=== PATIENT | male | born 1940 | race Caucasian/White ===

== ENCOUNTER 2019-11-13 13:42 | Inpatient (IN) | payer MEDICARE, OTHER ==
[~2019-11-13] VITALS: Ht 182.9 cm; Wt 97.5 kg
[2019-11-13 14:38] LABS: BASO % 1 % (0-3); EOS # 0.2 x10^3/uL (0.0-0.7); EOS % 2 % (0-3); HEMATOCRIT 50.2 % (39.0-53.0); HEMOGLOBIN 16.5 g/dL (13.0-17.5); LYMPH # 2.6 x10^3/uL (1.0-4.8); LYMPH % 33 % (24-48); MEAN CORPUSCULAR HEMOGLOBIN 33 pg (25-35); MEAN CORPUSCULAR HGB CONC 33 g/dL (31-37); MEAN CORPUSCULAR VOLUME 99 fL (79-100); MONO # 0.8 x10^3/uL (0.0-1.1); MONO % 10 % (0-9); NEUT # 4.3 x10^3uL (1.8-7.7); NEUT % 54 % (31-73); PLATELET COUNT 160 x10^3/uL (140-400); RED BLOOD COUNT 5.07 x10^6/uL (4.30-5.70); RED CELL DISTRIBUTION WIDTH 14.3 % (11.5-14.5); WHITE BLOOD COUNT 7.9 x10^3/uL (4.0-11.0)
[2019-11-13 14:45] LABS: ALBUMIN 3.7 g/dL (3.4-5.0); DIRECT BILIRUBIN 0.1 mg/dL (0.0-0.2); TOTAL BILIRUBIN 0.3 mg/dL (0.2-1.0); TOTAL PROTEIN 6.7 g/dL (6.4-8.2)
--- NOTE | 2019-11-13 14:55 | PHYS DOC ---
Past History Past Medical History: Anxiety, Bipolar, Dementia, Hypertension, Other Additional Past Medical Histor: mdd, hld, asphasia, edema neoplasm of prostate Past Surgical History: Other Additional Past Surgical Histo: unknown Alcohol Use: None Adult General Chief Complaint Chief Complaint: OTHER COMPLAINTS [facility] HPI Patient is a 78-year-old male who presents to ER for medical clearance for [facility]. Patient from [facility] and has report of behavioral disturbance with aggressive behavior towards staff. Patient denies any chest pain or shortness of breath.[] Review of Systems Review of Systems Constitutional: Denies fever or chills [] Respiratory: Denies cough or shortness of breath [] Cardiovascular: No additional information not addressed in HPI [] GI: Denies abdominal pain, nausea, vomiting, bloody stools or diarrhea [] Integument: Denies rash or skin lesions [] Neurologic: Denies headache, focal weakness or sensory changes [] All other systems were reviewed and found to be within normal limits, except as documented in this note. Allergies Allergies Allergies Coded Allergies Type Severity Reaction Last Updated Verified tetanus toxoid, adsorbed Allergy Unknown 11/13/19 Yes Physical Exam Physical Exam Constitutional: Well developed, well nourished, no acute distress, non-toxic appearance. [] HENT: Normocephalic, atraumatic, bilateral external ears normal, oropharynx moist, no oral exudates, nose normal. [] Eyes: PERRLA, EOMI, conjunctiva normal, no discharge. [] Neck: Normal range of motion, no tenderness, supple, no stridor. [] Cardiovascular: Regular rate and rhythm[] Lungs & Thorax: Bilateral breath sounds clear to auscultation [] Abdomen: Bowel sounds normal, soft, no tenderness. [] Skin: Warm, dry, no erythema, no rash. [] Extremities: No tenderness, no cyanosis, no clubbing, ROM intact. [] Neurologic: Alert and oriented X 3, no focal deficits noted. [] Current Patient Data Vital Signs Vital Signs Date Time Temp Pulse Resp B/P (MAP) Pulse Ox O2 Delivery O2 Flow Rate FiO2 11/13/19 13:45 98.6 74 18 129/70 (89) 95 Room Air Lab Results Laboratory Tests Test 11/13/19 13:50 Total Bilirubin 0.3 mg/dL (0.2-1.0) Direct Bilirubin 0.1 mg/dL (0.0-0.2) Aspartate Amino Transferase (AST) 28 U/L (15-37) Alanine Aminotransferase (ALT) 34 U/L (16-63) Alkaline Phosphatase 97 U/L (46-116) Total Protein 6.7 g/dL (6.4-8.2) Albumin 3.7 g/dL (3.4-5.0) EKG EKG [] Radiology/Procedures Radiology/Procedures [] Course & Med Decision Making Course & Med Decision Making Pertinent Labs and Imaging studies reviewed. (See chart for details) [] Dragon Disclaimer Dragon Disclaimer This electronic medical record was generated, in whole or in part, using a voice recognition dictation system. Departure Departure: Impression: Primary Impression: Behavior disturbance Disposition: ADMITTED INPATIENT Admitting Physician: Other Condition: STABLE Referrals: UNKNOWN (PCP) ROMEL NUNEZ Jr. DO Nov 13, 2019 14:55
[2019-11-13 15:27] LABS: ANISOCYTOSIS SLIGHT; PLT ESTIMATE ADEQUATE (ADEQUATE)
[2019-11-13 15:30] LABS: CALCIUM 9.6 mg/dL (8.5-10.1); CREATININE 1.2 mg/dL (0.7-1.3); GFR 58.9; POTASSIUM 4.3 mmol/L (3.5-5.1)
[2019-11-13 15:53] LABS: BARBITURATES NEG (NEG); BENZODIAZEPINES NEG (NEG); CANNABINOIDS NEG (NEG); COCAINE NEG (NEG); METHADONE NEG (NEG); OPIATES NEG (NEG); PHENCYCLIDINE NEG (NEG)
[2019-11-13 15:54] LABS: AMPHETAMINE/METHAMPHETAMINE NEG (NEG)
[2019-11-13 16:06] LABS: BACTERIA,URINE 0 /HPF (0-FEW); BILIRUBIN,URINE NEG (NEG); CLARITY,URINE CLEAR; COLOR,URINE YELLOW; GLUCOSE,URINE NEG (NEG); NITRITE,URINE NEG (NEG); RBC,URINE 0 /HPF (0-2); SQUAMOUS EPITHELIAL CELL,UR OCC /LPF; UROBILINOGEN,URINE 0.2 mg/dL (0.2 mg/dL)
--- NOTE | 2019-11-13 17:53 | EKG ---
[address] [address] Test Date: 2019-11-13 Test Time: 14:27:21 Pat Name: ERIC GIL Department: Room: [facility] 1 Gender: M Biology Internship: : 1940 Requested By: ROMEL NUNEZ Order Number: [id number] Reading MD: Amando Larkin MD Measurements Intervals [employer] Rate: 67 P: 43 WY: 144 QRS: 51 QRSD: 78 T: 42 QT: 400 QTc: 426 Interpretive Statements SINUS RHYTHM Electronically Signed On 11-26-2019 10:17:37 CDT by Amando Larkin MD
[2019-11-13 18:05] VITALS: BP 147/76
[2019-11-13] MEDS ORDERED: MAG HYDROX/AL HYDROX/SIMETH 30 ML ORAL.SUSP PO PRN (18:30)
[2019-11-13] MEDS ORDERED: MAGNESIUM HYDROXIDE 2,400 MG/30 ML ORAL.SUSP. PO PRN (18:30)
[2019-11-13] MEDS ORDERED: METHYL SALICYLATE/MENTHOL TOPICAL OINTMENT 57GM TUBE. TP PRN (18:30)
[2019-11-13] MEDS ORDERED: ACETAMINOPHEN 325 MG TABLET PO PRN (18:30)
[2019-11-13] MEDS ORDERED: FURO-69 PO (18:49)
[2019-11-13] MEDS ORDERED: ESCITALOPRAM OX10 MG PO (18:49)
[2019-11-13] MEDS ORDERED: ATORVASTATIN CA80 MG PO (18:49)
[2019-11-13] MEDS ORDERED: METO25TA4 PO ×2 (18:49)
[2019-11-13] MEDS ORDERED: TRAM50TA PO (18:49)
[2019-11-13] MEDS ORDERED: LOPE2TAB27 PO ×2 (18:49)
[2019-11-13] MEDS ORDERED: DONE10TA7 PO (18:49)
[2019-11-13] MEDS ORDERED: POLY17PO5 PO (18:49)
[2019-11-13] MEDS ORDERED: BUSP10TA PO (18:49)
[2019-11-13] MEDS ORDERED: CLOP75TA57 PO (18:49)
[2019-11-13] MEDS ORDERED: DIVA500T2 PO ×2 (18:49)
[2019-11-13] MEDS ORDERED: LOPERAMIDE HCL 4 MG PO PRN (19:00)
[2019-11-13] MEDS ORDERED: LOPERAMIDE HCL 2 MG PO PRN (19:00)
[2019-11-13] MEDS ORDERED: LOPERAMIDE 2 MG CAPSULE PO PRN (19:15)
[2019-11-13] MEDS: METOPROLOL TART IMMED RELEASE 25 MG TABLET PO SCH (20:51)
[2019-11-13] MEDS: DIVALPROEX SODIUM 250 MG TABLET.DR. PO SCH (20:52)
[2019-11-13] MEDS: busPIRone 10 MG TABLET. PO SCH (20:52)
[2019-11-13] MEDS: DONEPEZIL HCL 10 MG TABLET PO SCH (20:52)
[2019-11-13] MEDS: traMADol 50 MG TABLET PO PRN (20:52)
[2019-11-13] MEDS: ATORVASTATIN CALCIUM 20 MG TABLET PO SCH (20:53)
[2019-11-13] MEDS ORDERED: NON FORMULARY ITEM (Atorvastatin Calcium 80 MG) PO SCH (21:00)
[2019-11-13] MEDS ORDERED: DIVALPROEX SODIUM 500 MG PO SCH (21:00)
--- NOTE | 2019-11-13 21:39 | PDOC ---
Exam Note: Ferny Note: Please also refer to the separate dictated note~for this date of service dictated separately. Discussed the patient with Nursing staff reviewed the chart.~Reviewed interim history and current functioning. Reviewed vital signs,~Labs/ Radiology~and current medications noted below. Continue current treatment with the changes noted in the dictated addendum note Assessment: Vital Signs/I&O: Vital Signs Date Time Temp Pulse Resp B/P (MAP) Pulse Ox O2 Delivery O2 Flow Rate FiO2 11/13/19 20:52 20 97 Room Air 11/13/19 20:51 78 147/76 11/13/19 18:05 98.4 Labs: Laboratory Tests Test 11/13/19 13:50 11/13/19 15:25 White Blood Count 7.9 x10^3/uL (4.0-11.0) Red Blood Count 5.07 x10^6/uL (4.30-5.70) Hemoglobin 16.5 g/dL (13.0-17.5) Hematocrit 50.2 % (39.0-53.0) Mean Corpuscular Volume 99 fL (79-100) Mean Corpuscular Hemoglobin 33 pg (25-35) Mean Corpuscular Hemoglobin Concent 33 g/dL (31-37) Red Cell Distribution Width 14.3 % (11.5-14.5) Platelet Count 160 x10^3/uL (140-400) Neutrophils (%) (Auto) 54 % (31-73) Lymphocytes (%) (Auto) 33 % (24-48) Monocytes (%) (Auto) 10 % (0-9) H Eosinophils (%) (Auto) 2 % (0-3) Basophils (%) (Auto) 1 % (0-3) Neutrophils # (Auto) 4.3 x10^3uL (1.8-7.7) Lymphocytes # (Auto) 2.6 x10^3/uL (1.0-4.8) Monocytes # (Auto) 0.8 x10^3/uL (0.0-1.1) Eosinophils # (Auto) 0.2 x10^3/uL (0.0-0.7) Basophils # (Auto) 0.0 x10^3/uL (0.0-0.2) Platelet Estimate Adequate (ADEQUATE) Large Platelets Occ Anisocytosis Slight Crenated Cell Present Sodium Level 144 mmol/L (136-145) Potassium Level 4.3 mmol/L (3.5-5.1) Chloride Level 105 mmol/L (98-107) Carbon Dioxide Level 29 mmol/L (21-32) Anion Gap 10 (6-14) Blood Urea Nitrogen 14 mg/dL (8-26) Creatinine 1.2 mg/dL (0.7-1.3) Estimated GFR (Cockcroft-Gault) 58.9 Glucose Level 96 mg/dL (70-99) Calcium Level 9.6 mg/dL (8.5-10.1) Magnesium Level 2.3 mg/dL (1.8-2.4) Total Bilirubin 0.3 mg/dL (0.2-1.0) Direct Bilirubin 0.1 mg/dL (0.0-0.2) Aspartate Amino Transferase (AST) 28 U/L (15-37) Alanine Aminotransferase (ALT) 34 U/L (16-63) Alkaline Phosphatase 97 U/L (46-116) Total Protein 6.7 g/dL (6.4-8.2) Albumin 3.7 g/dL (3.4-5.0) Ethyl Alcohol Level < 10 mg/dL (0-10) Urine Collection Type Unknown Urine Color Yellow Urine Clarity Clear Urine pH 6.0 Urine Specific Cobb 1.025 Urine Protein Neg (NEG-TRACE) Urine Glucose (UA) Neg mg/dL (NEG) Urine Ketones (Stick) 15 mg/dL (NEG) Urine Blood Neg (NEG) Urine Nitrite Neg (NEG) Urine Bilirubin Neg (NEG) Urine Urobilinogen Dipstick 0.2 mg/dL (0.2 mg/dL) Urine Leukocyte Esterase Neg (NEG) Urine RBC 0 /HPF (0-2) Urine WBC 1-4 /HPF (0-4) Urine Squamous Epithelial Cells Occ /LPF Urine Bacteria 0 /HPF (0-FEW) Urine Mucus Slight /LPF Urine Opiates Screen Neg (NEG) Urine Methadone Screen Neg (NEG) Urine Barbiturates Neg (NEG) Urine Phencyclidine Screen Neg (NEG) Urine Amphetamine/Methamphetamine Neg (NEG) Urine Benzodiazepines Screen Neg (NEG) Urine Cocaine Screen Neg (NEG) Urine Cannabinoids Screen Neg (NEG) Urine Ethyl Alcohol Neg (NEG) Current Medications: Meds: Current Medications Medications (Trade) Dose Ordered Sig/Ivonne Route PRN Reason Start Time Stop Time Status Last Admin Dose Admin Acetaminophen (Tylenol) 650 mg PRN Q6HRS PRN PO PAIN / TEMP 11/13/19 18:30 11/13/19 20:51 Buspirone HCl (Buspar) 10 mg TID PO 11/13/19 21:00 11/13/19 20:52 Donepezil HCl (Aricept) 10 mg HS PO 11/13/19 21:00 11/13/19 20:52 Metoprolol Tartrate (Lopressor) 25 mg HS PO 11/13/19 21:00 11/13/19 20:51 Tramadol HCl (Ultram) 50 mg PRN Q6HRS PRN PO PAIN 11/13/19 19:00 11/13/19 20:52 Atorvastatin Calcium (Lipitor) 80 mg QHS PO 11/13/19 21:00 11/13/19 20:53 Divalproex Sodium (Depakote) 500 mg QHS PO 11/13/19 21:00 11/13/19 20:52 I have reviewed the current psychotropics carefully including drug interactions. Risk benefit ratio favors no change other than as noted in my dictated progress note. Diagnosis: Problems: (1) Anxiety disorder (2) Bipolar disorder, mixed (3) Bipolar affective, mixed (4) Dementia, vascular, with delusions (5) Dementia in Alzheimer's disease with depression FRANCES HSU MD Nov 13, 2019 21:39
[2019-11-14 05:43] VITALS: BP 136/73
[2019-11-14] MEDS: busPIRone 10 MG TABLET. PO SCH ×3 (08:31→20:00)
[2019-11-14] MEDS: POLYETHYLENE GLYCOL 3350 17 GM PACKET. PO SCH (08:31)
[2019-11-14] MEDS ORDERED: CITALOPRAM 20 MG TABLET. PO SCH (09:00)
[2019-11-14] MEDS: FUROSEMIDE 20 MG TABLET PO SCH (12:31)
[2019-11-14] MEDS: DIVALPROEX SODIUM 250 MG TABLET.DR. PO SCH ×2 (12:32→20:00)
[2019-11-14] MEDS: METOPROLOL TART IMMED RELEASE 25 MG TABLET PO SCH ×2 (12:32→20:00)
[2019-11-14] MEDS: traMADol 50 MG TABLET PO PRN (12:32)
[2019-11-14] MEDS: CLOPIDOGREL BISULFATE 75 MG TABLET PO SCH (12:32)
[2019-11-14] MEDS ORDERED: DIVALPROEX SODIUM 250 MG PO SCH (13:00)
[2019-11-14] MEDS ORDERED: NON FORMULARY ITEM (Escitalopram Oxalate 10 MG) PO SCH (13:00)
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
[2019-11-14 16:28] VITALS: BP 116/72
[2019-11-14 17:31] LABS: THYROID STIM HORMONE (TSH) 2.218 uIU/mL (0.358-3.740)
[2019-11-14 19:07] LABS: THYROXINE 5.6 ug/dL (4.5-12.0)
--- NOTE | 2019-11-14 19:20 | CONS ---
DATE OF CONSULTATION: 11/14/2019 ATTENDING PHYSICIAN: Dr. Aguilar. REASON FOR CONSULTATION: We are asked to see this gentleman for medical consultation and clearance. HISTORY OF PRESENT ILLNESS: The patient is 78 years old. He is retired. He hails from [place], [place]. No family members are here, a very pleasant chap, but he has bipolar disorder. He is a very animated today, and maybe a little manic. He has dementia with delusions. He could not give me much detail in trying to get a history from him. He also has underlying diagnosis of Alzheimer's dementia. Most of the history is gleaned from the old chart. He is unable to explain himself, he becomes fixated. He has been sexually inappropriate to his caretakers. He was sent here for further treatment and evaluation. No family members available. Other medical issues include aphasia, prostate cancer, hyperlipidemia and hypertension. CURRENT MEDICINES: Include the following: He was taking Lipitor 80 mg daily, BuSpar, Plavix, Depakote, Aricept, Celexa, Lasix, and various p.r.n. meds. He could not give me much detail about his family history. SOCIAL HISTORY: He is a nonsmoker. Alcohol history unknown. PHYSICAL EXAMINATION: GENERAL: When I saw him, this is a pleasant gentleman who was alert, oriented and appropriate. He responded to questions appropriately. VITAL SIGNS: On admission showed that he was afebrile. Blood pressure was 136/73, pulse is 62 and regular. His oxygen saturation was 95% on room air. HEAD, EARS, EYES, NOSE, AND THROAT: Pupils are reactive. Sclerae nonicteric. Oropharynx is clear. NECK: Supple, no bruits identified. LUNGS: Otherwise clear. CARDIOVASCULAR: Showed regular heart tones. No gallops, no murmurs. Peripheral pulses are palpable and full. ABDOMEN: Soft, scaphoid, nontender, no organomegaly. Bowel sounds are normoactive. EXTREMITIES: Showed no cyanosis or edema. NEUROLOGIC: Focally intact. Speech is fluent. No focal deficits. PERTINENT LABORATORY DATA: His hemoglobin is 16.5 g/dL with white count of 7900. Electrolytes showed normal sodium, potassium, BUN and creatinine is 1.2 percent. His liver panel was all within normal range. ASSESSMENT: 1. This 78-year-old gentleman is admitted with confusion and inappropriate behavior. He has dementia with bipolar disorder by history. 2. Essential hypertension. 3. Hyperlipidemia. 4. Degenerative arthritis. RECOMMENDATIONS: 1. The patient is stable from a medical standpoint. 2. I reviewed his medications. I do not believe we need to make any adjustments. 3. Diet as tolerated. 4. We shall gladly follow along during the course of the nice gentleman's hospitalization. Thank you again for asking me to see the patient for medical consultation. KAYLYN LEE MD DR: BLAYNE/tg JOB#: [id number] / [id number] KORTNEY West MD
[2019-11-14] MEDS: ATORVASTATIN CALCIUM 20 MG TABLET PO SCH (20:00)
[2019-11-14] MEDS: DONEPEZIL HCL 10 MG TABLET PO SCH (20:00)
[2019-11-14] MEDS: MIRTAZAPINE 7.5 MG TABLET. PO SCH (20:03)
--- NOTE | 2019-11-14 21:58 | PDOC ---
Exam Note: Ferny Note: Please also refer to the separate dictated note~for this date of service dictated separately.~Patient seen individually. Discussed the patient with Nursing staff reviewed the chart.~Reviewed interim history and current functioning. Reviewed vital signs,~Labs/ Radiology~and current medications noted below. Continue current treatment with the changes noted in the dictated addendum note Assessment: Vital Signs/I&O: Vital Signs Date Time Temp Pulse Resp B/P (MAP) Pulse Ox O2 Delivery O2 Flow Rate FiO2 11/14/19 20:00 66 116/72 11/14/19 16:28 98.1 20 97 11/13/19 21:52 Room Air I & O 11/13/19 11/13/19 11/14/19 15:00 23:00 07:00 Intake Total 240 ml Balance 240 ml Current Medications: Meds: Current Medications Medications (Trade) Dose Ordered Sig/Ivonne Route PRN Reason Start Time Stop Time Status Last Admin Dose Admin Clopidogrel Bisulfate (Plavix) 75 mg AFTRNOON PO 11/14/19 13:00 11/14/19 12:32 Furosemide (Lasix) 20 mg AFTRNOON PO 11/14/19 13:00 11/14/19 12:31 Metoprolol Tartrate (Lopressor) 25 mg AFTRNOON PO 11/14/19 13:00 11/14/19 12:32 Polyethylene Glycol (miraLAX) 17 gm DAILY PO 11/14/19 09:00 11/14/19 08:31 Divalproex Sodium (Depakote) 250 mg AFTRNOON PO 11/14/19 13:00 11/14/19 12:32 Citalopram Hydrobromide (CeleXA) 20 mg DAILY PO 11/14/19 09:00 11/14/19 17:05 DC 11/14/19 08:35 Mirtazapine (Remeron) 7.5 mg QHS PO 11/14/19 21:00 11/14/19 20:03 I have reviewed the current psychotropics carefully including drug interactions. Risk benefit ratio favors no change other than as noted in my dictated progress note. Diagnosis: Problems: (1) Anxiety disorder (2) Bipolar disorder, mixed (3) Bipolar affective, mixed (4) Dementia, vascular, with delusions (5) Dementia in Alzheimer's disease with depression (6) Obsessive compulsive disorder (7) Impulse control disorder FRANCES HSU MD Nov 14, 2019 21:58
[2019-11-15 05:48] VITALS: BP 107/64
[2019-11-15] MEDS: POLYETHYLENE GLYCOL 3350 17 GM PACKET. PO SCH (09:00)
[2019-11-15] MEDS: SERTRALINE 50 MG TABLET. PO SCH (09:41)
[2019-11-15] MEDS: busPIRone 10 MG TABLET. PO SCH ×3 (09:41→20:28)
[2019-11-15 11:17] LABS: VAL ACID 35 mcg/mL (50-100)
[2019-11-15] MEDS: DIVALPROEX SODIUM 250 MG TABLET.DR. PO SCH ×2 (12:04→20:28)
[2019-11-15] MEDS: CLOPIDOGREL BISULFATE 75 MG TABLET PO SCH (12:05)
[2019-11-15] MEDS: METOPROLOL TART IMMED RELEASE 25 MG TABLET PO SCH ×2 (12:05→20:29)
[2019-11-15] MEDS: FUROSEMIDE 20 MG TABLET PO SCH (12:05)
--- NOTE | 2019-11-15 12:43 | RAD ---
CT Head without contrast 11/15/2019 10:30 AM Indication: Abnormal behavior Comparison: None Findings: No intracranial hemorrhage is seen. No evidence of acute territorial infarct is seen. Note that CT is limited in sensitivity for acute ischemia. Age-related atrophic changes are noted. There is patchy periventricular and deep white matter hypoattenuation which is nonspecific, but most commonly relates to chronic small vessel disease. No abnormal extra axial fluid collection is identified. No mass effect or midline shift is seen. No acute osseous abnormalities are seen. Impression: 1. No acute intracranial process identified 2. Age-related atrophy, and evidence of chronic small vessel disease as described CT DOSING PQRS STATEMENT: One or more of the following individualized dose reduction techniques were utilized for this examination: 1. Automated exposure control 2. Adjustment of the mA and/or kV according to patient size 3. Use of iterative reconstruction technique Electronically signed by: Geoffrey Sanchez MD (11/15/2019 12:40 PM) [id number]
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
[2019-11-15 15:59] VITALS: BP 112/65
[2019-11-15] MEDS: DONEPEZIL HCL 10 MG TABLET PO SCH (20:28)
[2019-11-15] MEDS: ATORVASTATIN CALCIUM 20 MG TABLET PO SCH (20:28)
[2019-11-15] MEDS: MIRTAZAPINE 7.5 MG TABLET. PO SCH (20:28)
--- NOTE | 2019-11-15 22:59 | PDOC ---
Exam Note: Ferny Note: Please also refer to the separate dictated note~for this date of service dictated separately.~Patient seen individually. Discussed the patient with Nursing staff reviewed the chart.~Reviewed interim history and current functioning. Reviewed vital signs,~Labs/ Radiology~and current medications noted below. Continue current treatment with the changes noted in the dictated addendum note Assessment: Vital Signs/I&O: Vital Signs Date Time Temp Pulse Resp B/P (MAP) Pulse Ox O2 Delivery O2 Flow Rate FiO2 11/15/19 20:29 58 112/65 11/15/19 15:59 98.4 16 96 11/13/19 21:52 Room Air I & O 11/14/19 11/14/19 11/15/19 15:00 23:00 07:00 Intake Total 720 ml 120 ml Balance 720 ml 120 ml Labs: Laboratory Tests Test 11/15/19 09:39 Valproic Acid Level 35 mcg/mL (50-100) L Valproic Acid Last Dose Date 11/14/19 Valproic Acid Last Dose Time 0800 Current Medications: Meds: Current Medications Medications (Trade) Dose Ordered Sig/Ivonne Route PRN Reason Start Time Stop Time Status Last Admin Dose Admin Sertraline HCl (Zoloft) 50 mg DAILY PO 11/15/19 09:00 11/15/19 09:41 I have reviewed the current psychotropics carefully including drug interactions. Risk benefit ratio favors no change other than as noted in my dictated progress note. 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
[2019-11-16] MEDS: OLANZapine 2.5 MG TABLET PO PRN (00:04)
[2019-11-16 06:21] VITALS: BP 116/58
[2019-11-16] MEDS: busPIRone 10 MG TABLET. PO SCH ×3 (08:19→20:26)
[2019-11-16] MEDS: SERTRALINE 50 MG TABLET. PO SCH (08:19)
[2019-11-16] MEDS: POLYETHYLENE GLYCOL 3350 17 GM PACKET. PO SCH (08:20)
[2019-11-16] MEDS: DIVALPROEX SODIUM 250 MG TABLET.DR. PO SCH ×2 (08:20→20:26)
--- NOTE | 2019-11-16 09:28 | PN ---
DATE: 11/14/2019 PSYCHIATRIC PROGRESS NOTE This late entry 11/14/2019 covers elements not covered in my initial note. SUBJECTIVE: I met with the patient evening of 11/14/2019. Per MESFIN Lopez, the patient appears confused, has had a better day. Short term memory is poor. He was found naked in his room, slept 3-1/2 hours previous night. He continues to have some expressive aphasia, anxiety, some mood lability. REVIEW OF SYSTEMS: No CV, , pulmonary, eye system symptoms on review. MENTAL STATUS EXAM: Oriented to himself and situation. Speech coherent, rapid at times. Abstraction fair, computation impaired, language function intact, attention span short. Mood and affect remain somewhat labile. Information we received from family is that the patient had a significant past history of alcohol abuse and drug abuse and family history of Alzheimer's disease. He reportedly did not have a specific diagnosis of bipolar disorder in the past, but given the substance abuse, this might in fact have been present and undiagnosed at that time. REVIEW OF SYSTEMS: Positive for some difficulty expressing himself. No CV, , pulmonary, eye system symptoms on review. MENTAL STATUS EXAM: Oriented to himself and situation. Speech coherent, can be rapid at times. Abstraction fair, computation impaired, language function intact, attention span short. Mood and affect remains labile. LABORATORY DATA: Reviewed. IMPRESSION: Probable bipolar disorder, unspecified; mild cognitive impairment versus major neurocognitive disorder, multifactorial secondary to alcohol, drugs with depression, delusion. Rest unchanged. PLAN: Continue Depakote 250 a.m., 500 at bedtime. Check CBC, CMP, valproic acid level. Change Celexa 20 mg a day to Zoloft 50 mg a day. Continue Aricept 10 mg a day, BuSpar 10 mg t.i.d., start Remeron 7.5 mg at bedtime to help with insomnia and anxiety. We will make further changes as clinically indicated. MAN Evens HSU MD DR: [email or web address]/tg JOB#: [id number] / [id number]
--- NOTE | 2019-11-16 09:38 | PN ---
DATE: 11/15/2019 PSYCHIATRIC PROGRESS NOTE This late entry 11/15/2019 covers elements not covered in my initial note. SUBJECTIVE: I met with the patient evening of 11/15/2019. The patient was also staffed at treatment team meeting with the entire team. The patient's niece, Nancy, was to join us for treatment team meeting, but was unavailable. I met with the patient in the evening and treatment team meeting was in the morning. Reviewed information from the family regarding the patient's past alcohol or drug abuse. The patient slept 6-1/2 hours previous night, refused breakfast. We will check a CT head workup of his memory deficits and valproic acid level. At the time of this dictation, valproic acid level is 35 on Depakote 250 in the afternoon, 500 at night and we will increase it to 500 twice a day. Check CBC, CMP, valproic acid level in 3 days. No CV, , pulmonary, eye system symptoms on review, met with him in his room. He is anxious, restless, paranoid with some ongoing mood lability and some short-term memory deficits. REVIEW OF SYSTEMS: No CV, , pulmonary, eye system symptoms on review. MENTAL STATUS EXAM: Oriented to himself and situation. Speech coherent, rapid at times. Abstraction fair, computation impaired, language function intact, attention span short. Mood and affect remain somewhat labile. LABORATORY DATA: Reviewed. IMPRESSION: Bipolar disorder, mixed with psychotic features, mild cognitive impairment versus major neurocognitive disorder, multifactorial secondary to alcohol, drugs with delusion, depression. Rest unchanged. PLAN: Adjust the Depakote as above. Continue BuSpar, Zoloft, Aricept, Remeron along with Zyprexa p.r.n. MAN Evens HSU MD DR: MICAELA/tg JOB#: [id number] / [id number]
[2019-11-16] MEDS: FUROSEMIDE 20 MG TABLET PO SCH (12:37)
[2019-11-16] MEDS: CLOPIDOGREL BISULFATE 75 MG TABLET PO SCH (12:37)
[2019-11-16] MEDS: METOPROLOL TART IMMED RELEASE 25 MG TABLET PO SCH ×2 (12:37→20:27)
[2019-11-16 16:22] VITALS: BP 104/62
[2019-11-16] MEDS: ATORVASTATIN CALCIUM 20 MG TABLET PO SCH (20:26)
[2019-11-16] MEDS: DONEPEZIL HCL 10 MG TABLET PO SCH (20:26)
[2019-11-16] MEDS: MIRTAZAPINE 7.5 MG TABLET. PO SCH (20:27)
--- NOTE | 2019-11-16 22:44 | PDOC ---
Exam Note: Ferny Note: Please also refer to the separate dictated note~for this date of service dictated separately.~ Discussed the patient with Nursing staff reviewed the chart.~Reviewed interim history and current functioning. Reviewed vital signs,~Labs/ Radiology~and current medications noted below. Continue current treatment with the changes noted in the dictated addendum note Assessment: Vital Signs/I&O: Vital Signs Date Time Temp Pulse Resp B/P (MAP) Pulse Ox O2 Delivery O2 Flow Rate FiO2 11/16/19 20:27 58 104/62 11/16/19 16:22 97.5 18 96 11/16/19 06:21 Room Air I & O 11/15/19 11/15/19 11/16/19 15:00 23:00 07:00 Intake Total 840 ml 600 ml Balance 840 ml 600 ml Current Medications: Meds: Current Medications Medications (Trade) Dose Ordered Sig/Ivonne Route PRN Reason Start Time Stop Time Status Last Admin Dose Admin Divalproex Sodium (Depakote) 500 mg BID PO 11/16/19 09:00 11/16/19 20:26 I have reviewed the current psychotropics carefully including drug interactions. Risk benefit ratio favors no change other than as noted in my dictated progress note. 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
[2019-11-17 06:42] VITALS: BP 146/76
[2019-11-17] MEDS: busPIRone 10 MG TABLET. PO SCH ×3 (08:41→20:31)
[2019-11-17] MEDS: POLYETHYLENE GLYCOL 3350 17 GM PACKET. PO SCH (08:41)
[2019-11-17] MEDS: DIVALPROEX SODIUM 250 MG TABLET.DR. PO SCH ×2 (08:41→20:31)
[2019-11-17] MEDS: SERTRALINE 50 MG TABLET. PO SCH (08:41)
[2019-11-17] MEDS: METOPROLOL TART IMMED RELEASE 25 MG TABLET PO SCH ×2 (13:00→20:31)
[2019-11-17] MEDS: CLOPIDOGREL BISULFATE 75 MG TABLET PO SCH (13:00)
[2019-11-17] MEDS: FUROSEMIDE 20 MG TABLET PO SCH (13:00)
[2019-11-17 16:01] VITALS: BP 125/75
[2019-11-17] MEDS: MIRTAZAPINE 7.5 MG TABLET. PO SCH (20:31)
[2019-11-17] MEDS: DONEPEZIL HCL 10 MG TABLET PO SCH (20:31)
[2019-11-17] MEDS: ATORVASTATIN CALCIUM 20 MG TABLET PO SCH (20:31)
--- NOTE | 2019-11-17 22:36 | PDOC ---
Exam Note: Ferny Note: Please also refer to the separate dictated note~for this date of service dictated separately. Discussed the patient with Nursing staff reviewed the chart.~Reviewed interim history and current functioning. Reviewed vital signs,~Labs/ Radiology~and current medications noted below. Continue current treatment with the changes noted in the dictated addendum note Assessment: Vital Signs/I&O: Vital Signs Date Time Temp Pulse Resp B/P (MAP) Pulse Ox O2 Delivery O2 Flow Rate FiO2 11/17/19 20:31 56 125/75 11/17/19 16:01 98.0 20 95 11/17/19 06:42 Room Air I & O 11/16/19 11/16/19 11/17/19 15:00 23:00 07:00 Intake Total 960 ml 360 ml Balance 960 ml 360 ml Current Medications: I have reviewed the current psychotropics carefully including drug interactions. Risk benefit ratio favors no change other than as noted in my dictated progress note. 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
[2019-11-18 06:08] VITALS: BP 132/70
[2019-11-18] MEDS: busPIRone 10 MG TABLET. PO SCH ×3 (08:09→20:03)
[2019-11-18] MEDS: DIVALPROEX SODIUM 250 MG TABLET.DR. PO SCH ×2 (08:09→20:03)
[2019-11-18] MEDS: SERTRALINE 50 MG TABLET. PO SCH (08:09)
[2019-11-18] MEDS: POLYETHYLENE GLYCOL 3350 17 GM PACKET. PO SCH (08:09)
[2019-11-18 12:13] LABS: VAL ACID 58 mcg/mL (50-100)
[2019-11-18] MEDS: METOPROLOL TART IMMED RELEASE 25 MG TABLET PO SCH ×2 (12:40→20:03)
[2019-11-18] MEDS: CLOPIDOGREL BISULFATE 75 MG TABLET PO SCH (12:40)
[2019-11-18] MEDS: FUROSEMIDE 20 MG TABLET PO SCH (12:40)
[2019-11-18 16:29] VITALS: BP 109/63
[2019-11-18 19:57] VITALS: BP 144/72
[2019-11-18] MEDS: MIRTAZAPINE 7.5 MG TABLET. PO SCH (20:03)
[2019-11-18] MEDS: DONEPEZIL HCL 10 MG TABLET PO SCH (20:03)
[2019-11-18] MEDS: ATORVASTATIN CALCIUM 20 MG TABLET PO SCH (20:04)
--- NOTE | 2019-11-18 21:44 | PDOC ---
Exam Note: Ferny Note: Please also refer to the separate dictated note~for this date of service dictated separately. Discussed the patient with Nursing staff reviewed the chart.~Reviewed interim history and current functioning. Reviewed vital signs,~Labs/ Radiology~and current medications noted below. Continue current treatment with the changes noted in the dictated addendum note Assessment: Vital Signs/I&O: Vital Signs Date Time Temp Pulse Resp B/P (MAP) Pulse Ox O2 Delivery O2 Flow Rate FiO2 11/18/19 20:03 63 144/72 11/18/19 19:57 94 11/18/19 16:29 98.1 20 Room Air I & O 11/17/19 11/17/19 11/18/19 15:00 23:00 07:00 Intake Total 1300 ml 900 ml Balance 1300 ml 900 ml Labs: Laboratory Tests Test 11/18/19 10:27 Valproic Acid Level 58 mcg/mL (50-100) Valproic Acid Last Dose Date 11/18/19 Valproic Acid Last Dose Time 0900 Current Medications: I have reviewed the current psychotropics carefully including drug interactions. Risk benefit ratio favors no change other than as noted in my dictated progress note. 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
[2019-11-19 05:31] VITALS: BP 122/66
[2019-11-19 07:27] LABS: BASO % 0 % (0-3); EOS # 0.3 x10^3/uL (0.0-0.7); EOS % 5 % (0-3); HEMATOCRIT 42.5 % (39.0-53.0); HEMOGLOBIN 13.9 g/dL (13.0-17.5); LYMPH # 2.2 x10^3/uL (1.0-4.8); LYMPH % 37 % (24-48); MEAN CORPUSCULAR HEMOGLOBIN 33 pg (25-35); MEAN CORPUSCULAR HGB CONC 33 g/dL (31-37); MEAN CORPUSCULAR VOLUME 100 fL (79-100); MONO # 0.6 x10^3/uL (0.0-1.1); MONO % 10 % (0-9); NEUT # 2.9 x10^3uL (1.8-7.7); NEUT % 48 % (31-73); PLATELET COUNT 118 x10^3/uL (140-400); RED BLOOD COUNT 4.28 x10^6/uL (4.30-5.70); RED CELL DISTRIBUTION WIDTH 14.6 % (11.5-14.5); WHITE BLOOD COUNT 6.1 x10^3/uL (4.0-11.0)
[2019-11-19 07:46] LABS: ALBUMIN 2.8 g/dL (3.4-5.0); ALBUMIN/GLOBULIN RATIO 1.2 (1.0-1.7); ALK PHOS 68 U/L (46-116); ALT (SGPT) 25 U/L (16-63); ANION GAP 7 (6-14); AST (SGOT) 23 U/L (15-37); BLOOD UREA NITROGEN 17 mg/dL (8-26); BUN/CREATININE RATIO 17 (6-20); CALCIUM 8.3 mg/dL (8.5-10.1); CARBON DIOXIDE 30 mmol/L (21-32); CHLORIDE 109 mmol/L (98-107); GFR 72.6; GLUCOSE 80 mg/dL (70-99); POTASSIUM 3.9 mmol/L (3.5-5.1); SODIUM 146 mmol/L (136-145); TOTAL BILIRUBIN 0.2 mg/dL (0.2-1.0); TOTAL PROTEIN 5.2 g/dL (6.4-8.2)
[2019-11-19 07:49] LABS: VAL ACID 43 mcg/mL (50-100)
[2019-11-19] MEDS: DIVALPROEX SODIUM 250 MG TABLET.DR. PO SCH ×2 (08:46→19:46)
[2019-11-19] MEDS: SERTRALINE 50 MG TABLET. PO SCH (08:46)
[2019-11-19] MEDS: POLYETHYLENE GLYCOL 3350 17 GM PACKET. PO SCH (08:46)
[2019-11-19] MEDS: busPIRone 10 MG TABLET. PO SCH ×3 (08:46→19:46)
[2019-11-19] MEDS: METOPROLOL TART IMMED RELEASE 25 MG TABLET PO SCH ×2 (13:00→19:46)
[2019-11-19] MEDS: CLOPIDOGREL BISULFATE 75 MG TABLET PO SCH (13:39)
[2019-11-19] MEDS: FUROSEMIDE 20 MG TABLET PO SCH (13:41)
[2019-11-19 16:17] VITALS: BP 126/75
[2019-11-19] MEDS: MIRTAZAPINE 7.5 MG TABLET. PO SCH (19:45)
[2019-11-19] MEDS: ATORVASTATIN CALCIUM 20 MG TABLET PO SCH (19:46)
[2019-11-19] MEDS: DONEPEZIL HCL 10 MG TABLET PO SCH (19:46)
--- NOTE | 2019-11-19 21:45 | PDOC ---
Exam Note: Ferny Note: Please also refer to the separate dictated note~for this date of service dictated separately. Discussed the patient with Nursing staff reviewed the chart.~Reviewed interim history and current functioning. Reviewed vital signs,~Labs/ Radiology~and current medications noted below. Continue current treatment with the changes noted in the dictated addendum note Assessment: Vital Signs/I&O: Vital Signs Date Time Temp Pulse Resp B/P (MAP) Pulse Ox O2 Delivery O2 Flow Rate FiO2 11/19/19 19:46 58 126/75 11/19/19 16:17 98.4 16 96 11/18/19 16:29 Room Air I & O 11/18/19 11/18/19 11/19/19 15:00 23:00 07:00 Intake Total 720 ml 580 ml Balance 720 ml 580 ml Labs: Laboratory Tests Test 11/19/19 06:45 White Blood Count 6.1 x10^3/uL (4.0-11.0) Red Blood Count 4.28 x10^6/uL (4.30-5.70) L Hemoglobin 13.9 g/dL (13.0-17.5) Hematocrit 42.5 % (39.0-53.0) Mean Corpuscular Volume 100 fL (79-100) Mean Corpuscular Hemoglobin 33 pg (25-35) Mean Corpuscular Hemoglobin Concent 33 g/dL (31-37) Red Cell Distribution Width 14.6 % (11.5-14.5) H Platelet Count 118 x10^3/uL (140-400) L Neutrophils (%) (Auto) 48 % (31-73) Lymphocytes (%) (Auto) 37 % (24-48) Monocytes (%) (Auto) 10 % (0-9) H Eosinophils (%) (Auto) 5 % (0-3) H Basophils (%) (Auto) 0 % (0-3) Neutrophils # (Auto) 2.9 x10^3uL (1.8-7.7) Lymphocytes # (Auto) 2.2 x10^3/uL (1.0-4.8) Monocytes # (Auto) 0.6 x10^3/uL (0.0-1.1) Eosinophils # (Auto) 0.3 x10^3/uL (0.0-0.7) Basophils # (Auto) 0.0 x10^3/uL (0.0-0.2) Sodium Level 146 mmol/L (136-145) H Potassium Level 3.9 mmol/L (3.5-5.1) Chloride Level 109 mmol/L (98-107) H Carbon Dioxide Level 30 mmol/L (21-32) Anion Gap 7 (6-14) Blood Urea Nitrogen 17 mg/dL (8-26) Creatinine 1.0 mg/dL (0.7-1.3) Estimated GFR (Cockcroft-Gault) 72.6 BUN/Creatinine Ratio 17 (6-20) Glucose Level 80 mg/dL (70-99) Calcium Level 8.3 mg/dL (8.5-10.1) L Total Bilirubin 0.2 mg/dL (0.2-1.0) Aspartate Amino Transferase (AST) 23 U/L (15-37) Alanine Aminotransferase (ALT) 25 U/L (16-63) Alkaline Phosphatase 68 U/L (46-116) Total Protein 5.2 g/dL (6.4-8.2) L Albumin 2.8 g/dL (3.4-5.0) L Albumin/Globulin Ratio 1.2 (1.0-1.7) Valproic Acid Level 43 mcg/mL (50-100) L Valproic Acid Last Dose Date 11/18/19 Valproic Acid Last Dose Time 2100 Current Medications: I have reviewed the current psychotropics carefully including drug interactions. Risk benefit ratio favors no change other than as noted in my dictated progress note. Diagnosis: Problems: (1) Impulse control disorder (2) Obsessive compulsive disorder (3) Anxiety disorder (4) Bipolar disorder, mixed (5) Dementia, vascular, with delusions (6) Dementia in Alzheimer's disease with depression FRANCES HSU MD Nov 19, 2019 21:45
[2019-11-20 05:44] VITALS: BP 131/75
[2019-11-20] MEDS: DIVALPROEX SODIUM 250 MG TABLET.DR. PO SCH ×2 (08:57→19:49)
[2019-11-20] MEDS: POLYETHYLENE GLYCOL 3350 17 GM PACKET. PO SCH (08:57)
[2019-11-20] MEDS: SERTRALINE 50 MG TABLET. PO SCH (08:57)
[2019-11-20] MEDS: busPIRone 10 MG TABLET. PO SCH ×3 (08:57→19:49)
[2019-11-20] MEDS: CLOPIDOGREL BISULFATE 75 MG TABLET PO SCH (12:22)
[2019-11-20] MEDS: FUROSEMIDE 20 MG TABLET PO SCH (12:22)
[2019-11-20] MEDS: METOPROLOL TART IMMED RELEASE 25 MG TABLET PO SCH ×2 (13:18→19:49)
[2019-11-20 15:35] VITALS: BP 154/74
[2019-11-20] MEDS: DONEPEZIL HCL 10 MG TABLET PO SCH (19:49)
[2019-11-20] MEDS: MIRTAZAPINE 7.5 MG TABLET. PO SCH (19:49)
[2019-11-20] MEDS: ATORVASTATIN CALCIUM 20 MG TABLET PO SCH (19:49)
[2019-11-21] MEDS: OLANZapine 2.5 MG TABLET PO PRN (02:48)
[2019-11-21 06:01] VITALS: BP 109/68
--- NOTE | 2019-11-21 06:29 | PDOC ---
Exam Note: Ferny Note: This is a late entry for 11/16/2019. Currently, the unit is shutdown for any admissions and discharges as directed by the Centers for Disease Control (CDC) and the [facility] and [facility] ([facility]) because of Coronavirus (COVID-19) exposure on the unit. S/O: This is a Telepsychiatry Progress Note. This note covers elements not covered in my initial note. The patient was reviewed with nursing staff, reviewed the chart and TeleHealth Services provided for this date for the patient. Discussed the patient with MESFIN Loya. The patient has been fairly cooperative on the unit, compliant with his medications. He is tolerating the Depakote which was increased and labs level are awaited. ROS: No CV, GI system symptoms on review. MSE: Oriented to himself and situation. Speech has some latency. Abstraction fair. Computation impaired. Short-term memory is impaired. No suicidal or homicidal ideation. He has not been sexually inappropriate. Labs: Reviewed. 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 History of bipolar disorder, mixed. Plan: No change from initial note. Assessment: Vital Signs/I&O: Vital Signs Date Time Temp Pulse Resp B/P (MAP) Pulse Ox O2 Delivery O2 Flow Rate FiO2 11/21/19 06:01 98.2 81 20 109/68 (82) 95 11/18/19 16:29 Room Air I & O 0 11/20/19 11/20/19 11/21/19 15:00 23:00 07:00 Intake Total 720 ml 340 ml Balance 720 ml 340 ml Current Medications: I have reviewed the current psychotropics carefully including drug interactions. Risk benefit ratio favors no change other than as noted in my dictated progress note. 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
--- NOTE | 2019-11-21 07:22 | PDOC ---
Exam Note: Ferny Note: This is a late entry for 11/17/2019. Currently, the unit is shutdown for any admissions and discharges as directed by the Centers for Disease Control (CDC) and the [facility] and Environment ([facility]) because of Coronavirus (COVID-19) exposure on the unit. S/O: This note covers elements not covered in my initial note. The patient was reviewed with nursing staff, reviewed the chart and TeleHealth Services provided for this date for the patient. Discussed the patient with MESFIN Loya. ROS: No CV, GI system symptoms on review. MSE: Oriented to himself and situation. Speech has some latency. Abstraction fair. Computation impaired. Short-term memory is impaired. No suicidal or homicidal ideation. He has not been sexually inappropriate. Labs: Reviewed. 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 History of bipolar disorder, mixed. Plan: No change from initial note. Assessment: Vital Signs/I&O: Vital Signs Date Time Temp Pulse Resp B/P (MAP) Pulse Ox O2 Delivery O2 Flow Rate FiO2 11/21/19 06:01 98.2 81 20 109/68 (82) 95 11/18/19 16:29 Room Air I & O 11/20/19 11/20/19 11/21/19 15:00 23:00 07:00 Intake Total 720 ml 340 ml Balance 720 ml 340 ml Current Medications: I have reviewed the current psychotropics carefully including drug interactions. Risk benefit ratio favors no change other than as noted in my dictated progress note. 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
--- NOTE | 2019-11-21 07:51 | PDOC ---
Exam Note: Ferny Note: This is a late entry 11/18/2019. Currently, the unit is shutdown for any admissions and discharges as directed by the Centers for Disease Control (CDC) and the [facility] and [facility] ([facility]) because of Coronavirus (COVID-19) exposure on the unit. S/O: This note covers elements not covered in my initial note. The patient was reviewed with nursing staff, reviewed the chart and TeleHealth Services provided for this date for the patient. Discussed the patient with MESFIN Loya. Overall, he is doing little better. Valproic acid level is 58 therapeutic and we will check CBC, CMP morning of 11/19/2019. ROS: No CV, GI system symptoms on review. MSE: Oriented to himself and situation. Speech has some latency. Abstraction fair. Computation impaired. Short-term memory is impaired. No suicidal or homicidal ideation. Labs: Reviewed. 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 History of bipolar disorder, mixed. Plan: No change from initial note. Assessment: Vital Signs/I&O: Vital Signs Date Time Temp Pulse Resp B/P (MAP) Pulse Ox O2 Delivery O2 Flow Rate FiO2 11/21/19 06:01 98.2 81 20 109/68 (82) 95 11/18/19 16:29 Room Air I & O 11/20/19 11/20/19 11/21/19 15:00 23:00 07:00 Intake Total 720 ml 340 ml Balance 720 ml 340 ml Current Medications: I have reviewed the current psychotropics carefully including drug interactions. Risk benefit ratio favors no change other than as noted in my dictated progress note. 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
--- NOTE | 2019-11-21 08:17 | PDOC ---
Exam Note: Ferny Note: This is a late entry for 11/19/2019. Currently, the unit is shutdown for any admissions and discharges as directed by the Centers for Disease Control (CDC) and the [facility] and Environment ([facility]) because of Coronavirus (COVID-19) exposure on the unit. S/O: This note covers elements not covered in my initial note. The patient was reviewed with nursing staff, reviewed the chart and TeleHealth Services provided for this date for the patient. Discussed the patient with Sandra TOURE. Repeat valproic acid level is 43. ROS: No CV, GI system symptoms on review. MSE: Oriented to himself and situation. Speech has some latency. Abstraction fair. Computation impaired. Short-term memory is impaired. No suicidal or homicidal ideation. Labs: Reviewed. AST & ALT are unremarkable. Platelets are 118,000. 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 History of bipolar disorder, mixed. Plan: No change from initial note. Assessment: Vital Signs/I&O: Vital Signs Date Time Temp Pulse Resp B/P (MAP) Pulse Ox O2 Delivery O2 Flow Rate FiO2 11/21/19 06:01 98.2 81 20 109/68 (82) 95 11/18/19 16:29 Room Air I & O 11/20/19 11/20/19 11/21/19 15:00 23:00 07:00 Intake Total 720 ml 340 ml Balance 720 ml 340 ml Current Medications: I have reviewed the current psychotropics carefully including drug interactions. Risk benefit ratio favors no change other than as noted in my dictated progress note. 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
--- NOTE | 2019-11-21 08:46 | PDOC ---
Exam Note: Ferny Note: This is a late entry for 11/20/2019. Currently, the unit is shutdown for any admissions and discharges as directed by the Centers for Disease Control (CDC) and the [facility] and [facility] ([facility]) because of Coronavirus (COVID-19) exposure on the unit. S/O: This note covers elements not covered in my initial note. The patient was reviewed with nursing staff, reviewed the chart and TeleHealth Services provided for this date for the patient. Discussed the patient with Sandra TOURE. Slept 7-1/2 hours. Repeat valproic acid level will be checked in the morning since the prior level was 58 therapeutic and without dosage changed it had dropped to 43 on November 19, 2019. Keny TOURE coordinated the video-conferencing call with the patient in his room. ROS: No CV, , GI, Pulmonary system symptoms on review. MSE: Patient is oriented to himself. Speech coherent, rapid at times. Abstraction fair. Computation impaired. Language function intact. He thought I was an old friend of his and seemed to be fixated on this during the individual visit over teleconference. He seemed somewhat delusional but not agitated, very appreciative of my visiting with him over the teleconference. No active suicidal or homicidal ideation. Mood and affect is labile. Labs: Reviewed. 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 History of bipolar disorder, mixed. Plan: Repeat valproic acid level in the morning. Rest unchanged for now. Assessment: Vital Signs/I&O: Vital Signs Date Time Temp Pulse Resp B/P (MAP) Pulse Ox O2 Delivery O2 Flow Rate FiO2 11/21/19 06:01 98.2 81 20 109/68 (82) 95 11/18/19 16:29 Room Air I & O 11/20/19 11/20/19 11/21/19 15:00 23:00 07:00 Intake Total 720 ml 340 ml Balance 720 ml 340 ml Current Medications: I have reviewed the current psychotropics carefully including drug interactions. Risk benefit ratio favors no change other than as noted in my dictated progress note. 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
[2019-11-21] MEDS: POLYETHYLENE GLYCOL 3350 17 GM PACKET. PO SCH (09:00)
[2019-11-21] MEDS: busPIRone 10 MG TABLET. PO SCH ×3 (10:01→20:12)
[2019-11-21] MEDS: DIVALPROEX SODIUM 250 MG TABLET.DR. PO SCH ×2 (10:01→20:12)
[2019-11-21] MEDS: SERTRALINE 50 MG TABLET. PO SCH (10:01)
[2019-11-21 10:07] LABS: VAL ACID 47 mcg/mL (50-100)
[2019-11-21] MEDS: METOPROLOL TART IMMED RELEASE 25 MG TABLET PO SCH ×2 (13:35→20:12)
[2019-11-21] MEDS: CLOPIDOGREL BISULFATE 75 MG TABLET PO SCH (13:35)
[2019-11-21] MEDS: FUROSEMIDE 20 MG TABLET PO SCH (13:36)
[2019-11-21 16:19] VITALS: BP 131/72
[2019-11-21] MEDS: MIRTAZAPINE 7.5 MG TABLET. PO SCH (20:12)
[2019-11-21] MEDS: DONEPEZIL HCL 10 MG TABLET PO SCH (20:12)
[2019-11-21] MEDS: ATORVASTATIN CALCIUM 20 MG TABLET PO SCH (20:12)
--- NOTE | 2019-11-21 23:08 | PDOC ---
Exam Note: Ferny Note: S/O: This note covers elements not covered in my initial note. The patient was reviewed with nursing staff, reviewed the chart. Discussed with Vesta TOURE. I saw the patient on a video-conferencing call coordinated with Keny TOURE. He is doing better, remains delusional, believes he went on an safari over the last few days. ROS: No CV, , Pulmonary, Eye system symptoms on review. MSE: He is quite verbal, animated on the tele-videoconference. Again confused, thought he knew from other situations. Speech coherent, rapid at times. Abstraction fair. Computation impaired. Language function intact. Mood and affect somewhat over-animated. No suicidal or homicidal ideation. Labs: Reviewed. Imp: Unchanged from initial note. Plan: No change from initial note. Assessment: Vital Signs/I&O: Vital Signs Date Time Temp Pulse Resp B/P (MAP) Pulse Ox O2 Delivery O2 Flow Rate FiO2 11/21/19 20:12 61 131/72 11/21/19 16:19 98.2 16 97 Room Air I & O 11/20/19 11/20/19 11/21/19 15:00 23:00 07:00 Intake Total 720 ml 340 ml Balance 720 ml 340 ml Labs: Laboratory Tests Test 11/21/19 06:17 Valproic Acid Level 47 mcg/mL (50-100) L Valproic Acid Last Dose Date 11/20/19 Valproic Acid Last Dose Time 2100 Current Medications: I have reviewed the current psychotropics carefully including drug interactions. Risk benefit ratio favors no change other than as noted in my dictated progress note. 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
[2019-11-22 06:25] VITALS: BP 133/76
[2019-11-22] MEDS: busPIRone 10 MG TABLET. PO SCH ×3 (08:45→20:51)
[2019-11-22] MEDS: SERTRALINE 50 MG TABLET. PO SCH (08:45)
[2019-11-22] MEDS: DIVALPROEX SODIUM 250 MG TABLET.DR. PO SCH (08:45)
[2019-11-22] MEDS: POLYETHYLENE GLYCOL 3350 17 GM PACKET. PO SCH (08:45)
[2019-11-22] MEDS: FUROSEMIDE 20 MG TABLET PO SCH (12:44)
[2019-11-22] MEDS: CLOPIDOGREL BISULFATE 75 MG TABLET PO SCH (12:44)
[2019-11-22] MEDS: METOPROLOL TART IMMED RELEASE 25 MG TABLET PO SCH ×2 (12:48→20:51)
[2019-11-22] MEDS: DIVALPROEX 125 MG CAP.SPRINK PO SCH (16:17)
[2019-11-22 16:20] VITALS: BP 136/62
[2019-11-22] MEDS: DONEPEZIL HCL 10 MG TABLET PO SCH (20:51)
[2019-11-22] MEDS: MIRTAZAPINE 7.5 MG TABLET. PO SCH (20:51)
[2019-11-22] MEDS: ATORVASTATIN CALCIUM 20 MG TABLET PO SCH (20:51)
--- NOTE | 2019-11-22 23:45 | PDOC ---
Exam Note: Ferny Note: S/O: This note covers elements not covered in my initial note. Discussed the patient with nursing staff, reviewed the chart. In the morning, the patient had treatment team meeting with the entire team nursing staff, social service staff and myself and TeleHealth Services provided via audio-visual visit in the evening coordinated with Keny TOURE. Patients appetite 100%. Sleeping average 7 hours, confused, compliant with treatment. He was quite animated as he interacted with me in the evening with the audio-visual communication. I questioned him on the orientation. He was unaware of the year, felt it was 2017. 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 ROS: He is lying in bed. No CV, , Pulmonary, Eye system symptoms on review. MSE: He is oriented to himself. Insight and judgment, recent and remote memory, attention and concentration, fund of knowledge is poor consistent with his diagnosis. Labs: Reviewed. Valproic acid level is 47 subtherapeutic. Imp: Bipolar disorder mixed with psychotic features. 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 Anxiety disorder, unspecified. Impulse control disorder unspecified. Plan: We will increase Depakote from 500 mg b.i.d. to 500 mg a.m. and 750 mg h.s. Check CBC, CMP, valproic acid level in 3 days to reach a therapeutic level. Continue BuSpar 10 mg 3 times a day, Zoloft 50 mg a day, Aricept 10 mg h.s., Remeron 7.5 mg h.s., Zyprexa p.r.n. Assessment: Vital Signs/I&O: Vital Signs Date Time Temp Pulse Resp B/P (MAP) Pulse Ox O2 Delivery O2 Flow Rate FiO2 11/22/19 20:51 65 136/62 11/22/19 16:20 98.1 20 96 Room Air I & O 11/21/19 11/21/19 11/22/19 15:00 23:00 07:00 Intake Total 1080 ml 480 ml Balance 1080 ml 480 ml Current Medications: Meds: Current Medications Medications (Trade) Dose Ordered Sig/Ivonne Route PRN Reason Start Time Stop Time Status Last Admin Dose Admin Divalproex Sodium (Depakote Sprinkles) 750 mg 1700 PO 11/22/19 17:00 11/22/19 16:17 I have reviewed the current psychotropics carefully including drug interactions. Risk benefit ratio favors no change other than as noted in my dictated progress note. 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
[2019-11-23 05:44] VITALS: BP 143/77
[2019-11-23] MEDS: POLYETHYLENE GLYCOL 3350 17 GM PACKET. PO SCH (08:20)
[2019-11-23] MEDS: DIVALPROEX SODIUM 250 MG TABLET.DR. PO SCH (08:21)
[2019-11-23] MEDS: busPIRone 10 MG TABLET. PO SCH ×3 (08:21→19:41)
[2019-11-23] MEDS: SERTRALINE 50 MG TABLET. PO SCH (08:21)
[2019-11-23] MEDS: CLOPIDOGREL BISULFATE 75 MG TABLET PO SCH (13:00)
[2019-11-23] MEDS: METOPROLOL TART IMMED RELEASE 25 MG TABLET PO SCH ×2 (13:00→19:41)
[2019-11-23] MEDS: FUROSEMIDE 20 MG TABLET PO SCH (13:00)
[2019-11-23 15:54] VITALS: BP 117/61
[2019-11-23] MEDS: DIVALPROEX 125 MG CAP.SPRINK PO SCH (17:00)
[2019-11-23] MEDS: MIRTAZAPINE 7.5 MG TABLET. PO SCH (19:40)
[2019-11-23] MEDS: ATORVASTATIN CALCIUM 20 MG TABLET PO SCH (19:41)
[2019-11-23] MEDS: DONEPEZIL HCL 10 MG TABLET PO SCH (19:41)
[2019-11-24 06:08] VITALS: BP 166/82
[2019-11-24] MEDS: POLYETHYLENE GLYCOL 3350 17 GM PACKET. PO SCH (08:29)
[2019-11-24] MEDS: busPIRone 10 MG TABLET. PO SCH ×3 (08:29→19:24)
[2019-11-24] MEDS: DIVALPROEX SODIUM 250 MG TABLET.DR. PO SCH (08:30)
[2019-11-24] MEDS: SERTRALINE 50 MG TABLET. PO SCH (08:30)
[2019-11-24] MEDS: FUROSEMIDE 20 MG TABLET PO SCH (14:09)
[2019-11-24] MEDS: CLOPIDOGREL BISULFATE 75 MG TABLET PO SCH (14:09)
[2019-11-24] MEDS: METOPROLOL TART IMMED RELEASE 25 MG TABLET PO SCH ×2 (14:09→19:24)
[2019-11-24 16:02] VITALS: BP 117/60
[2019-11-24] MEDS: DIVALPROEX 125 MG CAP.SPRINK PO SCH (16:53)
[2019-11-24] MEDS: OLANZapine 2.5 MG TABLET PO PRN (17:00)
[2019-11-24] MEDS: DONEPEZIL HCL 10 MG TABLET PO SCH (19:24)
[2019-11-24] MEDS: ATORVASTATIN CALCIUM 20 MG TABLET PO SCH (19:25)
[2019-11-24] MEDS: MIRTAZAPINE 7.5 MG TABLET. PO SCH (19:25)
[2019-11-25 06:39] VITALS: BP 122/69
--- NOTE | 2019-11-25 07:54 | PDOC ---
Exam Note: Ferny Note: S/O: This note is a late entry for DOS 11/23/2019 covers elements not covered in my initial note. Discussed the patient with nursing staff, reviewed the chart. Discussed with Hananh TOURE. I met with the patient on the videoconference call in the evening coordinated by Keny TOURE. ROS: Oriented. No CV, , Pulmonary, Eye system symptoms on review. MSE: He is oriented to himself. Insight and judgment, recent and remote memory, attention and concentration, fund of knowledge is poor consistent with his diagnosis. Labs: Reviewed. Imp: Bipolar disorder mixed with psychotic features. 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 Anxiety disorder, unspecified. Impulse control disorder unspecified. Plan: Continue psychotropics unchanged from initial note. Assessment: Vital Signs/I&O: Vital Signs Date Time Temp Pulse Resp B/P (MAP) Pulse Ox O2 Delivery O2 Flow Rate FiO2 11/25/19 06:39 97.6 51 16 122/69 (86) 97 Room Air I & O 11/24/19 11/24/19 11/25/19 15:00 23:00 07:00 Intake Total 1060 ml 360 ml 240 ml Balance 1060 ml 360 ml 240 ml Current Medications: I have reviewed the current psychotropics carefully including drug interactions. Risk benefit ratio favors no change other than as noted in my dictated progress note. 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
--- NOTE | 2019-11-25 08:19 | PDOC ---
Exam Note: Ferny Note: S/O: This note is a late entry for DOS 11/24/2019 covers elements not covered in my initial note. Discussed the patient with nursing staff, reviewed the chart. Discussed with Sven TOURE. I met with the patient audio-visually in the evening coordinated by Caro TOURE. He has been increasingly anxious because of on e or the other demented patients yelling constantly. Nursing staff are considering changing his room. We are waiting labs to be drawn on 11/25/2019 for his valproic acid. ROS: Met with him in his room in the evening. No CV, , Pulmonary, Eye system symptoms on review. MSE: He is oriented to himself. Insight and judgment, recent and remote memory, attention and concentration, fund of knowledge is poor consistent with his diagnosis. Labs: Reviewed. Imp: Bipolar disorder mixed with psychotic features. 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 Anxiety disorder, unspecified. Impulse control disorder unspecified. Plan: No change from initial note. Assessment: Vital Signs/I&O: Vital Signs Date Time Temp Pulse Resp B/P (MAP) Pulse Ox O2 Delivery O2 Flow Rate FiO2 11/25/19 06:39 97.6 51 16 122/69 (86) 97 Room Air I & O 11/24/19 11/24/19 11/25/19 15:00 23:00 07:00 Intake Total 1060 ml 360 ml 240 ml Balance 1060 ml 360 ml 240 ml Current Medications: I have reviewed the current psychotropics carefully including drug interactions. Risk benefit ratio favors no change other than as noted in my dictated progress note. 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
[2019-11-25] MEDS: POLYETHYLENE GLYCOL 3350 17 GM PACKET. PO SCH (08:29)
[2019-11-25] MEDS: SERTRALINE 50 MG TABLET. PO SCH (08:29)
[2019-11-25] MEDS: busPIRone 10 MG TABLET. PO SCH ×3 (08:30→20:36)
[2019-11-25] MEDS: DIVALPROEX SODIUM 250 MG TABLET.DR. PO SCH (08:30)
[2019-11-25 09:24] LABS: ALBUMIN 3.3 g/dL (3.4-5.0); ALBUMIN/GLOBULIN RATIO 1.1 (1.0-1.7); ALK PHOS 80 U/L (46-116); ALT (SGPT) 26 U/L (16-63); ANION GAP 7 (6-14); AST (SGOT) 25 U/L (15-37); BLOOD UREA NITROGEN 18 mg/dL (8-26); BUN/CREATININE RATIO 20 (6-20); CARBON DIOXIDE 31 mmol/L (21-32); CHLORIDE 106 mmol/L (98-107); CREATININE 0.9 mg/dL (0.7-1.3); GLUCOSE 98 mg/dL (70-99); POTASSIUM 4.2 mmol/L (3.5-5.1); SODIUM 144 mmol/L (136-145); TOTAL BILIRUBIN 0.3 mg/dL (0.2-1.0); TOTAL PROTEIN 6.3 g/dL (6.4-8.2)
[2019-11-25 09:35] LABS: BASO % 0 % (0-3); EOS # 0.3 x10^3/uL (0.0-0.7); EOS % 4 % (0-3); HEMATOCRIT 47.8 % (39.0-53.0); HEMOGLOBIN 15.7 g/dL (13.0-17.5); LYMPH % 35 % (24-48); MEAN CORPUSCULAR HEMOGLOBIN 33 pg (25-35); MEAN CORPUSCULAR HGB CONC 33 g/dL (31-37); MEAN CORPUSCULAR VOLUME 99 fL (79-100); MONO # 0.5 x10^3/uL (0.0-1.1); MONO % 9 % (0-9); NEUT % 51 % (31-73); PLATELET COUNT 132 x10^3/uL (140-400); RED BLOOD COUNT 4.83 x10^6/uL (4.30-5.70); RED CELL DISTRIBUTION WIDTH 14.4 % (11.5-14.5); WHITE BLOOD COUNT 5.8 x10^3/uL (4.0-11.0)
[2019-11-25 09:36] LABS: VAL ACID 52 mcg/mL (50-100)
[2019-11-25 12:25] LABS: PLT ESTIMATE ADEQUATE (ADEQUATE)
[2019-11-25 12:28] LABS: BURR CELLS FEW
[2019-11-25] MEDS: CLOPIDOGREL BISULFATE 75 MG TABLET PO SCH (12:52)
[2019-11-25] MEDS: FUROSEMIDE 20 MG TABLET PO SCH (12:52)
[2019-11-25] MEDS: METOPROLOL TART IMMED RELEASE 25 MG TABLET PO SCH ×2 (12:52→20:37)
[2019-11-25] MEDS: OLANZapine 2.5 MG TABLET PO PRN (14:27)
[2019-11-25 16:13] VITALS: BP 129/70
[2019-11-25] MEDS: DIVALPROEX 125 MG CAP.SPRINK PO SCH (17:12)
[2019-11-25] MEDS: ATORVASTATIN CALCIUM 20 MG TABLET PO SCH (20:36)
[2019-11-25] MEDS: DONEPEZIL HCL 10 MG TABLET PO SCH (20:37)
[2019-11-25] MEDS: MIRTAZAPINE 7.5 MG TABLET. PO SCH (20:37)
--- NOTE | 2019-11-25 22:55 | PDOC ---
Exam Note: Ferny Note: S/O: This note covers elements not covered in my initial note. The patient was seen on TeleHealth rounds evening of 11/25/2019 by Edith TOURE. Discussed the patient with nursing staff, reviewed the chart. Nursing report discussed with Hannah TOURE. Overall the patient remains confused, somewhat delusional, believes he is going to [place] with me for a Safari, looking for a job. Valproic acid level therapeutic at 52. He gets agitated due to another patient on the unit who is quite loud and disruptive. ROS: No CV, , Pulmonary, Eye system symptoms on review. MSE: Oriented to himself, quite verbal, animated, confused, paranoid. Speech coherent, rapid at times. Abstraction fair. Computation impaired. Language function intact. Mood and affect remains somewhat labile. Labs: Reviewed. Imp: Bipolar disorder mixed with psychotic features. 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 Anxiety d isorder, unspecified. Impulse control disorder unspecified. Plan: Continue medications mentioned under his current psychotropics. Assessment: Vital Signs/I&O: Vital Signs Date Time Temp Pulse Resp B/P (MAP) Pulse Ox O2 Delivery O2 Flow Rate FiO2 11/25/19 20:37 60 129/70 11/25/19 16:13 98.4 20 97 Room Air I & O 11/24/19 11/24/19 11/25/19 15:00 23:00 07:00 Intake Total 1060 ml 360 ml 240 ml Balance 1060 ml 360 ml 240 ml Labs: Laboratory Tests Test 11/25/19 08:25 White Blood Count 5.8 x10^3/uL (4.0-11.0) Red Blood Count 4.83 x10^6/uL (4.30-5.70) Hemoglobin 15.7 g/dL (13.0-17.5) Hematocrit 47.8 % (39.0-53.0) Mean Corpuscular Volume 99 fL (79-100) Mean Corpuscular Hemoglobin 33 pg (25-35) Mean Corpuscular Hemoglobin Concent 33 g/dL (31-37) Red Cell Distribution Width 14.4 % (11.5-14.5) Platelet Count 132 x10^3/uL (140-400) L Neutrophils (%) (Auto) 51 % (31-73) Lymphocytes (%) (Auto) 35 % (24-48) Monocytes (%) (Auto) 9 % (0-9) Eosinophils (%) (Auto) 4 % (0-3) H Basophils (%) (Auto) 0 % (0-3) Neutrophils # (Auto) 3.0 x10^3uL (1.8-7.7) Lymphocytes # (Auto) 2.0 x10^3/uL (1.0-4.8) Monocytes # (Auto) 0.5 x10^3/uL (0.0-1.1) Eosinophils # (Auto) 0.3 x10^3/uL (0.0-0.7) Basophils # (Auto) 0.0 x10^3/uL (0.0-0.2) Platelet Estimate Adequate (ADEQUATE) Large Platelets Giant Platelets Present [place] Cells Few Sodium Level 144 mmol/L (136-145) Potassium Level 4.2 mmol/L (3.5-5.1) Chloride Level 106 mmol/L (98-107) Carbon Dioxide Level 31 mmol/L (21-32) Anion Gap 7 (6-14) Blood Urea Nitrogen 18 mg/dL (8-26) Creatinine 0.9 mg/dL (0.7-1.3) Estimated GFR (Cockcroft-Gault) 82.0 BUN/Creatinine Ratio 20 (6-20) Glucose Level 98 mg/dL (70-99) Calcium Level 9.0 mg/dL (8.5-10.1) Total Bilirubin 0.3 mg/dL (0.2-1.0) Aspartate Amino Transferase (AST) 25 U/L (15-37) Alanine Aminotransferase (ALT) 26 U/L (16-63) Alkaline Phosphatase 80 U/L (46-116) Total Protein 6.3 g/dL (6.4-8.2) L Albumin 3.3 g/dL (3.4-5.0) L Albumin/Globulin Ratio 1.1 (1.0-1.7) Valproic Acid Level 52 mcg/mL (50-100) Valproic Acid Last Dose Date 11/24/19 Valproic Acid Last Dose Time 1700 Current Medications: I have reviewed the current psychotropics carefully including drug interactions. Risk benefit ratio favors no change other than as noted in my dictated progress note. 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
[2019-11-26 06:01] VITALS: BP 132/74
[2019-11-26] MEDS: SERTRALINE 50 MG TABLET. PO SCH (08:12)
[2019-11-26] MEDS: DIVALPROEX SODIUM 250 MG TABLET.DR. PO SCH (08:12)
[2019-11-26] MEDS: busPIRone 10 MG TABLET. PO SCH ×3 (08:12→20:15)
[2019-11-26] MEDS: POLYETHYLENE GLYCOL 3350 17 GM PACKET. PO SCH (08:13)
[2019-11-26 13:31] VITALS: BP 114/64
[2019-11-26] MEDS: METOPROLOL TART IMMED RELEASE 25 MG TABLET PO SCH ×2 (13:37→20:15)
[2019-11-26] MEDS: FUROSEMIDE 20 MG TABLET PO SCH (13:38)
[2019-11-26] MEDS: CLOPIDOGREL BISULFATE 75 MG TABLET PO SCH (13:38)
[2019-11-26 16:08] VITALS: BP 151/75
[2019-11-26] MEDS: DIVALPROEX 125 MG CAP.SPRINK PO SCH (17:20)
[2019-11-26] MEDS: DONEPEZIL HCL 10 MG TABLET PO SCH (20:15)
[2019-11-26] MEDS: MIRTAZAPINE 7.5 MG TABLET. PO SCH (20:15)
[2019-11-26] MEDS: ATORVASTATIN CALCIUM 20 MG TABLET PO SCH (20:16)
--- NOTE | 2019-11-26 23:00 | PDOC ---
Exam Note: Ferny Note: S/O: This note covers elements not covered in my initial note. The patient was seen on TeleHealth rounds coordinated by Edith TOURE. Discussed the patient with nursing staff, reviewed the chart. Nursing report was from Oliva TOURE. Patient slept 6-3/4 hours. He has been wandering the hallway, talking about wanting to get back to [place], [place]. Does have expressive aphasia. ROS: No CV, , Pulmonary, Eye system symptoms on review. MSE: Oriented to himself and situation. Speech coherent, rapid at times. Abstraction fair. Computation impaired. Language function intact. As I met with him he was convinced he was working with me that we had a republican together last evening that he wanted to travel to [facility] and things that he did not want to tell the nursing staff that we had done together. He seemed quite delusional but not disruptive. No suicidal or homicidal ideation. Labs: Reviewed. Imp: Bipolar disorder mixed with psychotic features. 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 Anxiety disorder, unspecified. Impulse control disorder unspecified. Plan: Continue psychotropics from initial note but may consider adding low dose atypical antipsychotic. We will give it another day and decide. For now continue BuSpar, Depakote, Zoloft, Aricept along with Remeron. Valproic acid level is 47. Labs to be repeated and we will adjust the dosage thereafter. Assessment: Vital Signs/I&O: Vital Signs Date Time Temp Pulse Resp B/P (MAP) Pulse Ox O2 Delivery O2 Flow Rate FiO2 11/26/19 20:15 59 151/75 11/26/19 16:08 98.1 18 96 Room Air I & O 11/25/19 11/25/19 11/26/19 15:00 23:00 07:00 Intake Total 720 ml 840 ml Balance 720 ml 840 ml Current Medications: I have reviewed the current psychotropics carefully including drug interactions. Risk benefit ratio favors no change other than as noted in my dictated progress note. Diagnosis: Problems: (1) Impulse control disorder (2) Obsessive compulsive disorder (3) Anxiety disorder (4) Bipolar disorder, mixed (5) Dementia, vascular, with delusions (6) Dementia in Alzheimer's disease with depression FRANCES HSU MD Nov 26, 2019 23:00
[2019-11-27 06:24] VITALS: BP 133/73
[2019-11-27] MEDS: POLYETHYLENE GLYCOL 3350 17 GM PACKET. PO SCH (08:23)
[2019-11-27] MEDS: busPIRone 10 MG TABLET. PO SCH ×3 (08:23→19:41)
[2019-11-27] MEDS: SERTRALINE 50 MG TABLET. PO SCH (08:23)
[2019-11-27] MEDS: DIVALPROEX SODIUM 250 MG TABLET.DR. PO SCH (08:23)
[2019-11-27] MEDS: FUROSEMIDE 20 MG TABLET PO SCH (12:18)
[2019-11-27] MEDS: CLOPIDOGREL BISULFATE 75 MG TABLET PO SCH (12:18)
[2019-11-27] MEDS: METOPROLOL TART IMMED RELEASE 25 MG TABLET PO SCH ×2 (12:22→19:48)
[2019-11-27 12:24] VITALS: BP 120/61
[2019-11-27 15:35] VITALS: BP 118/68
[2019-11-27] MEDS: DIVALPROEX 125 MG CAP.SPRINK PO SCH (17:05)
[2019-11-27] MEDS: MIRTAZAPINE 7.5 MG TABLET. PO SCH (19:41)
[2019-11-27] MEDS: DONEPEZIL HCL 10 MG TABLET PO SCH (19:41)
[2019-11-27] MEDS: ATORVASTATIN CALCIUM 20 MG TABLET PO SCH (19:42)
--- NOTE | 2019-11-27 22:02 | PDOC ---
Exam Note: Ferny Note: Please also refer to the separate dictated note~for this date of service dictated separately. Discussed the patient with Nursing staff reviewed the chart.~Reviewed interim history and current functioning. Reviewed vital signs,~Labs/ Radiology~and current medications noted below. Continue current treatment with the changes noted in the dictated addendum note Assessment: Vital Signs/I&O: Vital Signs Date Time Temp Pulse Resp B/P (MAP) Pulse Ox O2 Delivery O2 Flow Rate FiO2 11/27/19 19:48 58 118/68 11/27/19 15:35 98.0 18 97 11/26/19 16:08 Room Air I & O 11/26/19 11/26/19 11/27/19 15:00 23:00 07:00 Intake Total 960 ml 600 ml Balance 960 ml 600 ml Current Medications: I have reviewed the current psychotropics carefully including drug interactions. Risk benefit ratio favors no change other than as noted in my dictated progress note. 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
[2019-11-28 06:27] VITALS: BP 139/82
[2019-11-28] MEDS: POLYETHYLENE GLYCOL 3350 17 GM PACKET. PO SCH (08:06)
[2019-11-28] MEDS: SERTRALINE 50 MG TABLET. PO SCH (08:07)
[2019-11-28] MEDS: DIVALPROEX SODIUM 250 MG TABLET.DR. PO SCH (08:07)
[2019-11-28] MEDS: busPIRone 10 MG TABLET. PO SCH ×3 (08:07→20:50)
--- NOTE | 2019-11-28 10:45 | PDOC ---
Exam Note: Ferny Note: S/O: This note is a late entry for DOS 11/27/2019 covers elements not covered in my initial note. The patient was seen on TeleHealth rounds coordinated by Janet TOURE in the evening. Discussed the patient with nursing staff, reviewed the chart. Nursing report was with Ciera OTURE and that he slept 6 hours. He is pleasant, confused. ROS: No CV, , Pulmonary, Eye system symptoms on review. MSE: Oriented to himself and situation. Speech coherent, rapid. Abstraction fair. Computation impaired. Language function intact. He was again talking about doing projects with me, somewhat delusional but not aggressive, agitated. No suicidal or homicidal ideation. Labs: Reviewed. Imp: Bipolar disorder mixed with psychotic features. 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 Anxiety disorder, unspecified. Impulse control disorder unspecified. Plan: Continue psychotropics unchanged from my note as mentioned. Assessment: Vital Signs/I&O: Vital Signs Date Time Temp Pulse Resp B/P (MAP) Pulse Ox O2 Delivery O2 Flow Rate FiO2 11/28/19 06:27 97.6 54 18 139/82 (101) 97 11/26/19 16:08 Room Air I & O 11/27/19 11/27/19 11/28/19 15:00 23:00 07:00 Intake Total 960 ml 600 ml Balance 960 ml 600 ml Current Medications: I have reviewed the current psychotropics carefully including drug interactions. Risk benefit ratio favors no change other than as noted in my dictated progress note. 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
[2019-11-28] MEDS: FUROSEMIDE 20 MG TABLET PO SCH (12:38)
[2019-11-28] MEDS: CLOPIDOGREL BISULFATE 75 MG TABLET PO SCH (12:38)
[2019-11-28] MEDS: METOPROLOL TART IMMED RELEASE 25 MG TABLET PO SCH ×2 (12:45→20:50)
[2019-11-28 15:40] VITALS: BP 124/67
[2019-11-28] MEDS: DIVALPROEX 125 MG CAP.SPRINK PO SCH (18:22)
[2019-11-28] MEDS: MIRTAZAPINE 7.5 MG TABLET. PO SCH (20:45)
[2019-11-28] MEDS: ATORVASTATIN CALCIUM 20 MG TABLET PO SCH (20:50)
[2019-11-28] MEDS: DONEPEZIL HCL 10 MG TABLET PO SCH (20:50)
--- NOTE | 2019-11-28 21:59 | PDOC ---
Exam Note: Ferny Note: Please also refer to the separate dictated note~for this date of service dictated separately.~Patient seen individually. Discussed the patient with Nursing staff reviewed the chart.~Reviewed interim history and current functioning. Reviewed vital signs,~Labs/ Radiology~and current medications noted below. Continue current treatment with the changes noted in the dictated addendum note Assessment: Vital Signs/I&O: Vital Signs Date Time Temp Pulse Resp B/P (MAP) Pulse Ox O2 Delivery O2 Flow Rate FiO2 11/28/19 20:50 65 124/67 11/28/19 15:40 97.9 18 98 11/26/19 16:08 Room Air I & O 11/27/19 11/27/19 11/28/19 15:00 23:00 07:00 Intake Total 960 ml 600 ml Balance 960 ml 600 ml Current Medications: I have reviewed the current psychotropics carefully including drug interactions. Risk benefit ratio favors no change other than as noted in my dictated progress note. Diagnosis: Problems: (1) Impulse control disorder (2) Obsessive compulsive disorder (3) Anxiety disorder (4) Bipolar disorder, mixed (5) Dementia, vascular, with delusions (6) Dementia in Alzheimer's disease with depression FRANCES HSU MD Nov 28, 2019 21:58
[2019-11-29 05:59] VITALS: BP 114/68
[2019-11-29] MEDS: SERTRALINE 50 MG TABLET. PO SCH (09:07)
[2019-11-29] MEDS: DIVALPROEX SODIUM 250 MG TABLET.DR. PO SCH (09:07)
[2019-11-29] MEDS: POLYETHYLENE GLYCOL 3350 17 GM PACKET. PO SCH (09:07)
[2019-11-29] MEDS: busPIRone 10 MG TABLET. PO SCH ×3 (09:07→20:44)
--- NOTE | 2019-11-29 10:40 | PDOC ---
Exam Note: Ferny Note: S/O: This note is a late entry for DOS 11/28/2019 covers elements not covered in my initial note. We have had exposure of COVID-19 on the unit consequent to a staff member. The unit was on lockdown per [facility] ([facility])/Centers for Disease Control (CDC). Three patients had dev eloped fever and other symptoms for which they were screened for the COVID-19, two of which have come back negative, result for one is awaited and one other patient today is running a fever and we are doing a COVID-19 screen for this patient. Per regulations from the CDC/[facility], we are unable to admit or discharge any patients, still all of this is negative and the length of stay has affected not entirely by the clinical situation but by this directive additionally from the [facility]/CDC. The patient was seen on TeleHealth rounds coordinated by Ciera TOURE in the evening. Discussed the patient with nursing staff, reviewed the chart. Nursing report was with Ciera TOURE and that he slept 6-3/4 hours previous night. The patient has been social cooperative but quite delusional. He believes he has gone on an [place] with me and gets somewhat paranoid at times with nursing staff. ROS: No CV, , Pulmonary, Eye system symptoms on review. MSE: Oriented to himself and situation. Speech coherent, rapid. Abstraction fair. Computation impaired. Language function intact. Attention span short. Mood and affect remains somewhat anxious, labile. As I met with him audio- visually he was talking about getting together again like we did in the past. Labs: Reviewed. Imp: Psychotic disorder unspecified. Expressive aphasia. 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 Rest unchanged. Plan: No change from initial note. Assessment: Vital Signs/I&O: Vital Signs Date Time Temp Pulse Resp B/P (MAP) Pulse Ox O2 Delivery O2 Flow Rate FiO2 11/29/19 05:59 97.5 57 16 114/68 (83) 97 11/26/19 16:08 Room Air I & O 11/28/19 11/28/19 11/29/19 15:00 23:00 07:00 Intake Total 960 ml 480 ml Balance 960 ml 480 ml Current Medications: I have reviewed the current psychotropics carefully including drug interactions. Risk benefit ratio favors no change other than as noted in my dictated progress note. 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
[2019-11-29] MEDS: FUROSEMIDE 20 MG TABLET PO SCH (13:30)
[2019-11-29] MEDS: CLOPIDOGREL BISULFATE 75 MG TABLET PO SCH (13:30)
[2019-11-29] MEDS: METOPROLOL TART IMMED RELEASE 25 MG TABLET PO SCH ×2 (13:31→20:45)
[2019-11-29 16:04] VITALS: BP 124/67
[2019-11-29] MEDS: DIVALPROEX 125 MG CAP.SPRINK PO SCH (17:06)
[2019-11-29] MEDS: MIRTAZAPINE 7.5 MG TABLET. PO SCH (20:44)
[2019-11-29] MEDS: ATORVASTATIN CALCIUM 20 MG TABLET PO SCH (20:44)
[2019-11-29] MEDS: DONEPEZIL HCL 10 MG TABLET PO SCH (20:45)
[2019-11-29] MEDS: risperiDONE 0.25 MG TABLET. PO SCH (20:45)
--- NOTE | 2019-11-29 22:02 | PDOC ---
Exam Note: Ferny Note: Please also refer to the separate dictated note~for this date of service dictated separately.~Patient seen individually. Discussed the patient with Nursing staff reviewed the chart.~Reviewed interim history and current functioning. Reviewed vital signs,~Labs/ Radiology~and current medications noted below. Continue current treatment with the changes noted in the dictated addendum note Assessment: Vital Signs/I&O: Vital Signs Date Time Temp Pulse Resp B/P (MAP) Pulse Ox O2 Delivery O2 Flow Rate FiO2 11/29/19 20:45 56 124/67 11/29/19 18:30 98.0 11/29/19 16:04 18 97 11/26/19 16:08 Room Air I & O 11/28/19 11/28/19 11/29/19 15:00 23:00 07:00 Intake Total 960 ml 480 ml Balance 960 ml 480 ml Current Medications: Meds: Current Medications Medications (Trade) Dose Ordered Sig/Ivonne Route PRN Reason Start Time Stop Time Status Last Admin Dose Admin Risperidone (RisperDAL) 0.25 mg HS PO 11/29/19 21:00 11/29/19 20:45 I have reviewed the current psychotropics carefully including drug interactions. Risk benefit ratio favors no change other than as noted in my dictated progress note. Diagnosis: Problems: (1) Impulse control disorder (2) Obsessive compulsive disorder (3) Anxiety disorder (4) Bipolar disorder, mixed (5) Dementia, vascular, with delusions (6) Dementia in Alzheimer's disease with depression FRANCES HSU MD Nov 29, 2019 22:02
[2019-11-30 06:14] VITALS: BP 134/87
[2019-11-30] MEDS: DIVALPROEX SODIUM 250 MG TABLET.DR. PO SCH (07:56)
[2019-11-30] MEDS: SERTRALINE 50 MG TABLET. PO SCH (07:56)
[2019-11-30] MEDS: busPIRone 10 MG TABLET. PO SCH ×3 (07:56→20:34)
[2019-11-30] MEDS: POLYETHYLENE GLYCOL 3350 17 GM PACKET. PO SCH (07:57)
--- NOTE | 2019-11-30 13:02 | PDOC ---
Exam Note: Ferny Note: S/O: This note is a late entry for DOS 11/29/2019 covers elements not covered in my initial note. We are still waiting on the COVID-19 screen on two patients before the unit can be opened for admissions and discharges per the [place] [facility] ([facility])/Centers for Disease Control (CDC). Discussed the patient with nursing staff, reviewed the chart. Treatment team meeting was done in the morning with social service staff Shirley in Activity Therapy, Ciera TOURE, nursing staff and myself. The patient was seen on audio- visual rounds in the evening with Janet TOURE. Appetite is 100%. Sleeping average 7 hours naps during the day. He has been talking about feeling somewhat depressed, still talking about going on a Safari to [place] with me. Believes the year is 1937 and when asked who the President is he responds Trumpster. He believes he lives in [place], [place]. At times seems more oriented than others. ROS: No CV, , Pulmonary, Eye, ENT system symptoms on review. MSE: Oriented to himself and at times situation. Speech coherent, can be rapid at times. Abstraction fair. Computation impaired. Language function intact. Mood and affect remains somewhat labile. He remains somewhat delusional. Labs: Reviewed. Imp: Psychotic disorder unspecified. Expressive aphasia. 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 Plan: Continue psychotropics from initial note. Patient is somewhat delusional, paranoid, and we had a lengthy discussion pros and cons of adding 0.25 mg h.s. and we will see how he does with this. Assessment: Vital Signs/I&O: Vital Signs Date Time Temp Pulse Resp B/P (MAP) Pulse Ox O2 Delivery O2 Flow Rate FiO2 11/30/19 06:14 98.1 60 20 134/87 (103) 97 11/26/19 16:08 Room Air I & O 11/29/19 11/29/19 11/30/19 15:00 23:00 07:00 Intake Total 600 ml 450 ml Balance 600 ml 450 ml Current Medications: Meds: Current Medications Medications (Trade) Dose Ordered Sig/Ivonne Route PRN Reason Start Time Stop Time Status Last Admin Dose Admin Risperidone (RisperDAL) 0.25 mg HS PO 11/29/19 21:00 11/29/19 20:45 I have reviewed the current psychotropics carefully including drug interactions. Risk benefit ratio favors no change other than as noted in my dictated progress note. Diagnosis: Problems: (1) Impulse control disorder (2) Obsessive compulsive disorder (3) Anxiety disorder (4) Bipolar disorder, mixed (5) Dementia, vascular, with delusions (6) Dementia in Alzheimer's disease with depression FRANCES HSU MD Nov 30, 2019 13:02
[2019-11-30] MEDS: CLOPIDOGREL BISULFATE 75 MG TABLET PO SCH (13:24)
[2019-11-30] MEDS: FUROSEMIDE 20 MG TABLET PO SCH (13:24)
[2019-11-30] MEDS: METOPROLOL TART IMMED RELEASE 25 MG TABLET PO SCH ×2 (13:26→20:34)
[2019-11-30 16:23] VITALS: BP 127/67
[2019-11-30] MEDS: DIVALPROEX 125 MG CAP.SPRINK PO SCH (17:00)
[2019-11-30] MEDS: DONEPEZIL HCL 10 MG TABLET PO SCH (20:33)
[2019-11-30] MEDS: risperiDONE 0.25 MG TABLET. PO SCH (20:34)
[2019-11-30] MEDS: MIRTAZAPINE 7.5 MG TABLET. PO SCH (20:34)
[2019-11-30] MEDS: ATORVASTATIN CALCIUM 20 MG TABLET PO SCH (20:34)
--- NOTE | 2019-11-30 22:05 | PDOC ---
Exam Note: Ferny Note: Please also refer to the separate dictated note~for this date of service dictated separately.~Patient seen individually. Discussed the patient with Nursing staff reviewed the chart.~Reviewed interim history and current functioning. Reviewed vital signs,~Labs/ Radiology~and current medications noted below. Continue current treatment with the changes noted in the dictated addendum note Assessment: Vital Signs/I&O: Vital Signs Date Time Temp Pulse Resp B/P (MAP) Pulse Ox O2 Delivery O2 Flow Rate FiO2 11/30/19 20:34 79 127/67 11/30/19 16:23 98.4 18 96 11/26/19 16:08 Room Air I & O 11/29/19 11/29/19 11/30/19 15:00 23:00 07:00 Intake Total 600 ml 450 ml Balance 600 ml 450 ml Current Medications: I have reviewed the current psychotropics carefully including drug interactions. Risk benefit ratio favors no change other than as noted in my dictated progress note. Diagnosis: Problems: (1) Impulse control disorder (2) Obsessive compulsive disorder (3) Anxiety disorder (4) Bipolar disorder, mixed (5) Bipolar affective, mixed (6) Dementia, vascular, with delusions (7) Dementia in Alzheimer's disease with depression FRANCES HSU MD Nov 30, 2019 22:04
[2019-12-01 05:54] VITALS: BP 134/80
[2019-12-01] MEDS: POLYETHYLENE GLYCOL 3350 17 GM PACKET. PO SCH (07:56)
[2019-12-01] MEDS: busPIRone 10 MG TABLET. PO SCH ×3 (07:57→19:47)
[2019-12-01] MEDS: DIVALPROEX SODIUM 250 MG TABLET.DR. PO SCH (07:57)
[2019-12-01] MEDS: SERTRALINE 50 MG TABLET. PO SCH (08:00)
[2019-12-01] MEDS: FUROSEMIDE 20 MG TABLET PO SCH (12:44)
[2019-12-01] MEDS: METOPROLOL TART IMMED RELEASE 25 MG TABLET PO SCH ×2 (12:44→19:47)
[2019-12-01] MEDS: CLOPIDOGREL BISULFATE 75 MG TABLET PO SCH (12:44)
[2019-12-01 16:13] VITALS: BP 111/68
[2019-12-01] MEDS: DIVALPROEX 125 MG CAP.SPRINK PO SCH (16:56)
[2019-12-01] MEDS: risperiDONE 0.25 MG TABLET. PO SCH (19:46)
[2019-12-01] MEDS: MIRTAZAPINE 7.5 MG TABLET. PO SCH (19:46)
[2019-12-01] MEDS: DONEPEZIL HCL 10 MG TABLET PO SCH (19:46)
[2019-12-01] MEDS: ATORVASTATIN CALCIUM 20 MG TABLET PO SCH (19:46)
--- NOTE | 2019-12-01 21:51 | PDOC ---
Exam Note: Ferny Note: S/O: This note is a late entry for DOS 11/30/2019 covers elements not covered in my initial note. Discussed the patient with nursing staff, reviewed the chart. The patient was seen on audio-visual rounds in the evening with Keny TOURE. He was less fixated on making trips with me but quite animated, verbal, con fused. ROS: No CV, , Pulmonary, Eye, ENT system symptoms on review. MSE: Oriented to himself and at times situation. Speech coherent, can be rapid at times. Abstraction fair. Computation impaired. Language function intact. Mood and affect remains somewhat labile, somewhat delusional. Labs: Reviewed. Imp: Psychotic disorder unspecified. Expressive aphasia. 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 Plan: Continue psychotropics from initial note. Assessment: Vital Signs/I&O: Vital Signs Date Time Temp Pulse Resp B/P (MAP) Pulse Ox O2 Delivery O2 Flow Rate FiO2 12/01/19 19:47 61 111/68 12/01/19 16:13 98.7 20 95 11/26/19 16:08 Room Air I & O 11/30/19 11/30/19 12/01/19 15:00 23:00 07:00 Intake Total 840 ml 480 ml Balance 840 ml 480 ml Current Medications: I have reviewed the current psychotropics carefully including drug interactions. Risk benefit ratio favors no change other than as noted in my dictated progress note. Diagnosis: Problems: (1) Impulse control disorder (2) Obsessive compulsive disorder (3) Anxiety disorder (4) Bipolar disorder, mixed (5) Dementia, vascular, with delusions (6) Dementia in Alzheimer's disease with depression FRANCES HSU MD Dec 01, 2019 21:51
--- NOTE | 2019-12-01 22:02 | PDOC ---
Exam Note: Ferny Note: Please also refer to the separate dictated note~for this date of service dictated separately.~Patient seen individually. Discussed the patient with Nursing staff reviewed the chart.~Reviewed interim history and current functioning. Reviewed vital signs,~Labs/ Radiology~and current medications noted below. Continue current treatment with the changes noted in the dictated addendum note Assessment: Vital Signs/I&O: Vital Signs Date Time Temp Pulse Resp B/P (MAP) Pulse Ox O2 Delivery O2 Flow Rate FiO2 12/01/19 19:47 61 111/68 12/01/19 16:13 98.7 20 95 11/26/19 16:08 Room Air I & O 11/30/19 11/30/19 12/01/19 15:00 23:00 07:00 Intake Total 840 ml 480 ml Balance 840 ml 480 ml Current Medications: I have reviewed the current psychotropics carefully including drug interactions. Risk benefit ratio favors no change other than as noted in my dictated progress note. 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
[2019-12-02 06:09] VITALS: BP 137/78
[2019-12-02] MEDS: POLYETHYLENE GLYCOL 3350 17 GM PACKET. PO SCH (08:03)
[2019-12-02] MEDS: SERTRALINE 50 MG TABLET. PO SCH (08:03)
[2019-12-02] MEDS: DIVALPROEX SODIUM 250 MG TABLET.DR. PO SCH (08:04)
[2019-12-02] MEDS: busPIRone 10 MG TABLET. PO SCH ×3 (08:04→20:36)
[2019-12-02] MEDS: CLOPIDOGREL BISULFATE 75 MG TABLET PO SCH (12:24)
[2019-12-02] MEDS: FUROSEMIDE 20 MG TABLET PO SCH (12:24)
[2019-12-02] MEDS: METOPROLOL TART IMMED RELEASE 25 MG TABLET PO SCH ×2 (12:25→20:37)
[2019-12-02 16:03] VITALS: BP 123/73
[2019-12-02] MEDS: DIVALPROEX 125 MG CAP.SPRINK PO SCH (17:04)
[2019-12-02] MEDS: MIRTAZAPINE 7.5 MG TABLET. PO SCH (20:36)
[2019-12-02] MEDS: DONEPEZIL HCL 10 MG TABLET PO SCH (20:36)
[2019-12-02] MEDS: ATORVASTATIN CALCIUM 20 MG TABLET PO SCH (20:36)
[2019-12-02] MEDS: risperiDONE 0.25 MG TABLET. PO SCH (20:36)
[2019-12-03 06:21] VITALS: BP 114/64
[2019-12-03] MEDS: SERTRALINE 50 MG TABLET. PO SCH (08:07)
[2019-12-03] MEDS: POLYETHYLENE GLYCOL 3350 17 GM PACKET. PO SCH (08:07)
[2019-12-03] MEDS: busPIRone 10 MG TABLET. PO SCH ×3 (08:07→20:55)
[2019-12-03] MEDS: DIVALPROEX SODIUM 250 MG TABLET.DR. PO SCH (08:07)
--- NOTE | 2019-12-03 08:38 | PDOC ---
Exam Note: Ferny Note: S/O: This note is a late entry for DOS 12/01/2019 covers elements not covered in my initial note. Discussed the patient with nursing staff, reviewed the chart. The patient was seen on audio-visual rounds in the evening with Keny TOURE. Nursing report was with Keny TOURE. Met with the patient in his dayroom, sl ept 7-1/4 hours previous night. He has had a good day. Remains confused, anxious, somewhat hyperverbal. ROS: No CV, , Pulmonary, Eye, ENT system symptoms on review. MSE: Oriented to himself and at times situation. Patient is verbal, interactive, talking about making a trip to [place] with me. Remains confused. Speech coherent, rapid. Abstraction fair. Computation impaired. Language function intact. Mood and affect remains somewhat labile, somewhat delusional. Labs: Reviewed. Imp: Psychotic disorder unspecified. Expressive aphasia. 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 Plan: Continue psychotropics from initial note. Assessment: Vital Signs/I&O: Vital Signs Date Time Temp Pulse Resp B/P (MAP) Pulse Ox O2 Delivery O2 Flow Rate FiO2 12/03/19 06:21 98.0 61 16 114/64 (81) 97 I & O 12/02/19 12/02/19 12/03/19 15:00 23:00 07:00 Intake Total 1080 ml 480 ml 100 ml Balance 1080 ml 480 ml 100 ml Current Medications: I have reviewed the current psychotropics carefully including drug interactions. Risk benefit ratio favors no change other than as noted in my dictated progress note. Diagnosis: Problems: (1) Impulse control disorder (2) Obsessive compulsive disorder (3) Anxiety disorder (4) Bipolar disorder, mixed (5) Bipolar affective, mixed (6) Dementia, vascular, with delusions (7) Dementia in Alzheimer's disease with depression FRANCES HSU MD Dec 03, 2019 08:38
--- NOTE | 2019-12-03 09:05 | PDOC ---
Exam Note: Ferny Note: S/O: This note is a late entry for DOS 12/02/2019covers elements not covered in my initial note. Discussed the patient with nursing staff, reviewed the chart. The patient was seen on audio-visual rounds in the evening with Caro TOURE. Nursing report was with Tevin TOURE. ROS: No CV, , Pulmonary, Eye, ENT system symptoms on review. MSE: Oriented to himself and at times situation. Patient is very interactive. Speech coherent, can be rapid at times. Abstraction fair. Computation impaired. Language function intact. Mood and affect remains somewhat labile, somewhat delusional. Labs: Reviewed. Imp: Psychotic disorder unspecified. Expressive aphasia. 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 Plan: Continue psychotropics from initial note. Assessment: Vital Signs/I&O: Vital Signs Date Time Temp Pulse Resp B/P (MAP) Pulse Ox O2 Delivery O2 Flow Rate FiO2 12/03/19 06:21 98.0 61 16 114/64 (81) 97 I & O 12/02/19 12/02/19 12/03/19 15:00 23:00 07:00 Intake Total 1080 ml 480 ml 100 ml Balance 1080 ml 480 ml 100 ml Current Medications: I have reviewed the current psychotropics carefully including drug interactions. Risk benefit ratio favors no change other than as noted in my dictated progress note. 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
[2019-12-03] MEDS: CLOPIDOGREL BISULFATE 75 MG TABLET PO SCH (12:12)
[2019-12-03] MEDS: FUROSEMIDE 20 MG TABLET PO SCH (12:12)
[2019-12-03] MEDS: METOPROLOL TART IMMED RELEASE 25 MG TABLET PO SCH ×2 (12:12→20:55)
[2019-12-03 15:43] VITALS: BP 126/68
[2019-12-03] MEDS: DIVALPROEX 125 MG CAP.SPRINK PO SCH (16:55)
[2019-12-03] MEDS: DONEPEZIL HCL 10 MG TABLET PO SCH (20:55)
[2019-12-03] MEDS: MIRTAZAPINE 7.5 MG TABLET. PO SCH (20:55)
[2019-12-03] MEDS: risperiDONE 0.25 MG TABLET. PO SCH (20:55)
[2019-12-03] MEDS: ATORVASTATIN CALCIUM 20 MG TABLET PO SCH (20:56)
--- NOTE | 2019-12-03 22:15 | PDOC ---
Exam Note: Ferny Note: Please also refer to the separate dictated note~for this date of service dictated separately.~Patient seen individually. Discussed the patient with Nursing staff reviewed the chart.~Reviewed interim history and current functioning. Reviewed vital signs,~Labs/ Radiology~and current medications noted below. Continue current treatment with the changes noted in the dictated addendum note Assessment: Vital Signs/I&O: Vital Signs Date Time Temp Pulse Resp B/P (MAP) Pulse Ox O2 Delivery O2 Flow Rate FiO2 12/03/19 20:55 60 126/68 12/03/19 15:43 98.5 18 96 Room Air I & O 12/02/19 12/02/19 12/03/19 15:00 23:00 07:00 Intake Total 1080 ml 480 ml 100 ml Balance 1080 ml 480 ml 100 ml Current Medications: I have reviewed the current psychotropics carefully including drug interactions. Risk benefit ratio favors no change other than as noted in my dictated progress note. Diagnosis: Problems: (1) Impulse control disorder (2) Obsessive compulsive disorder (3) Anxiety disorder (4) Bipolar disorder, mixed (5) Bipolar affective, mixed (6) Dementia, vascular, with delusions (7) Dementia in Alzheimer's disease with depression FRANCES HSU MD Dec 03, 2019 22:15
[2019-12-04 06:21] VITALS: BP 118/68
[2019-12-04 06:26] LABS: BASO % 1 % (0-3); EOS # 0.5 x10^3/uL (0.0-0.7); EOS % 8 % (0-3); HEMOGLOBIN 13.6 g/dL (13.0-17.5); LYMPH % 34 % (24-48); MEAN CORPUSCULAR HEMOGLOBIN 33 pg (25-35); MEAN CORPUSCULAR HGB CONC 33 g/dL (31-37); MEAN CORPUSCULAR VOLUME 99 fL (79-100); MONO # 0.7 x10^3/uL (0.0-1.1); MONO % 11 % (0-9); NEUT # 2.7 x10^3uL (1.8-7.7); NEUT % 46 % (31-73); PLATELET COUNT 120 x10^3/uL (140-400); RED BLOOD COUNT 4.15 x10^6/uL (4.30-5.70); RED CELL DISTRIBUTION WIDTH 14.3 % (11.5-14.5); WHITE BLOOD COUNT 5.8 x10^3/uL (4.0-11.0)
[2019-12-04 06:38] LABS: ALBUMIN 2.7 g/dL (3.4-5.0); ALBUMIN/GLOBULIN RATIO 1.1 (1.0-1.7); CALCIUM 8.4 mg/dL (8.5-10.1); GFR 72.6; POTASSIUM 3.8 mmol/L (3.5-5.1); TOTAL BILIRUBIN 0.2 mg/dL (0.2-1.0); TOTAL PROTEIN 5.2 g/dL (6.4-8.2)
[2019-12-04] MEDS: busPIRone 10 MG TABLET. PO SCH ×3 (08:08→19:46)
[2019-12-04] MEDS: DIVALPROEX SODIUM 250 MG TABLET.DR. PO SCH (08:10)
[2019-12-04] MEDS: SERTRALINE 50 MG TABLET. PO SCH (08:10)
[2019-12-04] MEDS: POLYETHYLENE GLYCOL 3350 17 GM PACKET. PO SCH (08:10)
[2019-12-04] MEDS: CLOPIDOGREL BISULFATE 75 MG TABLET PO SCH (13:21)
[2019-12-04] MEDS: FUROSEMIDE 20 MG TABLET PO SCH (13:22)
[2019-12-04] MEDS: METOPROLOL TART IMMED RELEASE 25 MG TABLET PO SCH ×2 (13:22→19:47)
[2019-12-04 15:45] VITALS: BP 151/75
[2019-12-04] MEDS: DIVALPROEX 125 MG CAP.SPRINK PO SCH (16:57)
[2019-12-04] MEDS: risperiDONE 0.25 MG TABLET. PO SCH (19:46)
[2019-12-04] MEDS: MIRTAZAPINE 7.5 MG TABLET. PO SCH (19:46)
[2019-12-04] MEDS: ATORVASTATIN CALCIUM 20 MG TABLET PO SCH (19:47)
[2019-12-04] MEDS: DONEPEZIL HCL 10 MG TABLET PO SCH (19:49)
--- NOTE | 2019-12-04 21:49 | PDOC ---
Exam Note: Ferny Note: Please also refer to the separate dictated note~for this date of service dictated separately.~Patient seen individually. Discussed the patient with Nursing staff reviewed the chart.~Reviewed interim history and current functioning. Reviewed vital signs,~Labs/ Radiology~and current medications noted below. Continue current treatment with the changes noted in the dictated addendum note Assessment: Vital Signs/I&O: Vital Signs Date Time Temp Pulse Resp B/P (MAP) Pulse Ox O2 Delivery O2 Flow Rate FiO2 12/04/19 19:47 60 151/75 12/04/19 15:45 98.1 16 97 Room Air I & O 12/03/19 12/03/19 12/04/19 15:00 23:00 07:00 Intake Total 1080 ml 600 ml Balance 1080 ml 600 ml Labs: Laboratory Tests Test 12/04/19 06:12 White Blood Count 5.8 x10^3/uL (4.0-11.0) Red Blood Count 4.15 x10^6/uL (4.30-5.70) L Hemoglobin 13.6 g/dL (13.0-17.5) Hematocrit 41.0 % (39.0-53.0) Mean Corpuscular Volume 99 fL (79-100) Mean Corpuscular Hemoglobin 33 pg (25-35) Mean Corpuscular Hemoglobin Concent 33 g/dL (31-37) Red Cell Distribution Width 14.3 % (11.5-14.5) Platelet Count 120 x10^3/uL (140-400) L Neutrophils (%) (Auto) 46 % (31-73) Lymphocytes (%) (Auto) 34 % (24-48) Monocytes (%) (Auto) 11 % (0-9) H Eosinophils (%) (Auto) 8 % (0-3) H Basophils (%) (Auto) 1 % (0-3) Neutrophils # (Auto) 2.7 x10^3uL (1.8-7.7) Lymphocytes # (Auto) 2.0 x10^3/uL (1.0-4.8) Monocytes # (Auto) 0.7 x10^3/uL (0.0-1.1) Eosinophils # (Auto) 0.5 x10^3/uL (0.0-0.7) Basophils # (Auto) 0.0 x10^3/uL (0.0-0.2) Sodium Level 143 mmol/L (136-145) Potassium Level 3.8 mmol/L (3.5-5.1) Chloride Level 107 mmol/L (98-107) Carbon Dioxide Level 30 mmol/L (21-32) Anion Gap 6 (6-14) Blood Urea Nitrogen 17 mg/dL (8-26) Creatinine 1.0 mg/dL (0.7-1.3) Estimated GFR (Cockcroft-Gault) 72.6 BUN/Creatinine Ratio 17 (6-20) Glucose Level 87 mg/dL (70-99) Calcium Level 8.4 mg/dL (8.5-10.1) L Total Bilirubin 0.2 mg/dL (0.2-1.0) Aspartate Amino Transferase (AST) 22 U/L (15-37) Alanine Aminotransferase (ALT) 25 U/L (16-63) Alkaline Phosphatase 68 U/L (46-116) Total Protein 5.2 g/dL (6.4-8.2) L Albumin 2.7 g/dL (3.4-5.0) L Albumin/Globulin Ratio 1.1 (1.0-1.7) Current Medications: I have reviewed the current psychotropics carefully including drug interactions. Risk benefit ratio favors no change other than as noted in my dictated progress note. Diagnosis: Problems: (1) Impulse control disorder (2) Obsessive compulsive disorder (3) Anxiety disorder (4) Bipolar disorder, mixed (5) Bipolar affective, mixed (6) Dementia, vascular, with delusions (7) Dementia in Alzheimer's disease with depression FRANCES HSU MD Dec 04, 2019 21:49
[2019-12-05 06:23] VITALS: BP 144/74
--- NOTE | 2019-12-05 07:58 | PDOC ---
Exam Note: Ferny Note: S/O: This note is a late entry for DOS 12/03/2019 covers elements not covered in my initial note. Discussed the patient with nursing staff, reviewed the chart. The patient was seen on audio-visual rounds in the evening with Oliva TOURE. Nursing report was with Tevin TOURE. Patient continues to have word finding problem. He slept well previous night. ROS: No CV, , Pulmonary, Eye, ENT system symptoms on review. MSE: Oriented to himself and at times situation. Patient is very verbal, interactive, appreciative that I was talking and visiting with him. He has not been aggressive or yelling. Speech coherent, can be rapid at times. Abstraction fair. Computation impaired. Language function intact. Mood and affect remains somewhat labile, somewhat delusional. Labs: Reviewed. Imp: Psychotic disorder unspecified. Expressive aphasia. 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 Plan: Continue psychotropics from initial note. Assessment: Vital Signs/I&O: VS - Last 72 Hours, by Label Date Time Temp Pulse Resp B/P (MAP) Pulse Ox O2 Delivery O2 Flow Rate FiO2 12/05/19 06:23 97.9 57 20 144/74 (97) 96 12/04/19 19:47 60 151/75 12/04/19 15:45 98.1 60 16 151/75 (100) 97 Room Air 12/04/19 13:22 69 134/74 12/04/19 06:21 98.1 57 20 118/68 (85) 96 12/03/19 20:55 60 126/68 12/03/19 15:43 98.5 60 18 126/68 (87) 96 Room Air 12/03/19 12:12 61 114/64 12/03/19 06:21 98.0 61 16 114/64 (81) 97 12/02/19 20:37 56 123/73 12/02/19 16:03 98.2 56 16 123/73 (90) 96 12/02/19 12:25 64 115/70 Vital Signs Date Time Temp Pulse Resp B/P (MAP) Pulse Ox O2 Delivery O2 Flow Rate FiO2 12/05/19 06:23 97.9 57 20 144/74 (97) 96 12/04/19 15:45 Room Air I & O 12/04/19 12/04/19 12/05/19 15:00 23:00 07:00 Intake Total 720 ml 480 ml Balance 720 ml 480 ml Current Medications: I have reviewed the current psychotropics carefully including drug interactions. Risk benefit ratio favors no change other than as noted in my dictated progress note. Diagnosis: Problems: (1) Impulse control disorder (2) Obsessive compulsive disorder (3) Anxiety disorder (4) Bipolar disorder, mixed (5) Dementia, vascular, with delusions (6) Dementia in Alzheimer's disease with depression FRANCES HSU MD Dec 05, 2019 07:58
--- NOTE | 2019-12-05 08:17 | PDOC ---
Exam Note: Ferny Note: S/O: This note is a late entry for DOS 12/04/2019 covers elements not covered in my initial note. Discussed the patient with nursing staff, reviewed the chart. The patient was seen on audio-visual rounds in the evening with Keny TOURE. Nursing report was with Keny TOURE. He slept 6-1/4 hours, having word findi ng problems. ROS: No CV, , Pulmonary, Eye, ENT system symptoms on review. MSE: Oriented to himself and at times situation. Patient is very interactive. Speech coherent, can be rapid at times. Abstraction fair. Computation impaired. Language function intact. Mood and affect remains somewhat labile, somewhat delusional. Labs: Reviewed. Imp: Psychotic disorder unspecified. Expressive aphasia. 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 Plan: Continue psychotropics from initial note. Assessment: Vital Signs/I&O: Vital Signs Date Time Temp Pulse Resp B/P (MAP) Pulse Ox O2 Delivery O2 Flow Rate FiO2 12/05/19 06:23 97.9 57 20 144/74 (97) 96 12/04/19 15:45 Room Air I & O 12/04/19 12/04/19 12/05/19 15:00 23:00 07:00 Intake Total 720 ml 480 ml Balance 720 ml 480 ml Current Medications: I have reviewed the current psychotropics carefully including drug interactions. Risk benefit ratio favors no change other than as noted in my dictated progress note. Diagnosis: Problems: (1) Impulse control disorder (2) Obsessive compulsive disorder (3) Anxiety disorder (4) Bipolar disorder, mixed (5) Dementia, vascular, with delusions (6) Dementia in Alzheimer's disease with depression FRANCES HSU MD Dec 05, 2019 08:17
[2019-12-05] MEDS: DIVALPROEX SODIUM 250 MG TABLET.DR. PO SCH (08:29)
[2019-12-05] MEDS: SERTRALINE 50 MG TABLET. PO SCH (08:29)
[2019-12-05] MEDS: busPIRone 10 MG TABLET. PO SCH ×3 (08:29→19:58)
[2019-12-05] MEDS: POLYETHYLENE GLYCOL 3350 17 GM PACKET. PO SCH (08:30)
[2019-12-05] MEDS: CLOPIDOGREL BISULFATE 75 MG TABLET PO SCH (13:11)
[2019-12-05] MEDS: FUROSEMIDE 20 MG TABLET PO SCH (13:11)
[2019-12-05] MEDS: METOPROLOL TART IMMED RELEASE 25 MG TABLET PO SCH ×2 (13:17→19:58)
[2019-12-05 15:55] VITALS: BP 119/68
[2019-12-05] MEDS: DIVALPROEX 125 MG CAP.SPRINK PO SCH (16:45)
[2019-12-05] MEDS: MIRTAZAPINE 7.5 MG TABLET. PO SCH (19:58)
[2019-12-05] MEDS: risperiDONE 0.25 MG TABLET. PO SCH (19:58)
[2019-12-05] MEDS: DONEPEZIL HCL 10 MG TABLET PO SCH (19:58)
[2019-12-05] MEDS: ATORVASTATIN CALCIUM 20 MG TABLET PO SCH (19:58)
--- NOTE | 2019-12-05 22:09 | PDOC ---
Exam Note: Ferny Note: Please also refer to the separate dictated note~for this date of service dictated separately.~Patient seen individually. Discussed the patient with Nursing staff reviewed the chart.~Reviewed interim history and current functioning. Reviewed vital signs,~Labs/ Radiology~and current medications noted below. Continue current treatment with the changes noted in the dictated addendum note Assessment: Vital Signs/I&O: Vital Signs Date Time Temp Pulse Resp B/P (MAP) Pulse Ox O2 Delivery O2 Flow Rate FiO2 12/05/19 19:58 67 119/68 12/05/19 15:55 97.9 18 96 12/04/19 15:45 Room Air I & O 12/04/19 12/04/19 12/05/19 15:00 23:00 07:00 Intake Total 720 ml 480 ml Balance 720 ml 480 ml Current Medications: I have reviewed the current psychotropics carefully including drug interactions. Risk benefit ratio favors no change other than as noted in my dictated progress note. Diagnosis: Problems: (1) Impulse control disorder (2) Obsessive compulsive disorder (3) Anxiety disorder (4) Bipolar disorder, mixed (5) Bipolar affective, mixed (6) Dementia, vascular, with delusions (7) Dementia in Alzheimer's disease with depression FRANCES HSU MD Dec 05, 2019 22:09
[2019-12-06 04:43] VITALS: BP 113/67
[2019-12-06] MEDS: SERTRALINE 50 MG TABLET. PO SCH (08:18)
[2019-12-06] MEDS: busPIRone 10 MG TABLET. PO SCH ×3 (08:18→20:09)
[2019-12-06] MEDS: POLYETHYLENE GLYCOL 3350 17 GM PACKET. PO SCH (08:18)
[2019-12-06] MEDS: DIVALPROEX SODIUM 250 MG TABLET.DR. PO SCH (08:18)
--- NOTE | 2019-12-06 09:55 | PDOC ---
Exam Note: Ferny Note: S/O: This note is a late entry for DOS 12/05/2019 covers elements not covered in my initial note. Discussed the patient with nursing staff, reviewed the chart. The patient was seen on audio-visual rounds in the evening with Oliva TOURE. Nursing report was with Keny TOURE. He has been somewhat withdrawn into his room but has word finding problems, but much less delusional. ROS: No CV, , Pulmonary, Eye system symptoms on review. MSE: Oriented to himself and at times situation. Patient is very interactive. Speech coherent, can be rapid at times. Abstraction fair. Computation impaired. Language function intact. Mood and affect remains somewhat labile, somewhat delusional. Labs: Reviewed. Imp: Psychotic disorder unspecified. Expressive aphasia. 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 Plan: Continue psychotropics from initial note. Assessment: Vital Signs/I&O: Vital Signs Date Time Temp Pulse Resp B/P (MAP) Pulse Ox O2 Delivery O2 Flow Rate FiO2 12/06/19 04:43 97.7 55 18 113/67 (82) 96 Room Air I & O 12/05/19 12/05/19 12/06/19 14:59 22:59 06:59 Intake Total 1080 ml 480 ml Balance 1080 ml 480 ml Current Medications: I have reviewed the current psychotropics carefully including drug interactions. Risk benefit ratio favors no change other than as noted in my dictated progress note. Diagnosis: Problems: (1) Impulse control disorder (2) Obsessive compulsive disorder (3) Anxiety disorder (4) Bipolar disorder, mixed (5) Dementia, vascular, with delusions (6) Dementia in Alzheimer's disease with depression FRANCES HSU MD Dec 06, 2019 09:55
[2019-12-06] MEDS: FUROSEMIDE 20 MG TABLET PO SCH (13:13)
[2019-12-06] MEDS: CLOPIDOGREL BISULFATE 75 MG TABLET PO SCH (13:13)
[2019-12-06] MEDS: METOPROLOL TART IMMED RELEASE 25 MG TABLET PO SCH ×2 (13:14→20:11)
[2019-12-06 15:49] VITALS: BP 135/77
[2019-12-06] MEDS: DIVALPROEX 125 MG CAP.SPRINK PO SCH (17:18)
[2019-12-06] MEDS: DONEPEZIL HCL 10 MG TABLET PO SCH (20:10)
[2019-12-06] MEDS: ATORVASTATIN CALCIUM 20 MG TABLET PO SCH (20:10)
[2019-12-06] MEDS: MIRTAZAPINE 7.5 MG TABLET. PO SCH (20:10)
[2019-12-06] MEDS: risperiDONE 0.25 MG TABLET. PO SCH (20:11)
--- NOTE | 2019-12-06 22:11 | PDOC ---
Exam Note: Ferny Note: Please also refer to the separate dictated note~for this date of service dictated separately.~Patient seen individually. Discussed the patient with Nursing staff reviewed the chart.~Reviewed interim history and current functioning. Reviewed vital signs,~Labs/ Radiology~and current medications noted below. Continue current treatment with the changes noted in the dictated addendum note Assessment: Vital Signs/I&O: Vital Signs Date Time Temp Pulse Resp B/P (MAP) Pulse Ox O2 Delivery O2 Flow Rate FiO2 12/06/19 20:11 65 135/77 12/06/19 15:49 98.2 18 96 12/06/19 04:43 Room Air I & O 12/05/19 12/05/19 12/06/19 15:00 23:00 07:00 Intake Total 1080 ml 480 ml Balance 1080 ml 480 ml Current Medications: I have reviewed the current psychotropics carefully including drug interactions. Risk benefit ratio favors no change other than as noted in my dictated progress note. Diagnosis: Problems: (1) Impulse control disorder (2) Obsessive compulsive disorder (3) Anxiety disorder (4) Bipolar disorder, mixed (5) Bipolar affective, mixed (6) Dementia, vascular, with delusions (7) Dementia in Alzheimer's disease with depression FRANCES HSU MD Dec 06, 2019 22:11
[2019-12-07 06:15] VITALS: BP 124/71
[2019-12-07] MEDS: DIVALPROEX SODIUM 250 MG TABLET.DR. PO SCH (08:12)
[2019-12-07] MEDS: busPIRone 10 MG TABLET. PO SCH ×3 (08:13→21:18)
[2019-12-07] MEDS: SERTRALINE 50 MG TABLET. PO SCH (08:13)
[2019-12-07] MEDS: POLYETHYLENE GLYCOL 3350 17 GM PACKET. PO SCH (08:13)
[2019-12-07] MEDS: METOPROLOL TART IMMED RELEASE 25 MG TABLET PO SCH ×2 (14:32→21:18)
[2019-12-07] MEDS: FUROSEMIDE 20 MG TABLET PO SCH (14:33)
[2019-12-07] MEDS: CLOPIDOGREL BISULFATE 75 MG TABLET PO SCH (14:33)
[2019-12-07 15:52] VITALS: BP 144/76
[2019-12-07] MEDS: DIVALPROEX 125 MG CAP.SPRINK PO SCH (17:28)
[2019-12-07] MEDS: ATORVASTATIN CALCIUM 20 MG TABLET PO SCH (21:17)
[2019-12-07] MEDS: DONEPEZIL HCL 10 MG TABLET PO SCH (21:17)
[2019-12-07] MEDS: MIRTAZAPINE 7.5 MG TABLET. PO SCH (21:17)
[2019-12-07] MEDS: risperiDONE 0.25 MG TABLET. PO SCH (21:17)
--- NOTE | 2019-12-07 22:15 | PDOC ---
Exam Note: Ferny Note: Please also refer to the separate dictated note~for this date of service dictated separately.~Patient seen individually. Discussed the patient with Nursing staff reviewed the chart.~Reviewed interim history and current functioning. Reviewed vital signs,~Labs/ Radiology~and current medications noted below. Continue current treatment with the changes noted in the dictated addendum note Assessment: Vital Signs/I&O: Vital Signs Date Time Temp Pulse Resp B/P (MAP) Pulse Ox O2 Delivery O2 Flow Rate FiO2 12/07/19 21:18 61 144/76 12/07/19 15:52 98.1 16 97 12/06/19 04:43 Room Air I & O 12/06/19 12/06/19 12/07/19 15:00 23:00 07:00 Intake Total 840 ml 360 ml Balance 840 ml 360 ml Current Medications: I have reviewed the current psychotropics carefully including drug interactions. Risk benefit ratio favors no change other than as noted in my dictated progress note. Diagnosis: Problems: (1) Impulse control disorder (2) Obsessive compulsive disorder (3) Anxiety disorder (4) Bipolar disorder, mixed (5) Dementia, vascular, with delusions (6) Dementia in Alzheimer's disease with depression FRANCES HSU MD Dec 07, 2019 22:15
[2019-12-08 05:37] VITALS: BP 123/76
--- NOTE | 2019-12-08 07:57 | PDOC ---
Exam Note: Ferny Note: S/O: This note is a late entry for DOS 12/06/2019 covers elements not covered in my initial note. Discussed the patient with treatment team meeting with the entire team in the morning including Simeon, social service staff, nursing staff, and myself reviewed the chart. Also met with the patient indiv idually in the evening on audio-visual rounds. Nursing report was with Keny TOURE. I have been informed that every patient will be tested in sequence for COVID-19 and disposition plans would be determined by the result of the testing. He is sleeping 7 hours. Appetite is 95%. ROS: No CV, , Pulmonary, Eye system symptoms on review. MSE: During the audio-visual rounds in the evening, the patient was very verbal, interactive, able to express that he gets frustrated with word finding problems. Short-term memory is impaired. Abstraction fair. Computation impaired. Language function intact. No psychotic symptoms, suicidal or homicidal ideation. Mood and affect is improved. No overt delusions. No aggression. Labs: Reviewed. Imp: Psychotic disorder unspecified. Expressive aphasia. 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 Plan: Continue psychotropics from initial note. Assessment: Vital Signs/I&O: Vital Signs Date Time Temp Pulse Resp B/P (MAP) Pulse Ox O2 Delivery O2 Flow Rate FiO2 12/08/19 05:37 97.7 61 16 123/76 (92) 95 Room Air I & O 12/07/19 12/07/19 12/08/19 15:00 23:00 07:00 Intake Total 720 ml 240 ml Balance 720 ml 240 ml Current Medications: I have reviewed the current psychotropics carefully including drug interactions. Risk benefit ratio favors no change other than as noted in my dictated progress note. Diagnosis: Problems: (1) Impulse control disorder (2) Obsessive compulsive disorder (3) Anxiety disorder (4) Bipolar disorder, mixed (5) Dementia, vascular, with delusions (6) Dementia in Alzheimer's disease with depression FRANCES HSU MD Dec 08, 2019 07:57
[2019-12-08] MEDS: DIVALPROEX SODIUM 250 MG TABLET.DR. PO SCH (09:37)
[2019-12-08] MEDS: busPIRone 10 MG TABLET. PO SCH ×3 (09:37→20:05)
[2019-12-08] MEDS: POLYETHYLENE GLYCOL 3350 17 GM PACKET. PO SCH (09:37)
[2019-12-08] MEDS: SERTRALINE 50 MG TABLET. PO SCH (09:38)
[2019-12-08] MEDS: METOPROLOL TART IMMED RELEASE 25 MG TABLET PO SCH ×2 (12:06→20:06)
[2019-12-08] MEDS: FUROSEMIDE 20 MG TABLET PO SCH (12:32)
[2019-12-08] MEDS: CLOPIDOGREL BISULFATE 75 MG TABLET PO SCH (12:32)
[2019-12-08 15:20] VITALS: BP 113/65
[2019-12-08] MEDS: DIVALPROEX 125 MG CAP.SPRINK PO SCH (17:27)
[2019-12-08] MEDS: risperiDONE 0.25 MG TABLET. PO SCH (20:05)
[2019-12-08] MEDS: DONEPEZIL HCL 10 MG TABLET PO SCH (20:06)
[2019-12-08] MEDS: MIRTAZAPINE 7.5 MG TABLET. PO SCH (20:06)
[2019-12-08] MEDS: ATORVASTATIN CALCIUM 20 MG TABLET PO SCH (20:07)
--- NOTE | 2019-12-08 22:15 | PDOC ---
Exam Note: Ferny Note: Please also refer to the separate dictated note~for this date of service dictated separately.~Patient seen individually. Discussed the patient with Nursing staff reviewed the chart.~Reviewed interim history and current functioning. Reviewed vital signs,~Labs/ Radiology~and current medications noted below. Continue current treatment with the changes noted in the dictated addendum note Assessment: Vital Signs/I&O: Vital Signs Date Time Temp Pulse Resp B/P (MAP) Pulse Ox O2 Delivery O2 Flow Rate FiO2 12/08/19 20:06 60 113/65 12/08/19 15:20 98.2 16 96 Room Air I & O 12/07/19 12/07/19 12/08/19 15:00 23:00 07:00 Intake Total 720 ml 240 ml Balance 720 ml 240 ml Current Medications: I have reviewed the current psychotropics carefully including drug interactions. Risk benefit ratio favors no change other than as noted in my dictated progress note. Diagnosis: Problems: (1) Impulse control disorder (2) Obsessive compulsive disorder (3) Anxiety disorder (4) Bipolar disorder, mixed (5) Bipolar affective, mixed (6) Dementia, vascular, with delusions (7) Dementia in Alzheimer's disease with depression FRANCES HSU MD Dec 08, 2019 22:15
[2019-12-09 06:02] VITALS: BP 112/68
[2019-12-09] MEDS: DIVALPROEX SODIUM 250 MG TABLET.DR. PO SCH (07:46)
[2019-12-09] MEDS: SERTRALINE 50 MG TABLET. PO SCH (07:46)
[2019-12-09] MEDS: busPIRone 10 MG TABLET. PO SCH ×3 (07:46→20:30)
[2019-12-09] MEDS: POLYETHYLENE GLYCOL 3350 17 GM PACKET. PO SCH (07:46)
--- NOTE | 2019-12-09 07:59 | PDOC ---
Exam Note: Ferny Note: S/O: This note is a late entry for DOS 12/07/2019 covers elements not covered in my initial note. Discussed the patient with nursing staff, reviewed the chart. Also met with the patient individually in the evening on audio-visual rounds. Nursing report was with Keny TOURE. He has been withdrawn, spending much time in his room. COVID-19 swab was taken. ROS: No CV, , Pulmonary, Eye system symptoms on review. MSE: Patient is quite hyperverbal, has word finding problems, but this is typical for him. Short-term memory is impaired. Abstraction fair. Computation impaired. Language function intact. No psychotic symptoms, suicidal or homicidal ideation. Mood and affect is improved. No overt delusions. No aggression. Labs: Reviewed. Imp: Psychotic disorder unspecified. Expressive aphasia. 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 Plan: Continue psychotropics from initial note. Assessment: Vital Signs/I&O: Vital Signs Date Time Temp Pulse Resp B/P (MAP) Pulse Ox O2 Delivery O2 Flow Rate FiO2 12/09/19 06:02 98.1 58 18 112/68 (83) 96 12/08/19 15:20 Room Air I & O 12/08/19 12/08/19 12/09/19 14:59 22:59 06:59 Intake Total 960 ml 600 ml Balance 960 ml 600 ml Current Medications: I have reviewed the current psychotropics carefully including drug interactions. Risk benefit ratio favors no change other than as noted in my dictated progress note. Diagnosis: Problems: (1) Impulse control disorder (2) Obsessive compulsive disorder (3) Anxiety disorder (4) Bipolar disorder, mixed (5) Bipolar affective, mixed (6) Dementia, vascular, with delusions (7) Dementia in Alzheimer's disease with depression FRANCES HSU MD Dec 09, 2019 07:59
--- NOTE | 2019-12-09 08:14 | PDOC ---
Exam Note: Freny Note: S/O: This note is a late entry for DOS 12/08/2019 covers elements not covered in my initial note. Discussed the patient with nursing staff, reviewed the chart. Also met with the patient individually in the evening on audio-visual rounds. Nursing report was with Edith TOURE. COVID-19 test has come back negative. Patient slept 7 hours. He is quite verbal, again having word finding problems. ROS: No CV, , Pulmonary, Eye system symptoms on review. MSE: Patient was very verbal, interactive, able to express that he gets frustrated with word finding problems. Short-term memory is impaired. Abstraction fair. Computation impaired. Language function intact. No psychotic symptoms, suicidal or homicidal ideation. Mood and affect is improved. No overt delusions. No aggression. Labs: Reviewed. Imp: Psychotic disorder unspecified. Expressive aphasia. 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 Plan: Continue psychotropics from initial note. Assessment: Vital Signs/I&O: Vital Signs Date Time Temp Pulse Resp B/P (MAP) Pulse Ox O2 Delivery O2 Flow Rate FiO2 12/09/19 06:02 98.1 58 18 112/68 (83) 96 12/08/19 15:20 Room Air I & O 12/08/19 12/08/19 12/09/19 14:59 22:59 06:59 Intake Total 960 ml 600 ml Balance 960 ml 600 ml Current Medications: I have reviewed the current psychotropics carefully including drug interactions. Risk benefit ratio favors no change other than as noted in my dictated progress note. 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
[2019-12-09 09:47] LABS: BASO % 1 % (0-3); EOS # 0.4 x10^3/uL (0.0-0.7); EOS % 8 % (0-3); HEMATOCRIT 43.4 % (39.0-53.0); HEMOGLOBIN 14.3 g/dL (13.0-17.5); LYMPH # 1.5 x10^3/uL (1.0-4.8); LYMPH % 28 % (24-48); MEAN CORPUSCULAR HEMOGLOBIN 33 pg (25-35); MEAN CORPUSCULAR HGB CONC 33 g/dL (31-37); MEAN CORPUSCULAR VOLUME 99 fL (79-100); MONO # 0.4 x10^3/uL (0.0-1.1); MONO % 8 % (0-9); NEUT # 3.1 x10^3uL (1.8-7.7); NEUT % 57 % (31-73); PLATELET COUNT 126 x10^3/uL (140-400); RED BLOOD COUNT 4.37 x10^6/uL (4.30-5.70); RED CELL DISTRIBUTION WIDTH 14.2 % (11.5-14.5); WHITE BLOOD COUNT 5.4 x10^3/uL (4.0-11.0)
[2019-12-09 09:59] LABS: ALBUMIN 2.8 g/dL (3.4-5.0); ALBUMIN/GLOBULIN RATIO 1.1 (1.0-1.7); CALCIUM 8.2 mg/dL (8.5-10.1); CREATININE 1.1 mg/dL (0.7-1.3); GFR 65.1; POTASSIUM 3.7 mmol/L (3.5-5.1); TOTAL BILIRUBIN 0.2 mg/dL (0.2-1.0); TOTAL PROTEIN 5.3 g/dL (6.4-8.2)
[2019-12-09 12:51] VITALS: BP 131/71
[2019-12-09] MEDS: FUROSEMIDE 20 MG TABLET PO SCH (12:54)
[2019-12-09] MEDS: METOPROLOL TART IMMED RELEASE 25 MG TABLET PO SCH ×2 (12:54→20:30)
[2019-12-09] MEDS: CLOPIDOGREL BISULFATE 75 MG TABLET PO SCH (12:54)
[2019-12-09 15:52] VITALS: BP 125/76
[2019-12-09] MEDS: DIVALPROEX 125 MG CAP.SPRINK PO SCH (17:21)
[2019-12-09] MEDS: risperiDONE 0.25 MG TABLET. PO SCH (20:30)
[2019-12-09] MEDS: DONEPEZIL HCL 10 MG TABLET PO SCH (20:31)
[2019-12-09] MEDS: MIRTAZAPINE 7.5 MG TABLET. PO SCH (20:31)
[2019-12-09] MEDS: ATORVASTATIN CALCIUM 20 MG TABLET PO SCH (20:31)
--- NOTE | 2019-12-09 22:14 | PDOC ---
Exam Note: Ferny Note: Please also refer to the separate dictated note~for this date of service dictated separately.~Patient seen individually. Discussed the patient with Nursing staff reviewed the chart.~Reviewed interim history and current functioning. Reviewed vital signs,~Labs/ Radiology~and current medications noted below. Continue current treatment with the changes noted in the dictated addendum note Assessment: Vital Signs/I&O: Vital Signs Date Time Temp Pulse Resp B/P (MAP) Pulse Ox O2 Delivery O2 Flow Rate FiO2 12/09/19 20:30 62 125/76 12/09/19 15:52 98.3 20 97 12/08/19 15:20 Room Air I & O 12/08/19 12/08/19 12/09/19 15:00 23:00 07:00 Intake Total 960 ml 600 ml Balance 960 ml 600 ml Labs: Laboratory Tests Test 12/09/19 09:20 White Blood Count 5.4 x10^3/uL (4.0-11.0) Red Blood Count 4.37 x10^6/uL (4.30-5.70) Hemoglobin 14.3 g/dL (13.0-17.5) Hematocrit 43.4 % (39.0-53.0) Mean Corpuscular Volume 99 fL (79-100) Mean Corpuscular Hemoglobin 33 pg (25-35) Mean Corpuscular Hemoglobin Concent 33 g/dL (31-37) Red Cell Distribution Width 14.2 % (11.5-14.5) Platelet Count 126 x10^3/uL (140-400) L Neutrophils (%) (Auto) 57 % (31-73) Lymphocytes (%) (Auto) 28 % (24-48) Monocytes (%) (Auto) 8 % (0-9) Eosinophils (%) (Auto) 8 % (0-3) H Basophils (%) (Auto) 1 % (0-3) Neutrophils # (Auto) 3.1 x10^3uL (1.8-7.7) Lymphocytes # (Auto) 1.5 x10^3/uL (1.0-4.8) Monocytes # (Auto) 0.4 x10^3/uL (0.0-1.1) Eosinophils # (Auto) 0.4 x10^3/uL (0.0-0.7) Basophils # (Auto) 0.0 x10^3/uL (0.0-0.2) Sodium Level 141 mmol/L (136-145) Potassium Level 3.7 mmol/L (3.5-5.1) Chloride Level 105 mmol/L (98-107) Carbon Dioxide Level 26 mmol/L (21-32) Anion Gap 10 (6-14) Blood Urea Nitrogen 20 mg/dL (8-26) Creatinine 1.1 mg/dL (0.7-1.3) Estimated GFR (Cockcroft-Gault) 65.1 BUN/Creatinine Ratio 18 (6-20) Glucose Level 169 mg/dL (70-99) H Calcium Level 8.2 mg/dL (8.5-10.1) L Total Bilirubin 0.2 mg/dL (0.2-1.0) Aspartate Amino Transferase (AST) 23 U/L (15-37) Alanine Aminotransferase (ALT) 27 U/L (16-63) Alkaline Phosphatase 70 U/L (46-116) Total Protein 5.3 g/dL (6.4-8.2) L Albumin 2.8 g/dL (3.4-5.0) L Albumin/Globulin Ratio 1.1 (1.0-1.7) Current Medications: Meds: Current Medications Medications (Trade) Dose Ordered Sig/Ivonne Route PRN Reason Start Time Stop Time Status Last Admin Dose Admin Metoprolol Tartrate (Lopressor) 25 mg BID PO 12/09/19 21:00 12/09/19 20:30 I have reviewed the current psychotropics carefully including drug interactions. Risk benefit ratio favors no change other than as noted in my dictated progress note. 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
[2019-12-10 05:55] VITALS: BP 164/76
[2019-12-10] MEDS ORDERED: METOPROLOL TART IMMED RELEASE 25 MG TABLET PO SCH (08:00)
[2019-12-10] MEDS: DIVALPROEX SODIUM 250 MG TABLET.DR. PO SCH (08:53)
[2019-12-10] MEDS: CLOPIDOGREL BISULFATE 75 MG TABLET PO SCH ×2 (08:53→09:00)
[2019-12-10] MEDS: busPIRone 10 MG TABLET. PO SCH ×3 (08:53→20:34)
[2019-12-10] MEDS: FUROSEMIDE 20 MG TABLET PO SCH (08:53)
[2019-12-10] MEDS: POLYETHYLENE GLYCOL 3350 17 GM PACKET. PO SCH (08:54)
[2019-12-10] MEDS: METOPROLOL TART IMMED RELEASE 25 MG TABLET PO SCH ×2 (08:54→20:34)
[2019-12-10] MEDS: SERTRALINE 50 MG TABLET. PO SCH (08:54)
[2019-12-10 16:06] VITALS: BP 129/84
[2019-12-10] MEDS: DIVALPROEX 125 MG CAP.SPRINK PO SCH (17:12)
[2019-12-10] MEDS: MIRTAZAPINE 7.5 MG TABLET. PO SCH (20:33)
[2019-12-10] MEDS: ATORVASTATIN CALCIUM 20 MG TABLET PO SCH (20:34)
[2019-12-10] MEDS: risperiDONE 0.25 MG TABLET. PO SCH (20:34)
[2019-12-10] MEDS: DONEPEZIL HCL 10 MG TABLET PO SCH (20:34)
--- NOTE | 2019-12-10 22:26 | PDOC ---
Exam Note: Ferny Note: Please also refer to the separate dictated note~for this date of service dictated separately.~Patient seen individually. Discussed the patient with Nursing staff reviewed the chart.~Reviewed interim history and current functioning. Reviewed vital signs,~Labs/ Radiology~and current medications noted below. Continue current treatment with the changes noted in the dictated addendum note Assessment: Vital Signs/I&O: Vital Signs Date Time Temp Pulse Resp B/P (MAP) Pulse Ox O2 Delivery O2 Flow Rate FiO2 12/10/19 20:34 58 129/84 12/10/19 16:06 98.9 18 97 Room Air I & O 12/09/19 12/09/19 12/10/19 15:00 23:00 07:00 Intake Total 840 ml 480 ml 360 ml Balance 840 ml 480 ml 360 ml Current Medications: Meds: Current Medications Medications (Trade) Dose Ordered Sig/Ivonne Route PRN Reason Start Time Stop Time Status Last Admin Dose Admin Clopidogrel Bisulfate (Plavix) 75 mg DAILY PO 12/10/19 08:00 12/10/19 08:53 Furosemide (Lasix) 20 mg DAILY PO 12/10/19 09:00 12/10/19 08:53 I have reviewed the current psychotropics carefully including drug interactions. Risk benefit ratio favors no change other than as noted in my dictated progress note. 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
[2019-12-11 06:20] VITALS: BP 126/75
--- NOTE | 2019-12-11 07:41 | PDOC ---
Exam Note: Ferny Note: S/O: This note is a late entry for DOS 12/09/2019 covers elements not covered in my initial note. Discussed the patient with nursing staff, reviewed the chart. Also met with the patient individually in the evening on audio-visual rounds with Edith TOURE. Nursing report was with Edith TOURE. Patient slept 6-1/4 hours. He continues to have word finding problems. Remains withdrawn but not aggressive. ROS: No CV, , Pulmonary, Eye system symptoms on review. MSE: Patient continues to have word finding problems but very animated, verbal, interactive as I met with him, did well previous night and during the day. Short-term memory is impaired. Abstraction fair. Computation impaired. Language function intact. No psychotic symptoms, suicidal or homicidal ideation. Mood and affect is improved. No overt delusions. No aggression. Labs: Reviewed. Imp: Psychotic disorder unspecified. Expressive aphasia. 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 Plan: Continue psychotropics from initial note. Assessment: Vital Signs/I&O: Vital Signs Date Time Temp Pulse Resp B/P (MAP) Pulse Ox O2 Delivery O2 Flow Rate FiO2 12/11/19 06:20 97.8 60 18 126/75 (92) 97 Room Air I & O 12/10/19 12/10/19 12/11/19 15:00 23:00 07:00 Intake Total 600 ml 840 ml Balance 600 ml 840 ml Current Medications: Meds: Current Medications Medications (Trade) Dose Ordered Sig/Ivonne Route PRN Reason Start Time Stop Time Status Last Admin Dose Admin Clopidogrel Bisulfate (Plavix) 75 mg DAILY PO 12/10/19 08:00 12/10/19 08:53 Furosemide (Lasix) 20 mg DAILY PO 12/10/19 09:00 12/10/19 08:53 I have reviewed the current psychotropics carefully including drug interactions. Risk benefit ratio favors no change other than as noted in my dictated progress note. 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
--- NOTE | 2019-12-11 07:56 | PDOC ---
Exam Note: Ferny Note: S/O: This note is a late entry for DOS 12/10/2019 covers elements not covered in my initial note. Discussed the patient with nursing staff, reviewed the chart. Also met with the patient individually in the evening on audio-visual rounds with Edith TOURE. Nursing report was with Edith TOURE. Patient slept 7 hours. He is quite verbal, again having word finding problems. ROS: No CV, , Pulmonary, Eye system symptoms on review. MSE: Patient continues to have word finding problems but very animated, verbal, interactive as I met with him, did well previous night and during the day. Short-term memory is impaired. Abstraction fair. Computation impaired. Language function intact. No psychotic symptoms, suicidal or homicidal ideation. Mood and affect is improved. No overt delusions. No aggression. Labs: Reviewed. Imp: Psychotic disorder unspecified. Expressive aphasia. 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 Plan: Continue psychotropics from initial note. Assessment: Vital Signs/I&O: Vital Signs Date Time Temp Pulse Resp B/P (MAP) Pulse Ox O2 Delivery O2 Flow Rate FiO2 12/11/19 06:20 97.8 60 18 126/75 (92) 97 Room Air I & O 12/10/19 12/10/19 12/11/19 15:00 23:00 07:00 Intake Total 600 ml 840 ml Balance 600 ml 840 ml Current Medications: Meds: Current Medications Medications (Trade) Dose Ordered Sig/Ivonne Route PRN Reason Start Time Stop Time Status Last Admin Dose Admin Clopidogrel Bisulfate (Plavix) 75 mg DAILY PO 12/10/19 08:00 12/10/19 08:53 Furosemide (Lasix) 20 mg DAILY PO 12/10/19 09:00 12/10/19 08:53 I have reviewed the current psychotropics carefully including drug interactions. Risk benefit ratio favors no change other than as noted in my dictated progress note. 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
[2019-12-11] MEDS: FUROSEMIDE 20 MG TABLET PO SCH (08:36)
[2019-12-11] MEDS: DIVALPROEX SODIUM 250 MG TABLET.DR. PO SCH (08:36)
[2019-12-11] MEDS: POLYETHYLENE GLYCOL 3350 17 GM PACKET. PO SCH (08:36)
[2019-12-11] MEDS: SERTRALINE 50 MG TABLET. PO SCH (08:36)
[2019-12-11] MEDS: busPIRone 10 MG TABLET. PO SCH ×3 (08:36→21:02)
[2019-12-11] MEDS: CLOPIDOGREL BISULFATE 75 MG TABLET PO SCH (08:36)
[2019-12-11] MEDS: METOPROLOL TART IMMED RELEASE 25 MG TABLET PO SCH ×2 (08:37→21:02)
[2019-12-11 15:44] VITALS: BP 136/70
[2019-12-11] MEDS: DIVALPROEX 125 MG CAP.SPRINK PO SCH (17:27)
[2019-12-11] MEDS: MIRTAZAPINE 7.5 MG TABLET. PO SCH (21:01)
[2019-12-11] MEDS: risperiDONE 0.25 MG TABLET. PO SCH (21:02)
[2019-12-11] MEDS: DONEPEZIL HCL 10 MG TABLET PO SCH (21:02)
[2019-12-11] MEDS: ATORVASTATIN CALCIUM 20 MG TABLET PO SCH (21:02)
--- NOTE | 2019-12-11 21:57 | PDOC ---
Exam Note: Ferny Note: Please also refer to the separate dictated note~for this date of service dictated separately.~Patient seen individually. Discussed the patient with Nursing staff reviewed the chart.~Reviewed interim history and current functioning. Reviewed vital signs,~Labs/ Radiology~and current medications noted below. Continue current treatment with the changes noted in the dictated addendum note Assessment: Vital Signs/I&O: Vital Signs Date Time Temp Pulse Resp B/P (MAP) Pulse Ox O2 Delivery O2 Flow Rate FiO2 12/11/19 21:02 75 136/70 12/11/19 15:44 98.4 18 96 12/11/19 06:20 Room Air I & O 12/10/19 12/10/19 12/11/19 15:00 23:00 07:00 Intake Total 600 ml 840 ml Balance 600 ml 840 ml Current Medications: I have reviewed the current psychotropics carefully including drug interactions. Risk benefit ratio favors no change other than as noted in my dictated progress note. 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
[2019-12-12 05:39] VITALS: BP 108/66
[2019-12-12] MEDS: METOPROLOL TART IMMED RELEASE 25 MG TABLET PO SCH ×2 (07:51→20:10)
[2019-12-12] MEDS: CLOPIDOGREL BISULFATE 75 MG TABLET PO SCH (07:51)
[2019-12-12] MEDS: SERTRALINE 50 MG TABLET. PO SCH (07:51)
[2019-12-12] MEDS: busPIRone 10 MG TABLET. PO SCH ×3 (07:51→20:09)
[2019-12-12] MEDS: FUROSEMIDE 20 MG TABLET PO SCH (07:52)
[2019-12-12] MEDS: DIVALPROEX SODIUM 250 MG TABLET.DR. PO SCH (07:52)
[2019-12-12] MEDS: POLYETHYLENE GLYCOL 3350 17 GM PACKET. PO SCH (07:59)
[2019-12-12 15:33] VITALS: BP 119/55
[2019-12-12] MEDS: DIVALPROEX 125 MG CAP.SPRINK PO SCH (17:25)
[2019-12-12] MEDS: ATORVASTATIN CALCIUM 20 MG TABLET PO SCH (20:09)
[2019-12-12] MEDS: risperiDONE 0.25 MG TABLET. PO SCH (20:09)
[2019-12-12] MEDS: MIRTAZAPINE 7.5 MG TABLET. PO SCH (20:09)
[2019-12-12] MEDS: DONEPEZIL HCL 10 MG TABLET PO SCH (20:11)
--- NOTE | 2019-12-12 22:47 | PDOC ---
Exam Note: Ferny Note: S/O: This note is a late entry for DOS 12/11/2019 covers elements not covered in my initial note. This is an addendum to psychiatric progress note for DOS 12/11/2019. Discussed the patient with nursing staff, reviewed the chart. The patient was seen on audio-visual rounds in the evening with Janet TOURE. Caroline sing report was with Ciera TOURE. Patient slept 7 hours. He is was making statements to nursing staff that he was thankful for the food and water that he gets here on the unit. ROS: No CV, , Pulmonary, Eye system symptoms on review. MSE: Patient is very animated, verbal, interactive. Short-term memory is impaired. Abstraction fair. Computation impaired. Language function intact. No psychotic symptoms, suicidal or homicidal ideation. Mood and affect is improved. No overt delusions. No aggression. Labs: Reviewed. Imp: Psychotic disorder unspecified. Expressive aphasia. 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 Plan: Continue psychotropics from initial note. Assessment: Vital Signs/I&O: Vital Signs Date Time Temp Pulse Resp B/P (MAP) Pulse Ox O2 Delivery O2 Flow Rate FiO2 12/12/19 20:10 57 119/55 12/12/19 15:33 97.7 18 93 12/11/19 06:20 Room Air I & O 12/11/19 12/11/19 12/12/19 15:00 23:00 07:00 Intake Total 600 ml 840 ml Balance 600 ml 840 ml Current Medications: I have reviewed the current psychotropics carefully including drug interactions. Risk benefit ratio favors no change other than as noted in my dictated progress note. 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
--- NOTE | 2019-12-12 23:00 | PDOC ---
Exam Note: Ferny Note: Please also refer to the separate dictated note~for this date of service dictated separately.~Patient seen individually. Discussed the patient with Nursing staff reviewed the chart.~Reviewed interim history and current functioning. Reviewed vital signs,~Labs/ Radiology~and current medications noted below. Continue current treatment with the changes noted in the dictated addendum note Assessment: Vital Signs/I&O: Vital Signs Date Time Temp Pulse Resp B/P (MAP) Pulse Ox O2 Delivery O2 Flow Rate FiO2 12/12/19 20:10 57 119/55 12/12/19 15:33 97.7 18 93 12/11/19 06:20 Room Air I & O 12/11/19 12/11/19 12/12/19 15:00 23:00 07:00 Intake Total 600 ml 840 ml Balance 600 ml 840 ml Current Medications: I have reviewed the current psychotropics carefully including drug interactions. Risk benefit ratio favors no change other than as noted in my dictated progress note. 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
[2019-12-13 06:12] VITALS: BP 127/72
[2019-12-13] MEDS: DIVALPROEX SODIUM 250 MG TABLET.DR. PO SCH (08:04)
[2019-12-13] MEDS: FUROSEMIDE 20 MG TABLET PO SCH (08:04)
[2019-12-13] MEDS: busPIRone 10 MG TABLET. PO SCH ×3 (08:04→20:08)
[2019-12-13] MEDS: SERTRALINE 50 MG TABLET. PO SCH (08:05)
[2019-12-13] MEDS: CLOPIDOGREL BISULFATE 75 MG TABLET PO SCH (08:05)
[2019-12-13] MEDS: POLYETHYLENE GLYCOL 3350 17 GM PACKET. PO SCH (08:05)
[2019-12-13] MEDS: METOPROLOL TART IMMED RELEASE 25 MG TABLET PO SCH ×2 (08:05→20:08)
[2019-12-13 15:38] VITALS: BP 138/68
[2019-12-13] MEDS: DIVALPROEX 125 MG CAP.SPRINK PO SCH (16:52)
[2019-12-13] MEDS: ATORVASTATIN CALCIUM 20 MG TABLET PO SCH (20:08)
[2019-12-13] MEDS: MIRTAZAPINE 7.5 MG TABLET. PO SCH (20:08)
[2019-12-13] MEDS: DONEPEZIL HCL 10 MG TABLET PO SCH (20:08)
[2019-12-13] MEDS: risperiDONE 0.25 MG TABLET. PO SCH (20:08)
--- NOTE | 2019-12-13 22:32 | PDOC ---
Exam Note: Ferny Note: S/O: This note is a late entry for DOS 12/12/2019 covers elements not covered in my initial note. This is an addendum to psychiatric progress note for DOS 12/12/2019. Discussed the patient with nursing staff, reviewed the chart. The patient was seen on audio-visual rounds in the evening with Keny TOURE. Nursing report was with Keny RN. Patient slept 9-1/4 hours. ROS: No CV, , Pulmonary, Eye system symptoms on review. MSE: Patient still has some word finding problems. Short-term memory is impaired. Abstraction fair. Computation impaired. Language function intact. No psychotic symptoms, suicidal or homicidal ideation. Mood and affect is improved. No overt delusions. No aggression. Labs: Reviewed. Imp: Psychotic disorder unspecified. Expressive aphasia. 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 Plan: Continue psychotropics from initial note. Assessment: Vital Signs/I&O: Vital Signs Date Time Temp Pulse Resp B/P (MAP) Pulse Ox O2 Delivery O2 Flow Rate FiO2 12/13/19 20:08 65 138/68 12/13/19 15:38 98.0 19 97 Room Air I & O 12/12/19 12/12/19 12/13/19 15:00 23:00 07:00 Intake Total 960 ml 120 ml Balance 960 ml 120 ml Current Medications: I have reviewed the current psychotropics carefully including drug interactions. Risk benefit ratio favors no change other than as noted in my dictated progress note. 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
--- NOTE | 2019-12-13 22:32 | PDOC ---
Exam Note: Ferny Note: Please also refer to the separate dictated note~for this date of service dictated separately.~Patient seen individually. Discussed the patient with Nursing staff reviewed the chart.~Reviewed interim history and current functioning. Reviewed vital signs,~Labs/ Radiology~and current medications noted below. Continue current treatment with the changes noted in the dictated addendum note Assessment: Vital Signs/I&O: Vital Signs Date Time Temp Pulse Resp B/P (MAP) Pulse Ox O2 Delivery O2 Flow Rate FiO2 12/13/19 20:08 65 138/68 12/13/19 15:38 98.0 19 97 Room Air I & O 12/12/19 12/12/19 12/13/19 15:00 23:00 07:00 Intake Total 960 ml 120 ml Balance 960 ml 120 ml Current Medications: I have reviewed the current psychotropics carefully including drug interactions. Risk benefit ratio favors no change other than as noted in my dictated progress note. 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
[2019-12-14 06:32] VITALS: BP 115/71
[2019-12-14] MEDS: CLOPIDOGREL BISULFATE 75 MG TABLET PO SCH (08:30)
[2019-12-14] MEDS: DIVALPROEX SODIUM 250 MG TABLET.DR. PO SCH (08:30)
[2019-12-14] MEDS: FUROSEMIDE 20 MG TABLET PO SCH (08:30)
[2019-12-14] MEDS: SERTRALINE 50 MG TABLET. PO SCH (08:30)
[2019-12-14] MEDS: busPIRone 10 MG TABLET. PO SCH ×3 (08:30→19:53)
[2019-12-14] MEDS: POLYETHYLENE GLYCOL 3350 17 GM PACKET. PO SCH (08:31)
[2019-12-14] MEDS: METOPROLOL TART IMMED RELEASE 25 MG TABLET PO SCH ×2 (08:31→19:53)
[2019-12-14 15:59] VITALS: BP 118/60
[2019-12-14] MEDS: DIVALPROEX 125 MG CAP.SPRINK PO SCH (16:17)
[2019-12-14] MEDS: MIRTAZAPINE 7.5 MG TABLET. PO SCH (19:52)
[2019-12-14] MEDS: DONEPEZIL HCL 10 MG TABLET PO SCH (19:52)
[2019-12-14] MEDS: ATORVASTATIN CALCIUM 20 MG TABLET PO SCH (19:52)
[2019-12-14] MEDS: risperiDONE 0.25 MG TABLET. PO SCH (19:53)
--- NOTE | 2019-12-14 22:01 | PDOC ---
Exam Note: Ferny Note: Please also refer to the separate dictated note~for this date of service dictated separately.~Patient seen individually. Discussed the patient with Nursing staff reviewed the chart.~Reviewed interim history and current functioning. Reviewed vital signs,~Labs/ Radiology~and current medications noted below. Continue current treatment with the changes noted in the dictated addendum note Assessment: Vital Signs/I&O: Vital Signs Date Time Temp Pulse Resp B/P (MAP) Pulse Ox O2 Delivery O2 Flow Rate FiO2 12/14/19 19:53 58 118/60 12/14/19 15:59 98.2 16 91 12/13/19 15:38 Room Air I & O 12/13/19 12/13/19 12/14/19 15:00 23:00 07:00 Intake Total 720 ml 480 ml Balance 720 ml 480 ml Current Medications: I have reviewed the current psychotropics carefully including drug interactions. Risk benefit ratio favors no change other than as noted in my dictated progress note. 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
[2019-12-15 06:01] VITALS: BP 124/69
[2019-12-15] MEDS: DIVALPROEX SODIUM 250 MG TABLET.DR. PO SCH (08:29)
[2019-12-15] MEDS: busPIRone 10 MG TABLET. PO SCH ×3 (08:29→19:57)
[2019-12-15] MEDS: METOPROLOL TART IMMED RELEASE 25 MG TABLET PO SCH ×2 (08:30→19:56)
[2019-12-15] MEDS: FUROSEMIDE 20 MG TABLET PO SCH (08:30)
[2019-12-15] MEDS: POLYETHYLENE GLYCOL 3350 17 GM PACKET. PO SCH (08:30)
[2019-12-15] MEDS: CLOPIDOGREL BISULFATE 75 MG TABLET PO SCH (08:31)
[2019-12-15] MEDS: SERTRALINE 50 MG TABLET. PO SCH (08:31)
--- NOTE | 2019-12-15 08:43 | PDOC ---
Exam Note: Ferny Note: S/O: This note is a late entry for DOS 12/13/2019 covers elements not covered in my initial note. Treatment team meeting was done in the morning with Malinda Tucker, and Salena Sánchez along with Ciera TOURE and Shirley from [facility]. Discussed the patient with nursing staff, reviewed the chart. The patient was seen on audio-visual rounds in the evening with Keny TOURE. Nursing report was with Ciera TOURE. Patient slept 7 hours. Appetite is 100%. Per Ciera TOURE the patient has word finding problems. We talked about his family. Reportedly he has two nieces in [place] and they have legal custody on him. ROS: No CV, , Pulmonary, Eye system symptoms on review. MSE: Patient is very animated, verbal, interactive. Short-term memory is impaired. Abstraction fair. Computation impaired. Language function intact. No psychotic symptoms, suicidal or homicidal ideation. Mood and affect is improved. No overt delusions. No aggression. Labs: Reviewed. Imp: Psychotic disorder unspecified. Expressive aphasia. 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 Plan: Continue psychotropics from initial note. Assessment: Vital Signs/I&O: Vital Signs Date Time Temp Pulse Resp B/P (MAP) Pulse Ox O2 Delivery O2 Flow Rate FiO2 12/15/19 06:01 98.1 60 16 124/69 (87) 96 12/13/19 15:38 Room Air I & O 12/14/19 12/14/19 12/15/19 15:00 23:00 07:00 Intake Total 720 ml 600 ml Balance 720 ml 600 ml Current Medications: I have reviewed the current psychotropics carefully including drug interactions. Risk benefit ratio favors no change other than as noted in my dictated progress note. 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
--- NOTE | 2019-12-15 09:04 | PDOC ---
Exam Note: Ferny Note: S/O: This note is a late entry for DOS 12/14/2019 covers elements not covered in my initial note. Discussed the patient with nursing staff, reviewed the chart. The patient was seen on audio-visual rounds in the evening with Hannah TOURE. Nursing report was with Keny RN. Patient slept 7 hours. Appetite is fa ir. ROS: No CV, , Pulmonary, Eye system symptoms on review. MSE: Patient is very pleasant verbal and animated but has significant word finding problems and confusion. He believes we went on a trip to [place]. Short-term memory is impaired. Abstraction fair. Computation impaired. Language function intact. No psychotic symptoms, suicidal or homicidal ideation. Mood and affect is improved. No overt delusions. No aggression. Labs: Reviewed. Imp: Psychotic disorder unspecified. Expressive aphasia. 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 Plan: Continue psychotropics from initial note. Assessment: Vital Signs/I&O: Vital Signs Date Time Temp Pulse Resp B/P (MAP) Pulse Ox O2 Delivery O2 Flow Rate FiO2 12/15/19 06:01 98.1 60 16 124/69 (87) 96 12/13/19 15:38 Room Air I & O 12/14/19 12/14/19 12/15/19 15:00 23:00 07:00 Intake Total 720 ml 600 ml Balance 720 ml 600 ml Current Medications: I have reviewed the current psychotropics carefully including drug interactions. Risk benefit ratio favors no change other than as noted in my dictated progress note. 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
[2019-12-15 09:20] LABS: BASO # 0.1 x10^3/uL (0.0-0.2); BASO % 1 % (0-3); EOS # 0.4 x10^3/uL (0.0-0.7); EOS % 6 % (0-3); HEMATOCRIT 48.4 % (39.0-53.0); HEMOGLOBIN 15.7 g/dL (13.0-17.5); LYMPH # 2.4 x10^3/uL (1.0-4.8); LYMPH % 33 % (24-48); MEAN CORPUSCULAR HEMOGLOBIN 33 pg (25-35); MEAN CORPUSCULAR HGB CONC 33 g/dL (31-37); MEAN CORPUSCULAR VOLUME 100 fL (79-100); MONO # 0.6 x10^3/uL (0.0-1.1); MONO % 9 % (0-9); NEUT # 3.7 x10^3uL (1.8-7.7); NEUT % 51 % (31-73); PLATELET COUNT 147 x10^3/uL (140-400); RED BLOOD COUNT 4.85 x10^6/uL (4.30-5.70); RED CELL DISTRIBUTION WIDTH 14.6 % (11.5-14.5); WHITE BLOOD COUNT 7.2 x10^3/uL (4.0-11.0)
[2019-12-15 09:41] LABS: ALBUMIN 3.4 g/dL (3.4-5.0); ALBUMIN/GLOBULIN RATIO 1.1 (1.0-1.7); CALCIUM 8.8 mg/dL (8.5-10.1); GFR 72.5; POTASSIUM 3.5 mmol/L (3.5-5.1); TOTAL BILIRUBIN 0.2 mg/dL (0.2-1.0); TOTAL PROTEIN 6.4 g/dL (6.4-8.2)
[2019-12-15 11:12] LABS: PLT ESTIMATE ADEQUATE (ADEQUATE)
[2019-12-15 11:20] LABS: BURR CELLS FEW
[2019-12-15 15:42] VITALS: BP 136/72
[2019-12-15] MEDS: DIVALPROEX 125 MG CAP.SPRINK PO SCH (17:17)
[2019-12-15] MEDS: risperiDONE 0.25 MG TABLET. PO SCH (19:57)
[2019-12-15] MEDS: DONEPEZIL HCL 10 MG TABLET PO SCH (19:57)
[2019-12-15] MEDS: ATORVASTATIN CALCIUM 20 MG TABLET PO SCH (19:57)
[2019-12-15] MEDS: MIRTAZAPINE 7.5 MG TABLET. PO SCH (19:57)
--- NOTE | 2019-12-15 22:02 | PDOC ---
Exam Note: Ferny Note: Please also refer to the separate dictated note~for this date of service dictated separately.~Patient seen individually. Discussed the patient with Nursing staff reviewed the chart.~Reviewed interim history and current functioning. Reviewed vital signs,~Labs/ Radiology~and current medications noted below. Continue current treatment with the changes noted in the dictated addendum note Assessment: Vital Signs/I&O: Vital Signs Date Time Temp Pulse Resp B/P (MAP) Pulse Ox O2 Delivery O2 Flow Rate FiO2 12/15/19 19:56 70 136/72 12/15/19 15:42 98.3 16 95 12/13/19 15:38 Room Air I & O 12/14/19 12/14/19 12/15/19 15:00 23:00 07:00 Intake Total 720 ml 600 ml Balance 720 ml 600 ml Labs: Laboratory Tests Test 12/15/19 09:12 White Blood Count 7.2 x10^3/uL (4.0-11.0) Red Blood Count 4.85 x10^6/uL (4.30-5.70) Hemoglobin 15.7 g/dL (13.0-17.5) Hematocrit 48.4 % (39.0-53.0) Mean Corpuscular Volume 100 fL (79-100) Mean Corpuscular Hemoglobin 33 pg (25-35) Mean Corpuscular Hemoglobin Concent 33 g/dL (31-37) Red Cell Distribution Width 14.6 % (11.5-14.5) H Platelet Count 147 x10^3/uL (140-400) Neutrophils (%) (Auto) 51 % (31-73) Lymphocytes (%) (Auto) 33 % (24-48) Monocytes (%) (Auto) 9 % (0-9) Eosinophils (%) (Auto) 6 % (0-3) H Basophils (%) (Auto) 1 % (0-3) Neutrophils # (Auto) 3.7 x10^3uL (1.8-7.7) Lymphocytes # (Auto) 2.4 x10^3/uL (1.0-4.8) Monocytes # (Auto) 0.6 x10^3/uL (0.0-1.1) Eosinophils # (Auto) 0.4 x10^3/uL (0.0-0.7) Basophils # (Auto) 0.1 x10^3/uL (0.0-0.2) Platelet Estimate Adequate (ADEQUATE) Giant Platelets Present Saxon Cells Few Sodium Level 144 mmol/L (136-145) Potassium Level 3.5 mmol/L (3.5-5.1) Chloride Level 105 mmol/L (98-107) Carbon Dioxide Level 32 mmol/L (21-32) Anion Gap 7 (6-14) Blood Urea Nitrogen 14 mg/dL (8-26) Creatinine 1.0 mg/dL (0.7-1.3) Estimated GFR (Cockcroft-Gault) 72.5 BUN/Creatinine Ratio 14 (6-20) Glucose Level 114 mg/dL (70-99) H Calcium Level 8.8 mg/dL (8.5-10.1) Total Bilirubin 0.2 mg/dL (0.2-1.0) Aspartate Amino Transferase (AST) 24 U/L (15-37) Alanine Aminotransferase (ALT) 30 U/L (16-63) Alkaline Phosphatase 91 U/L (46-116) Total Protein 6.4 g/dL (6.4-8.2) Albumin 3.4 g/dL (3.4-5.0) Albumin/Globulin Ratio 1.1 (1.0-1.7) Current Medications: I have reviewed the current psychotropics carefully including drug interactions. Risk benefit ratio favors no change other than as noted in my dictated progress note. 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
[2019-12-16 05:46] VITALS: BP 134/79
[2019-12-16] MEDS: METOPROLOL TART IMMED RELEASE 25 MG TABLET PO SCH ×2 (08:05→20:12)
[2019-12-16] MEDS: DIVALPROEX SODIUM 250 MG TABLET.DR. PO SCH (08:05)
[2019-12-16] MEDS: busPIRone 10 MG TABLET. PO SCH ×3 (08:05→20:12)
[2019-12-16] MEDS: FUROSEMIDE 20 MG TABLET PO SCH (08:05)
[2019-12-16] MEDS: SERTRALINE 50 MG TABLET. PO SCH (08:05)
[2019-12-16] MEDS: CLOPIDOGREL BISULFATE 75 MG TABLET PO SCH (08:05)
[2019-12-16] MEDS: POLYETHYLENE GLYCOL 3350 17 GM PACKET. PO SCH (08:06)
[2019-12-16 15:48] VITALS: BP 114/70
[2019-12-16] MEDS: DIVALPROEX 125 MG CAP.SPRINK PO SCH (17:22)
[2019-12-16 20:10] VITALS: BP 135/73
[2019-12-16] MEDS: MIRTAZAPINE 7.5 MG TABLET. PO SCH (20:12)
[2019-12-16] MEDS: DONEPEZIL HCL 10 MG TABLET PO SCH (20:12)
[2019-12-16] MEDS: ATORVASTATIN CALCIUM 20 MG TABLET PO SCH (20:12)
[2019-12-16] MEDS: risperiDONE 0.25 MG TABLET. PO SCH (20:12)
--- NOTE | 2019-12-16 21:52 | PDOC ---
Exam Note: Ferny Note: Please also refer to the separate dictated note~for this date of service dictated separately.~Patient seen individually. Discussed the patient with Nursing staff reviewed the chart.~Reviewed interim history and current functioning. Reviewed vital signs,~Labs/ Radiology~and current medications noted below. Continue current treatment with the changes noted in the dictated addendum note Assessment: Vital Signs/I&O: Vital Signs Date Time Temp Pulse Resp B/P (MAP) Pulse Ox O2 Delivery O2 Flow Rate FiO2 12/16/19 20:12 66 135/73 12/16/19 15:48 98.0 16 95 12/13/19 15:38 Room Air I & O 12/15/19 12/15/19 12/16/19 15:00 23:00 07:00 Intake Total 480 ml 420 ml Balance 480 ml 420 ml Current Medications: I have reviewed the current psychotropics carefully including drug interactions. Risk benefit ratio favors no change other than as noted in my dictated progress note. Diagnosis: Problems: (1) Impulse control disorder (2) Obsessive compulsive disorder (3) Anxiety disorder (4) Bipolar disorder, mixed (5) Bipolar affective, mixed (6) Dementia, vascular, with delusions (7) Dementia in Alzheimer's disease with depression FRANCES HSU MD Dec 16, 2019 21:52
[2019-12-17 05:57] VITALS: BP 114/58
[2019-12-17] MEDS: DIVALPROEX SODIUM 250 MG TABLET.DR. PO SCH (08:43)
[2019-12-17] MEDS: busPIRone 10 MG TABLET. PO SCH ×3 (08:43→20:29)
[2019-12-17] MEDS: FUROSEMIDE 20 MG TABLET PO SCH (08:43)
[2019-12-17] MEDS: CLOPIDOGREL BISULFATE 75 MG TABLET PO SCH (08:44)
[2019-12-17] MEDS: POLYETHYLENE GLYCOL 3350 17 GM PACKET. PO SCH (08:44)
[2019-12-17] MEDS: METOPROLOL TART IMMED RELEASE 25 MG TABLET PO SCH ×2 (08:44→20:29)
[2019-12-17] MEDS: SERTRALINE 50 MG TABLET. PO SCH (08:44)
--- NOTE | 2019-12-17 08:49 | PDOC ---
Exam Note: Ferny Note: S/O: This note is a late entry for DOS 12/15/2019 covers elements not covered in my initial note. Discussed the patient with nursing staff, reviewed the chart. The patient was seen on audio-visual rounds in the evening with Edith TOURE. Nursing report was with Edith TOURE. He tends to have word finding proble ms but some of it is that he confabulates talking about having gone on [place] trips with me in the past ROS: No CV, , Pulmonary, Eye system symptoms on review. MSE: Patient is very pleasant, tends to have word finding problems and confusion. He believes we went on a trip to [place]. Short-term memory is impaired. Abstraction fair. Computation impaired. Language function intact. No psychotic symptoms, suicidal or homicidal ideation. Mood and affect is improved. No overt delusions. No aggression. Labs: Reviewed. Imp: Psychotic disorder unspecified. Expressive aphasia. 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 Plan: Continue psychotropics from initial note. Assessment: Vital Signs/I&O: Vital Signs Date Time Temp Pulse Resp B/P (MAP) Pulse Ox O2 Delivery O2 Flow Rate FiO2 12/17/19 08:44 55 114/58 12/17/19 05:57 97.9 18 94 12/13/19 15:38 Room Air I & O 12/16/19 12/16/19 12/17/19 15:00 23:00 07:00 Intake Total 720 ml 660 ml Balance 720 ml 660 ml Current Medications: I have reviewed the current psychotropics carefully including drug interactions. Risk benefit ratio favors no change other than as noted in my dictated progress note. Diagnosis: Problems: (1) Impulse control disorder (2) Obsessive compulsive disorder (3) Anxiety disorder (4) Bipolar disorder, mixed (5) Bipolar affective, mixed (6) Dementia, vascular, with delusions (7) Dementia in Alzheimer's disease with depression FRANCES HSU MD Dec 17, 2019 08:49
--- NOTE | 2019-12-17 09:00 | PDOC ---
Exam Note: Ferny Note: S/O: This note is a late entry for DOS 12/16/2019 covers elements not covered in my initial note. Discussed the patient with nursing staff, reviewed the chart. The patient was seen on audio-visual rounds in the evening with Hannah TOURE. Nursing report was with Hardik TOURE. Patient is still has word finding probl ems. ROS: No CV, , Pulmonary, Eye system symptoms on review. MSE: Patient is very pleasant verbal and animated but has significant word finding problems and confusion. He believes we went on a trip to [place]. Short-term memory is impaired. Abstraction fair. Computation impaired. Language function intact. No psychotic symptoms, suicidal or homicidal ideation. Mood and affect is improved. No overt delusions. No aggression. Labs: Reviewed. Imp: Psychotic disorder unspecified. Expressive aphasia. 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 Plan: Continue psychotropics from initial note. Assessment: Vital Signs/I&O: Vital Signs Date Time Temp Pulse Resp B/P (MAP) Pulse Ox O2 Delivery O2 Flow Rate FiO2 12/17/19 08:44 55 114/58 12/17/19 05:57 97.9 18 94 12/13/19 15:38 Room Air I & O 12/16/19 12/16/19 12/17/19 15:00 23:00 07:00 Intake Total 720 ml 660 ml Balance 720 ml 660 ml Current Medications: I have reviewed the current psychotropics carefully including drug interactions. Risk benefit ratio favors no change other than as noted in my dictated progress note. Diagnosis: Problems: (1) Impulse control disorder (2) Obsessive compulsive disorder (3) Anxiety disorder (4) Bipolar disorder, mixed (5) Bipolar affective, mixed (6) Dementia, vascular, with delusions (7) Dementia in Alzheimer's disease with depression FRANCES HSU MD Dec 17, 2019 09:00
[2019-12-17 15:42] VITALS: BP 117/71
[2019-12-17] MEDS: DIVALPROEX 125 MG CAP.SPRINK PO SCH (16:37)
[2019-12-17] MEDS: MIRTAZAPINE 7.5 MG TABLET. PO SCH (20:29)
[2019-12-17] MEDS: DONEPEZIL HCL 10 MG TABLET PO SCH (20:29)
[2019-12-17] MEDS: ATORVASTATIN CALCIUM 20 MG TABLET PO SCH (20:30)
[2019-12-17] MEDS: risperiDONE 0.25 MG TABLET. PO SCH (20:30)
--- NOTE | 2019-12-17 22:57 | PDOC ---
Exam Note: Ferny Note: S/O: This note covers elements not covered in my initial note. Discussed the patient with nursing staff, reviewed the chart. The patient was seen on audio- visual rounds in the evening with Keny TOURE. Nursing report was with Edith TOURE. Patient slept 8 hours. ROS: No CV, , Pulmonary, Eye system symptoms on review. MSE: Oriented to himself. Insight and judgment, recent and remote memory, attention and concentration, fund of knowledge is poor consistent with his diagnosis. 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 Labs: Reviewed. Imp: Psychotic disorder unspecified. Expressive aphasia. 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 Plan: Continue psychotropics from initial note. According to the [place] Department of Health and Environment and CDC, the patient has to remain in the hospital for another 7 days for his quarantine due to COVID-19 exposure on the unit. Assessment: Vital Signs/I&O: Vital Signs Date Time Temp Pulse Resp B/P (MAP) Pulse Ox O2 Delivery O2 Flow Rate FiO2 12/17/19 20:29 76 135/68 12/17/19 15:42 98.2 18 95 12/13/19 15:38 Room Air I & O 12/16/19 12/16/19 12/17/19 15:00 23:00 07:00 Intake Total 720 ml 660 ml Balance 720 ml 660 ml Current Medications: I have reviewed the current psychotropics carefully including drug interactions. Risk benefit ratio favors no change other than as noted in my dictated progress note. Diagnosis: Problems: (1) Impulse control disorder (2) Obsessive compulsive disorder (3) Anxiety disorder (4) Bipolar disorder, mixed (5) Bipolar affective, mixed (6) Dementia, vascular, with delusions (7) Dementia in Alzheimer's disease with depression FRANCES HSU MD Dec 17, 2019 22:57
[2019-12-18 05:59] VITALS: BP 120/72
[2019-12-18] MEDS: POLYETHYLENE GLYCOL 3350 17 GM PACKET. PO SCH (08:40)
[2019-12-18] MEDS: busPIRone 10 MG TABLET. PO SCH ×3 (08:41→20:01)
[2019-12-18] MEDS: CLOPIDOGREL BISULFATE 75 MG TABLET PO SCH (08:41)
[2019-12-18] MEDS: DIVALPROEX SODIUM 250 MG TABLET.DR. PO SCH (08:41)
[2019-12-18] MEDS: FUROSEMIDE 20 MG TABLET PO SCH (08:41)
[2019-12-18] MEDS: METOPROLOL TART IMMED RELEASE 25 MG TABLET PO SCH ×2 (08:41→20:01)
[2019-12-18] MEDS: SERTRALINE 50 MG TABLET. PO SCH (08:41)
[2019-12-18 15:38] VITALS: BP 109/71
[2019-12-18] MEDS ORDERED: ACET325T21 PO (15:56)
[2019-12-18] MEDS ORDERED: MAG30ORA PO (15:59)
[2019-12-18] MEDS ORDERED: MAGN24003 PO (16:00)
[2019-12-18] MEDS ORDERED: METH57CR17 TP (16:01)
[2019-12-18] MEDS ORDERED: MIRT7.5T8 PO (16:27)
[2019-12-18] MEDS ORDERED: OLAN5TAB7 PO (16:28)
[2019-12-18] MEDS ORDERED: SERT50TA PO (16:30)
[2019-12-18] MEDS: DIVALPROEX 125 MG CAP.SPRINK PO SCH (17:16)
[2019-12-18] MEDS: risperiDONE 0.25 MG TABLET. PO SCH (20:00)
[2019-12-18] MEDS: ATORVASTATIN CALCIUM 20 MG TABLET PO SCH (20:00)
[2019-12-18] MEDS: DONEPEZIL HCL 10 MG TABLET PO SCH (20:00)
[2019-12-18] MEDS: MIRTAZAPINE 7.5 MG TABLET. PO SCH (20:01)
--- NOTE | 2019-12-18 22:37 | PDOC ---
Exam Note: Ferny Note: S/O: This note covers elements not covered in my initial note. Discussed the patient with nursing staff, reviewed the chart. The patient was seen on audio- visual rounds in the evening with Keny TOURE. Nursing report was with Ciera TOURE. Patient slept 6-1/4 hours. He remains confused and has confabulation. ROS: No CV, , Pulmonary, Eye system symptoms on review. MSE: Oriented to himself. Insight and judgment, recent and remote memory, attention and concentration, fund of knowledge is poor consistent with his diagnosis. 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 Labs: Reviewed. Imp: Psychotic disorder unspecified. Expressive aphasia. 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 Plan: Continue psychotropics from initial note. Assessment: Vital Signs/I&O: Vital Signs Date Time Temp Pulse Resp B/P (MAP) Pulse Ox O2 Delivery O2 Flow Rate FiO2 12/18/19 20:01 63 109/71 12/18/19 15:38 98.8 18 97 Room Air I & O 12/17/19 12/17/19 12/18/19 14:59 22:59 06:59 Intake Total 720 ml 360 ml Balance 720 ml 360 ml Current Medications: I have reviewed the current psychotropics carefully including drug interactions. Risk benefit ratio favors no change other than as noted in my dictated progress note. Diagnosis: Problems: (1) Impulse control disorder (2) Obsessive compulsive disorder (3) Anxiety disorder (4) Bipolar disorder, mixed (5) Bipolar affective, mixed (6) Dementia, vascular, with delusions (7) Dementia in Alzheimer's disease with depression FRANCES HSU MD Dec 18, 2019 22:37
[2019-12-19 06:17] VITALS: BP 113/66
[2019-12-19] MEDS: FUROSEMIDE 20 MG TABLET PO SCH (08:52)
[2019-12-19] MEDS: METOPROLOL TART IMMED RELEASE 25 MG TABLET PO SCH ×2 (08:52→20:07)
[2019-12-19] MEDS: SERTRALINE 50 MG TABLET. PO SCH (08:52)
[2019-12-19] MEDS: POLYETHYLENE GLYCOL 3350 17 GM PACKET. PO SCH (08:52)
[2019-12-19] MEDS: DIVALPROEX SODIUM 250 MG TABLET.DR. PO SCH (08:53)
[2019-12-19] MEDS: CLOPIDOGREL BISULFATE 75 MG TABLET PO SCH (08:53)
[2019-12-19] MEDS: busPIRone 10 MG TABLET. PO SCH ×3 (08:53→20:07)
[2019-12-19 15:52] VITALS: BP 131/81
[2019-12-19] MEDS: DIVALPROEX 125 MG CAP.SPRINK PO SCH (17:34)
[2019-12-19] MEDS: ATORVASTATIN CALCIUM 20 MG TABLET PO SCH (20:06)
[2019-12-19] MEDS: DONEPEZIL HCL 10 MG TABLET PO SCH (20:07)
[2019-12-19] MEDS: risperiDONE 0.25 MG TABLET. PO SCH (20:07)
[2019-12-19] MEDS: MIRTAZAPINE 7.5 MG TABLET. PO SCH (20:07)
--- NOTE | 2019-12-19 21:47 | PDOC ---
Exam Note: Ferny Note: Please also refer to the separate dictated note~for this date of service dictated separately.~Patient seen individually. Discussed the patient with Nursing staff reviewed the chart.~Reviewed interim history and current functioning. Reviewed vital signs,~Labs/ Radiology~and current medications noted below. Continue current treatment with the changes noted in the dictated addendum note Assessment: Vital Signs/I&O: Vital Signs Date Time Temp Pulse Resp B/P (MAP) Pulse Ox O2 Delivery O2 Flow Rate FiO2 12/19/19 20:07 67 131/81 12/19/19 15:52 98.2 16 97 12/18/19 15:38 Room Air I & O 12/18/19 12/18/19 12/19/19 15:00 23:00 07:00 Intake Total 840 ml 120 ml Balance 840 ml 120 ml Current Medications: I have reviewed the current psychotropics carefully including drug interactions. Risk benefit ratio favors no change other than as noted in my dictated progress note. Diagnosis: Problems: (1) Impulse control disorder (2) Obsessive compulsive disorder (3) Anxiety disorder (4) Bipolar disorder, mixed (5) Bipolar affective, mixed (6) Dementia, vascular, with delusions (7) Dementia in Alzheimer's disease with depression FRANCES HSU MD Dec 19, 2019 21:47
[2019-12-20 05:37] VITALS: BP 144/88
[2019-12-20] MEDS: busPIRone 10 MG TABLET. PO SCH ×3 (08:28→19:59)
[2019-12-20] MEDS: DIVALPROEX SODIUM 250 MG TABLET.DR. PO SCH (08:28)
[2019-12-20] MEDS: POLYETHYLENE GLYCOL 3350 17 GM PACKET. PO SCH (08:28)
[2019-12-20] MEDS: METOPROLOL TART IMMED RELEASE 25 MG TABLET PO SCH ×2 (08:28→19:59)
[2019-12-20] MEDS: FUROSEMIDE 20 MG TABLET PO SCH (08:29)
[2019-12-20] MEDS: CLOPIDOGREL BISULFATE 75 MG TABLET PO SCH (08:29)
[2019-12-20] MEDS: SERTRALINE 50 MG TABLET. PO SCH (08:29)
--- NOTE | 2019-12-20 10:33 | PDOC ---
Exam Note: Ferny Note: S/O: This note is a late entry for DOS 12/19/19 covers elements not covered in my initial note. Discussed the patient with nursing staff, reviewed the chart. The patient was seen on audio-visual rounds in the evening with Keny TOURE. Nursing report with Ciera TOURE. He had a good day. He was reading the new spaper in the morning, not quite following along however. Patient slept 7-1/2 hours. He continues to have some word finding problems but otherwise isn pleasant. ROS: No CV, , Pulmonary, Eye system symptoms on review. MSE: Alert and oriented to himself. Speech is coherent, rapid at times. He continues to have some confabulation consistent with early Korsakoff diagnosis and past history of alcohol abuse. Insight and judgment, recent and remote memory, attention and concentration, fund of knowledge is poor consistent with his diagnosis. Labs: Reviewed. Imp: Psychotic disorder unspecified. Expressive aphasia. 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 Plan: Continue psychotropics from initial note. Assessment: Vital Signs/I&O: Vital Signs Date Time Temp Pulse Resp B/P (MAP) Pulse Ox O2 Delivery O2 Flow Rate FiO2 12/20/19 08:28 62 144/88 12/20/19 05:37 97.6 20 99 12/18/19 15:38 Room Air I & O 12/19/19 12/19/19 12/20/19 15:00 23:00 07:00 Intake Total 840 ml 240 ml Balance 840 ml 240 ml Current Medications: I have reviewed the current psychotropics carefully including drug interactions. Risk benefit ratio favors no change other than as noted in my dictated progress note. 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
[2019-12-20 15:46] VITALS: BP 117/68
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
[2019-12-20] MEDS: DIVALPROEX 125 MG CAP.SPRINK PO SCH (17:08)
[2019-12-20] MEDS: MIRTAZAPINE 7.5 MG TABLET. PO SCH (19:59)
[2019-12-20] MEDS: ATORVASTATIN CALCIUM 20 MG TABLET PO SCH (19:59)
[2019-12-20] MEDS: risperiDONE 0.25 MG TABLET. PO SCH (19:59)
[2019-12-20] MEDS: DONEPEZIL HCL 10 MG TABLET PO SCH (19:59)
--- NOTE | 2019-12-20 22:02 | PDOC ---
Exam Note: Ferny Note: Please also refer to the separate dictated note~for this date of service dictated separately.~Patient seen individually. Discussed the patient with Nursing staff reviewed the chart.~Reviewed interim history and current functioning. Reviewed vital signs,~Labs/ Radiology~and current medications noted below. Continue current treatment with the changes noted in the dictated addendum note Assessment: Vital Signs/I&O: Vital Signs Date Time Temp Pulse Resp B/P (MAP) Pulse Ox O2 Delivery O2 Flow Rate FiO2 12/20/19 19:59 58 117/68 12/20/19 15:46 98.2 16 96 12/18/19 15:38 Room Air I & O 12/19/19 12/19/19 12/20/19 15:00 23:00 07:00 Intake Total 840 ml 240 ml Balance 840 ml 240 ml Current Medications: I have reviewed the current psychotropics carefully including drug interactions. Risk benefit ratio favors no change other than as noted in my dictated progress note. Diagnosis: Problems: (1) Impulse control disorder (2) Obsessive compulsive disorder (3) Anxiety disorder (4) Bipolar disorder, mixed (5) Bipolar affective, mixed (6) Dementia, vascular, with delusions (7) Dementia in Alzheimer's disease with depression FRANCES HSU MD Dec 20, 2019 22:02
[2019-12-21 06:06] VITALS: BP 116/63
[2019-12-21] MEDS: SERTRALINE 50 MG TABLET. PO SCH (07:56)
[2019-12-21] MEDS: POLYETHYLENE GLYCOL 3350 17 GM PACKET. PO SCH (07:56)
[2019-12-21] MEDS: busPIRone 10 MG TABLET. PO SCH ×3 (07:56→19:48)
[2019-12-21] MEDS: METOPROLOL TART IMMED RELEASE 25 MG TABLET PO SCH ×2 (07:57→19:49)
[2019-12-21] MEDS: CLOPIDOGREL BISULFATE 75 MG TABLET PO SCH (07:57)
[2019-12-21] MEDS: DIVALPROEX SODIUM 250 MG TABLET.DR. PO SCH (07:57)
[2019-12-21] MEDS: FUROSEMIDE 20 MG TABLET PO SCH (07:57)
--- NOTE | 2019-12-21 09:42 | PDOC ---
Exam Note: Ferny Note: S/O: This note is a late entry for DOS 12/20/19 covers elements not covered in my initial note. Treatment team meeting was done in the morning with Salena Sánchez (social insurance analyst) and Ciera TOURE. Reviewed the patients progress, disposition plans, current psychotropics, discussed potential side-effects and drug interactions. The patient was seen on audio-visual rounds in the evening due to the COVID-19 exposure on the unit with Oliva TOURE. Appetite is 100%. He slept 8-1/4 hours previous night. ROS: No CV, , Pulmonary, Eye system symptoms on review. MSE: Alert and oriented to himself. 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 He felt the year was 1953 and that he was born in 1921. Insight and judgment, recent and remote memory, attention and concentration, fu nd of knowledge is poor consistent with his diagnosis. Labs: Reviewed. Imp: Psychotic disorder unspecified. Expressive aphasia. 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 Plan: Continue current psychotropics from initial note. Valproic acid level therapetic at 52. [facility]. Assessment: Vital Signs/I&O: Vital Signs Date Time Temp Pulse Resp B/P (MAP) Pulse Ox O2 Delivery O2 Flow Rate FiO2 12/21/19 07:57 55 116/63 12/21/19 06:06 97.9 18 95 Room Air I & O 12/20/19 12/20/19 12/21/19 15:00 23:00 07:00 Intake Total 960 ml 480 ml Balance 960 ml 480 ml Current Medications: I have reviewed the current psychotropics carefully including drug interactions. Risk benefit ratio favors no change other than as noted in my dictated progress note. Diagnosis: Problems: (1) Impulse control disorder (2) Obsessive compulsive disorder (3) Anxiety disorder (4) Bipolar disorder, mixed (5) Bipolar affective, mixed (6) Dementia, vascular, with delusions (7) Dementia in Alzheimer's disease with depression FRANCES HSU MD Dec 21, 2019 09:42
[2019-12-21 15:44] VITALS: BP 104/63
[2019-12-21] MEDS: DIVALPROEX 125 MG CAP.SPRINK PO SCH (16:54)
[2019-12-21] MEDS ORDERED: RISP0.5T24 PO (18:28)
[2019-12-21] MEDS: MIRTAZAPINE 7.5 MG TABLET. PO SCH (19:48)
[2019-12-21] MEDS: risperiDONE 0.25 MG TABLET. PO SCH (19:49)
[2019-12-21] MEDS: DONEPEZIL HCL 10 MG TABLET PO SCH (19:49)
[2019-12-21] MEDS: ATORVASTATIN CALCIUM 20 MG TABLET PO SCH (19:49)
--- NOTE | 2019-12-21 21:55 | PDOC ---
Exam Note: Ferny Note: Please also refer to the separate dictated note~for this date of service dictated separately.~Patient seen individually. Discussed the patient with Nursing staff reviewed the chart.~Reviewed interim history and current functioning. Reviewed vital signs,~Labs/ Radiology~and current medications noted below. Continue current treatment with the changes noted in the dictated addendum note Assessment: Vital Signs/I&O: Vital Signs Date Time Temp Pulse Resp B/P (MAP) Pulse Ox O2 Delivery O2 Flow Rate FiO2 12/21/19 19:49 57 104/63 12/21/19 15:44 98.2 16 96 12/21/19 06:06 Room Air I & O 12/20/19 12/20/19 12/21/19 15:00 23:00 07:00 Intake Total 960 ml 480 ml Balance 960 ml 480 ml Current Medications: I have reviewed the current psychotropics carefully including drug interactions. Risk benefit ratio favors no change other than as noted in my dictated progress note. Diagnosis: Problems: (1) Impulse control disorder (2) Obsessive compulsive disorder (3) Anxiety disorder (4) Bipolar disorder, mixed (5) Bipolar affective, mixed (6) Dementia, vascular, with delusions (7) Dementia in Alzheimer's disease with depression FRANCES HSU MD Dec 21, 2019 21:55
[2019-12-22 06:21] VITALS: BP 100/58
[2019-12-22 07:53] LABS: BASO % 1 % (0-3); EOS # 0.3 x10^3/uL (0.0-0.7); EOS % 6 % (0-3); HEMATOCRIT 44.2 % (39.0-53.0); HEMOGLOBIN 14.4 g/dL (13.0-17.5); LYMPH # 1.8 x10^3/uL (1.0-4.8); LYMPH % 33 % (24-48); MEAN CORPUSCULAR HEMOGLOBIN 32 pg (25-35); MEAN CORPUSCULAR HGB CONC 33 g/dL (31-37); MEAN CORPUSCULAR VOLUME 100 fL (79-100); MONO # 0.6 x10^3/uL (0.0-1.1); MONO % 11 % (0-9); NEUT # 2.7 x10^3uL (1.8-7.7); NEUT % 50 % (31-73); PLATELET COUNT 98 x10^3/uL (140-400); RED BLOOD COUNT 4.44 x10^6/uL (4.30-5.70); RED CELL DISTRIBUTION WIDTH 14.5 % (11.5-14.5); WHITE BLOOD COUNT 5.4 x10^3/uL (4.0-11.0)
[2019-12-22] MEDS: CLOPIDOGREL BISULFATE 75 MG TABLET PO SCH (08:00)
[2019-12-22] MEDS: POLYETHYLENE GLYCOL 3350 17 GM PACKET. PO SCH (08:00)
[2019-12-22] MEDS: busPIRone 10 MG TABLET. PO SCH ×3 (08:01→20:42)
[2019-12-22] MEDS: SERTRALINE 50 MG TABLET. PO SCH (08:01)
[2019-12-22] MEDS: DIVALPROEX SODIUM 250 MG TABLET.DR. PO SCH (08:01)
[2019-12-22] MEDS: FUROSEMIDE 20 MG TABLET PO SCH (08:01)
[2019-12-22] MEDS: METOPROLOL TART IMMED RELEASE 25 MG TABLET PO SCH ×2 (08:02→20:43)
[2019-12-22 08:34] LABS: ALBUMIN 2.9 g/dL (3.4-5.0); ALBUMIN/GLOBULIN RATIO 1.2 (1.0-1.7); CALCIUM 8.3 mg/dL (8.5-10.1); CREATININE 1.1 mg/dL (0.7-1.3); GFR 64.9; TOTAL BILIRUBIN 0.2 mg/dL (0.2-1.0); TOTAL PROTEIN 5.3 g/dL (6.4-8.2)
[2019-12-22 09:51] LABS: PLT ESTIMATE DECREASED (ADEQUATE)
[2019-12-22 15:35] VITALS: BP 145/75
[2019-12-22] MEDS: DIVALPROEX 125 MG CAP.SPRINK PO SCH (17:34)
[2019-12-22] MEDS: risperiDONE 0.25 MG TABLET. PO SCH (20:42)
[2019-12-22] MEDS: DONEPEZIL HCL 10 MG TABLET PO SCH (20:42)
[2019-12-22] MEDS: MIRTAZAPINE 7.5 MG TABLET. PO SCH (20:42)
[2019-12-22] MEDS: ATORVASTATIN CALCIUM 20 MG TABLET PO SCH (20:43)
--- NOTE | 2019-12-22 22:51 | PDOC ---
Exam Note: Ferny Note: S/O: This note is a late entry for DOS 12/21/2019 covers elements not covered in my initial note. The patient was seen on audio-visual rounds in the evening with Hannah RN. Discussed the patient with nursing staff reviewed the chart. Nursing report was with Hannah TOURE. The patient remains interactive. He was quite active in the [employer] group and made a bird house and colored it red. He was very proud showing this to me during the rounds and seemed to have done a good job with the coloring. ROS: Positive for word finding problems. No CV, , Pulmonary, Eye system symptoms on review. MSE: Alert and oriented to himself. 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 Insight and judgment, recent and remote memory, attention and concentration, fund of knowledge is poor consistent with his diagnosis. Labs: Reviewed. Imp: Psychotic disorder unspecified. Expressive aphasia. 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 Plan: Continue current psychotropics from initial note. Assessment: Vital Signs/I&O: Vital Signs Date Time Temp Pulse Resp B/P (MAP) Pulse Ox O2 Delivery O2 Flow Rate FiO2 12/22/19 20:43 69 145/75 12/22/19 15:35 98.3 18 98 Room Air I & O 12/21/19 12/21/19 12/22/19 15:00 23:00 07:00 Intake Total 960 ml 720 ml Balance 960 ml 720 ml Labs: Laboratory Tests Test 12/22/19 07:34 White Blood Count 5.4 x10^3/uL (4.0-11.0) Red Blood Count 4.44 x10^6/uL (4.30-5.70) Hemoglobin 14.4 g/dL (13.0-17.5) Hematocrit 44.2 % (39.0-53.0) Mean Corpuscular Volume 100 fL (79-100) Mean Corpuscular Hemoglobin 32 pg (25-35) Mean Corpuscular Hemoglobin Concent 33 g/dL (31-37) Red Cell Distribution Width 14.5 % (11.5-14.5) Platelet Count 98 x10^3/uL (140-400) L Neutrophils (%) (Auto) 50 % (31-73) Lymphocytes (%) (Auto) 33 % (24-48) Monocytes (%) (Auto) 11 % (0-9) H Eosinophils (%) (Auto) 6 % (0-3) H Basophils (%) (Auto) 1 % (0-3) Neutrophils # (Auto) 2.7 x10^3uL (1.8-7.7) Lymphocytes # (Auto) 1.8 x10^3/uL (1.0-4.8) Monocytes # (Auto) 0.6 x10^3/uL (0.0-1.1) Eosinophils # (Auto) 0.3 x10^3/uL (0.0-0.7) Basophils # (Auto) 0.0 x10^3/uL (0.0-0.2) Platelet Estimate Decreased (ADEQUATE) Large Platelets Present Giant Platelets Present Sodium Level 143 mmol/L (136-145) Potassium Level 4.0 mmol/L (3.5-5.1) Chloride Level 107 mmol/L (98-107) Carbon Dioxide Level 32 mmol/L (21-32) Anion Gap 4 (6-14) L Blood Urea Nitrogen 18 mg/dL (8-26) Creatinine 1.1 mg/dL (0.7-1.3) Estimated GFR (Cockcroft-Gault) 64.9 BUN/Creatinine Ratio 16 (6-20) Glucose Level 84 mg/dL (70-99) Calcium Level 8.3 mg/dL (8.5-10.1) L Total Bilirubin 0.2 mg/dL (0.2-1.0) Aspartate Amino Transferase (AST) 23 U/L (15-37) Alanine Aminotransferase (ALT) 24 U/L (16-63) Alkaline Phosphatase 73 U/L (46-116) Ammonia < 10 mcmol/L (11-34) L Total Protein 5.3 g/dL (6.4-8.2) L Albumin 2.9 g/dL (3.4-5.0) L Albumin/Globulin Ratio 1.2 (1.0-1.7) Current Medications: I have reviewed the current psychotropics carefully including drug interactions. Risk benefit ratio favors no change other than as noted in my dictated progress note. 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
--- NOTE | 2019-12-22 22:52 | PDOC ---
Exam Note: Ferny Note: Please also refer to the separate dictated note~for this date of service dictated separately.~Patient seen individually. Discussed the patient with Nursing staff reviewed the chart.~Reviewed interim history and current functioning. Reviewed vital signs,~Labs/ Radiology~and current medications noted below. Continue current treatment with the changes noted in the dictated addendum note Assessment: Vital Signs/I&O: Vital Signs Date Time Temp Pulse Resp B/P (MAP) Pulse Ox O2 Delivery O2 Flow Rate FiO2 12/22/19 20:43 69 145/75 12/22/19 15:35 98.3 18 98 Room Air I & O 12/21/19 12/21/19 12/22/19 15:00 23:00 07:00 Intake Total 960 ml 720 ml Balance 960 ml 720 ml Labs: Laboratory Tests Test 12/22/19 07:34 White Blood Count 5.4 x10^3/uL (4.0-11.0) Red Blood Count 4.44 x10^6/uL (4.30-5.70) Hemoglobin 14.4 g/dL (13.0-17.5) Hematocrit 44.2 % (39.0-53.0) Mean Corpuscular Volume 100 fL (79-100) Mean Corpuscular Hemoglobin 32 pg (25-35) Mean Corpuscular Hemoglobin Concent 33 g/dL (31-37) Red Cell Distribution Width 14.5 % (11.5-14.5) Platelet Count 98 x10^3/uL (140-400) L Neutrophils (%) (Auto) 50 % (31-73) Lymphocytes (%) (Auto) 33 % (24-48) Monocytes (%) (Auto) 11 % (0-9) H Eosinophils (%) (Auto) 6 % (0-3) H Basophils (%) (Auto) 1 % (0-3) Neutrophils # (Auto) 2.7 x10^3uL (1.8-7.7) Lymphocytes # (Auto) 1.8 x10^3/uL (1.0-4.8) Monocytes # (Auto) 0.6 x10^3/uL (0.0-1.1) Eosinophils # (Auto) 0.3 x10^3/uL (0.0-0.7) Basophils # (Auto) 0.0 x10^3/uL (0.0-0.2) Platelet Estimate Decreased (ADEQUATE) Large Platelets Present Giant Platelets Present Sodium Level 143 mmol/L (136-145) Potassium Level 4.0 mmol/L (3.5-5.1) Chloride Level 107 mmol/L (98-107) Carbon Dioxide Level 32 mmol/L (21-32) Anion Gap 4 (6-14) L Blood Urea Nitrogen 18 mg/dL (8-26) Creatinine 1.1 mg/dL (0.7-1.3) Estimated GFR (Cockcroft-Gault) 64.9 BUN/Creatinine Ratio 16 (6-20) Glucose Level 84 mg/dL (70-99) Calcium Level 8.3 mg/dL (8.5-10.1) L Total Bilirubin 0.2 mg/dL (0.2-1.0) Aspartate Amino Transferase (AST) 23 U/L (15-37) Alanine Aminotransferase (ALT) 24 U/L (16-63) Alkaline Phosphatase 73 U/L (46-116) Ammonia < 10 mcmol/L (11-34) L Total Protein 5.3 g/dL (6.4-8.2) L Albumin 2.9 g/dL (3.4-5.0) L Albumin/Globulin Ratio 1.2 (1.0-1.7) Current Medications: I have reviewed the current psychotropics carefully including drug interactions. Risk benefit ratio favors no change other than as noted in my dictated progress note. 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
[2019-12-23 06:01] VITALS: BP 109/68
[2019-12-23] MEDS: DIVALPROEX SODIUM 250 MG TABLET.DR. PO SCH (07:20)
[2019-12-23] MEDS: POLYETHYLENE GLYCOL 3350 17 GM PACKET. PO SCH (07:20)
[2019-12-23] MEDS: FUROSEMIDE 20 MG TABLET PO SCH (07:21)
[2019-12-23] MEDS: busPIRone 10 MG TABLET. PO SCH ×3 (07:21→20:16)
[2019-12-23] MEDS: METOPROLOL TART IMMED RELEASE 25 MG TABLET PO SCH ×2 (07:21→20:16)
[2019-12-23] MEDS: SERTRALINE 50 MG TABLET. PO SCH (07:21)
[2019-12-23] MEDS: CLOPIDOGREL BISULFATE 75 MG TABLET PO SCH (07:21)
[2019-12-23 16:25] VITALS: BP 129/73
[2019-12-23] MEDS: DIVALPROEX 125 MG CAP.SPRINK PO SCH (16:41)
[2019-12-23] MEDS: ATORVASTATIN CALCIUM 20 MG TABLET PO SCH (20:15)
[2019-12-23] MEDS: DONEPEZIL HCL 10 MG TABLET PO SCH (20:16)
[2019-12-23] MEDS: MIRTAZAPINE 7.5 MG TABLET. PO SCH (20:17)
[2019-12-23] MEDS: risperiDONE 0.25 MG TABLET. PO SCH (20:17)
--- NOTE | 2019-12-23 22:52 | PDOC ---
Exam Note: Ferny Note: S/O: This note is a late entry for DOS 12/22/2019 covers elements not covered in my initial note. The patient was seen on audio-visual rounds in the evening with Edith TOURE. Discussed the patient with nursing staff reviewed the chart. Nursing report was with Hannah TOURE. Reportedly he sat outside in the sunshine for awhile in the afternoon. He is telling the nursing staff at times he has brain fog when he cannot think he has word finding problems, seems to be little more insightful about this. We discussed transition back to [facility]. He did not seem to remember this. He was shown a picture of the facility and then seemed to have some recognition. ROS: Positive for word finding problems. No CV, , Pulmonary, Eye system symptoms on review. MSE: Alert and oriented to himself. 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 Insight and judgment, recent and remote memory, attention and concentration, fund of knowledge is poor consistent with his diagnosis. Labs: Reviewed. Imp: Psychotic disorder unspecified. Expressive aphasia. 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 Plan: Continue current psychotropics from initial note. We discussed transi tion back to [facility]. Assessment: Vital Signs/I&O: Vital Signs Date Time Temp Pulse Resp B/P (MAP) Pulse Ox O2 Delivery O2 Flow Rate FiO2 12/23/19 20:16 65 129/73 12/23/19 16:25 98.3 18 99 12/22/19 15:35 Room Air I & O 12/22/19 12/22/19 12/23/19 15:00 23:00 07:00 Intake Total 1080 ml 720 ml Balance 1080 ml 720 ml Current Medications: I have reviewed the current psychotropics carefully including drug interactions. Risk benefit ratio favors no change other than as noted in my dictated progress note. 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
--- NOTE | 2019-12-23 22:53 | PDOC ---
Exam Note: Ferny Note: S/O: This note of 12/23/2019 covers elements not covered in my initial note. The patient was seen on audio-visual rounds in the evening with Iraida TOURE. Discussed the patient with nursing staff reviewed the chart. Nursing report was with Ginna TOURE. The patient put on his glasses as I met with him on rounds, seem to readily recognize me. ROS: Positive for word finding problems. No CV, , Pulmonary, Eye system symptoms on review. MSE: Alert and oriented to himself. 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 Insight and judgment, recent and remote memory, attention and concentration, fund of knowledge is poor consistent with his diagnosis. Labs: Reviewed. Imp: Psychotic disorder unspecified. Expressive aphasia. 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 Plan: Continue current psychotropics from initial note. Transition back to [facility] facility. Assessment: Vital Signs/I&O: Vital Signs Date Time Temp Pulse Resp B/P (MAP) Pulse Ox O2 Delivery O2 Flow Rate FiO2 12/23/19 20:16 65 129/73 12/23/19 16:25 98.3 18 99 12/22/19 15:35 Room Air I & O 12/22/19 12/22/19 12/23/19 15:00 23:00 07:00 Intake Total 1080 ml 720 ml Balance 1080 ml 720 ml Current Medications: I have reviewed the current psychotropics carefully including drug interactions. Risk benefit ratio favors no change other than as noted in my dictated progress note. 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
[2019-12-24 06:17] VITALS: BP 139/73
[2019-12-24] MEDS: SERTRALINE 50 MG TABLET. PO SCH (07:42)
[2019-12-24 07:43] VITALS: BP 139/73
[2019-12-24] MEDS: DIVALPROEX SODIUM 250 MG TABLET.DR. PO SCH (07:43)
[2019-12-24] MEDS: METOPROLOL TART IMMED RELEASE 25 MG TABLET PO SCH (07:43)
[2019-12-24] MEDS: busPIRone 10 MG TABLET. PO SCH (07:43)
[2019-12-24] MEDS: FUROSEMIDE 20 MG TABLET PO SCH (07:43)
[2019-12-24] MEDS: POLYETHYLENE GLYCOL 3350 17 GM PACKET. PO SCH (07:44)
[2019-12-24] MEDS: CLOPIDOGREL BISULFATE 75 MG TABLET PO SCH (07:44)
--- NOTE | 2019-12-24 22:36 | PDOC ---
Exam Note: Ferny Note: Please also refer to the separate dictated note~for this date of service dictated separately.~Patient seen individually. Discussed the patient with Nursing staff reviewed the chart.~Reviewed interim history and current functioning. Reviewed vital signs,~Labs/ Radiology~and current medications noted below. Continue current treatment with the changes noted in the dictated addendum note Assessment: Vital Signs/I&O: Vital Signs Date Time Temp Pulse Resp B/P (MAP) Pulse Ox O2 Delivery O2 Flow Rate FiO2 12/24/19 07:43 59 139/73 12/24/19 06:17 97.6 18 100 12/22/19 15:35 Room Air I & O 12/23/19 12/23/19 12/24/19 15:00 23:00 07:00 Intake Total 600 ml 240 ml 100 ml Balance 600 ml 240 ml 100 ml Current Medications: I have reviewed the current psychotropics carefully including drug interactions. Risk benefit ratio favors no change other than as noted in my dictated progress note. 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
--- NOTE | 2019-12-25 22:38 | DS ---
DATE OF DISCHARGE: 12/24/2019 DISCHARGE SUMMARY/PSYCHIATRIC PROGRESS NOTE. This late entry 12/24/2019 covers the elements not covered in my initial note. REASON FOR ADMISSION: Please refer to the admission history for details. Briefly, the patient is a 79-year-old male referred to us from [facility] on account of marked mood lability, agitation, yelling at staff. He was thinking his things had been stole. He was irritable, would get more frustrated when he could not express himself, was getting fixated on one thing and we would repeat himself. He was sexually inappropriate, not recognizing himself. He has a history of progressive dementia, significant part of which may be related to his past history of alcohol abuse and there were some symptoms of Korsakoff syndrome in this presentation. His behaviors were deemed dangerous, unmanageable at the facility. He failed outpatient psychiatric intervention resulting in this referral. SIGNIFICANT FINDINGS AND CLINICAL COURSE: Following admission, the patient was seen daily individually by myself from a psychiatric standpoint, medical followup with Dr. Boo/Dr. Richmond. The patient continued to have some mood lability, anxious, would get frustrated with his word finding problems and had significant confabulation. Adjustments were made in his psychotropics. He seemed to respond to a combination of BuSpar 10 mg t.i.d., Depakote 500 mg a.m. and 750 mg at 1700, Zoloft 50 mg a day, Aricept 10 mg at bedtime, Remeron 7.5 mg at bedtime, Risperdal 0.25 mg at bedtime, Zyprexa p.r.n. Valproic acid level therapeutic at 52. REVIEW OF SYSTEMS: Prior to discharge on 12/24/2019, no CV, , pulmonary, eye system symptoms on review. Reliability poor. MENTAL STATUS EXAM: Oriented to himself, at time to situation. Insight, judgment, recent and remote memory, attention, concentration, fund of knowledge poor, consistent with his diagnosis. CONDITION AT DISCHARGE: Improved. FINAL DIAGNOSES: Major neurocognitive disorder, probably related to alcohol and vascular with delusion, depression, behavioral disturbance; anxiety disorder, unspecified; impulse control disorder, unspecified; Korsakoff syndrome. Rest unchanged from admission. There was a tentative diagnosis of bipolar disorder, unspecified, but on obtaining history from the daughter, it was evident he did not have any premorbid bipolar diagnosis by history. DISCHARGE MEDICATIONS: Please refer to the MRAD. DISCHARGE INSTRUCTIONS: Outpatient psychiatric and medical followup back at [facility]. Time for discharge day management greater than 30 minutes. MAN Evens HSU MD DR: MICAELA/tg JOB#: [id number] / [id number]
== END 2019-12-24 11:44 | DRG 885 ==
LOC: ER 13:42 → GEROPSY 17:35
PROVIDERS: ADMIT Psychiatry & Neurology Psychiatry; ATTEND Psychiatry & Neurology Psychiatry
DX: F31.64 Bipolar disorder, current episode mixed, severe, with psychotic features (principal); R47.01 Aphasia; F01.51 Vascular dementia, unspecified severity, with behavioral disturbance; F02.81 Dementia in other diseases classified elsewhere, unspecified severity, with behavioral disturbance; G30.9 Alzheimer's disease, unspecified; E78.5 Hyperlipidemia, unspecified; F10.97 Alcohol use, unspecified with alcohol-induced persisting dementia; Y90.9 Presence of alcohol in blood, level not specified; F41.9 Anxiety disorder, unspecified; F42.9 Obsessive-compulsive disorder, unspecified; F04 Amnestic disorder due to known physiological condition; F63.9 Impulse disorder, unspecified; I10 Essential (primary) hypertension; M19.90 Unspecified osteoarthritis, unspecified site; Z79.899 Other long term (current) drug therapy; G56.00 Carpal tunnel syndrome, unspecified upper limb; Z88.8 Allergy status to other drugs, medicaments and biological substances; Z20.828 Contact with and (suspected) exposure to other viral communicable diseases; Z85.46 Personal history of malignant neoplasm of prostate
CPT/HCPCS: 36415; 70450; 80048; 80053; 80061; 80076; 80164; 80307; 81001; 82140; 82306; 82607; 83036; 83540; 83550; 83735; 84436; 84443; 84480; 85025; 86592; 87635; 93005; G0480; 99285-25

== ENCOUNTER 2021-01-14 11:08 | Inpatient (IN) | payer MEDICARE, OTHER ==
[~2021-01-14] VITALS: Ht 170.2 cm; Wt 95.4 kg
[~2021-01-14 11:08] MED LIST: ACET325T21 PO; ATORVASTATIN CA80 MG PO; BUSP10TA PO; CLOP75TA57 PO; DIVA500T2 PO; DONE10TA7 PO; ESCITALOPRAM OX10 MG PO; FURO-69 PO; LOPE2TAB27 PO; MAG30ORA PO; MAGN24003 PO; METH57CR17 TP; METO25TA4 PO; MIRT7.5T8 PO; OLAN5TAB7 PO; POLY17PO5 PO; RISP0.5T24 PO; SERT50TA PO; TRAM50TA PO
[2021-01-14 12:16] LABS: BASO % 1 % (0-3); EOS # 0.2 x10^3/uL (0.0-0.7); EOS % 3 % (0-3); HEMATOCRIT 43.8 % (39.0-53.0); HEMOGLOBIN 14.6 g/dL (13.0-17.5); LYMPH # 2.7 x10^3/uL (1.0-4.8); LYMPH % 38 % (24-48); MEAN CORPUSCULAR HEMOGLOBIN 33 pg (25-35); MEAN CORPUSCULAR HGB CONC 33 g/dL (31-37); MEAN CORPUSCULAR VOLUME 99 fL (79-100); MONO # 0.7 x10^3/uL (0.0-1.1); MONO % 10 % (0-9); NEUT # 3.4 x10^3uL (1.8-7.7); NEUT % 48 % (31-73); PLATELET COUNT 111 x10^3/uL (140-400); RED CELL DISTRIBUTION WIDTH 14.1 % (11.5-14.5)
[2021-01-14 12:27] LABS: CALCIUM 8.6 mg/dL (8.5-10.1); CREATININE 1.1 mg/dL (0.7-1.3); GFR 64.7; POTASSIUM 3.9 mmol/L (3.5-5.1)
[2021-01-14 12:33] LABS: ALBUMIN 3.3 g/dL (3.4-5.0); ALBUMIN/GLOBULIN RATIO 1.2 (1.0-1.7); TOTAL BILIRUBIN 0.3 mg/dL (0.2-1.0)
[2021-01-14 12:34] LABS: ACETAMIN < 2 mcg/mL (10-30); ETHANOL < 10 mg/dL (0-10); SALIC < 2.8 mg/dL (2.8-20.0)
[2021-01-14 12:40] LABS: BARBITURATES NEG (NEG); BENZODIAZEPINES NEG (NEG); CANNABINOIDS NEG (NEG); COCAINE NEG (NEG); METHADONE NEG (NEG); OPIATES NEG (NEG); PHENCYCLIDINE NEG (NEG)
[2021-01-14 12:41] LABS: AMPHETAMINE/METHAMPHETAMINE NEG (NEG)
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
[2021-01-14 12:43] LABS: BILIRUBIN,URINE NEG (NEG); CLARITY,URINE CLEAR; COLOR,URINE YELLOW; GLUCOSE,URINE NEG (NEG); NITRITE,URINE NEG (NEG); UROBILINOGEN,URINE 0.2 mg/dL (0.2 mg/dL)
[2021-01-14 12:48] LABS: BACTERIA,URINE 0 /HPF (0-FEW); RBC,URINE RARE /HPF (0-2); SQUAMOUS EPITHELIAL CELL,UR OCC /LPF
--- NOTE | 2021-01-14 13:28 | EKG ---
[address] [address] Test Date: 2021-01-14 Test Time: 11:34:29 Pat Name: ERIC GIL Department: Room: Gender: M Binder Roller: : 1940 Requested By: LI ALTAMIRANO Order Number: [id number] Reading MD: Measurements Intervals [place] Rate: 64 P: 32 NM: 158 QRS: 68 QRSD: 128 T: 15 QT: 438 QTc: 452 Interpretive Statements SINUS RHYTHM NON SPECIFIC INTRAVENTRICULAR BLOCK ABNORMAL ECG RI6.02 No previous ECG available for comparison
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
[2021-01-14 14:10] VITALS: BP 129/73
[2021-01-14] MEDS ORDERED: MAG HYDROX/AL HYDROX/SIMETH 30 ML ORAL.SUSP PO PRN (15:30)
[2021-01-14] MEDS ORDERED: METHYL SALICYLATE/MENTHOL TOPICAL OINTMENT 57GM TUBE. TP PRN (15:30)
[2021-01-14] MEDS ORDERED: MAGNESIUM HYDROXIDE 2,400 MG/30 ML ORAL.SUSP. PO PRN (15:30)
[2021-01-14] MEDS ORDERED: ACETAMINOPHEN 325 MG TABLET PO PRN ×2 (15:30→17:00)
[2021-01-14 16:16] VITALS: BP_SYST 115; BP_SYST 124; BP_DIAS 69; BP_DIAS 72
[2021-01-14] MEDS ORDERED: LORA-254 PO (16:56)
[2021-01-14] MEDS ORDERED: CYAN100031 PO (16:56)
[2021-01-14] MEDS ORDERED: CHOL10004 PO (16:56)
[2021-01-14] MEDS ORDERED: CARB-136 OU (16:56)
[2021-01-14] MEDS ORDERED: LORazepam 1 MG TABLET PO PRN (17:00)
[2021-01-14] MEDS ORDERED: POLYETHYLENE GLYCOL 3350 17 GM PACKET. PO PRN (17:00)
[2021-01-14] MEDS ORDERED: POLYVINYL ALCOHOL 1.4% OPHTH SOLUTION 15ML BOTTLE. OU PRN (17:30)
[2021-01-14] MEDS: DIVALPROEX ER 500 MG TAB.ER.24H PO SCH (21:11)
[2021-01-14] MEDS: busPIRone 10 MG TABLET. PO SCH (21:11)
[2021-01-14] MEDS: METOPROLOL TART IMMED RELEASE 25 MG TABLET. PO SCH (21:12)
[2021-01-14] MEDS: ATORVASTATIN CALCIUM 20 MG TABLET PO SCH (21:12)
[2021-01-14] MEDS: MIRTAZAPINE 7.5 MG TABLET. PO SCH (21:12)
[2021-01-14] MEDS: risperiDONE 0.5 MG TABLET. PO SCH (21:12)
--- NOTE | 2021-01-15 03:11 | NUR ---
Nursing Note PT is confused and speaks in a word salad, is redirectible and cooperative. Med compliant, no behaviors so far. Up in dayroom.
[2021-01-15 05:47] VITALS: BP 127/74
[2021-01-15 08:24] LABS: BASO # 0.1 x10^3/uL (0.0-0.2); BASO % 1 % (0-3); EOS # 0.2 x10^3/uL (0.0-0.7); EOS % 3 % (0-3); HEMATOCRIT 45.4 % (39.0-53.0); HEMOGLOBIN 15.1 g/dL (13.0-17.5); LYMPH # 2.1 x10^3/uL (1.0-4.8); LYMPH % 30 % (24-48); MEAN CORPUSCULAR HEMOGLOBIN 33 pg (25-35); MEAN CORPUSCULAR HGB CONC 33 g/dL (31-37); MEAN CORPUSCULAR VOLUME 99 fL (79-100); MONO # 0.7 x10^3/uL (0.0-1.1); MONO % 10 % (0-9); NEUT # 3.8 x10^3uL (1.8-7.7); NEUT % 55 % (31-73); PLATELET COUNT 112 x10^3/uL (140-400); RED BLOOD COUNT 4.56 x10^6/uL (4.30-5.70); RED CELL DISTRIBUTION WIDTH 14.6 % (11.5-14.5); WHITE BLOOD COUNT 6.8 x10^3/uL (4.0-11.0)
[2021-01-15] MEDS: busPIRone 10 MG TABLET. PO SCH ×3 (08:39→20:09)
[2021-01-15] MEDS: CHOLECALCIFEROL (VITAMIN D3) 1,000 UNIT TABLET PO SCH (08:40)
[2021-01-15] MEDS: CYANOCOBALAMIN (VITAMIN B-12) 1,000 MCG TABLET. PO SCH (08:40)
[2021-01-15] MEDS: FUROSEMIDE 20 MG TABLET PO SCH (08:40)
[2021-01-15] MEDS: risperiDONE 0.5 MG TABLET. PO SCH ×3 (08:40→20:09)
[2021-01-15] MEDS: SERTRALINE 50 MG TABLET. PO SCH (08:40)
[2021-01-15] MEDS: CLOPIDOGREL BISULFATE 75 MG TABLET PO SCH (08:40)
[2021-01-15] MEDS: DIVALPROEX ER 500 MG TAB.ER.24H PO SCH ×2 (08:40→20:09)
[2021-01-15] MEDS: METOPROLOL TART IMMED RELEASE 25 MG TABLET. PO SCH ×2 (08:43→20:10)
[2021-01-15 08:47] LABS: ALBUMIN 3.4 g/dL (3.4-5.0); ALBUMIN/GLOBULIN RATIO 1.2 (1.0-1.7); ALK PHOS 74 U/L (46-116); ALT (SGPT) 29 U/L (16-63); ANION GAP 8 (6-14); AST (SGOT) 22 U/L (15-37); BLOOD UREA NITROGEN 23 mg/dL (8-26); BUN/CREATININE RATIO 23 (6-20); CALCIUM 8.4 mg/dL (8.5-10.1); CARBON DIOXIDE 30 mmol/L (21-32); CHLORIDE 108 mmol/L (98-107); GFR 72.3; GLUCOSE 90 mg/dL (70-99); POTASSIUM 4.2 mmol/L (3.5-5.1); SODIUM 146 mmol/L (136-145); TOTAL BILIRUBIN 0.3 mg/dL (0.2-1.0); TOTAL PROTEIN 6.3 g/dL (6.4-8.2)
[2021-01-15 08:57] LABS: VAL ACID 42 mcg/mL (50-100)
[2021-01-15 09:40] LABS: PLT ESTIMATE ADEQUATE (ADEQUATE)
--- NOTE | 2021-01-15 09:45 | NUR ---
ACTIVITY THERAPY ASSESSMENT completed based on notes, observation, and interview. Pt was sitting in the day room amongst other peers. Pt is able to ambulate independently. Pt is unable to express needs or preferences and talks in word salad. Pt was anxious and concerned during time of assessment. AT introduced self and asked pt how he was doing and he said "not so good." AT asked pt what was going on and he became fixated on wanting to leave. Pt said "I've got to get out of here" and "this is just too much." Pt was unable to answer assessment questions. AT offered pt a couple of magazines which he accepted. Pt did attend one Activity Therapy group but did not engage. Pt wrote on [employer] but it was not legible. Pt has been on [employer] previously and per 2019 notes pt likes [employer], writing and bicycling. Pt also has a history of abuse and drug and alcohol use. Initial goal aimed to increase stress management and relaxation skills. Pt will participate in at least three individual or group Activity Therapy sessions before discharge. Addendum: 01/29/21 at 1115 by ISABEL RASHEED ACT Goal repeated 01/29
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
[2021-01-15 16:15] VITALS: BP 115/74
[2021-01-15] MEDS: MIRTAZAPINE 7.5 MG TABLET. PO SCH (20:09)
[2021-01-15] MEDS: ATORVASTATIN CALCIUM 20 MG TABLET PO SCH (20:10)
[2021-01-15 20:43] LABS: THYROID STIM HORMONE (TSH) 3.053 uIU/mL (0.358-3.740)
--- NOTE | 2021-01-15 22:21 | PSYEV ---
DATE OF SERVICE: 01/15/2021 PSYCHIATRIC EVALUATION DATE OF SERVICE: 01/15/2021 REASON FOR ADMISSION: This 80-year-old male was admitted from [facility] because of increased confusion, restlessness, inability to sleep and also aggressive towards other residents, also agitated and paranoid. The patient also difficult to redirect. The patient also grabbed a peer and shouting. The patient apparently has received Zyprexa p.r.n., Ativan p.r.n. as still could not control his behavior. CHIEF COMPLAINT: The patient was confused, unable to answer any questions. The patient has difficulty putting his thoughts together. The patient did not show any anxiety during the assessment. HISTORY OF PRESENT ILLNESS: [facility] and is seen by a psychiatrist before. He had a diagnosis of bipolar 1 disorder and dementia with behavior disturbances. The patient apparently has fairly advanced dementia, significant problems with his ability to communicate and not able to understand what has been said, having difficulty putting his thoughts together. He is also having anger issues apparently with the medications and showed some improvement. The patient also urinates and in inappropriate places. The patient has been tried on several medications in the past. PAST MEDICAL HISTORY: Essential hypertension, hypercholesterolemia, vitamin deficiency, vitamin B12 deficiency, history of thrombocytopenia, mild mitral valve regurgitation. PSYCHOSOCIAL HISTORY: The patient is single. No children, is retired, former smoker. Denies of any alcohol use in the past or drug abuse. No history of any emotional or physical abuse. MENTAL STATUS EXAMINATION: The patient appeared to be of his stated age, appropriately dressed, able to walk without any difficulty and had some hand tremors. His behavior was appropriate except it was confused, disoriented to surroundings. He even did not know he was in the hospital. The patient's speech mostly monosyllabic answers, but the patient is having difficulty comprehending. The patient is not able to complete a sentence. The patient's affect and mood, pleasantly confused, having difficulty with sleep and also needing assistance with ADLs. The patient is also not able to control his bladder and bowels. The patient also known to have anger issues and mood swings. The patient currently not exhibiting any psychotic symptoms. The patient is disoriented to time, place and person. His memory is not testable. The patient also had difficulty with comprehension. The patient's judgment is impaired. Insight Limited. STRENGTHS: Fairly in good health. WEAKNESSES: The patient has advanced dementia, is not able to care for himself and also having mood swings and anger issues. DIAGNOSTIC IMPRESSION: AXIS I: 1. 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 2. Generalized anxiety disorder. AXIS II: None. AXIS III: As listed above. INITIAL TREATMENT PLAN: The patient will be seen by the psychiatrist daily and also was seen by the primary care doctor for physical exam. The patient had his routine laboratory work, which were all within normal range except for sodium level was 146, BUN and creatinine ratio was 23. The patient's urinalysis was within normal limits. The patient also had a CT scan of the head, which showed no acute intracranial processes, age-related atrophy and evidence of chronic small vessel disease. CURRENT MEDICATIONS: Include vitamin B12 1000 mcg daily, Zoloft 50 mg daily, Lasix 20 mg daily, Plavix 75 mg daily, vitamin D 2000 units daily, Depakote 500 mg twice a day, Lipitor 80 mg at night, Risperdal 0.5 mg 3 times a day, mirtazapine 7.5 mg at night, metoprolol 25 mg twice a day, BuSpar 10 mg t.i.d., olanzapine and lorazepam as p.r.n. ESTIMATED LENGTH OF STAY: Ten to [address]: Jonna TID: [id number]
--- NOTE | 2021-01-16 01:49 | NUR ---
Nursing Note Pt is confused speaks mostly in a word salad, sits in the day room smiling. He at one point, stood in front of a staff member with an angry affect, seemingly getting ready to attack staff. Then suddenly, he seemed to forget what he was angry about and wandered back to his chair. Compliant and cooperative with meds and assessments.
[2021-01-16 06:15] VITALS: BP 136/79
[2021-01-16] MEDS: busPIRone 10 MG TABLET. PO SCH ×3 (08:32→20:55)
[2021-01-16] MEDS: FUROSEMIDE 20 MG TABLET PO SCH (08:33)
[2021-01-16] MEDS: DIVALPROEX ER 500 MG TAB.ER.24H PO SCH ×2 (08:33→20:55)
[2021-01-16] MEDS: SERTRALINE 50 MG TABLET. PO SCH (08:34)
[2021-01-16] MEDS: METOPROLOL TART IMMED RELEASE 25 MG TABLET. PO SCH ×2 (08:34→20:56)
[2021-01-16] MEDS: CLOPIDOGREL BISULFATE 75 MG TABLET PO SCH (08:34)
[2021-01-16] MEDS: CYANOCOBALAMIN (VITAMIN B-12) 1,000 MCG TABLET. PO SCH (08:34)
[2021-01-16] MEDS: CHOLECALCIFEROL (VITAMIN D3) 1,000 UNIT TABLET PO SCH (08:34)
[2021-01-16] MEDS: risperiDONE 0.5 MG TABLET. PO SCH ×3 (08:34→20:55)
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
--- NOTE | 2021-01-16 13:30 | NUR ---
Nursing Note Pt is confused speaks mostly in a word salad, pt has remained calm, cooperative and pleasant. At breakfast, pt kept reading his breakfast menu sheet repeatedly. Pt is pleasantly talking with other pt's in day room.
[2021-01-16 14:11] LABS: THYROXINE 5.2 ug/dL (4.5-12.0)
[2021-01-16 15:46] VITALS: BP 117/70
[2021-01-16] MEDS: MIRTAZAPINE 7.5 MG TABLET. PO SCH (20:55)
[2021-01-16] MEDS: ATORVASTATIN CALCIUM 20 MG TABLET PO SCH (20:55)
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
--- NOTE | 2021-01-16 23:56 | PN ---
DATE: 01/16/2021 DATE OF SERVICE: 01/16/2021 SUBJECTIVE: The patient was seen today, met with the staff, chart reviewed. The patient is still confused, withdrawn, difficult to redirect, but is able to walk and no falls. OBSERVATION: VITAL SIGNS: Temperature 96.7, blood pressure 136/79, pulse 56, respirations 18, O2 sat 95%. GENERAL: Slept about 5 hours last night. The patient is eating fairly well. MEDICATIONS: Reviewed. No side effects. LABORATORY DATA: Reviewed. ASSESSMENT: 1. 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 2. Generalized anxiety disorder. PLAN: To continue with the treatment. LENGTH OF STAY: Ten to [address]: Jonna TID: [id number]
--- NOTE | 2021-01-17 01:04 | NUR ---
Nursing Note Pt is confused speaks mostly in a word salad, sits in the day room smiling. Wandering the halls at times. Pt calm/compliant with medications and assessment..
[2021-01-17 06:21] VITALS: BP 138/83
[2021-01-17] MEDS: CHOLECALCIFEROL (VITAMIN D3) 1,000 UNIT TABLET PO SCH (09:01)
[2021-01-17] MEDS: busPIRone 10 MG TABLET. PO SCH ×3 (09:01→20:07)
[2021-01-17] MEDS: DIVALPROEX ER 500 MG TAB.ER.24H PO SCH ×2 (09:02→20:07)
[2021-01-17] MEDS: SERTRALINE 50 MG TABLET. PO SCH (09:02)
[2021-01-17] MEDS: METOPROLOL TART IMMED RELEASE 25 MG TABLET. PO SCH ×2 (09:02→20:08)
[2021-01-17] MEDS: CLOPIDOGREL BISULFATE 75 MG TABLET PO SCH (09:02)
[2021-01-17] MEDS: CYANOCOBALAMIN (VITAMIN B-12) 1,000 MCG TABLET. PO SCH (09:02)
[2021-01-17] MEDS: risperiDONE 0.5 MG TABLET. PO SCH ×3 (09:02→20:08)
[2021-01-17] MEDS: FUROSEMIDE 20 MG TABLET PO SCH (09:04)
[2021-01-17 16:25] VITALS: BP 125/75
--- NOTE | 2021-01-17 18:00 | NUR ---
Pt up adl in halls. restless wandering. Word salad. Pleasantly confused. Compliant with meds and cares.
[2021-01-17] MEDS: MIRTAZAPINE 7.5 MG TABLET. PO SCH (20:07)
[2021-01-17] MEDS: ATORVASTATIN CALCIUM 20 MG TABLET PO SCH (20:08)
--- NOTE | 2021-01-17 23:24 | NUR ---
Pt located in dayroom this evening sitting calmly. Pt pleasantly confused. Word salad. Compliant with whole medications.
[2021-01-18 06:04] VITALS: BP 116/80
[2021-01-18] MEDS: CHOLECALCIFEROL (VITAMIN D3) 1,000 UNIT TABLET PO SCH (09:08)
[2021-01-18] MEDS: SERTRALINE 50 MG TABLET. PO SCH (09:08)
[2021-01-18] MEDS: busPIRone 10 MG TABLET. PO SCH ×3 (09:08→20:15)
[2021-01-18] MEDS: FUROSEMIDE 20 MG TABLET PO SCH (09:08)
[2021-01-18] MEDS: METOPROLOL TART IMMED RELEASE 25 MG TABLET. PO SCH ×2 (09:08→20:15)
[2021-01-18] MEDS: DIVALPROEX ER 500 MG TAB.ER.24H PO SCH ×2 (09:08→20:15)
[2021-01-18] MEDS: CYANOCOBALAMIN (VITAMIN B-12) 1,000 MCG TABLET. PO SCH (09:08)
[2021-01-18] MEDS: risperiDONE 0.5 MG TABLET. PO SCH ×3 (09:08→20:15)
[2021-01-18] MEDS: CLOPIDOGREL BISULFATE 75 MG TABLET PO SCH (09:08)
[2021-01-18 15:30] VITALS: BP 111/68
--- NOTE | 2021-01-18 17:58 | NUR ---
Patient compliant with medication administration and cooperative with cares. Patient alert x1 to self speech is clear but speaks in word salad. No complaints of pain or discomfort, incontinent at times, patient able to be redirected easily, no aggressive behaviors or outburst to report today. Dr Richmond and Dr Rashid rounded on patient no new orders, patient has no complaints of pain or discomfort wanders the unit often takes breaks and sits in his bedroom and in the day room. Patient in the dining room for all meals and has a good appetite. Patient disorganized and pleasantly confused. Will continue to monitor patient.
[2021-01-18] MEDS: MIRTAZAPINE 7.5 MG TABLET. PO SCH (20:15)
[2021-01-18] MEDS: ATORVASTATIN CALCIUM 20 MG TABLET PO SCH (20:16)
--- NOTE | 2021-01-18 22:38 | NUR ---
Pt sitting calmly in dayroom this evening. Pleasantly confused. Compliant with whole medications. No agitation or aggression.
--- NOTE | 2021-01-19 01:07 | PN ---
DATE: 01/18/2021 SUBJECTIVE: The patient was seen today, met with the staff, chart reviewed. Staff reports increased anxiety, intrusive behaviors and also attention seeking, and also repetitive. PHYSICAL EXAMINATION: VITAL SIGNS: Temperature 98.5, blood pressure 116/80, pulse 74, respirations 18, O2 sat 92%. GENERAL: Slept about 6 hours last night. CURRENT MEDICATIONS: The patient's medications reviewed, not having any side effects. LABORATORY DATA: Reviewed. ASSESSMENT: 1. 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 2. Generalized anxiety disorder. PLAN: To continue with the current treatment. Length of stay 10-[address]: Jonna TID: [id number]
[2021-01-19 05:41] VITALS: BP 151/79
[2021-01-19] MEDS: busPIRone 10 MG TABLET. PO SCH ×3 (08:44→20:06)
[2021-01-19] MEDS: FUROSEMIDE 20 MG TABLET PO SCH (08:45)
[2021-01-19] MEDS: CYANOCOBALAMIN (VITAMIN B-12) 1,000 MCG TABLET. PO SCH (08:45)
[2021-01-19] MEDS: SERTRALINE 50 MG TABLET. PO SCH (08:45)
[2021-01-19] MEDS: DIVALPROEX ER 500 MG TAB.ER.24H PO SCH ×2 (08:45→20:06)
[2021-01-19] MEDS: risperiDONE 0.5 MG TABLET. PO SCH ×3 (08:45→20:06)
[2021-01-19] MEDS: CHOLECALCIFEROL (VITAMIN D3) 1,000 UNIT TABLET PO SCH (08:45)
[2021-01-19] MEDS: CLOPIDOGREL BISULFATE 75 MG TABLET PO SCH (08:45)
[2021-01-19] MEDS: METOPROLOL TART IMMED RELEASE 25 MG TABLET. PO SCH ×2 (08:47→20:06)
--- NOTE | 2021-01-19 13:43 | PN ---
DATE: 01/17/2021 SUBJECTIVE: The patient was seen today, met with the staff, chart reviewed and also covering for Dr. Aguilar. Staff reports no major problems, but the patient is confused, easily redirectable, had significant cognitive deficits. The patient is able to ambulate. No falls. The patient also having difficulty with his thinking, disorganized, not able to name objects. The patient also had difficulty communicating. OBSERVATION: VITAL SIGNS: Temperature 96.5, blood pressure 138/83, pulse 60, respirations 16, O2 sat 96%. GENERAL: Slept about 5 hours last night. The patient's appetite good. Staff reports no falls. MEDICATIONS: The patient's medications reviewed. No side effects. LABORATORY DATA: The patient's lab reviewed. ASSESSMENT: 1. Dementia, most likely Alzheimer's with anxiety and behavior problems. 2. Generalized anxiety disorder. PLAN: To continue with treatment. LENGTH OF STAY: 10-14 days[address] ABEL/ALAN DR: Jonna TID: [id number]
--- NOTE | 2021-01-19 13:43 | NUR ---
PATIENT LOCATED IN A DINING ROOM THIS AM UPON ASSESSMENT, COMPLIANT WITH MEDS TAKEN WHOLE, PLEASANTLY CONFUSED. PATIENT WAS OBSERVED LATER WONDERING THE HALLWAY OR SITTING QUIETLY, NO AGITATION NOTED.
[2021-01-19 15:44] VITALS: BP 114/71
[2021-01-19] MEDS: MIRTAZAPINE 7.5 MG TABLET. PO SCH (20:06)
[2021-01-19] MEDS: ATORVASTATIN CALCIUM 20 MG TABLET PO SCH (20:07)
--- NOTE | 2021-01-19 22:03 | PDOC ---
Exam Note: Ferny Note: Please also refer to the separate dictated note~for this date of service dictated separately.~Patient seen individually. Discussed the patient with Nursing staff reviewed the chart.~Reviewed interim history and current functioning. Reviewed vital signs,~Labs/ Radiology~and current medications noted below. Continue current treatment with the changes noted in the dictated addendum note Assessment: Vital Signs/I&O: Vital Signs Date Time Temp Pulse Resp B/P (MAP) Pulse Ox O2 Delivery O2 Flow Rate FiO2 01/19/21 20:06 62 114/71 01/19/21 15:44 97.9 16 94 01/18/21 06:04 Room Air I & O 01/18/21 01/18/21 01/19/21 15:00 23:00 07:00 Intake Total 240 ml 360 ml Balance 240 ml 360 ml Current Medications: Meds: Current Medications Medications (Trade) Dose Ordered Sig/Ivonne Route PRN Reason Start Time Stop Time Status Last Admin Dose Admin Acetaminophen (Tylenol) 650 mg PRN Q6HRS PRN PO MILD PAIN 1-3 / TEMP > 100.3'F 01/14/21 15:30 Multi-Ingredient Ointment (Analgesic [place]) 1 yu PRN QID PRN TP MUSCLE PAIN 01/14/21 15:30 Al Hydroxide/Mg Hydroxide (Mylanta Plus Xs) 15 ml PRN AFTMEALHC PRN PO DYSPEPSIA 01/14/21 15:30 Magnesium Hydroxide (Milk Of Magnesia) 2,400 mg PRN QHS PRN PO 2ND CHOICE CONSTIPATION 01/14/21 15:30 Acetaminophen (Tylenol) 650 mg PRN Q6HRS PRN PO MILD PAIN 1-3 01/14/21 17:00 UNV Buspirone HCl (Buspar) 10 mg TID PO 01/14/21 21:00 01/19/21 20:06 Vitamin D (Vitamin D3) 2,000 unit DAILY PO 01/15/21 09:00 01/19/21 08:45 Clopidogrel Bisulfate (Plavix) 75 mg DAILY PO 01/15/21 09:00 01/19/21 08:45 Furosemide (Lasix) 20 mg DAILY PO 01/15/21 09:00 01/19/21 08:45 Lorazepam (Ativan) 1 mg PRN Q8HRS PRN PO ANXIETY / AGITATION 01/14/21 17:00 Metoprolol Tartrate (Lopressor) 25 mg BID PO 01/14/21 21:00 01/19/21 20:06 Mirtazapine (Remeron) 7.5 mg QHS PO 01/14/21 21:00 01/19/21 20:06 Olanzapine (ZyPREXA ZYDIS) 2.5 mg PRN Q2HR PRN PO ANXIETY / AGITATION 01/14/21 17:00 Polyethylene Glycol (miraLAX) 17 gm PRN DAILY PRN PO 1ST CHOICE CONSTIPATION 01/14/21 17:00 Risperidone (RisperDAL) 0.5 mg TID PO 01/14/21 21:00 01/19/21 20:06 Sertraline HCl (Zoloft) 50 mg DAILY PO 01/15/21 09:00 01/19/21 08:45 Atorvastatin Calcium (Lipitor) 80 mg QHS PO 01/14/21 21:00 01/19/21 20:07 Artificial Tears (Artificial Tears) 1 drop PRN Q2HRS PRN OU DRY EYE 01/14/21 17:30 Cyanocobalamin (Vitamin B-12) 1,000 mcg DAILY PO 01/15/21 09:00 01/19/21 08:45 Divalproex Sodium (Depakote Er) 500 mg BID PO 01/14/21 21:00 01/19/21 20:06 I have reviewed the current psychotropics carefully including drug interactions. Risk benefit ratio favors no change other than as noted in my dictated progress note. Diagnosis: Problems: (1) Impulse control disorder (2) Anxiety disorder (3) Dementia in Alzheimer's disease with depression (4) Obsessive compulsive disorder FRANCES HSU MD January 19, 2021 22:03
--- NOTE | 2021-01-19 23:07 | NUR ---
Pt sitting calmly in dayroom this evening. Compliant with whole medications. Pleasantly confused. After placed in bed, pt became very irritated with his roommate. Pt confused, asking who the person was next to him in his room. PRN Ativan administered. Pt currently restless in bed setting off bed alarm intermittently. Addendum: 01/20/21 at 0425 by BROOK SILVESTRE RN Pt continued to be restless. PRN Zyprexa administered at 0200. PRN not effective. Staff 1:1 at beside throughout the night. Pt did not sleep at all.
[2021-01-20 05:46] VITALS: BP 147/82
[2021-01-20] MEDS: CLOPIDOGREL BISULFATE 75 MG TABLET PO SCH (08:33)
[2021-01-20] MEDS: busPIRone 10 MG TABLET. PO SCH ×3 (08:33→20:00)
[2021-01-20] MEDS: FUROSEMIDE 20 MG TABLET PO SCH (08:33)
[2021-01-20] MEDS: CHOLECALCIFEROL (VITAMIN D3) 1,000 UNIT TABLET PO SCH (08:33)
[2021-01-20] MEDS: risperiDONE 0.5 MG TABLET. PO SCH ×3 (08:33→20:00)
[2021-01-20] MEDS: DIVALPROEX ER 500 MG TAB.ER.24H PO SCH ×2 (08:34→20:00)
[2021-01-20] MEDS: METOPROLOL TART IMMED RELEASE 25 MG TABLET. PO SCH ×2 (08:34→20:00)
[2021-01-20] MEDS: CYANOCOBALAMIN (VITAMIN B-12) 1,000 MCG TABLET. PO SCH (08:35)
[2021-01-20] MEDS: SERTRALINE 50 MG TABLET. PO SCH (08:35)
[2021-01-20 15:45] VITALS: BP 120/69
--- NOTE | 2021-01-20 17:38 | NUR ---
NSG NOTE; SHIFT SUMMARY PER REPORT, PT DID NOT SLEEP AT ALL LAST NIGHT. IN THE DINING ROOM FOR BREAKFAST, HE WAS DROWSY BUT ATE HIS BREAKFAST AND TOOK HIS AM PILLS WITH PLENTY OF ENCOURAGEMENT. HE WAS CONFUSED WHEN I GAVE HIM THE MED CUP IN ONE HAND AND THE WATER CUP IN THE OTHER. I HAD TO TAKE THE WATER CUP AWAY AND THEN ENC HIM TO PUT THE MEDS INTO HIS MOUTH, THEN GAVE HIM THE WATER CUP AND ENC HIM TO DRINK. HE DID NOT HAVE TROUBLE WITH THE MOTIONS OF EATING BUT DRINKING WAS MORE DIFFICULT FOR HIM. AFTER GETTING MORE DROWSY AT BREAKFAST, HE WAS PUT TO BED AND SLEPT UNTIL DINNER. I TRIED TO GIVE HIS 14OO MEDS BUT HE WAS TOO SLEEPY. THE CNAs MADE SURE HE GOT UP FOR DINNER WHICH HE ATE. ERIC DOES NOT ANSWER QUESTIONS APPROPRIATELY BUT SPEAKS GIBBERISH. HE IS CALM AND COOPERATIVE AND CAN BE DIRECTED.
[2021-01-20] MEDS: traZODone 50 MG TABLET. PO PRN (20:00)
[2021-01-20] MEDS: MIRTAZAPINE 15 MG TABLET PO SCH (20:00)
[2021-01-20] MEDS: ATORVASTATIN CALCIUM 20 MG TABLET PO SCH (20:00)
--- NOTE | 2021-01-20 21:47 | PDOC ---
Exam Note: Ferny Note: Please also refer to the separate dictated note~for this date of service dictated separately.~Patient seen individually. Discussed the patient with Nursing staff reviewed the chart.~Reviewed interim history and current functioning. Reviewed vital signs,~Labs/ Radiology~and current medications noted below. Continue current treatment with the changes noted in the dictated addendum note Assessment: Vital Signs/I&O: Vital Signs Date Time Temp Pulse Resp B/P (MAP) Pulse Ox O2 Delivery O2 Flow Rate FiO2 01/20/21 20:00 69 120/69 01/20/21 15:45 97.4 18 93 01/18/21 06:04 Room Air I & O 01/19/21 01/19/21 01/20/21 15:00 23:00 07:00 Intake Total 840 ml 360 ml Balance 840 ml 360 ml Current Medications: Meds: Current Medications Medications (Trade) Dose Ordered Sig/Ivonne Route PRN Reason Start Time Stop Time Status Last Admin Dose Admin Acetaminophen (Tylenol) 650 mg PRN Q6HRS PRN PO MILD PAIN 1-3 / TEMP > 100.3'F 01/14/21 15:30 Multi-Ingredient Ointment (Analgesic [place]) 1 yu PRN QID PRN TP MUSCLE PAIN 01/14/21 15:30 Al Hydroxide/Mg Hydroxide (Mylanta Plus Xs) 15 ml PRN AFTMEALHC PRN PO DYSPEPSIA 01/14/21 15:30 Magnesium Hydroxide (Milk Of Magnesia) 2,400 mg PRN QHS PRN PO 2ND CHOICE CONSTIPATION 01/14/21 15:30 Acetaminophen (Tylenol) 650 mg PRN Q6HRS PRN PO MILD PAIN 1-3 01/14/21 17:00 UNV Buspirone HCl (Buspar) 10 mg TID PO 01/14/21 21:00 01/20/21 20:00 Vitamin D (Vitamin D3) 2,000 unit DAILY PO 01/15/21 09:00 01/20/21 08:33 Clopidogrel Bisulfate (Plavix) 75 mg DAILY PO 01/15/21 09:00 01/20/21 08:33 Furosemide (Lasix) 20 mg DAILY PO 01/15/21 09:00 01/20/21 08:33 Lorazepam (Ativan) 1 mg PRN Q8HRS PRN PO ANXIETY / AGITATION 01/14/21 17:00 01/19/21 22:19 Metoprolol Tartrate (Lopressor) 25 mg BID PO 01/14/21 21:00 01/20/21 20:00 Mirtazapine (Remeron) 7.5 mg QHS PO 01/14/21 21:00 01/20/21 16:54 DC 01/19/21 20:06 Olanzapine (ZyPREXA ZYDIS) 2.5 mg PRN Q2HR PRN PO ANXIETY / AGITATION 01/14/21 17:00 01/20/21 01:54 Polyethylene Glycol (miraLAX) 17 gm PRN DAILY PRN PO 1ST CHOICE CONSTIPATION 01/14/21 17:00 Risperidone (RisperDAL) 0.5 mg TID PO 01/14/21 21:00 01/20/21 20:00 Sertraline HCl (Zoloft) 50 mg DAILY PO 01/15/21 09:00 01/20/21 08:35 Atorvastatin Calcium (Lipitor) 80 mg QHS PO 01/14/21 21:00 01/20/21 20:00 Artificial Tears (Artificial Tears) 1 drop PRN Q2HRS PRN OU DRY EYE 01/14/21 17:30 Cyanocobalamin (Vitamin B-12) 1,000 mcg DAILY PO 01/15/21 09:00 01/20/21 08:35 Divalproex Sodium (Depakote Er) 500 mg BID PO 01/14/21 21:00 01/20/21 20:00 Mirtazapine (Remeron) 15 mg QHS PO 01/20/21 21:00 01/20/21 20:00 Trazodone HCl (Desyrel) 50 mg PRN QHS PRN PO INSOMNIA, MAY REPEAT X1 01/20/21 17:00 01/20/21 20:00 Current Medications Medications (Trade) Dose Ordered Sig/Ivonne Route PRN Reason Start Time Stop Time Status Last Admin Dose Admin Mirtazapine (Remeron) 15 mg QHS PO 01/20/21 21:00 01/20/21 20:00 Trazodone HCl (Desyrel) 50 mg PRN QHS PRN PO INSOMNIA, MAY REPEAT X1 01/20/21 17:00 01/20/21 20:00 I have reviewed the current psychotropics carefully including drug interactions. Risk benefit ratio favors no change other than as noted in my dictated progress note. Diagnosis: Problems: (1) Impulse control disorder (2) Obsessive compulsive disorder (3) Bipolar disorder, mixed (4) Anxiety disorder (5) Dementia, vascular, with delusions (6) Dementia in Alzheimer's disease with depression FRANCES HSU MD January 20, 2021 21:47
--- NOTE | 2021-01-20 23:08 | NUR ---
Pt located in dayroom this evening. Pt calm and compliant with whole medications. PRN Trazodone administered with HS medications. Pt drowsy later in the evening and was irritable with cares and transfer to bed. Pt attempted to swing at staff while transferring pt. Once in bed, pt restless setting off bed alarm numerous times. Pt currently awake in bed. Will continue to monitor.
--- NOTE | 2021-01-21 00:54 | RAD ---
XR CHEST 1V Clinical History: Reason: congestion, increased SOA / Spl. Instructions: / History: Technique: AP view of the chest was obtained at 01/21/2021 12:34 AM. Comparison: None. Findings: The heart is moderately enlarged. Prominence of superior mediastinum is likely ectatic vasculature. T he pulmonary vessels appear normal. There is obscuration of left hemidiaphragm. Impression: 1. Cardiomegaly. 2. Mild left effusion with adjacent infiltrate. Electronically signed by: Dmitriy Tolbert III, MD (01/21/2021 12:52 AM) [facility]
[2021-01-21 05:34] VITALS: BP 140/67
[2021-01-21 07:26] LABS: ALBUMIN/GLOBULIN RATIO 0.9 (1.0-1.7); CALCIUM 8.8 mg/dL (8.5-10.1); GFR 72.3; POTASSIUM 4.2 mmol/L (3.5-5.1); TOTAL BILIRUBIN 0.5 mg/dL (0.2-1.0); TOTAL PROTEIN 6.2 g/dL (6.4-8.2)
[2021-01-21 07:33] LABS: BASO # 0.1 x10^3/uL (0.0-0.2); BASO % 1 % (0-3); EOS % 0 % (0-3); HEMATOCRIT 42.7 % (39.0-53.0); HEMOGLOBIN 14.3 g/dL (13.0-17.5); LYMPH # 1.6 x10^3/uL (1.0-4.8); LYMPH % 15 % (24-48); MEAN CORPUSCULAR HEMOGLOBIN 33 pg (25-35); MEAN CORPUSCULAR HGB CONC 34 g/dL (31-37); MEAN CORPUSCULAR VOLUME 99 fL (79-100); MONO # 1.2 x10^3/uL (0.0-1.1); MONO % 11 % (0-9); NEUT # 7.5 x10^3uL (1.8-7.7); NEUT % 73 % (31-73); PLATELET COUNT 132 x10^3/uL (140-400); RED BLOOD COUNT 4.33 x10^6/uL (4.30-5.70); RED CELL DISTRIBUTION WIDTH 13.9 % (11.5-14.5); WHITE BLOOD COUNT 10.4 x10^3/uL (4.0-11.0)
[2021-01-21 08:14] LABS: PLT ESTIMATE ADEQUATE (ADEQUATE)
--- NOTE | 2021-01-21 08:33 | PDOC ---
Exam Note: Ferny Note: This note is a late entry for 01/19/2021 covers elements not covered in my initial note. Subjective: The patient was seen individually in the evening of 01/19/2021 with Yolanda TOURE, discussed and reviewed the chart. He slept 5-1/2 hours previous night. He has been confused, wandering, talks about Dr. River and reviewing with him. Review of Systems: No CV, , pulmonary, eye system symptoms on review. Reliability poor. Mental Status Exam: The patient is oriented to himself. Insight and judgment, recent and remote memory, attention and concentration, fund of knowledge is poor consistent with his diagnoses. As I questioned the patient individually how he was doing, he responded in a low tone nothing cataclysmic. Laboratory Data: Reviewed. Impression: Major neurocognitive disorder Alzheimer vascular with delusion, depression, behavioral disturbance. Anxiety disorder unspecified. Impulse control disorder unspecified. Plan: I have carefully reviewed the patients current psychotropics and reviewed information with Dr. River who had covered for me for the past 2 weeks. Continue psychotropics from initial note, BuSpar, Depakote, Remeron, Risperdal, Zoloft and Zyprexa p.r.n. along with Ativan p.r.n. We may need to increase Depakote. Last valproic acid level subtherapeutic at 42 but clinically adequate for now. Assessment: Vital Signs/I&O: Vital Signs Date Time Temp Pulse Resp B/P (MAP) Pulse Ox O2 Delivery O2 Flow Rate FiO2 01/21/21 05:34 97.6 85 20 140/67 (91) 93 Room Air I & O 01/20/21 01/20/21 01/21/21 15:00 23:00 07:00 Intake Total 480 ml 600 ml Balance 480 ml 600 ml Labs: Laboratory Tests Test 01/21/21 06:48 White Blood Count 10.4 x10^3/uL (4.0-11.0) Red Blood Count 4.33 x10^6/uL (4.30-5.70) Hemoglobin 14.3 g/dL (13.0-17.5) Hematocrit 42.7 % (39.0-53.0) Mean Corpuscular Volume 99 fL (79-100) Mean Corpuscular Hemoglobin 33 pg (25-35) Mean Corpuscular Hemoglobin Concent 34 g/dL (31-37) Red Cell Distribution Width 13.9 % (11.5-14.5) Platelet Count 132 x10^3/uL (140-400) L Neutrophils (%) (Auto) 73 % (31-73) Lymphocytes (%) (Auto) 15 % (24-48) L Monocytes (%) (Auto) 11 % (0-9) H Eosinophils (%) (Auto) 0 % (0-3) Basophils (%) (Auto) 1 % (0-3) Neutrophils # (Auto) 7.5 x10^3uL (1.8-7.7) Lymphocytes # (Auto) 1.6 x10^3/uL (1.0-4.8) Monocytes # (Auto) 1.2 x10^3/uL (0.0-1.1) H Eosinophils # (Auto) 0.0 x10^3/uL (0.0-0.7) Basophils # (Auto) 0.1 x10^3/uL (0.0-0.2) Platelet Estimate Adequate (ADEQUATE) Giant Platelets Mod Sodium Level 141 mmol/L (136-145) Potassium Level 4.2 mmol/L (3.5-5.1) Chloride Level 104 mmol/L (98-107) Carbon Dioxide Level 29 mmol/L (21-32) Anion Gap 8 (6-14) Blood Urea Nitrogen 16 mg/dL (8-26) Creatinine 1.0 mg/dL (0.7-1.3) Estimated GFR (Cockcroft-Gault) 72.3 BUN/Creatinine Ratio 16 (6-20) Glucose Level 109 mg/dL (70-99) H Calcium Level 8.8 mg/dL (8.5-10.1) Total Bilirubin 0.5 mg/dL (0.2-1.0) Aspartate Amino Transferase (AST) 20 U/L (15-37) Alanine Aminotransferase (ALT) 22 U/L (16-63) Alkaline Phosphatase 72 U/L (46-116) Total Protein 6.2 g/dL (6.4-8.2) L Albumin 3.0 g/dL (3.4-5.0) L Albumin/Globulin Ratio 0.9 (1.0-1.7) L Current Medications: Meds: Laboratory Tests Test 01/21/21 06:48 White Blood Count 10.4 x10^3/uL Red Blood Count 4.33 x10^6/uL Hemoglobin 14.3 g/dL Hematocrit 42.7 % Mean Corpuscular Volume 99 fL Mean Corpuscular Hemoglobin 33 pg Mean Corpuscular Hemoglobin Concent 34 g/dL Red Cell Distribution Width 13.9 % Platelet Count 132 x10^3/uL Neutrophils (%) (Auto) 73 % Lymphocytes (%) (Auto) 15 % Monocytes (%) (Auto) 11 % Eosinophils (%) (Auto) 0 % Basophils (%) (Auto) 1 % Neutrophils # (Auto) 7.5 x10^3uL Lymphocytes # (Auto) 1.6 x10^3/uL Monocytes # (Auto) 1.2 x10^3/uL Eosinophils # (Auto) 0.0 x10^3/uL Basophils # (Auto) 0.1 x10^3/uL Platelet Estimate Adequate Giant Platelets Mod Sodium Level 141 mmol/L Potassium Level 4.2 mmol/L Chloride Level 104 mmol/L Carbon Dioxide Level 29 mmol/L Anion Gap 8 Blood Urea Nitrogen 16 mg/dL Creatinine 1.0 mg/dL Estimated GFR (Cockcroft-Gault) 72.3 BUN/Creatinine Ratio 16 Glucose Level 109 mg/dL Calcium Level 8.8 mg/dL Total Bilirubin 0.5 mg/dL Aspartate Amino Transf (AST/SGOT) 20 U/L Alanine Aminotransferase (ALT/SGPT) 22 U/L Alkaline Phosphatase 72 U/L Total Protein 6.2 g/dL Albumin 3.0 g/dL Albumin/Globulin Ratio 0.9 Current Medications Medications (Trade) Dose Ordered Sig/Ivonne Route PRN Reason Start Time Stop Time Status Last Admin Dose Admin Acetaminophen (Tylenol) 650 mg PRN Q6HRS PRN PO MILD PAIN 1-3 / TEMP > 100.3'F 01/14/21 15:30 Multi-Ingredient Ointment (Analgesic [place]) 1 yu PRN QID PRN TP MUSCLE PAIN 01/14/21 15:30 Al Hydroxide/Mg Hydroxide (Mylanta Plus Xs) 15 ml PRN AFTMEALHC PRN PO DYSPEPSIA 01/14/21 15:30 Magnesium Hydroxide (Milk Of Magnesia) 2,400 mg PRN QHS PRN PO 2ND CHOICE CONSTIPATION 01/14/21 15:30 Acetaminophen (Tylenol) 650 mg PRN Q6HRS PRN PO MILD PAIN 1-3 01/14/21 17:00 UNV Buspirone HCl (Buspar) 10 mg TID PO 01/14/21 21:00 01/20/21 20:00 Vitamin D (Vitamin D3) 2,000 unit DAILY PO 01/15/21 09:00 01/20/21 08:33 Clopidogrel Bisulfate (Plavix) 75 mg DAILY PO 01/15/21 09:00 01/20/21 08:33 Furosemide (Lasix) 20 mg DAILY PO 01/15/21 09:00 01/20/21 08:33 Lorazepam (Ativan) 1 mg PRN Q8HRS PRN PO ANXIETY / AGITATION 01/14/21 17:00 01/19/21 22:19 Metoprolol Tartrate (Lopressor) 25 mg BID PO 01/14/21 21:00 01/20/21 20:00 Mirtazapine (Remeron) 7.5 mg QHS PO 01/14/21 21:00 01/20/21 16:54 DC 01/19/21 20:06 Olanzapine (ZyPREXA ZYDIS) 2.5 mg PRN Q2HR PRN PO ANXIETY / AGITATION 01/14/21 17:00 01/20/21 01:54 Polyethylene Glycol (miraLAX) 17 gm PRN DAILY PRN PO 1ST CHOICE CONSTIPATION 01/14/21 17:00 Risperidone (RisperDAL) 0.5 mg TID PO 01/14/21 21:00 01/20/21 20:00 Sertraline HCl (Zoloft) 50 mg DAILY PO 01/15/21 09:00 01/20/21 08:35 Atorvastatin Calcium (Lipitor) 80 mg QHS PO 01/14/21 21:00 01/20/21 20:00 Artificial Tears (Artificial Tears) 1 drop PRN Q2HRS PRN OU DRY EYE 01/14/21 17:30 Cyanocobalamin (Vitamin B-12) 1,000 mcg DAILY PO 01/15/21 09:00 01/20/21 08:35 Divalproex Sodium (Depakote Er) 500 mg BID PO 01/14/21 21:00 01/20/21 20:00 Mirtazapine (Remeron) 15 mg QHS PO 01/20/21 21:00 01/20/21 20:00 Trazodone HCl (Desyrel) 50 mg PRN QHS PRN PO INSOMNIA, MAY REPEAT X1 01/20/21 17:00 01/20/21 20:00 Current Medications Medications (Trade) Dose Ordered Sig/Ivonne Route PRN Reason Start Time Stop Time Status Last Admin Dose Admin Mirtazapine (Remeron) 15 mg QHS PO 01/20/21 21:00 01/20/21 20:00 Trazodone HCl (Desyrel) 50 mg PRN QHS PRN PO INSOMNIA, MAY REPEAT X1 01/20/21 17:00 01/20/21 20:00 I have reviewed the current psychotropics carefully including drug interactions. Risk benefit ratio favors no change other than as noted in my dictated progress note. Diagnosis: Problems: (1) Impulse control disorder (2) Anxiety disorder (3) Dementia, vascular, with delusions (4) Dementia in Alzheimer's disease with depression (5) Major neurocognitive disorder (6) Dementia in Alzheimer's disease with delusions (7) Dementia, vascular, with depression FRANCES HSU MD January 21, 2021 08:33
--- NOTE | 2021-01-21 08:56 | PDOC ---
Exam Note: Ferny Note: This note is a late entry for 01/20/2021 covers elements not covered in my initial note. Subjective: The patient was seen individually in the evening of 01/20/2021 with Krystyna TOURE, discussed and reviewed the chart. He has been confused. He slept very poorly previous night, sleeping off and on during the day. Review of Systems: No CV, , pulmonary, eye system symptoms on review. Mental Status Exam: The patient is oriented to himself. Insight and judgment, recent and remote memory, attention and concentration, fund of knowledge is poor consistent with his diagnoses. Laboratory Data: Reviewed. Impression: Major neurocognitive disorder Alzheimer vascular with delusion, depression, behavioral disturbance. Anxiety disorder unspecified. Impulse control disorder unspecified. Plan: Increase Remeron from 7.5 mg h.s. to 15 mg h.s. Start trazodone 50 mg h.s. p.r.n., may repeat x1 for insomnia. Maintain Risperdal, Zoloft, BuSpar, Depakote and Zyprexa p.r.n. Valproic acid level at 42 subtherapeutic. We will repeat this and adjust as clinically indicated. Assessment: Vital Signs/I&O: Vital Signs Date Time Temp Pulse Resp B/P (MAP) Pulse Ox O2 Delivery O2 Flow Rate FiO2 01/21/21 05:34 97.6 85 20 140/67 (91) 93 Room Air I & O 01/20/21 01/20/21 01/21/21 15:00 23:00 07:00 Intake Total 480 ml 600 ml Balance 480 ml 600 ml Labs: Laboratory Tests Test 01/21/21 06:48 White Blood Count 10.4 x10^3/uL (4.0-11.0) Red Blood Count 4.33 x10^6/uL (4.30-5.70) Hemoglobin 14.3 g/dL (13.0-17.5) Hematocrit 42.7 % (39.0-53.0) Mean Corpuscular Volume 99 fL (79-100) Mean Corpuscular Hemoglobin 33 pg (25-35) Mean Corpuscular Hemoglobin Concent 34 g/dL (31-37) Red Cell Distribution Width 13.9 % (11.5-14.5) Platelet Count 132 x10^3/uL (140-400) L Neutrophils (%) (Auto) 73 % (31-73) Lymphocytes (%) (Auto) 15 % (24-48) L Monocytes (%) (Auto) 11 % (0-9) H Eosinophils (%) (Auto) 0 % (0-3) Basophils (%) (Auto) 1 % (0-3) Neutrophils # (Auto) 7.5 x10^3uL (1.8-7.7) Lymphocytes # (Auto) 1.6 x10^3/uL (1.0-4.8) Monocytes # (Auto) 1.2 x10^3/uL (0.0-1.1) H Eosinophils # (Auto) 0.0 x10^3/uL (0.0-0.7) Basophils # (Auto) 0.1 x10^3/uL (0.0-0.2) Platelet Estimate Adequate (ADEQUATE) Giant Platelets Mod Sodium Level 141 mmol/L (136-145) Potassium Level 4.2 mmol/L (3.5-5.1) Chloride Level 104 mmol/L (98-107) Carbon Dioxide Level 29 mmol/L (21-32) Anion Gap 8 (6-14) Blood Urea Nitrogen 16 mg/dL (8-26) Creatinine 1.0 mg/dL (0.7-1.3) Estimated GFR (Cockcroft-Gault) 72.3 BUN/Creatinine Ratio 16 (6-20) Glucose Level 109 mg/dL (70-99) H Calcium Level 8.8 mg/dL (8.5-10.1) Total Bilirubin 0.5 mg/dL (0.2-1.0) Aspartate Amino Transferase (AST) 20 U/L (15-37) Alanine Aminotransferase (ALT) 22 U/L (16-63) Alkaline Phosphatase 72 U/L (46-116) Total Protein 6.2 g/dL (6.4-8.2) L Albumin 3.0 g/dL (3.4-5.0) L Albumin/Globulin Ratio 0.9 (1.0-1.7) L Current Medications: Meds: Laboratory Tests Test 01/21/21 06:48 White Blood Count 10.4 x10^3/uL Red Blood Count 4.33 x10^6/uL Hemoglobin 14.3 g/dL Hematocrit 42.7 % Mean Corpuscular Volume 99 fL Mean Corpuscular Hemoglobin 33 pg Mean Corpuscular Hemoglobin Concent 34 g/dL Red Cell Distribution Width 13.9 % Platelet Count 132 x10^3/uL Neutrophils (%) (Auto) 73 % Lymphocytes (%) (Auto) 15 % Monocytes (%) (Auto) 11 % Eosinophils (%) (Auto) 0 % Basophils (%) (Auto) 1 % Neutrophils # (Auto) 7.5 x10^3uL Lymphocytes # (Auto) 1.6 x10^3/uL Monocytes # (Auto) 1.2 x10^3/uL Eosinophils # (Auto) 0.0 x10^3/uL Basophils # (Auto) 0.1 x10^3/uL Platelet Estimate Adequate Giant Platelets Mod Sodium Level 141 mmol/L Potassium Level 4.2 mmol/L Chloride Level 104 mmol/L Carbon Dioxide Level 29 mmol/L Anion Gap 8 Blood Urea Nitrogen 16 mg/dL Creatinine 1.0 mg/dL Estimated GFR (Cockcroft-Gault) 72.3 BUN/Creatinine Ratio 16 Glucose Level 109 mg/dL Calcium Level 8.8 mg/dL Total Bilirubin 0.5 mg/dL Aspartate Amino Transf (AST/SGOT) 20 U/L Alanine Aminotransferase (ALT/SGPT) 22 U/L Alkaline Phosphatase 72 U/L Total Protein 6.2 g/dL Albumin 3.0 g/dL Albumin/Globulin Ratio 0.9 Current Medications Medications (Trade) Dose Ordered Sig/Ivonne Route PRN Reason Start Time Stop Time Status Last Admin Dose Admin Acetaminophen (Tylenol) 650 mg PRN Q6HRS PRN PO MILD PAIN 1-3 / TEMP > 100.3'F 01/14/21 15:30 Multi-Ingredient Ointment (Analgesic [place]) 1 yu PRN QID PRN TP MUSCLE PAIN 01/14/21 15:30 Al Hydroxide/Mg Hydroxide (Mylanta Plus Xs) 15 ml PRN AFTMEALHC PRN PO DYSPEPSIA 01/14/21 15:30 Magnesium Hydroxide (Milk Of Magnesia) 2,400 mg PRN QHS PRN PO 2ND CHOICE CONSTIPATION 01/14/21 15:30 Acetaminophen (Tylenol) 650 mg PRN Q6HRS PRN PO MILD PAIN 1-3 01/14/21 17:00 UNV Buspirone HCl (Buspar) 10 mg TID PO 01/14/21 21:00 01/20/21 20:00 Vitamin D (Vitamin D3) 2,000 unit DAILY PO 01/15/21 09:00 01/20/21 08:33 Clopidogrel Bisulfate (Plavix) 75 mg DAILY PO 01/15/21 09:00 01/20/21 08:33 Furosemide (Lasix) 20 mg DAILY PO 01/15/21 09:00 01/20/21 08:33 Lorazepam (Ativan) 1 mg PRN Q8HRS PRN PO ANXIETY / AGITATION 01/14/21 17:00 01/19/21 22:19 Metoprolol Tartrate (Lopressor) 25 mg BID PO 01/14/21 21:00 01/20/21 20:00 Mirtazapine (Remeron) 7.5 mg QHS PO 01/14/21 21:00 01/20/21 16:54 DC 01/19/21 20:06 Olanzapine (ZyPREXA ZYDIS) 2.5 mg PRN Q2HR PRN PO ANXIETY / AGITATION 01/14/21 17:00 01/20/21 01:54 Polyethylene Glycol (miraLAX) 17 gm PRN DAILY PRN PO 1ST CHOICE CONSTIPATION 01/14/21 17:00 Risperidone (RisperDAL) 0.5 mg TID PO 01/14/21 21:00 01/20/21 20:00 Sertraline HCl (Zoloft) 50 mg DAILY PO 01/15/21 09:00 01/20/21 08:35 Atorvastatin Calcium (Lipitor) 80 mg QHS PO 01/14/21 21:00 01/20/21 20:00 Artificial Tears (Artificial Tears) 1 drop PRN Q2HRS PRN OU DRY EYE 01/14/21 17:30 Cyanocobalamin (Vitamin B-12) 1,000 mcg DAILY PO 01/15/21 09:00 01/20/21 08:35 Divalproex Sodium (Depakote Er) 500 mg BID PO 01/14/21 21:00 01/20/21 20:00 Mirtazapine (Remeron) 15 mg QHS PO 01/20/21 21:00 01/20/21 20:00 Trazodone HCl (Desyrel) 50 mg PRN QHS PRN PO INSOMNIA, MAY REPEAT X1 5/25/21 17:00 01/20/21 20:00 Current Medications Medications (Trade) Dose Ordered Sig/Ivonne Route PRN Reason Start Time Stop Time Status Last Admin Dose Admin Mirtazapine (Remeron) 15 mg QHS PO 01/20/21 21:00 01/20/21 20:00 Trazodone HCl (Desyrel) 50 mg PRN QHS PRN PO INSOMNIA, MAY REPEAT X1 01/20/21 17:00 01/20/21 20:00 I have reviewed the current psychotropics carefully including drug interactions. Risk benefit ratio favors no change other than as noted in my dictated progress note. Diagnosis: Problems: (1) Impulse control disorder (2) Major neurocognitive disorder (3) Dementia, vascular, with depression (4) Dementia in Alzheimer's disease with delusions (5) Anxiety disorder (6) Dementia, vascular, with delusions (7) Dementia in Alzheimer's disease with depression FRANCES HSU MD January 21, 2021 08:56
[2021-01-21] MEDS: FUROSEMIDE 20 MG TABLET PO SCH (09:15)
[2021-01-21] MEDS: risperiDONE 0.5 MG TABLET. PO SCH ×3 (09:15→19:56)
[2021-01-21] MEDS: CHOLECALCIFEROL (VITAMIN D3) 1,000 UNIT TABLET PO SCH (09:15)
[2021-01-21] MEDS: busPIRone 10 MG TABLET. PO SCH ×3 (09:15→19:56)
[2021-01-21] MEDS: CLOPIDOGREL BISULFATE 75 MG TABLET PO SCH (09:15)
[2021-01-21] MEDS: CYANOCOBALAMIN (VITAMIN B-12) 1,000 MCG TABLET. PO SCH (09:16)
[2021-01-21] MEDS: DIVALPROEX ER 500 MG TAB.ER.24H PO SCH ×2 (09:16→19:58)
[2021-01-21] MEDS: SERTRALINE 50 MG TABLET. PO SCH (09:16)
[2021-01-21] MEDS: METOPROLOL TART IMMED RELEASE 25 MG TABLET. PO SCH ×2 (09:16→19:57)
[2021-01-21] MEDS: FUROSEMIDE 80 MG TABLET PO SCH (14:08)
--- NOTE | 2021-01-21 15:34 | NUR ---
Nursing note: Pt in his bed at time of AM med pass and assessment. Meds were attempted to be given whole, but pt began to chew them and had a difficult time swallowing the whole medications. Remaining meds were given crushed in a bite of pudding. Pt has a wet, nonproductive cough. Dr. Boo notified of pt's change in condition and to review CXR results. New orders received for Lasix 80mg daily, Potassium chloride 20 meq daily and BMP on Tuesday (01/23/21). Pt has been very drowsy this shift and requires a wheelchair to get around. He is currently sitting in the day room. Will continue to monitor.
[2021-01-21 16:02] VITALS: BP 98/59
[2021-01-21] MEDS: traZODone 50 MG TABLET. PO PRN (19:56)
[2021-01-21] MEDS: ATORVASTATIN CALCIUM 20 MG TABLET PO SCH (19:56)
[2021-01-21] MEDS: MIRTAZAPINE 15 MG TABLET PO SCH (19:56)
--- NOTE | 2021-01-21 22:12 | PDOC ---
Exam Note: Ferny Note: Please also refer to the separate dictated note~for this date of service dictated separately.~Patient seen individually. Discussed the patient with Nursing staff reviewed the chart.~Reviewed interim history and current functioning. Reviewed vital signs,~Labs/ Radiology~and current medications noted below. Continue current treatment with the changes noted in the dictated addendum note Assessment: Vital Signs/I&O: Vital Signs Date Time Temp Pulse Resp B/P (MAP) Pulse Ox O2 Delivery O2 Flow Rate FiO2 01/21/21 19:57 80 98/59 01/21/21 16:02 98.8 16 96 01/21/21 05:34 Room Air I & O 01/20/21 01/20/21 01/21/21 15:00 23:00 07:00 Intake Total 480 ml 600 ml Balance 480 ml 600 ml Labs: Laboratory Tests Test 01/21/21 06:48 White Blood Count 10.4 x10^3/uL (4.0-11.0) Red Blood Count 4.33 x10^6/uL (4.30-5.70) Hemoglobin 14.3 g/dL (13.0-17.5) Hematocrit 42.7 % (39.0-53.0) Mean Corpuscular Volume 99 fL (79-100) Mean Corpuscular Hemoglobin 33 pg (25-35) Mean Corpuscular Hemoglobin Concent 34 g/dL (31-37) Red Cell Distribution Width 13.9 % (11.5-14.5) Platelet Count 132 x10^3/uL (140-400) L Neutrophils (%) (Auto) 73 % (31-73) Lymphocytes (%) (Auto) 15 % (24-48) L Monocytes (%) (Auto) 11 % (0-9) H Eosinophils (%) (Auto) 0 % (0-3) Basophils (%) (Auto) 1 % (0-3) Neutrophils # (Auto) 7.5 x10^3uL (1.8-7.7) Lymphocytes # (Auto) 1.6 x10^3/uL (1.0-4.8) Monocytes # (Auto) 1.2 x10^3/uL (0.0-1.1) H Eosinophils # (Auto) 0.0 x10^3/uL (0.0-0.7) Basophils # (Auto) 0.1 x10^3/uL (0.0-0.2) Platelet Estimate Adequate (ADEQUATE) Giant Platelets Mod Sodium Level 141 mmol/L (136-145) Potassium Level 4.2 mmol/L (3.5-5.1) Chloride Level 104 mmol/L (98-107) Carbon Dioxide Level 29 mmol/L (21-32) Anion Gap 8 (6-14) Blood Urea Nitrogen 16 mg/dL (8-26) Creatinine 1.0 mg/dL (0.7-1.3) Estimated GFR (Cockcroft-Gault) 72.3 BUN/Creatinine Ratio 16 (6-20) Glucose Level 109 mg/dL (70-99) H Calcium Level 8.8 mg/dL (8.5-10.1) Total Bilirubin 0.5 mg/dL (0.2-1.0) Aspartate Amino Transferase (AST) 20 U/L (15-37) Alanine Aminotransferase (ALT) 22 U/L (16-63) Alkaline Phosphatase 72 U/L (46-116) Total Protein 6.2 g/dL (6.4-8.2) L Albumin 3.0 g/dL (3.4-5.0) L Albumin/Globulin Ratio 0.9 (1.0-1.7) L Current Medications: Meds: Laboratory Tests Test 01/21/21 06:48 White Blood Count 10.4 x10^3/uL Red Blood Count 4.33 x10^6/uL Hemoglobin 14.3 g/dL Hematocrit 42.7 % Mean Corpuscular Volume 99 fL Mean Corpuscular Hemoglobin 33 pg Mean Corpuscular Hemoglobin Concent 34 g/dL Red Cell Distribution Width 13.9 % Platelet Count 132 x10^3/uL Neutrophils (%) (Auto) 73 % Lymphocytes (%) (Auto) 15 % Monocytes (%) (Auto) 11 % Eosinophils (%) (Auto) 0 % Basophils (%) (Auto) 1 % Neutrophils # (Auto) 7.5 x10^3uL Lymphocytes # (Auto) 1.6 x10^3/uL Monocytes # (Auto) 1.2 x10^3/uL Eosinophils # (Auto) 0.0 x10^3/uL Basophils # (Auto) 0.1 x10^3/uL Platelet Estimate Adequate Giant Platelets Mod Sodium Level 141 mmol/L Potassium Level 4.2 mmol/L Chloride Level 104 mmol/L Carbon Dioxide Level 29 mmol/L Anion Gap 8 Blood Urea Nitrogen 16 mg/dL Creatinine 1.0 mg/dL Estimated GFR (Cockcroft-Gault) 72.3 BUN/Creatinine Ratio 16 Glucose Level 109 mg/dL Calcium Level 8.8 mg/dL Total Bilirubin 0.5 mg/dL Aspartate Amino Transf (AST/SGOT) 20 U/L Alanine Aminotransferase (ALT/SGPT) 22 U/L Alkaline Phosphatase 72 U/L Total Protein 6.2 g/dL Albumin 3.0 g/dL Albumin/Globulin Ratio 0.9 Current Medications Medications (Trade) Dose Ordered Sig/Ivonne Route PRN Reason Start Time Stop Time Status Last Admin Dose Admin Acetaminophen (Tylenol) 650 mg PRN Q6HRS PRN PO MILD PAIN 1-3 / TEMP > 100.3'F 01/14/21 15:30 Multi-Ingredient Ointment (Analgesic [place]) 1 yu PRN QID PRN TP MUSCLE PAIN 01/14/21 15:30 Al Hydroxide/Mg Hydroxide (Mylanta Plus Xs) 15 ml PRN AFTMEALHC PRN PO DYSPEPSIA 01/14/21 15:30 Magnesium Hydroxide (Milk Of Magnesia) 2,400 mg PRN QHS PRN PO 2ND CHOICE CONSTIPATION 01/14/21 15:30 Acetaminophen (Tylenol) 650 mg PRN Q6HRS PRN PO MILD PAIN 1-3 01/14/21 17:00 UNV Buspirone HCl (Buspar) 10 mg TID PO 01/14/21 21:00 01/21/21 19:56 Vitamin D (Vitamin D3) 2,000 unit DAILY PO 01/15/21 09:00 01/21/21 09:15 Clopidogrel Bisulfate (Plavix) 75 mg DAILY PO 01/15/21 09:00 01/21/21 09:15 Furosemide (Lasix) 20 mg DAILY PO 01/15/21 09:00 01/21/21 13:21 DC 01/21/21 09:15 Lorazepam (Ativan) 1 mg PRN Q8HRS PRN PO ANXIETY / AGITATION 01/14/21 17:00 01/19/21 22:19 Metoprolol Tartrate (Lopressor) 25 mg BID PO 01/14/21 21:00 01/21/21 19:57 Mirtazapine (Remeron) 7.5 mg QHS PO 01/14/21 21:00 01/20/21 16:54 DC 01/19/21 20:06 Olanzapine (ZyPREXA ZYDIS) 2.5 mg PRN Q2HR PRN PO ANXIETY / AGITATION 01/14/21 17:00 01/20/21 01:54 Polyethylene Glycol (miraLAX) 17 gm PRN DAILY PRN PO 1ST CHOICE CONSTIPATION 01/14/21 17:00 Risperidone (RisperDAL) 0.5 mg TID PO 01/14/21 21:00 01/21/21 19:56 Sertraline HCl (Zoloft) 50 mg DAILY PO 01/15/21 09:00 01/21/21 09:16 Atorvastatin Calcium (Lipitor) 80 mg QHS PO 01/14/21 21:00 01/21/21 19:56 Artificial Tears (Artificial Tears) 1 drop PRN Q2HRS PRN OU DRY EYE 01/14/21 17:30 Cyanocobalamin (Vitamin B-12) 1,000 mcg DAILY PO 01/15/21 09:00 01/21/21 09:16 Divalproex Sodium (Depakote Er) 500 mg BID PO 01/14/21 21:00 01/21/21 19:58 Mirtazapine (Remeron) 15 mg QHS PO 01/20/21 21:00 01/21/21 19:56 Trazodone HCl (Desyrel) 50 mg PRN QHS PRN PO INSOMNIA, MAY REPEAT X1 01/20/21 17:00 01/21/21 19:56 Furosemide (Lasix) 80 mg DAILY PO 01/21/21 13:30 01/21/21 14:08 Potassium Chloride (Klor-Con) 20 meq DAILYWBKFT PO 01/22/21 08:00 Current Medications Medications (Trade) Dose Ordered Sig/Ivonne Route PRN Reason Start Time Stop Time Status Last Admin Dose Admin Furosemide (Lasix) 80 mg DAILY PO 01/21/21 13:30 01/21/21 14:08 I have reviewed the current psychotropics carefully including drug interactions. Risk benefit ratio favors no change other than as noted in my dictated progress note. Diagnosis: Problems: (1) Impulse control disorder (2) Obsessive compulsive disorder (3) Major neurocognitive disorder (4) Dementia, vascular, with depression (5) Dementia in Alzheimer's disease with delusions (6) Anxiety disorder (7) Dementia, vascular, with delusions (8) Dementia in Alzheimer's disease with depression FRANCES HSU MD January 21, 2021 22:12
[2021-01-22 06:23] VITALS: BP 109/66
--- NOTE | 2021-01-22 06:56 | PDOC ---
Exam Note: Ferny Note: This note is a late entry for 01/21/2021 covers elements not covered in my initial note. Subjective: The patient was seen individually in the evening of 01/21/2021 with Carol Ann TOURE, discussed and reviewed the chart. He slept 6 hours previous night. The patient has been drowsy, has some cough. Chest x-ray shows some congestion. He has been started on Lasix and labs are being repeated on Tuesday. We will defer to Dr. Boo. He used to be able to swallow his medications but recently he has been chewing his meds and had to crushed. Review of Systems: Ambulation impaired in wheelchair. No CV, , pulmonary, eye system symptoms on review. Mental Status Exam: The patient is oriented to himself. He was not very verbal or interactive, but stated he was doing alright. Insight and judgment, recent and remote memory, attention and concentration, fund of knowledge is poor consistent with his diagnoses. Laboratory Data: Reviewed. Impression: Major neurocognitive disorder Alzheimer vascular with delusion, depression, behavioral disturbance. Anxiety disorder unspecified. Impulse control disorder unspecified. Plan: Continue psychotropics from initial note. Defer medical management to Dr Luz Maria Boo/Dr. [place]. Adjust further as clinically indicated. Assessment: Vital Signs/I&O: Vital Signs Date Time Temp Pulse Resp B/P (MAP) Pulse Ox O2 Delivery O2 Flow Rate FiO2 01/22/21 06:23 97.6 71 18 109/66 (80) 92 Room Air I & O 01/21/21 01/21/21 01/22/21 15:00 23:00 07:00 Intake Total 0 ml 420 ml 120 ml Balance 0 ml 420 ml 120 ml Current Medications: Meds: Current Medications Medications (Trade) Dose Ordered Sig/Ivonne Route PRN Reason Start Time Stop Time Status Last Admin Dose Admin Acetaminophen (Tylenol) 650 mg PRN Q6HRS PRN PO MILD PAIN 1-3 / TEMP > 100.3'F 01/14/21 15:30 Multi-Ingredient Ointment (Analgesic [place]) 1 yu PRN QID PRN TP MUSCLE PAIN 01/14/21 15:30 Al Hydroxide/Mg Hydroxide (Mylanta Plus Xs) 15 ml PRN AFTMEALHC PRN PO DYSPEPSIA 01/14/21 15:30 Magnesium Hydroxide (Milk Of Magnesia) 2,400 mg PRN QHS PRN PO 2ND CHOICE CONSTIPATION 01/14/21 15:30 Acetaminophen (Tylenol) 650 mg PRN Q6HRS PRN PO MILD PAIN 1-3 01/14/21 17:00 UNV Buspirone HCl (Buspar) 10 mg TID PO 01/14/21 21:00 01/21/21 19:56 Vitamin D (Vitamin D3) 2,000 unit DAILY PO 01/15/21 09:00 01/21/21 09:15 Clopidogrel Bisulfate (Plavix) 75 mg DAILY PO 01/15/21 09:00 01/21/21 09:15 Furosemide (Lasix) 20 mg DAILY PO 01/15/21 09:00 01/21/21 13:21 DC 01/21/21 09:15 Lorazepam (Ativan) 1 mg PRN Q8HRS PRN PO ANXIETY / AGITATION 01/14/21 17:00 01/19/21 22:19 Metoprolol Tartrate (Lopressor) 25 mg BID PO 01/14/21 21:00 01/21/21 19:57 Mirtazapine (Remeron) 7.5 mg QHS PO 01/14/21 21:00 01/20/21 16:54 DC 01/19/21 20:06 Olanzapine (ZyPREXA ZYDIS) 2.5 mg PRN Q2HR PRN PO ANXIETY / AGITATION 01/14/21 17:00 01/20/21 01:54 Polyethylene Glycol (miraLAX) 17 gm PRN DAILY PRN PO 1ST CHOICE CONSTIPATION 01/14/21 17:00 Risperidone (RisperDAL) 0.5 mg TID PO 01/14/21 21:00 01/21/21 19:56 Sertraline HCl (Zoloft) 50 mg DAILY PO 01/15/21 09:00 01/21/21 09:16 Atorvastatin Calcium (Lipitor) 80 mg QHS PO 01/14/21 21:00 01/21/21 19:56 Artificial Tears (Artificial Tears) 1 drop PRN Q2HRS PRN OU DRY EYE 01/14/21 17:30 Cyanocobalamin (Vitamin B-12) 1,000 mcg DAILY PO 01/15/21 09:00 01/21/21 09:16 Divalproex Sodium (Depakote Er) 500 mg BID PO 01/14/21 21:00 01/21/21 19:58 Mirtazapine (Remeron) 15 mg QHS PO 01/20/21 21:00 01/21/21 19:56 Trazodone HCl (Desyrel) 50 mg PRN QHS PRN PO INSOMNIA, DECEMBER REPEAT X1 01/20/21 17:00 01/21/21 19:56 Furosemide (Lasix) 80 mg DAILY PO 01/21/21 13:30 01/21/21 14:08 Potassium Chloride (Klor-Con) 20 meq DAILYWBKFT PO 01/22/21 08:00 Current Medications Medications (Trade) Dose Ordered Sig/Ivonne Route PRN Reason Start Time Stop Time Status Last Admin Dose Admin Furosemide (Lasix) 80 mg DAILY PO 01/21/21 13:30 01/21/21 14:08 I have reviewed the current psychotropics carefully including drug interactions. Risk benefit ratio favors no change other than as noted in my dictated progress note. Diagnosis: Problems: (1) Impulse control disorder (2) Obsessive compulsive disorder (3) Major neurocognitive disorder (4) Dementia, vascular, with depression (5) Dementia in Alzheimer's disease with delusions (6) Anxiety disorder (7) Dementia, vascular, with delusions (8) Dementia in Alzheimer's disease with depression FRANCES HSU MD January 22, 2021 06:56
[2021-01-22] MEDS: busPIRone 10 MG TABLET. PO SCH ×3 (08:09→23:12)
[2021-01-22] MEDS: CHOLECALCIFEROL (VITAMIN D3) 1,000 UNIT TABLET PO SCH (08:10)
[2021-01-22] MEDS: SERTRALINE 50 MG TABLET. PO SCH (08:10)
[2021-01-22] MEDS: CLOPIDOGREL BISULFATE 75 MG TABLET PO SCH (08:10)
[2021-01-22] MEDS: FUROSEMIDE 80 MG TABLET PO SCH (08:10)
[2021-01-22] MEDS: CYANOCOBALAMIN (VITAMIN B-12) 1,000 MCG TABLET. PO SCH (08:10)
[2021-01-22] MEDS: risperiDONE 0.5 MG TABLET. PO SCH (08:10)
[2021-01-22] MEDS: METOPROLOL TART IMMED RELEASE 25 MG TABLET. PO SCH ×2 (08:11→23:13)
[2021-01-22] MEDS: POTASSIUM CHLORIDE 20 MEQ TABLET.ER. PO SCH (08:11)
[2021-01-22] MEDS: DIVALPROEX ER 500 MG TAB.ER.24H PO SCH (08:11)
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
--- NOTE | 2021-01-22 11:57 | NUR ---
Nursing note: Pt in dining room at time of AM med pass and assessment. He is drowsy, but compliant with meds crushed in pudding and cooperative with assessment. He denies having any pain at time of assessment. Pt continues to have a very wet cough. He is currently sitting quietly in the day room. Will continue to monitor.
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
--- NOTE | 2021-01-22 12:34 | NUR ---
WEEKLY NOTE: Pt eating 75%-100% of his food and averaging about 8.5 hours of sleep. Pt the past couple of days has slept more than he had been. He is appearing drowsy. Nursing staff have noticed that he is trying to chew is medications rather than swallowing them. Pt's lung sounds are currently being monitored. He is taking 80mg of Lasix. Pt has shown a change in behavior the past couple of days with increased agitation and some swinging of fists. Also, upon admission, pt was ambulating and wandering the unit; pt the past day or two has been using a wheelchair. Labs were just checked and showing remarkable. Risperdal will be discontinued at this time as will the Ativan PRN. Pt will continue to be monitored for further medication adjustments. Once stable, pt will return to [facility]. NIRMAL left voicemail for Rivas GRUBER. Awaiting call back. NIRMAL, also, left message with administrative assistant receptionist at pt facility for Suzie. Awaiting call back.
[2021-01-22 15:54] VITALS: BP 111/71
[2021-01-22 21:35] VITALS: BP 111/66
--- NOTE | 2021-01-22 22:06 | PDOC ---
Exam Note: Ferny Note: Please also refer to the separate dictated note~for this date of service dictated separately.~Patient seen individually. Discussed the patient with Nursing staff reviewed the chart.~Reviewed interim history and current functioning. Reviewed vital signs,~Labs/ Radiology~and current medications noted below. Continue current treatment with the changes noted in the dictated addendum note Assessment: Vital Signs/I&O: Vital Signs Date Time Temp Pulse Resp B/P (MAP) Pulse Ox O2 Delivery O2 Flow Rate FiO2 01/22/21 21:35 97.9 60 17 111/66 (81) 92 Room Air I & O 01/21/21 01/21/21 01/22/21 15:00 23:00 07:00 Intake Total 0 ml 420 ml 120 ml Balance 0 ml 420 ml 120 ml Current Medications: Meds: Current Medications Medications (Trade) Dose Ordered Sig/Ivonne Route PRN Reason Start Time Stop Time Status Last Admin Dose Admin Acetaminophen (Tylenol) 650 mg PRN Q6HRS PRN PO MILD PAIN 1-3 / TEMP > 100.3'F 01/14/21 15:30 Multi-Ingredient Ointment (Analgesic [place]) 1 yu PRN QID PRN TP MUSCLE PAIN 01/14/21 15:30 Al Hydroxide/Mg Hydroxide (Mylanta Plus Xs) 15 ml PRN AFTMEALHC PRN PO DYSPEPSIA 01/14/21 15:30 Magnesium Hydroxide (Milk Of Magnesia) 2,400 mg PRN QHS PRN PO 2ND CHOICE CONSTIPATION 01/14/21 15:30 Acetaminophen (Tylenol) 650 mg PRN Q6HRS PRN PO MILD PAIN 1-3 01/14/21 17:00 UNV Buspirone HCl (Buspar) 10 mg TID PO 01/14/21 21:00 01/22/21 08:09 Vitamin D (Vitamin D3) 2,000 unit DAILY PO 01/15/21 09:00 01/22/21 08:10 Clopidogrel Bisulfate (Plavix) 75 mg DAILY PO 01/15/21 09:00 01/22/21 08:10 Furosemide (Lasix) 20 mg DAILY PO 01/15/21 09:00 01/21/21 13:21 DC 01/21/21 09:15 Lorazepam (Ativan) 1 mg PRN Q8HRS PRN PO ANXIETY / AGITATION 01/14/21 17:00 01/22/21 10:47 DC 01/19/21 22:19 Metoprolol Tartrate (Lopressor) 25 mg BID PO 01/14/21 21:00 01/22/21 08:11 Mirtazapine (Remeron) 7.5 mg QHS PO 01/14/21 21:00 01/20/21 16:54 DC 01/19/21 20:06 Olanzapine (ZyPREXA ZYDIS) 2.5 mg PRN Q2HR PRN PO ANXIETY / AGITATION 01/14/21 17:00 01/20/21 01:54 Polyethylene Glycol (miraLAX) 17 gm PRN DAILY PRN PO 1ST CHOICE CONSTIPATION 01/14/21 17:00 Risperidone (RisperDAL) 0.5 mg TID PO 01/14/21 21:00 01/22/21 10:47 DC 01/22/21 08:10 Sertraline HCl (Zoloft) 50 mg DAILY PO 01/15/21 09:00 01/22/21 08:10 Atorvastatin Calcium (Lipitor) 80 mg QHS PO 01/14/21 21:00 01/21/21 19:56 Artificial Tears (Artificial Tears) 1 drop PRN Q2HRS PRN OU DRY EYE 01/14/21 17:30 Cyanocobalamin (Vitamin B-12) 1,000 mcg DAILY PO 01/15/21 09:00 01/22/21 08:10 Divalproex Sodium (Depakote Er) 500 mg BID PO 01/14/21 21:00 01/22/21 20:19 DC 01/22/21 08:11 Mirtazapine (Remeron) 15 mg QHS PO 01/20/21 21:00 01/21/21 19:56 Trazodone HCl (Desyrel) 50 mg PRN QHS PRN PO INSOMNIA, MAY REPEAT X1 01/20/21 17:00 01/21/21 19:56 Furosemide (Lasix) 80 mg DAILY PO 01/21/21 13:30 01/22/21 08:10 Potassium Chloride (Klor-Con) 20 meq DAILYWBKFT PO 01/22/21 08:00 01/22/21 08:11 Neomycin/ Polymyxin/ Dexamethasone (Maxitrol Ophth Oint) 2 yu BID OU 01/22/21 21:00 Divalproex Sodium (Depakote Sprinkles) 500 mg BID PO 01/22/21 21:00 Current Medications Medications (Trade) Dose Ordered Sig/Ivonne Route PRN Reason Start Time Stop Time Status Last Admin Dose Admin Potassium Chloride (Klor-Con) 20 meq DAILYWBKFT PO 01/22/21 08:00 01/22/21 08:11 I have reviewed the current psychotropics carefully including drug interactions. Risk benefit ratio favors no change other than as noted in my dictated progress note. Diagnosis: Problems: (1) Impulse control disorder (2) Obsessive compulsive disorder (3) Major neurocognitive disorder (4) Dementia, vascular, with depression (5) Dementia in Alzheimer's disease with delusions (6) Anxiety disorder (7) Dementia in Alzheimer's disease with depression (8) Dementia, vascular, with delusions FRANCES HSU MD January 22, 2021 22:06
[2021-01-22] MEDS: ATORVASTATIN CALCIUM 20 MG TABLET PO SCH (23:12)
[2021-01-22] MEDS: NEO/POLYMYX/DEXAMETH OPHTH OINTMENT 3.5GM TUBE. OU SCH (23:12)
[2021-01-22] MEDS: DIVALPROEX 125 MG CAP.SPRINK PO SCH (23:12)
[2021-01-22] MEDS: MIRTAZAPINE 15 MG TABLET PO SCH (23:13)
--- NOTE | 2021-01-22 23:17 | NUR ---
patient asleep when this shift started and remains asleep. Vital signs obtained at 2114 and were WNL. Patient too sleepy to safely swallow medications. HS medications held. Patient continues to cough and his lungs sound crackly. Patient labs are scheduled to be rechecked tomorrow.
[2021-01-23 06:16] VITALS: BP 119/72
[2021-01-23 06:30] LABS: CREATININE 1.1 mg/dL (0.7-1.3); GFR 64.7
[2021-01-23] MEDS: CHOLECALCIFEROL (VITAMIN D3) 1,000 UNIT TABLET PO SCH (08:49)
[2021-01-23] MEDS: SERTRALINE 50 MG TABLET. PO SCH (08:49)
[2021-01-23] MEDS: busPIRone 10 MG TABLET. PO SCH ×3 (08:49→20:55)
[2021-01-23] MEDS: DIVALPROEX 125 MG CAP.SPRINK PO SCH ×2 (08:49→20:55)
[2021-01-23] MEDS: POTASSIUM CHLORIDE 20 MEQ TABLET.ER. PO SCH (08:49)
[2021-01-23] MEDS: CYANOCOBALAMIN (VITAMIN B-12) 1,000 MCG TABLET. PO SCH (08:49)
[2021-01-23] MEDS: METOPROLOL TART IMMED RELEASE 25 MG TABLET. PO SCH ×2 (08:49→20:55)
[2021-01-23] MEDS: FUROSEMIDE 80 MG TABLET PO SCH (08:50)
[2021-01-23] MEDS: CLOPIDOGREL BISULFATE 75 MG TABLET PO SCH (08:50)
[2021-01-23] MEDS: NEO/POLYMYX/DEXAMETH OPHTH OINTMENT 3.5GM TUBE. OU SCH ×2 (08:51→20:56)
--- NOTE | 2021-01-23 10:29 | PDOC ---
Exam Note: Ferny Note: This note is a late entry for 01/22/2021 covers elements not covered in my initial note. Subjective: The patient was reviewed in the morning of 01/22/2021 for a treatment team meeting with Malinda Coleman, Salena Sánchez and [place] (director social welfare), [place], activity therapy and Carol Ann TOURE, discussed and reviewed the chart. He slept 8-1/2 hours previous night. The patient was also seen in the evening on rounds with Rafaela TOURE. He has been somewhat drowsy today. He takes meds occasionally crushed. Lungs appear wet per nursing report and we will defer to Dr. Boo/Dr. Richmond. He has not been aggressive. O2 sats in 90s. Review of Systems: Positive for tiredness. No CV, , pulmonary, eye system symptoms on review. Mental Status Exam: The patient is oriented to himself. Insight and judgment, recent and remote memory, attention and concentration, fund of knowledge is poor consistent with his diagnoses. Laboratory Data: Reviewed. Impression: Major neurocognitive disorder Alzheimer vascular with delusion, depression, behavioral disturbance. Anxiety disorder unspecified. Impulse control disorder unspecified. Plan: We will go ahead and stop the Risperdal and the Ativan p.r.n. Maintain BuSpar, Depakote, Remeron, Zoloft along with Zyprexa p.r.n. and trazodone. Make further adjustments as clinically indicated. We are stopping the Risperdal due to daytime sedation though this could be due to medical reasons. We will defer to Dr. Boo. Assessment: Vital Signs/I&O: Vital Signs Date Time Temp Pulse Resp B/P (MAP) Pulse Ox O2 Delivery O2 Flow Rate FiO2 01/23/21 08:49 60 119/72 01/23/21 06:16 98.8 20 91 01/22/21 21:35 Room Air I & O 01/22/21 01/22/21 01/23/21 15:00 23:00 07:00 Intake Total 200 ml 200 ml 120 ml Balance 200 ml 200 ml 120 ml Labs: Laboratory Tests Test 01/23/21 06:12 Sodium Level 145 mmol/L (136-145) Potassium Level 4.0 mmol/L (3.5-5.1) Chloride Level 106 mmol/L (98-107) Carbon Dioxide Level 31 mmol/L (21-32) Anion Gap 8 (6-14) Blood Urea Nitrogen 29 mg/dL (8-26) H Creatinine 1.1 mg/dL (0.7-1.3) Estimated GFR (Cockcroft-Gault) 64.7 Glucose Level 97 mg/dL (70-99) Calcium Level 9.0 mg/dL (8.5-10.1) Current Medications: Meds: Current Medications Medications (Trade) Dose Ordered Sig/Ivonne Route PRN Reason Start Time Stop Time Status Last Admin Dose Admin Neomycin/ Polymyxin/ Dexamethasone (Maxitrol Ophth Oint) 2 yu BID OU 01/22/21 21:00 01/23/21 08:51 Divalproex Sodium (Depakote Sprinkles) 500 mg BID PO 01/22/21 21:00 01/23/21 08:49 I have reviewed the current psychotropics carefully including drug interactions. Risk benefit ratio favors no change other than as noted in my dictated progress note. Diagnosis: Problems: (1) Impulse control disorder (2) Obsessive compulsive disorder (3) Major neurocognitive disorder (4) Dementia, vascular, with depression (5) Dementia in Alzheimer's disease with delusions (6) Anxiety disorder (7) Dementia, vascular, with delusions (8) Dementia in Alzheimer's disease with depression FRANCES HSU MD January 23, 2021 10:29
[2021-01-23 16:09] VITALS: BP 102/65
[2021-01-23] MEDS: MIRTAZAPINE 15 MG TABLET PO SCH (20:55)
[2021-01-23] MEDS: ATORVASTATIN CALCIUM 20 MG TABLET PO SCH (20:55)
--- NOTE | 2021-01-23 21:00 | NUR ---
Patient was in day room and walking in the hallway at the beginning of this shift. Lung sounds are crackly and he has a moist, non-productive cough. Patient is much more interactive tonight, he tried to tell this nurse about a hamster but was unable to get the words out correctly. He has word salad at times. Patients meds given crushed in pudding, patient had been chewing the meds on previous day. Cooperative with cares, calm and pleasant.
--- NOTE | 2021-01-23 21:54 | PDOC ---
Exam Note: Ferny Note: Please also refer to the separate dictated note~for this date of service dictated separately.~Patient seen individually. Discussed the patient with Nursing staff reviewed the chart.~Reviewed interim history and current functioning. Reviewed vital signs,~Labs/ Radiology~and current medications noted below. Continue current treatment with the changes noted in the dictated addendum note Assessment: Vital Signs/I&O: Vital Signs Date Time Temp Pulse Resp B/P (MAP) Pulse Ox O2 Delivery O2 Flow Rate FiO2 01/23/21 20:55 65 102/65 01/23/21 16:09 96.8 20 94 Room Air I & O 01/22/21 01/22/21 01/23/21 14:59 22:59 06:59 Intake Total 200 ml 200 ml 120 ml Balance 200 ml 200 ml 120 ml Labs: Laboratory Tests Test 01/23/21 06:12 Sodium Level 145 mmol/L (136-145) Potassium Level 4.0 mmol/L (3.5-5.1) Chloride Level 106 mmol/L (98-107) Carbon Dioxide Level 31 mmol/L (21-32) Anion Gap 8 (6-14) Blood Urea Nitrogen 29 mg/dL (8-26) H Creatinine 1.1 mg/dL (0.7-1.3) Estimated GFR (Cockcroft-Gault) 64.7 Glucose Level 97 mg/dL (70-99) Calcium Level 9.0 mg/dL (8.5-10.1) Current Medications: Meds: Laboratory Tests Test 01/23/21 06:12 Sodium Level 145 mmol/L Potassium Level 4.0 mmol/L Chloride Level 106 mmol/L Carbon Dioxide Level 31 mmol/L Anion Gap 8 Blood Urea Nitrogen 29 mg/dL Creatinine 1.1 mg/dL Estimated GFR (Cockcroft-Gault) 64.7 Glucose Level 97 mg/dL Calcium Level 9.0 mg/dL Current Medications Medications (Trade) Dose Ordered Sig/Ivonne Route PRN Reason Start Time Stop Time Status Last Admin Dose Admin Acetaminophen (Tylenol) 650 mg PRN Q6HRS PRN PO MILD PAIN 1-3 / TEMP > 100.3'F 01/14/21 15:30 Multi-Ingredient Ointment (Analgesic [place]) 1 yu PRN QID PRN TP MUSCLE PAIN 01/14/21 15:30 Al Hydroxide/Mg Hydroxide (Mylanta Plus Xs) 15 ml PRN AFTMEALHC PRN PO DYSPEPSIA 01/14/21 15:30 Magnesium Hydroxide (Milk Of Magnesia) 2,400 mg PRN QHS PRN PO 2ND CHOICE CONSTIPATION 01/14/21 15:30 Acetaminophen (Tylenol) 650 mg PRN Q6HRS PRN PO MILD PAIN 1-3 01/14/21 17:00 UNV Buspirone HCl (Buspar) 10 mg TID PO 01/14/21 21:00 01/23/21 20:55 Vitamin D (Vitamin D3) 2,000 unit DAILY PO 01/15/21 09:00 01/23/21 08:49 Clopidogrel Bisulfate (Plavix) 75 mg DAILY PO 01/15/21 09:00 01/23/21 08:50 Furosemide (Lasix) 20 mg DAILY PO 01/15/21 09:00 01/21/21 13:21 DC 01/21/21 09:15 Lorazepam (Ativan) 1 mg PRN Q8HRS PRN PO ANXIETY / AGITATION 01/14/21 17:00 01/22/21 10:47 DC 01/19/21 22:19 Metoprolol Tartrate (Lopressor) 25 mg BID PO 01/14/21 21:00 01/23/21 20:55 Mirtazapine (Remeron) 7.5 mg QHS PO 01/14/21 21:00 01/20/21 16:54 DC 01/19/21 20:06 Olanzapine (ZyPREXA ZYDIS) 2.5 mg PRN Q2HR PRN PO ANXIETY / AGITATION 01/14/21 17:00 01/20/21 01:54 Polyethylene Glycol (miraLAX) 17 gm PRN DAILY PRN PO 1ST CHOICE CONSTIPATION 01/14/21 17:00 Risperidone (RisperDAL) 0.5 mg TID PO 01/14/21 21:00 01/22/21 10:47 DC 01/22/21 08:10 Sertraline HCl (Zoloft) 50 mg DAILY PO 01/15/21 09:00 01/23/21 08:49 Atorvastatin Calcium (Lipitor) 80 mg QHS PO 01/14/21 21:00 01/23/21 20:55 Artificial Tears (Artificial Tears) 1 drop PRN Q2HRS PRN OU DRY EYE 01/14/21 17:30 Cyanocobalamin (Vitamin B-12) 1,000 mcg DAILY PO 01/15/21 09:00 01/23/21 08:49 Divalproex Sodium (Depakote Er) 500 mg BID PO 01/14/21 21:00 01/22/21 20:19 DC 01/22/21 08:11 Mirtazapine (Remeron) 15 mg QHS PO 01/20/21 21:00 01/23/21 20:55 Trazodone HCl (Desyrel) 50 mg PRN QHS PRN PO INSOMNIA, MAY REPEAT X1 01/20/21 17:00 01/21/21 19:56 Furosemide (Lasix) 80 mg DAILY PO 01/21/21 13:30 01/23/21 08:50 Potassium Chloride (Klor-Con) 20 meq DAILYWBKFT PO 01/22/21 08:00 01/23/21 08:49 Neomycin/ Polymyxin/ Dexamethasone (Maxitrol Ophth Oint) 2 yu BID OU 01/22/21 21:00 01/23/21 20:56 Divalproex Sodium (Depakote Sprinkles) 500 mg BID PO 01/22/21 21:00 01/23/21 20:55 I have reviewed the current psychotropics carefully including drug interactions. Risk benefit ratio favors no change other than as noted in my dictated progress note. Diagnosis: Problems: (1) Impulse control disorder (2) Obsessive compulsive disorder (3) Major neurocognitive disorder (4) Dementia, vascular, with depression (5) Dementia in Alzheimer's disease with delusions (6) Anxiety disorder (7) Dementia, vascular, with delusions (8) Dementia in Alzheimer's disease with depression FRANCES HSU MD January 23, 2021 21:54
[2021-01-24 06:15] VITALS: BP 110/66
[2021-01-24] MEDS: METOPROLOL TART IMMED RELEASE 25 MG TABLET. PO SCH ×2 (09:00→21:08)
[2021-01-24] MEDS: CHOLECALCIFEROL (VITAMIN D3) 1,000 UNIT TABLET PO SCH (09:37)
[2021-01-24] MEDS: busPIRone 10 MG TABLET. PO SCH ×3 (09:37→21:08)
[2021-01-24] MEDS: POTASSIUM CHLORIDE 20 MEQ TABLET.ER. PO SCH (09:37)
[2021-01-24] MEDS: SERTRALINE 50 MG TABLET. PO SCH (09:39)
[2021-01-24] MEDS: FUROSEMIDE 80 MG TABLET PO SCH (09:39)
[2021-01-24] MEDS: CYANOCOBALAMIN (VITAMIN B-12) 1,000 MCG TABLET. PO SCH (09:39)
[2021-01-24] MEDS: CLOPIDOGREL BISULFATE 75 MG TABLET PO SCH (09:39)
[2021-01-24] MEDS: DIVALPROEX 125 MG CAP.SPRINK PO SCH ×2 (09:40→21:08)
[2021-01-24] MEDS: NEO/POLYMYX/DEXAMETH OPHTH OINTMENT 3.5GM TUBE. OU SCH ×2 (09:40→21:07)
--- NOTE | 2021-01-24 11:46 | NUR ---
Nursing note: Pt in his room at time of AM med pass and assessment. He is compliant with meds crushed in pudding and cooperative with his assessment. He is much more interactive than previous shifts and is walking around the unit more steadily. Pt denies having any pain/concerns this AM. He is currently sitting in the hallway. Will continue to monitor.
[2021-01-24 15:52] VITALS: BP 107/65
[2021-01-24] MEDS: ATORVASTATIN CALCIUM 20 MG TABLET PO SCH (21:08)
[2021-01-24] MEDS: MIRTAZAPINE 15 MG TABLET PO SCH (21:08)
--- NOTE | 2021-01-24 22:20 | PDOC ---
Exam Note: Ferny Note: Please also refer to the separate dictated note~for this date of service dictated separately.~Patient seen individually. Discussed the patient with Nursing staff reviewed the chart.~Reviewed interim history and current functioning. Reviewed vital signs,~Labs/ Radiology~and current medications noted below. Continue current treatment with the changes noted in the dictated addendum note Assessment: Vital Signs/I&O: Vital Signs Date Time Temp Pulse Resp B/P (MAP) Pulse Ox O2 Delivery O2 Flow Rate FiO2 01/24/21 21:08 68 107/65 01/24/21 15:52 97.6 20 94 01/24/21 06:15 Room Air I & O 01/23/21 01/23/21 01/24/21 15:00 23:00 07:00 Intake Total 480 ml 360 ml Balance 480 ml 360 ml Current Medications: Meds: Current Medications Medications (Trade) Dose Ordered Sig/Ivonne Route PRN Reason Start Time Stop Time Status Last Admin Dose Admin Acetaminophen (Tylenol) 650 mg PRN Q6HRS PRN PO MILD PAIN 1-3 / TEMP > 100.3'F 01/14/21 15:30 Multi-Ingredient Ointment (Analgesic [place]) 1 yu PRN QID PRN TP MUSCLE PAIN 01/14/21 15:30 Al Hydroxide/Mg Hydroxide (Mylanta Plus Xs) 15 ml PRN AFTMEALHC PRN PO DYSPEPSIA 01/14/21 15:30 Magnesium Hydroxide (Milk Of Magnesia) 2,400 mg PRN QHS PRN PO 2ND CHOICE CONSTIPATION 01/14/21 15:30 Acetaminophen (Tylenol) 650 mg PRN Q6HRS PRN PO MILD PAIN 1-3 01/14/21 17:00 UNV Buspirone HCl (Buspar) 10 mg TID PO 01/14/21 21:00 01/24/21 21:08 Vitamin D (Vitamin D3) 2,000 unit DAILY PO 01/15/21 09:00 01/24/21 09:37 Clopidogrel Bisulfate (Plavix) 75 mg DAILY PO 01/15/21 09:00 01/24/21 09:39 Furosemide (Lasix) 20 mg DAILY PO 01/15/21 09:00 01/21/21 13:21 DC 01/21/21 09:15 Lorazepam (Ativan) 1 mg PRN Q8HRS PRN PO ANXIETY / AGITATION 01/14/21 17:00 01/22/21 10:47 DC 01/19/21 22:19 Metoprolol Tartrate (Lopressor) 25 mg BID PO 01/14/21 21:00 01/24/21 21:08 Mirtazapine (Remeron) 7.5 mg QHS PO 01/14/21 21:00 01/20/21 16:54 DC 01/19/21 20:06 Olanzapine (ZyPREXA ZYDIS) 2.5 mg PRN Q2HR PRN PO ANXIETY / AGITATION 01/14/21 17:00 01/20/21 01:54 Polyethylene Glycol (miraLAX) 17 gm PRN DAILY PRN PO 1ST CHOICE CONSTIPATION 01/14/21 17:00 Risperidone (RisperDAL) 0.5 mg TID PO 01/14/21 21:00 01/22/21 10:47 DC 01/22/21 08:10 Sertraline HCl (Zoloft) 50 mg DAILY PO 01/15/21 09:00 01/24/21 09:39 Atorvastatin Calcium (Lipitor) 80 mg QHS PO 01/14/21 21:00 01/24/21 21:08 Artificial Tears (Artificial Tears) 1 drop PRN Q2HRS PRN OU DRY EYE 01/14/21 17:30 Cyanocobalamin (Vitamin B-12) 1,000 mcg DAILY PO 01/15/21 09:00 01/24/21 09:39 Divalproex Sodium (Depakote Er) 500 mg BID PO 01/14/21 21:00 01/22/21 20:19 DC 01/22/21 08:11 Mirtazapine (Remeron) 15 mg QHS PO 01/20/21 21:00 01/24/21 21:08 Trazodone HCl (Desyrel) 50 mg PRN QHS PRN PO INSOMNIA, MAY REPEAT X1 01/20/21 17:00 01/21/21 19:56 Furosemide (Lasix) 80 mg DAILY PO 01/21/21 13:30 01/24/21 09:39 Potassium Chloride (Klor-Con) 20 meq DAILYWBKFT PO 01/22/21 08:00 01/24/21 09:37 Neomycin/ Polymyxin/ Dexamethasone (Maxitrol Ophth Oint) 2 yu BID OU 01/22/21 21:00 01/24/21 21:07 Divalproex Sodium (Depakote Sprinkles) 500 mg BID PO 01/22/21 21:00 01/24/21 21:08 I have reviewed the current psychotropics carefully including drug interactions. Risk benefit ratio favors no change other than as noted in my dictated progress note. 

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
[2021-01-25 05:37] VITALS: BP 119/74
--- NOTE | 2021-01-25 09:04 | PDOC ---
Exam Note: Ferny Note: This note is a late entry for 01/23/2021 covers elements not covered in my initial note. Subjective: The patient was seen individually in the evening of 01/23/2021 with Rivas TOURE, discussed and reviewed the chart. He slept 7 hours previous night. The patient is ambulating better since Risperdal was stopped and cognitively he is clearer as well compliant with medications. Review of Systems: No CV, , pulmonary, eye system symptoms on review. Reliability poor. Mental Status Exam: The patient is oriented to himself. Insight and judgment, recent and remote memory, attention and concentration, fund of knowledge is poor consistent with his diagnoses. Laboratory Data: Reviewed. Impression: Major neurocognitive disorder Alzheimer vascular with delusion, depression, behavioral disturbance. Anxiety disorder unspecified. Impulse control disorder unspecified. Plan: No change from initial note. Keep the patient off Risperdal. No overt paranoia noted. Assessment: Vital Signs/I&O: Vital Signs Date Time Temp Pulse Resp B/P (MAP) Pulse Ox O2 Delivery O2 Flow Rate FiO2 01/25/21 05:37 96.9 61 16 119/74 (89) 93 01/24/21 06:15 Room Air I & O 01/24/21 01/24/21 01/25/21 15:00 23:00 07:00 Intake Total 540 ml 480 ml Balance 540 ml 480 ml Current Medications: Meds: Current Medications Medications (Trade) Dose Ordered Sig/Ivonne Route PRN Reason Start Time Stop Time Status Last Admin Dose Admin Acetaminophen (Tylenol) 650 mg PRN Q6HRS PRN PO MILD PAIN 1-3 / TEMP > 100.3'F 01/14/21 15:30 Multi-Ingredient Ointment (Analgesic [place]) 1 yu PRN QID PRN TP MUSCLE PAIN 01/14/21 15:30 Al Hydroxide/Mg Hydroxide (Mylanta Plus Xs) 15 ml PRN AFTMEALHC PRN PO DYSPEPSIA 01/14/21 15:30 Magnesium Hydroxide (Milk Of Magnesia) 2,400 mg PRN QHS PRN PO 2ND CHOICE CONSTIPATION 01/14/21 15:30 Acetaminophen (Tylenol) 650 mg PRN Q6HRS PRN PO MILD PAIN 1-3 01/14/21 17:00 UNV Buspirone HCl (Buspar) 10 mg TID PO 01/14/21 21:00 01/24/21 21:08 Vitamin D (Vitamin D3) 2,000 unit DAILY PO 01/15/21 09:00 01/24/21 09:37 Clopidogrel Bisulfate (Plavix) 75 mg DAILY PO 01/15/21 09:00 01/24/21 09:39 Furosemide (Lasix) 20 mg DAILY PO 01/15/21 09:00 01/21/21 13:21 DC 01/21/21 09:15 Lorazepam (Ativan) 1 mg PRN Q8HRS PRN PO ANXIETY / AGITATION 01/14/21 17:00 01/22/21 10:47 DC 01/19/21 22:19 Metoprolol Tartrate (Lopressor) 25 mg BID PO 01/14/21 21:00 01/24/21 21:08 Mirtazapine (Remeron) 7.5 mg QHS PO 01/14/21 21:00 01/20/21 16:54 DC 01/19/21 20:06 Olanzapine (ZyPREXA ZYDIS) 2.5 mg PRN Q2HR PRN PO ANXIETY / AGITATION 01/14/21 17:00 01/20/21 01:54 Polyethylene Glycol (miraLAX) 17 gm PRN DAILY PRN PO 1ST CHOICE CONSTIPATION 01/14/21 17:00 Risperidone (RisperDAL) 0.5 mg TID PO 01/14/21 21:00 01/22/21 10:47 DC 01/22/21 08:10 Sertraline HCl (Zoloft) 50 mg DAILY PO 01/15/21 09:00 01/24/21 09:39 Atorvastatin Calcium (Lipitor) 80 mg QHS PO 01/14/21 21:00 01/24/21 21:08 Artificial Tears (Artificial Tears) 1 drop PRN Q2HRS PRN OU DRY EYE 01/14/21 17:30 Cyanocobalamin (Vitamin B-12) 1,000 mcg DAILY PO 01/15/21 09:00 01/24/21 09:39 Divalproex Sodium (Depakote Er) 500 mg BID PO 01/14/21 21:00 01/22/21 20:19 DC 01/22/21 08:11 Mirtazapine (Remeron) 15 mg QHS PO 01/20/21 21:00 01/24/21 21:08 Trazodone HCl (Desyrel) 50 mg PRN QHS PRN PO INSOMNIA, MAY REPEAT X1 01/20/21 17:00 01/21/21 19:56 Furosemide (Lasix) 80 mg DAILY PO 01/21/21 13:30 01/24/21 09:39 Potassium Chloride (Klor-Con) 20 meq DAILYWBKFT PO 01/22/21 08:00 01/24/21 09:37 Neomycin/ Polymyxin/ Dexamethasone (Maxitrol Ophth Oint) 2 yu BID OU 01/22/21 21:00 01/24/21 21:07 Divalproex Sodium (Depakote Sprinkles) 500 mg BID PO 01/22/21 21:00 01/24/21 21:08 I have reviewed the current psychotropics carefully including drug interactions. Risk benefit ratio favors no change other than as noted in my dictated progress note. 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
--- NOTE | 2021-01-25 09:28 | PDOC ---
Exam Note: Ferny Note: This note is a late entry for 01/24/2021 covers elements not covered in my initial note. Subjective: The patient was seen individually in the evening of 01/24/2021 with Carol Ann TOURE, discussed and reviewed the chart. He slept 5-1/4 hours previous night. The patient is more alert, takes medications crushed. He remains disorganized. Review of Systems: Positive for tiredness. No CV, , pulmonary, eye system symptoms on review. Mental Status Exam: The patient is oriented to himself. Insight and judgment, recent and remote memory, attention and concentration, fund of knowledge is poor consistent with his diagnoses. Laboratory Data: Reviewed. Impression: Major neurocognitive disorder Alzheimer vascular with delusion, depression, behavioral disturbance. Anxiety disorder unspecified. Impulse control disorder unspecified. Plan: No change from initial note. Assessment: Vital Signs/I&O: Vital Signs Date Time Temp Pulse Resp B/P (MAP) Pulse Ox O2 Delivery O2 Flow Rate FiO2 01/25/21 05:37 96.9 61 16 119/74 (89) 93 01/24/21 06:15 Room Air I & O 01/24/21 01/24/21 01/25/21 15:00 23:00 07:00 Intake Total 540 ml 480 ml Balance 540 ml 480 ml Current Medications: Meds: Current Medications Medications (Trade) Dose Ordered Sig/Ivonne Route PRN Reason Start Time Stop Time Status Last Admin Dose Admin Acetaminophen (Tylenol) 650 mg PRN Q6HRS PRN PO MILD PAIN 1-3 / TEMP > 100.3'F 01/14/21 15:30 Multi-Ingredient Ointment (Analgesic [place]) 1 yu PRN QID PRN TP MUSCLE PAIN 01/14/21 15:30 Al Hydroxide/Mg Hydroxide (Mylanta Plus Xs) 15 ml PRN AFTMEALHC PRN PO DYSPEPSIA 01/14/21 15:30 Magnesium Hydroxide (Milk Of Magnesia) 2,400 mg PRN QHS PRN PO 2ND CHOICE CONSTIPATION 01/14/21 15:30 Acetaminophen (Tylenol) 650 mg PRN Q6HRS PRN PO MILD PAIN 1-3 01/14/21 17:00 UNV Buspirone HCl (Buspar) 10 mg TID PO 01/14/21 21:00 01/24/21 21:08 Vitamin D (Vitamin D3) 2,000 unit DAILY PO 01/15/21 09:00 01/24/21 09:37 Clopidogrel Bisulfate (Plavix) 75 mg DAILY PO 01/15/21 09:00 01/24/21 09:39 Furosemide (Lasix) 20 mg DAILY PO 01/15/21 09:00 01/21/21 13:21 DC 01/21/21 09:15 Lorazepam (Ativan) 1 mg PRN Q8HRS PRN PO ANXIETY / AGITATION 01/14/21 17:00 01/22/21 10:47 DC 01/19/21 22:19 Metoprolol Tartrate (Lopressor) 25 mg BID PO 01/14/21 21:00 01/24/21 21:08 Mirtazapine (Remeron) 7.5 mg QHS PO 01/14/21 21:00 01/20/21 16:54 DC 01/19/21 20:06 Olanzapine (ZyPREXA ZYDIS) 2.5 mg PRN Q2HR PRN PO ANXIETY / AGITATION 01/14/21 17:00 01/20/21 01:54 Polyethylene Glycol (miraLAX) 17 gm PRN DAILY PRN PO 1ST CHOICE CONSTIPATION 01/14/21 17:00 Risperidone (RisperDAL) 0.5 mg TID PO 01/14/21 21:00 01/22/21 10:47 DC 01/22/21 08:10 Sertraline HCl (Zoloft) 50 mg DAILY PO 01/15/21 09:00 01/24/21 09:39 Atorvastatin Calcium (Lipitor) 80 mg QHS PO 01/14/21 21:00 01/24/21 21:08 Artificial Tears (Artificial Tears) 1 drop PRN Q2HRS PRN OU DRY EYE 01/14/21 17:30 Cyanocobalamin (Vitamin B-12) 1,000 mcg DAILY PO 01/15/21 09:00 01/24/21 09:39 Divalproex Sodium (Depakote Er) 500 mg BID PO 01/14/21 21:00 01/22/21 20:19 DC 01/22/21 08:11 Mirtazapine (Remeron) 15 mg QHS PO 01/20/21 21:00 01/24/21 21:08 Trazodone HCl (Desyrel) 50 mg PRN QHS PRN PO INSOMNIA, MAY REPEAT X1 01/20/21 17:00 01/21/21 19:56 Furosemide (Lasix) 80 mg DAILY PO 01/21/21 13:30 01/24/21 09:39 Potassium Chloride (Klor-Con) 20 meq DAILYWBKFT PO 01/22/21 08:00 01/24/21 09:37 Neomycin/ Polymyxin/ Dexamethasone (Maxitrol Ophth Oint) 2 yu BID OU 01/22/21 21:00 01/24/21 21:07 Divalproex Sodium (Depakote Sprinkles) 500 mg BID PO 01/22/21 21:00 01/24/21 21:08 I have reviewed the current psychotropics carefully including drug interactions. Risk benefit ratio favors no change other than as noted in my dictated progress note. 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
[2021-01-25] MEDS: POTASSIUM CHLORIDE 20 MEQ TABLET.ER. PO SCH (10:21)
[2021-01-25] MEDS: METOPROLOL TART IMMED RELEASE 25 MG TABLET. PO SCH ×3 (10:21→21:30)
[2021-01-25] MEDS: CYANOCOBALAMIN (VITAMIN B-12) 1,000 MCG TABLET. PO SCH (10:21)
[2021-01-25] MEDS: busPIRone 10 MG TABLET. PO SCH ×3 (10:21→21:29)
[2021-01-25] MEDS: CLOPIDOGREL BISULFATE 75 MG TABLET PO SCH (10:22)
[2021-01-25] MEDS: NEO/POLYMYX/DEXAMETH OPHTH OINTMENT 3.5GM TUBE. OU SCH ×2 (10:22→21:00)
[2021-01-25] MEDS: DIVALPROEX 125 MG CAP.SPRINK PO SCH ×2 (10:22→21:29)
[2021-01-25] MEDS: SERTRALINE 50 MG TABLET. PO SCH (10:26)
[2021-01-25] MEDS: CHOLECALCIFEROL (VITAMIN D3) 1,000 UNIT TABLET PO SCH (10:26)
[2021-01-25] MEDS: FUROSEMIDE 80 MG TABLET PO SCH (10:26)
[2021-01-25 15:46] VITALS: BP 100/64
--- NOTE | 2021-01-25 18:30 | NUR ---
Patient has been calm, compliant, and pleasantly cofused throughout this shift. He slept in until past 10:00, then spent most of the day in the day room, occasionally wandering in the mar. Will continue to monitor and report to oncoming shift.
[2021-01-25] MEDS: MIRTAZAPINE 15 MG TABLET PO SCH (21:29)
[2021-01-25] MEDS: ATORVASTATIN CALCIUM 20 MG TABLET PO SCH (21:29)
--- NOTE | 2021-01-25 22:17 | PDOC ---
Exam Note: Ferny Note: Please also refer to the separate dictated note~for this date of service dictated separately.~Patient seen individually. Discussed the patient with Nursing staff reviewed the chart.~Reviewed interim history and current functioning. Reviewed vital signs,~Labs/ Radiology~and current medications noted below. Continue current treatment with the changes noted in the dictated addendum note Assessment: Vital Signs/I&O: Vital Signs Date Time Temp Pulse Resp B/P (MAP) Pulse Ox O2 Delivery O2 Flow Rate FiO2 01/25/21 21:00 80 100/64 01/25/21 15:46 97.3 18 95 01/24/21 06:15 Room Air I & O 01/24/21 01/24/21 01/25/21 15:00 23:00 07:00 Intake Total 540 ml 480 ml Balance 540 ml 480 ml Current Medications: Meds: Current Medications Medications (Trade) Dose Ordered Sig/Ivonne Route PRN Reason Start Time Stop Time Status Last Admin Dose Admin Acetaminophen (Tylenol) 650 mg PRN Q6HRS PRN PO MILD PAIN 1-3 / TEMP > 100.3'F 01/14/21 15:30 Multi-Ingredient Ointment (Analgesic [place]) 1 yu PRN QID PRN TP MUSCLE PAIN 01/14/21 15:30 Al Hydroxide/Mg Hydroxide (Mylanta Plus Xs) 15 ml PRN AFTMEALHC PRN PO DYSPEPSIA 01/14/21 15:30 Magnesium Hydroxide (Milk Of Magnesia) 2,400 mg PRN QHS PRN PO 2ND CHOICE CONSTIPATION 01/14/21 15:30 Acetaminophen (Tylenol) 650 mg PRN Q6HRS PRN PO MILD PAIN 1-3 01/14/21 17:00 UNV Buspirone HCl (Buspar) 10 mg TID PO 01/14/21 21:00 01/25/21 21:29 Vitamin D (Vitamin D3) 2,000 unit DAILY PO 01/15/21 09:00 01/25/21 10:26 Clopidogrel Bisulfate (Plavix) 75 mg DAILY PO 01/15/21 09:00 01/25/21 10:22 Furosemide (Lasix) 20 mg DAILY PO 01/15/21 09:00 01/21/21 13:21 DC 01/21/21 09:15 Lorazepam (Ativan) 1 mg PRN Q8HRS PRN PO ANXIETY / AGITATION 01/14/21 17:00 01/22/21 10:47 DC 01/19/21 22:19 Metoprolol Tartrate (Lopressor) 25 mg BID PO 01/14/21 21:00 01/25/21 10:21 Mirtazapine (Remeron) 7.5 mg QHS PO 01/14/21 21:00 01/20/21 16:54 DC 01/19/21 20:06 Olanzapine (ZyPREXA ZYDIS) 2.5 mg PRN Q2HR PRN PO ANXIETY / AGITATION 01/14/21 17:00 01/20/21 01:54 Polyethylene Glycol (miraLAX) 17 gm PRN DAILY PRN PO 1ST CHOICE CONSTIPATION 01/14/21 17:00 Risperidone (RisperDAL) 0.5 mg TID PO 01/14/21 21:00 01/22/21 10:47 DC 01/22/21 08:10 Sertraline HCl (Zoloft) 50 mg DAILY PO 01/15/21 09:00 01/25/21 10:26 Atorvastatin Calcium (Lipitor) 80 mg QHS PO 01/14/21 21:00 01/25/21 21:29 Artificial Tears (Artificial Tears) 1 drop PRN Q2HRS PRN OU DRY EYE 01/14/21 17:30 Cyanocobalamin (Vitamin B-12) 1,000 mcg DAILY PO 01/15/21 09:00 01/25/21 10:21 Divalproex Sodium (Depakote Er) 500 mg BID PO 01/14/21 21:00 01/22/21 20:19 DC 01/22/21 08:11 Mirtazapine (Remeron) 15 mg QHS PO 01/20/21 21:00 01/25/21 21:29 Trazodone HCl (Desyrel) 50 mg PRN QHS PRN PO INSOMNIA, MAY REPEAT X1 01/20/21 17:00 01/21/21 19:56 Furosemide (Lasix) 80 mg DAILY PO 01/21/21 13:30 01/25/21 10:26 Potassium Chloride (Klor-Con) 20 meq DAILYWBKFT PO 01/22/21 08:00 01/25/21 10:21 Neomycin/ Polymyxin/ Dexamethasone (Maxitrol Ophth Oint) 2 yu BID OU 01/22/21 21:00 01/25/21 21:00 Divalproex Sodium (Depakote Sprinkles) 500 mg BID PO 01/22/21 21:00 01/25/21 21:29 I have reviewed the current psychotropics carefully including drug interactions. Risk benefit ratio favors no change other than as noted in my dictated progress note. Diagnosis: Problems: (1) Impulse control disorder (2) Obsessive compulsive disorder (3) Major neurocognitive disorder (4) Dementia, vascular, with depression (5) Dementia in Alzheimer's disease with delusions (6) Anxiety disorder (7) Dementia, vascular, with delusions (8) Dementia in Alzheimer's disease with depression FRANCES HSU MD January 25, 2021 22:17
[2021-01-25] MEDS: traZODone 50 MG TABLET. PO PRN (22:47)
--- NOTE | 2021-01-25 22:53 | NUR ---
pt and roommate became agitated with one another while trying to sleep. pt received prn medication as ordered. pt is currently resting in bed. will continue to monitor.
[2021-01-26 06:29] VITALS: BP 103/65
--- NOTE | 2021-01-26 07:19 | PDOC ---
Exam Note: Ferny Note: This note is a late entry for 01/25/2021 covers elements not covered in my initial note. Subjective: The patient was seen individually in the evening of 01/25/2021 with Keny TOURE, discussed and reviewed the chart. He slept 5-3/4 hours previous night. The patient is confused, wandering, disorganized. She does sit in the dayroom, did not wake up till after breakfast this morning. Review of Systems: Reliability poor. No CV, , pulmonary, eye system symptoms on review. Mental Status Exam: The patient is oriented to himself. Insight and judgment, recent and remote memory, attention and concentration, fund of knowledge is poor consistent with his diagnoses. Laboratory Data: Reviewed. Impression: Major neurocognitive disorder Alzheimer vascular with delusion, depression, behavioral disturbance. Anxiety disorder unspecified. Impulse control disorder unspecified. Plan: No change from initial note. Assessment: Vital Signs/I&O: Vital Signs Date Time Temp Pulse Resp B/P (MAP) Pulse Ox O2 Delivery O2 Flow Rate FiO2 01/26/21 06:29 96.8 55 18 103/65 (78) 94 01/24/21 06:15 Room Air I & O 01/25/21 01/25/21 01/26/21 15:00 23:00 07:00 Intake Total 600 ml 480 ml Balance 600 ml 480 ml Current Medications: Meds: Current Medications Medications (Trade) Dose Ordered Sig/Ivonne Route PRN Reason Start Time Stop Time Status Last Admin Dose Admin Acetaminophen (Tylenol) 650 mg PRN Q6HRS PRN PO MILD PAIN 1-3 / TEMP > 100.3'F 01/14/21 15:30 Multi-Ingredient Ointment (Analgesic [place]) 1 yu PRN QID PRN TP MUSCLE PAIN 01/14/21 15:30 Al Hydroxide/Mg Hydroxide (Mylanta Plus Xs) 15 ml PRN AFTMEALHC PRN PO DYSPEPSIA 01/14/21 15:30 Magnesium Hydroxide (Milk Of Magnesia) 2,400 mg PRN QHS PRN PO 2ND CHOICE CONSTIPATION 01/14/21 15:30 Acetaminophen (Tylenol) 650 mg PRN Q6HRS PRN PO MILD PAIN 1-3 01/14/21 17:00 UNV Buspirone HCl (Buspar) 10 mg TID PO 01/14/21 21:00 01/25/21 21:29 Vitamin D (Vitamin D3) 2,000 unit DAILY PO 01/15/21 09:00 01/25/21 10:26 Clopidogrel Bisulfate (Plavix) 75 mg DAILY PO 01/15/21 09:00 01/25/21 10:22 Furosemide (Lasix) 20 mg DAILY PO 01/15/21 09:00 01/21/21 13:21 DC 01/21/21 09:15 Lorazepam (Ativan) 1 mg PRN Q8HRS PRN PO ANXIETY / AGITATION 01/14/21 17:00 01/22/21 10:47 DC 01/19/21 22:19 Metoprolol Tartrate (Lopressor) 25 mg BID PO 01/14/21 21:00 01/25/21 10:21 Mirtazapine (Remeron) 7.5 mg QHS PO 01/14/21 21:00 01/20/21 16:54 DC 01/19/21 20:06 Olanzapine (ZyPREXA ZYDIS) 2.5 mg PRN Q2HR PRN PO ANXIETY / AGITATION 01/14/21 17:00 01/25/21 22:47 Polyethylene Glycol (miraLAX) 17 gm PRN DAILY PRN PO 1ST CHOICE CONSTIPATION 01/14/21 17:00 Risperidone (RisperDAL) 0.5 mg TID PO 01/14/21 21:00 01/22/21 10:47 DC 01/22/21 08:10 Sertraline HCl (Zoloft) 50 mg DAILY PO 01/15/21 09:00 01/25/21 10:26 Atorvastatin Calcium (Lipitor) 80 mg QHS PO 01/14/21 21:00 01/25/21 21:29 Artificial Tears (Artificial Tears) 1 drop PRN Q2HRS PRN OU DRY EYE 01/14/21 17:30 Cyanocobalamin (Vitamin B-12) 1,000 mcg DAILY PO 01/15/21 09:00 01/25/21 10:21 Divalproex Sodium (Depakote Er) 500 mg BID PO 01/14/21 21:00 01/22/21 20:19 DC 01/22/21 08:11 Mirtazapine (Remeron) 15 mg QHS PO 01/20/21 21:00 01/25/21 21:29 Trazodone HCl (Desyrel) 50 mg PRN QHS PRN PO INSOMNIA, MAY REPEAT X1 01/20/21 17:00 01/25/21 22:47 Furosemide (Lasix) 80 mg DAILY PO 01/21/21 13:30 01/25/21 10:26 Potassium Chloride (Klor-Con) 20 meq DAILYWBKFT PO 01/22/21 08:00 01/25/21 10:21 Neomycin/ Polymyxin/ Dexamethasone (Maxitrol Ophth Oint) 2 yu BID OU 01/22/21 21:00 01/25/21 21:00 Divalproex Sodium (Depakote Sprinkles) 500 mg BID PO 01/22/21 21:00 01/25/21 21:29 I have reviewed the current psychotropics carefully including drug interactions. Risk benefit ratio favors no change other than as noted in my dictated progress note. Diagnosis: Problems: (1) Impulse control disorder (2) Obsessive compulsive disorder (3) Major neurocognitive disorder (4) Dementia, vascular, with depression (5) Dementia in Alzheimer's disease with delusions (6) Anxiety disorder (7) Dementia, vascular, with delusions (8) Dementia in Alzheimer's disease with depression FRANCES HSU MD January 26, 2021 07:19
[2021-01-26] MEDS: busPIRone 10 MG TABLET. PO SCH ×3 (07:51→19:58)
[2021-01-26] MEDS: CYANOCOBALAMIN (VITAMIN B-12) 1,000 MCG TABLET. PO SCH (07:51)
[2021-01-26] MEDS: METOPROLOL TART IMMED RELEASE 25 MG TABLET. PO SCH ×2 (07:51→19:58)
[2021-01-26] MEDS: CHOLECALCIFEROL (VITAMIN D3) 1,000 UNIT TABLET PO SCH (07:51)
[2021-01-26] MEDS: FUROSEMIDE 80 MG TABLET PO SCH (07:52)
[2021-01-26] MEDS: POTASSIUM CHLORIDE 20 MEQ TABLET.ER. PO SCH (07:52)
[2021-01-26] MEDS: SERTRALINE 50 MG TABLET. PO SCH (07:52)
[2021-01-26] MEDS: CLOPIDOGREL BISULFATE 75 MG TABLET PO SCH (07:52)
[2021-01-26] MEDS: NEO/POLYMYX/DEXAMETH OPHTH OINTMENT 3.5GM TUBE. OU SCH ×2 (07:53→19:59)
[2021-01-26] MEDS: DIVALPROEX 125 MG CAP.SPRINK PO SCH ×2 (07:53→19:58)
--- NOTE | 2021-01-26 14:49 | NUR ---
Patient has been calm, compliant, and pleasantly confused throughout this shift. He has spent most of the shift in the day room, interactivw tihe peers and staff. Will continue to monitor and report to oncoming shift.
[2021-01-26 16:10] VITALS: BP 109/68
[2021-01-26] MEDS: traZODone 50 MG TABLET. PO PRN (19:58)
[2021-01-26] MEDS: ATORVASTATIN CALCIUM 20 MG TABLET PO SCH (19:58)
[2021-01-26] MEDS: MIRTAZAPINE 15 MG TABLET PO SCH (19:59)
--- NOTE | 2021-01-26 22:18 | PDOC ---
Exam Note: Ferny Note: Please also refer to the separate dictated note~for this date of service dictated separately.~Patient seen individually. Discussed the patient with Nursing staff reviewed the chart.~Reviewed interim history and current functioning. Reviewed vital signs,~Labs/ Radiology~and current medications noted below. Continue current treatment with the changes noted in the dictated addendum note Assessment: Vital Signs/I&O: Vital Signs Date Time Temp Pulse Resp B/P (MAP) Pulse Ox O2 Delivery O2 Flow Rate FiO2 01/26/21 19:58 68 109/68 01/26/21 16:10 98.0 20 97 01/24/21 06:15 Room Air I & O 01/25/21 01/25/21 01/26/21 15:00 23:00 07:00 Intake Total 600 ml 480 ml Balance 600 ml 480 ml Current Medications: Meds: Current Medications Medications (Trade) Dose Ordered Sig/Ivonne Route PRN Reason Start Time Stop Time Status Last Admin Dose Admin Acetaminophen (Tylenol) 650 mg PRN Q6HRS PRN PO MILD PAIN 1-3 / TEMP > 100.3'F 01/14/21 15:30 Multi-Ingredient Ointment (Analgesic [place]) 1 yu PRN QID PRN TP MUSCLE PAIN 01/14/21 15:30 Al Hydroxide/Mg Hydroxide (Mylanta Plus Xs) 15 ml PRN AFTMEALHC PRN PO DYSPEPSIA 01/14/21 15:30 Magnesium Hydroxide (Milk Of Magnesia) 2,400 mg PRN QHS PRN PO 2ND CHOICE CONSTIPATION 01/14/21 15:30 Acetaminophen (Tylenol) 650 mg PRN Q6HRS PRN PO MILD PAIN 1-3 01/14/21 17:00 UNV Buspirone HCl (Buspar) 10 mg TID PO 01/14/21 21:00 01/26/21 19:58 Vitamin D (Vitamin D3) 2,000 unit DAILY PO 01/15/21 09:00 01/26/21 07:51 Clopidogrel Bisulfate (Plavix) 75 mg DAILY PO 01/15/21 09:00 01/26/21 07:52 Furosemide (Lasix) 20 mg DAILY PO 01/15/21 09:00 01/21/21 13:21 DC 01/21/21 09:15 Lorazepam (Ativan) 1 mg PRN Q8HRS PRN PO ANXIETY / AGITATION 01/14/21 17:00 01/22/21 10:47 DC 01/19/21 22:19 Metoprolol Tartrate (Lopressor) 25 mg BID PO 01/14/21 21:00 01/26/21 19:58 Mirtazapine (Remeron) 7.5 mg QHS PO 01/14/21 21:00 01/20/21 16:54 DC 01/19/21 20:06 Olanzapine (ZyPREXA ZYDIS) 2.5 mg PRN Q2HR PRN PO ANXIETY / AGITATION 01/14/21 17:00 01/25/21 22:47 Polyethylene Glycol (miraLAX) 17 gm PRN DAILY PRN PO 1ST CHOICE CONSTIPATION 01/14/21 17:00 Risperidone (RisperDAL) 0.5 mg TID PO 01/14/21 21:00 01/22/21 10:47 DC 01/22/21 08:10 Sertraline HCl (Zoloft) 50 mg DAILY PO 01/15/21 09:00 01/26/21 07:52 Atorvastatin Calcium (Lipitor) 80 mg QHS PO 01/14/21 21:00 01/26/21 19:58 Artificial Tears (Artificial Tears) 1 drop PRN Q2HRS PRN OU DRY EYE 01/14/21 17:30 Cyanocobalamin (Vitamin B-12) 1,000 mcg DAILY PO 01/15/21 09:00 01/26/21 07:51 Divalproex Sodium (Depakote Er) 500 mg BID PO 01/14/21 21:00 01/22/21 20:19 DC 01/22/21 08:11 Mirtazapine (Remeron) 15 mg QHS PO 01/20/21 21:00 01/26/21 19:59 Trazodone HCl (Desyrel) 50 mg PRN QHS PRN PO INSOMNIA, MAY REPEAT X1 01/20/21 17:00 01/26/21 19:58 Furosemide (Lasix) 80 mg DAILY PO 01/21/21 13:30 01/26/21 07:52 Potassium Chloride (Klor-Con) 20 meq DAILYWBKFT PO 01/22/21 08:00 01/26/21 07:52 Neomycin/ Polymyxin/ Dexamethasone (Maxitrol Ophth Oint) 2 yu BID OU 01/22/21 21:00 01/26/21 19:59 Divalproex Sodium (Depakote Sprinkles) 500 mg BID PO 01/22/21 21:00 01/26/21 19:58 I have reviewed the current psychotropics carefully including drug interactions. Risk benefit ratio favors no change other than as noted in my dictated progress note. Diagnosis: Problems: (1) Impulse control disorder (2) Obsessive compulsive disorder (3) Major neurocognitive disorder (4) Dementia, vascular, with depression (5) Dementia in Alzheimer's disease with delusions (6) Anxiety disorder (7) Dementia, vascular, with delusions (8) Dementia in Alzheimer's disease with depression FRANCES HSU MD January 26, 2021 22:18
[2021-01-27 06:19] VITALS: BP 103/69
[2021-01-27] MEDS: CHOLECALCIFEROL (VITAMIN D3) 1,000 UNIT TABLET PO SCH (08:33)
[2021-01-27] MEDS: CYANOCOBALAMIN (VITAMIN B-12) 1,000 MCG TABLET. PO SCH (08:33)
[2021-01-27] MEDS: busPIRone 10 MG TABLET. PO SCH ×3 (08:34→20:56)
[2021-01-27] MEDS: METOPROLOL TART IMMED RELEASE 25 MG TABLET. PO SCH ×2 (08:34→20:56)
[2021-01-27] MEDS: FUROSEMIDE 80 MG TABLET PO SCH (08:34)
[2021-01-27] MEDS: POTASSIUM CHLORIDE 20 MEQ TABLET.ER. PO SCH (08:34)
[2021-01-27] MEDS: SERTRALINE 50 MG TABLET. PO SCH (08:34)
[2021-01-27] MEDS: CLOPIDOGREL BISULFATE 75 MG TABLET PO SCH (08:34)
[2021-01-27] MEDS: DIVALPROEX 125 MG CAP.SPRINK PO SCH ×2 (08:35→20:56)
[2021-01-27] MEDS: NEO/POLYMYX/DEXAMETH OPHTH OINTMENT 3.5GM TUBE. OU SCH ×2 (08:36→20:57)
[2021-01-27 15:58] VITALS: BP 103/67
--- NOTE | 2021-01-27 18:30 | NUR ---
Patient has been wandering, calm, compliant, and pleasantly confused throughout this shift. He has been interactive with peers and staff. Will continue to monitor and report to oncoming shift.
[2021-01-27] MEDS: ATORVASTATIN CALCIUM 20 MG TABLET PO SCH (20:56)
[2021-01-27] MEDS: MIRTAZAPINE 15 MG TABLET PO SCH (20:58)
--- NOTE | 2021-01-27 21:58 | PDOC ---
Exam Note: Ferny Note: Please also refer to the separate dictated note~for this date of service dictated separately.~Patient seen individually. Discussed the patient with Nursing staff reviewed the chart.~Reviewed interim history and current functioning. Reviewed vital signs,~Labs/ Radiology~and current medications noted below. Continue current treatment with the changes noted in the dictated addendum note Assessment: Vital Signs/I&O: Vital Signs Date Time Temp Pulse Resp B/P (MAP) Pulse Ox O2 Delivery O2 Flow Rate FiO2 01/27/21 20:56 62 103/67 01/27/21 15:58 97.1 18 95 01/24/21 06:15 Room Air I & O 01/26/21 01/26/21 01/27/21 15:00 23:00 07:00 Intake Total 480 ml 320 ml Balance 480 ml 320 ml Current Medications: Meds: Current Medications Medications (Trade) Dose Ordered Sig/Ivonne Route PRN Reason Start Time Stop Time Status Last Admin Dose Admin Acetaminophen (Tylenol) 650 mg PRN Q6HRS PRN PO MILD PAIN 1-3 / TEMP > 100.3'F 01/14/21 15:30 Multi-Ingredient Ointment (Analgesic [place]) 1 yu PRN QID PRN TP MUSCLE PAIN 01/14/21 15:30 Al Hydroxide/Mg Hydroxide (Mylanta Plus Xs) 15 ml PRN AFTMEALHC PRN PO DYSPEPSIA 01/14/21 15:30 Magnesium Hydroxide (Milk Of Magnesia) 2,400 mg PRN QHS PRN PO 2ND CHOICE CONSTIPATION 01/14/21 15:30 Acetaminophen (Tylenol) 650 mg PRN Q6HRS PRN PO MILD PAIN 1-3 01/14/21 17:00 UNV Buspirone HCl (Buspar) 10 mg TID PO 01/14/21 21:00 01/27/21 20:56 Vitamin D (Vitamin D3) 2,000 unit DAILY PO 01/15/21 09:00 01/27/21 08:33 Clopidogrel Bisulfate (Plavix) 75 mg DAILY PO 01/15/21 09:00 01/27/21 08:34 Furosemide (Lasix) 20 mg DAILY PO 01/15/21 09:00 01/21/21 13:21 DC 01/21/21 09:15 Lorazepam (Ativan) 1 mg PRN Q8HRS PRN PO ANXIETY / AGITATION 01/14/21 17:00 01/22/21 10:47 DC 01/19/21 22:19 Metoprolol Tartrate (Lopressor) 25 mg BID PO 01/14/21 21:00 01/27/21 20:56 Mirtazapine (Remeron) 7.5 mg QHS PO 01/14/21 21:00 01/20/21 16:54 DC 01/19/21 20:06 Olanzapine (ZyPREXA ZYDIS) 2.5 mg PRN Q2HR PRN PO ANXIETY / AGITATION 01/14/21 17:00 01/25/21 22:47 Polyethylene Glycol (miraLAX) 17 gm PRN DAILY PRN PO 1ST CHOICE CONSTIPATION 01/14/21 17:00 Risperidone (RisperDAL) 0.5 mg TID PO 01/14/21 21:00 01/22/21 10:47 DC 01/22/21 08:10 Sertraline HCl (Zoloft) 50 mg DAILY PO 01/15/21 09:00 01/27/21 19:38 DC 01/27/21 08:34 Atorvastatin Calcium (Lipitor) 80 mg QHS PO 01/14/21 21:00 01/27/21 20:56 Artificial Tears (Artificial Tears) 1 drop PRN Q2HRS PRN OU DRY EYE 01/14/21 17:30 Cyanocobalamin (Vitamin B-12) 1,000 mcg DAILY PO 01/15/21 09:00 01/27/21 08:33 Divalproex Sodium (Depakote Er) 500 mg BID PO 01/14/21 21:00 01/22/21 20:19 DC 01/22/21 08:11 Mirtazapine (Remeron) 15 mg QHS PO 01/20/21 21:00 01/27/21 20:58 Trazodone HCl (Desyrel) 50 mg PRN QHS PRN PO INSOMNIA, MAY REPEAT X1 01/20/21 17:00 01/26/21 19:58 Furosemide (Lasix) 80 mg DAILY PO 01/21/21 13:30 01/27/21 08:34 Potassium Chloride (Klor-Con) 20 meq DAILYWBKFT PO 01/22/21 08:00 01/27/21 08:34 Neomycin/ Polymyxin/ Dexamethasone (Maxitrol Ophth Oint) 2 yu BID OU 01/22/21 21:00 01/27/21 20:57 Divalproex Sodium (Depakote Sprinkles) 500 mg BID PO 01/22/21 21:00 01/27/21 20:56 Sertraline HCl (Zoloft) 75 mg DAILY PO 01/28/21 09:00 I have reviewed the current psychotropics carefully including drug interactions. Risk benefit ratio favors no change other than as noted in my dictated progress note. Diagnosis: Problems: (1) Impulse control disorder (2) Obsessive compulsive disorder (3) Major neurocognitive disorder (4) Dementia, vascular, with depression (5) Dementia in Alzheimer's disease with delusions (6) Anxiety disorder (7) Dementia, vascular, with delusions (8) Dementia in Alzheimer's disease with depression FRANCES HSU MD Jan 27, 2021 21:58
--- NOTE | 2021-01-27 23:20 | NUR ---
PATIENT HAS BEEN CALM AND PLEASANT. HE WATCHED TV IN THE DAYROOM MOST OF THE EVENING AND WAS COMPLIANT WITH MEDICATIONS GIVEN WHOLE. NO ADVERSE BEHAVIORS NOTED AT THIS TIME.
[2021-01-28 06:21] VITALS: BP 111/63
--- NOTE | 2021-01-28 06:59 | PDOC ---
Exam Note: Ferny Note: This note is a late entry for 01/26/2021 covers elements not covered in my initial note. Subjective: The patient was seen individually in the evening of 01/26/2021 with Keny TOURE, discussed and reviewed the chart. He slept 5-1/2 hours previous night. The patient has been agitated with another demented patient but redirects. He is much less sedated. Review of Systems: Reliability poor. No CV, , pulmonary, eye system symptoms on review. Mental Status Exam: The patient is oriented to himself. Insight and judgment, recent and remote memory, attention and concentration, fund of knowledge is poor consistent with his diagnoses. Laboratory Data: Reviewed. Impression: Major neurocognitive disorder Alzheimer vascular with delusion, depression, behavioral disturbance. Anxiety disorder unspecified. Impulse c ontrol disorder unspecified. Plan: No change from initial note. Assessment: Vital Signs/I&O: Vital Signs Date Time Temp Pulse Resp B/P (MAP) Pulse Ox O2 Delivery O2 Flow Rate FiO2 01/28/21 06:21 97.6 53 14 111/63 (79) 95 Room Air I & O 01/27/21 01/27/21 01/28/21 15:00 23:00 07:00 Intake Total 720 ml 480 ml 120 ml Balance 720 ml 480 ml 120 ml Current Medications: Meds: Current Medications Medications (Trade) Dose Ordered Sig/Ivonne Route PRN Reason Start Time Stop Time Status Last Admin Dose Admin Acetaminophen (Tylenol) 650 mg PRN Q6HRS PRN PO MILD PAIN 1-3 / TEMP > 100.3'F 01/14/21 15:30 Multi-Ingredient Ointment (Analgesic [place]) 1 yu PRN QID PRN TP MUSCLE PAIN 01/14/21 15:30 Al Hydroxide/Mg Hydroxide (Mylanta Plus Xs) 15 ml PRN AFTMEALHC PRN PO DYSPEPSIA 01/14/21 15:30 Magnesium Hydroxide (Milk Of Magnesia) 2,400 mg PRN QHS PRN PO 2ND CHOICE CONSTIPATION 01/14/21 15:30 Acetaminophen (Tylenol) 650 mg PRN Q6HRS PRN PO MILD PAIN 1-3 01/14/21 17:00 UNV Buspirone HCl (Buspar) 10 mg TID PO 01/14/21 21:00 01/27/21 20:56 Vitamin D (Vitamin D3) 2,000 unit DAILY PO 01/15/21 09:00 01/27/21 08:33 Clopidogrel Bisulfate (Plavix) 75 mg DAILY PO 01/15/21 09:00 01/27/21 08:34 Furosemide (Lasix) 20 mg DAILY PO 01/15/21 09:00 01/21/21 13:21 DC 01/21/21 09:15 Lorazepam (Ativan) 1 mg PRN Q8HRS PRN PO ANXIETY / AGITATION 01/14/21 17:00 01/22/21 10:47 DC 01/19/21 22:19 Metoprolol Tartrate (Lopressor) 25 mg BID PO 01/14/21 21:00 01/27/21 20:56 Mirtazapine (Remeron) 7.5 mg QHS PO 01/14/21 21:00 01/20/21 16:54 DC 01/19/21 20:06 Olanzapine (ZyPREXA ZYDIS) 2.5 mg PRN Q2HR PRN PO ANXIETY / AGITATION 01/14/21 17:00 01/25/21 22:47 Polyethylene Glycol (miraLAX) 17 gm PRN DAILY PRN PO 1ST CHOICE CONSTIPATION 01/14/21 17:00 Risperidone (RisperDAL) 0.5 mg TID PO 01/14/21 21:00 01/22/21 10:47 DC 01/22/21 08:10 Sertraline HCl (Zoloft) 50 mg DAILY PO 01/15/21 09:00 01/27/21 19:38 DC 01/27/21 08:34 Atorvastatin Calcium (Lipitor) 80 mg QHS PO 01/14/21 21:00 01/27/21 20:56 Artificial Tears (Artificial Tears) 1 drop PRN Q2HRS PRN OU DRY EYE 01/14/21 17:30 Cyanocobalamin (Vitamin B-12) 1,000 mcg DAILY PO 01/15/21 09:00 01/27/21 08:33 Divalproex Sodium (Depakote Er) 500 mg BID PO 01/14/21 21:00 01/22/21 20:19 DC 01/22/21 08:11 Mirtazapine (Remeron) 15 mg QHS PO 01/20/21 21:00 01/27/21 20:58 Trazodone HCl (Desyrel) 50 mg PRN QHS PRN PO INSOMNIA, MAY REPEAT X1 01/20/21 17:00 01/26/21 19:58 Furosemide (Lasix) 80 mg DAILY PO 01/21/21 13:30 01/27/21 08:34 Potassium Chloride (Klor-Con) 20 meq DAILYWBKFT PO 01/22/21 08:00 01/27/21 08:34 Neomycin/ Polymyxin/ Dexamethasone (Maxitrol Ophth Oint) 2 yu BID OU 01/22/21 21:00 01/27/21 20:57 Divalproex Sodium (Depakote Sprinkles) 500 mg BID PO 01/22/21 21:00 01/27/21 20:56 Sertraline HCl (Zoloft) 75 mg DAILY PO 01/28/21 09:00 I have reviewed the current psychotropics carefully including drug interactions. Risk benefit ratio favors no change other than as noted in my dictated progress note. Diagnosis: Problems: (1) Impulse control disorder (2) Obsessive compulsive disorder (3) Major neurocognitive disorder (4) Dementia, vascular, with depression (5) Dementia in Alzheimer's disease with delusions (6) Anxiety disorder (7) Dementia, vascular, with delusions (8) Dementia in Alzheimer's disease with depression FRANCES HSU MD Jan 28, 2021 06:59
--- NOTE | 2021-01-28 07:06 | PDOC ---
Exam Note: Ferny Note: This note is a late entry for 01/26/2021 covers elements not covered in my initial note. Subjective: The patient was seen individually in the evening of 01/26/2021 with Keny TOURE, discussed and reviewed the chart. The patient slept 3-3/4 hours previous night. He is on one-on-one status. Previous evening he was agitated, calling out repeatedly pulling on things, tried to pull out his Foleys. UA has reflex to culture. We will defer to Dr. Boo. Review of Systems: Ambulation impaired in Broda chair. No CV, , pulmonary, eye, ENT system symptoms on review. Reliability poor. Mental Status Exam: The patient is oriented to himself. He is anxious, restless, constantly moving. Insight and judgment, recent and remote memory, attention and concentration, fund of knowledge is poor consistent with his diagnoses. Laboratory Data: Reviewed. Impression: Major neurocognitive disorder Alzheimer vascular with delusion, depression, behavioral disturbance. Anxiety disorder unspecified. Impulse control disorder unspecified. Plan: No change from initial note. Assessment: Vital Signs/I&O: Vital Signs Date Time Temp Pulse Resp B/P (MAP) Pulse Ox O2 Delivery O2 Flow Rate FiO2 01/28/21 06:21 97.6 53 14 111/63 (79) 95 Room Air I & O 01/27/21 01/27/21 01/28/21 15:00 23:00 07:00 Intake Total 720 ml 480 ml 120 ml Balance 720 ml 480 ml 120 ml Current Medications: Meds: Current Medications Medications (Trade) Dose Ordered Sig/Ivonne Route PRN Reason Start Time Stop Time Status Last Admin Dose Admin Acetaminophen (Tylenol) 650 mg PRN Q6HRS PRN PO MILD PAIN 1-3 / TEMP > 100.3'F 01/14/21 15:30 Multi-Ingredient Ointment (Analgesic [place]) 1 yu PRN QID PRN TP MUSCLE PAIN 01/14/21 15:30 Al Hydroxide/Mg Hydroxide (Mylanta Plus Xs) 15 ml PRN AFTMEALHC PRN PO DYSPEPSIA 01/14/21 15:30 Magnesium Hydroxide (Milk Of Magnesia) 2,400 mg PRN QHS PRN PO 2ND CHOICE CONSTIPATION 01/14/21 15:30 Acetaminophen (Tylenol) 650 mg PRN Q6HRS PRN PO MILD PAIN 1-3 01/14/21 17:00 UNV Buspirone HCl (Buspar) 10 mg TID PO 01/14/21 21:00 01/27/21 20:56 Vitamin D (Vitamin D3) 2,000 unit DAILY PO 01/15/21 09:00 01/27/21 08:33 Clopidogrel Bisulfate (Plavix) 75 mg DAILY PO 01/15/21 09:00 01/27/21 08:34 Furosemide (Lasix) 20 mg DAILY PO 01/15/21 09:00 01/21/21 13:21 DC 01/21/21 09:15 Lorazepam (Ativan) 1 mg PRN Q8HRS PRN PO ANXIETY / AGITATION 01/14/21 17:00 01/22/21 10:47 DC 01/19/21 22:19 Metoprolol Tartrate (Lopressor) 25 mg BID PO 01/14/21 21:00 01/27/21 20:56 Mirtazapine (Remeron) 7.5 mg QHS PO 01/14/21 21:00 01/20/21 16:54 DC 01/19/21 20:06 Olanzapine (ZyPREXA ZYDIS) 2.5 mg PRN Q2HR PRN PO ANXIETY / AGITATION 01/14/21 17:00 01/25/21 22:47 Polyethylene Glycol (miraLAX) 17 gm PRN DAILY PRN PO 1ST CHOICE CONSTIPATION 01/14/21 17:00 Risperidone (RisperDAL) 0.5 mg TID PO 01/14/21 21:00 01/22/21 10:47 DC 01/22/21 08:10 Sertraline HCl (Zoloft) 50 mg DAILY PO 01/15/21 09:00 01/27/21 19:38 DC 01/27/21 08:34 Atorvastatin Calcium (Lipitor) 80 mg QHS PO 01/14/21 21:00 01/27/21 20:56 Artificial Tears (Artificial Tears) 1 drop PRN Q2HRS PRN OU DRY EYE 01/14/21 17:30 Cyanocobalamin (Vitamin B-12) 1,000 mcg DAILY PO 01/15/21 09:00 01/27/21 08:33 Divalproex Sodium (Depakote Er) 500 mg BID PO 01/14/21 21:00 01/22/21 20:19 DC 01/22/21 08:11 Mirtazapine (Remeron) 15 mg QHS PO 01/20/21 21:00 01/27/21 20:58 Trazodone HCl (Desyrel) 50 mg PRN QHS PRN PO INSOMNIA, MAY REPEAT X1 01/20/21 17:00 01/26/21 19:58 Furosemide (Lasix) 80 mg DAILY PO 01/21/21 13:30 01/27/21 08:34 Potassium Chloride (Klor-Con) 20 meq DAILYWBKFT PO 01/22/21 08:00 01/27/21 08:34 Neomycin/ Polymyxin/ Dexamethasone (Maxitrol Ophth Oint) 2 yu BID OU 01/22/21 21:00 01/27/21 20:57 Divalproex Sodium (Depakote Sprinkles) 500 mg BID PO 01/22/21 21:00 01/27/21 20:56 Sertraline HCl (Zoloft) 75 mg DAILY PO 01/28/21 09:00 I have reviewed the current psychotropics carefully including drug interactions. Risk benefit ratio favors no change other than as noted in my dictated progress note. Diagnosis: Problems: (1) Impulse control disorder (2) Obsessive compulsive disorder (3) Major neurocognitive disorder (4) Dementia, vascular, with depression (5) Dementia in Alzheimer's disease with delusions (6) Anxiety disorder (7) Dementia, vascular, with delusions (8) Dementia in Alzheimer's disease with depression FRANCES HSU MD Jan 28, 2021 07:05
--- NOTE | 2021-01-28 07:33 | PDOC ---
Exam Note: Ferny Note: This note is a late entry for 01/27/2021 covers elements not covered in my initial note. Subjective: The patient was seen individually in the evening of 01/27/2021 with Keny TOURE, discussed and reviewed the chart. He slept 7-1/2 hours previous night. The patient has been calm, confused. He has been wandering more actively on the unit. Review of Systems: Reliability poor. No CV, , pulmonary, eye system symptoms on review. Mental Status Exam: The patient is oriented to himself. Insight and judgment, recent and remote memory, attention and concentration, fund of knowledge is poor consistent with his diagnoses. Laboratory Data: Reviewed. Impression: Major neurocognitive disorder Alzheimer vascular with delusion, depression, behavioral disturbance. Anxiety disorder unspecified. Impulse control disorder unspecified. Plan: No change from initial note. The patient is currently on Zoloft 50 mg a day. We will increase to 75 mg a day after he has been on 50 mg for 3 days. Continue rest of the psychotropics unchanged. Assessment: Vital Signs/I&O: Vital Signs Date Time Temp Pulse Resp B/P (MAP) Pulse Ox O2 Delivery O2 Flow Rate FiO2 01/28/21 06: 97.6 53 14 111/63 (79) 95 Room Air I & O 01/27/21 01/27/21 01/28/21 15:00 23:00 07:00 Intake Total 720 ml 480 ml 120 ml Balance 720 ml 480 ml 120 ml Current Medications: Meds: Current Medications Medications (Trade) Dose Ordered Sig/Ivonne Route PRN Reason Start Time Stop Time Status Last Admin Dose Admin Acetaminophen (Tylenol) 650 mg PRN Q6HRS PRN PO MILD PAIN 1-3 / TEMP > 100.3'F 01/14/21 15:30 Multi-Ingredient Ointment (Analgesic [place]) 1 yu PRN QID PRN TP MUSCLE PAIN 01/14/21 15:30 Al Hydroxide/Mg Hydroxide (Mylanta Plus Xs) 15 ml PRN AFTMEALHC PRN PO DYSPEPSIA 01/14/21 15:30 Magnesium Hydroxide (Milk Of Magnesia) 2,400 mg PRN QHS PRN PO 2ND CHOICE CONSTIPATION 01/14/21 15:30 Acetaminophen (Tylenol) 650 mg PRN Q6HRS PRN PO MILD PAIN 1-3 01/14/21 17:00 UNV Buspirone HCl (Buspar) 10 mg TID PO 01/14/21 21:00 01/27/21 20:56 Vitamin D (Vitamin D3) 2,000 unit DAILY PO 01/15/21 09:00 01/27/21 08:33 Clopidogrel Bisulfate (Plavix) 75 mg DAILY PO 01/15/21 09:00 01/27/21 08:34 Furosemide (Lasix) 20 mg DAILY PO 01/15/21 09:00 01/21/21 13:21 DC 01/21/21 09:15 Lorazepam (Ativan) 1 mg PRN Q8HRS PRN PO ANXIETY / AGITATION 01/14/21 17:00 01/22/21 10:47 DC 01/19/21 22:19 Metoprolol Tartrate (Lopressor) 25 mg BID PO 01/14/21 21:00 01/27/21 20:56 Mirtazapine (Remeron) 7.5 mg QHS PO 01/14/21 21:00 01/20/21 16:54 DC 01/19/21 20:06 Olanzapine (ZyPREXA ZYDIS) 2.5 mg PRN Q2HR PRN PO ANXIETY / AGITATION 01/14/21 17:00 01/25/21 22:47 Polyethylene Glycol (miraLAX) 17 gm PRN DAILY PRN PO 1ST CHOICE CONSTIPATION 01/14/21 17:00 Risperidone (RisperDAL) 0.5 mg TID PO 01/14/21 21:00 01/22/21 10:47 DC 01/22/21 08:10 Sertraline HCl (Zoloft) 50 mg DAILY PO 01/15/21 09:00 01/27/21 19:38 DC 01/27/21 08:34 Atorvastatin Calcium (Lipitor) 80 mg QHS PO 01/14/21 21:00 01/27/21 20:56 Artificial Tears (Artificial Tears) 1 drop PRN Q2HRS PRN OU DRY EYE 01/14/21 17:30 Cyanocobalamin (Vitamin B-12) 1,000 mcg DAILY PO 01/15/21 09:00 01/27/21 08:33 Divalproex Sodium (Depakote Er) 500 mg BID PO 01/14/21 21:00 01/22/21 20:19 DC 01/22/21 08:11 Mirtazapine (Remeron) 15 mg QHS PO 01/20/21 21:00 01/27/21 20:58 Trazodone HCl (Desyrel) 50 mg PRN QHS PRN PO INSOMNIA, MAY REPEAT X1 01/20/21 17:00 01/26/21 19:58 Furosemide (Lasix) 80 mg DAILY PO 01/21/21 13:30 01/27/21 08:34 Potassium Chloride (Klor-Con) 20 meq DAILYWBKFT PO 01/22/21 08:00 01/27/21 08:34 Neomycin/ Polymyxin/ Dexamethasone (Maxitrol Ophth Oint) 2 yu BID OU 01/22/21 21:00 01/27/21 20:57 Divalproex Sodium (Depakote Sprinkles) 500 mg BID PO 01/22/21 21:00 01/27/21 20:56 Sertraline HCl (Zoloft) 75 mg DAILY PO 01/28/21 09:00 I have reviewed the current psychotropics carefully including drug interactions. Risk benefit ratio favors no change other than as noted in my dictated progress note. Diagnosis: Problems: (1) Impulse control disorder (2) Obsessive compulsive disorder (3) Major neurocognitive disorder (4) Dementia, vascular, with depression (5) Dementia in Alzheimer's disease with delusions (6) Anxiety disorder (7) Dementia, vascular, with delusions (8) Dementia in Alzheimer's disease with depression FRANCES HSU MD Jan 28, 2021 07:33
[2021-01-28] MEDS: METOPROLOL TART IMMED RELEASE 25 MG TABLET. PO SCH ×2 (09:00→20:08)
[2021-01-28] MEDS: NEO/POLYMYX/DEXAMETH OPHTH OINTMENT 3.5GM TUBE. OU SCH ×2 (09:00→20:08)
[2021-01-28] MEDS: CHOLECALCIFEROL (VITAMIN D3) 1,000 UNIT TABLET PO SCH (09:51)
[2021-01-28] MEDS: busPIRone 10 MG TABLET. PO SCH ×3 (09:51→20:07)
[2021-01-28] MEDS: CLOPIDOGREL BISULFATE 75 MG TABLET PO SCH (09:51)
[2021-01-28] MEDS: DIVALPROEX 125 MG CAP.SPRINK PO SCH ×2 (09:51→20:07)
[2021-01-28] MEDS: POTASSIUM CHLORIDE 20 MEQ TABLET.ER. PO SCH (09:52)
[2021-01-28] MEDS: CYANOCOBALAMIN (VITAMIN B-12) 1,000 MCG TABLET. PO SCH (09:52)
[2021-01-28] MEDS: SERTRALINE 50 MG TABLET. PO SCH (09:52)
[2021-01-28] MEDS: FUROSEMIDE 80 MG TABLET PO SCH (09:52)
--- NOTE | 2021-01-28 11:29 | NUR ---
NIRMAL faxed updates to pt facility, [facility]. NIRMAL also contacted Suzie at [facility] to give verbal update. Suzie appreciative of call. NIRMAL then left voice message for tej/YASMANI, Rivas; provided brief update and return number should she want to talk directly with NIRMAL.
--- NOTE | 2021-01-28 13:22 | NUR ---
PATIENT LOCATED IN A BED ASLEEP UPON ASSESSMENT, EASILY AWAKEN, PLEASANTLY CONFUSED, COOPERATIVE AND COMPLIANT WITH MEDICATIONS TAKEN WHOLE. PATIENT COOPERATED WITH ADLS THIS AM, PATIENT WAS SITTING LATER IN A DAY ROOM, CALM AND QUIET.
[2021-01-28 15:37] VITALS: BP 123/78
[2021-01-28] MEDS: ATORVASTATIN CALCIUM 20 MG TABLET PO SCH (20:07)
[2021-01-28] MEDS: MIRTAZAPINE 15 MG TABLET PO SCH (20:07)
--- NOTE | 2021-01-28 22:08 | PDOC ---
Exam Note: Ferny Note: Please also refer to the separate dictated note~for this date of service dictated separately.~Patient seen individually. Discussed the patient with Nursing staff reviewed the chart.~Reviewed interim history and current functioning. Reviewed vital signs,~Labs/ Radiology~and current medications noted below. Continue current treatment with the changes noted in the dictated addendum note Assessment: Vital Signs/I&O: Vital Signs Date Time Temp Pulse Resp B/P (MAP) Pulse Ox O2 Delivery O2 Flow Rate FiO2 01/28/21 20:08 63 123/78 01/28/21 15:37 97.5 18 97 01/28/21 06:21 Room Air I & O 01/27/21 01/27/21 01/28/21 15:00 23:00 07:00 Intake Total 720 ml 480 ml 120 ml Balance 720 ml 480 ml 120 ml Current Medications: Meds: Current Medications Medications (Trade) Dose Ordered Sig/Ivonne Route PRN Reason Start Time Stop Time Status Last Admin Dose Admin Acetaminophen (Tylenol) 650 mg PRN Q6HRS PRN PO MILD PAIN 1-3 / TEMP > 100.3'F 01/14/21 15:30 Multi-Ingredient Ointment (Analgesic [place]) 1 yu PRN QID PRN TP MUSCLE PAIN 01/14/21 15:30 Al Hydroxide/Mg Hydroxide (Mylanta Plus Xs) 15 ml PRN AFTMEALHC PRN PO DYSPEPSIA 01/14/21 15:30 Magnesium Hydroxide (Milk Of Magnesia) 2,400 mg PRN QHS PRN PO 2ND CHOICE CONSTIPATION 01/14/21 15:30 Acetaminophen (Tylenol) 650 mg PRN Q6HRS PRN PO MILD PAIN 1-3 01/14/21 17:00 UNV Buspirone HCl (Buspar) 10 mg TID PO 01/14/21 21:00 01/28/21 20:07 Vitamin D (Vitamin D3) 2,000 unit DAILY PO 01/15/21 09:00 01/28/21 09:51 Clopidogrel Bisulfate (Plavix) 75 mg DAILY PO 01/15/21 09:00 01/28/21 09:51 Furosemide (Lasix) 20 mg DAILY PO 01/15/21 09:00 01/21/21 13:21 DC 01/21/21 09:15 Lorazepam (Ativan) 1 mg PRN Q8HRS PRN PO ANXIETY / AGITATION 01/14/21 17:00 01/22/21 10:47 DC 01/19/21 22:19 Metoprolol Tartrate (Lopressor) 25 mg BID PO 01/14/21 21:00 01/28/21 20:08 Mirtazapine (Remeron) 7.5 mg QHS PO 01/14/21 21:00 01/20/21 16:54 DC 01/19/21 20:06 Olanzapine (ZyPREXA ZYDIS) 2.5 mg PRN Q2HR PRN PO ANXIETY / AGITATION 01/14/21 17:00 01/25/21 22:47 Polyethylene Glycol (miraLAX) 17 gm PRN DAILY PRN PO 1ST CHOICE CONSTIPATION 01/14/21 17:00 Risperidone (RisperDAL) 0.5 mg TID PO 01/14/21 21:00 01/22/21 10:47 DC 01/22/21 08:10 Sertraline HCl (Zoloft) 50 mg DAILY PO 01/15/21 09:00 01/27/21 19:38 DC 01/27/21 08:34 Atorvastatin Calcium (Lipitor) 80 mg QHS PO 01/14/21 21:00 01/28/21 20:07 Artificial Tears (Artificial Tears) 1 drop PRN Q2HRS PRN OU DRY EYE 01/14/21 17:30 01/28/21 09:53 Cyanocobalamin (Vitamin B-12) 1,000 mcg DAILY PO 01/15/21 09:00 01/28/21 09:52 Divalproex Sodium (Depakote Er) 500 mg BID PO 01/14/21 21:00 01/22/21 20:19 DC 01/22/21 08:11 Mirtazapine (Remeron) 15 mg QHS PO 01/20/21 21:00 01/28/21 20:07 Trazodone HCl (Desyrel) 50 mg PRN QHS PRN PO INSOMNIA, MAY REPEAT X1 01/20/21 17:00 01/26/21 19:58 Furosemide (Lasix) 80 mg DAILY PO 01/21/21 13:30 01/28/21 09:52 Potassium Chloride (Klor-Con) 20 meq DAILYWBKFT PO 01/22/21 08:00 01/28/21 09:52 Neomycin/ Polymyxin/ Dexamethasone (Maxitrol Ophth Oint) 2 yu BID OU 01/22/21 21:00 01/28/21 20:08 Divalproex Sodium (Depakote Sprinkles) 500 mg BID PO 01/22/21 21:00 01/28/21 20:07 Sertraline HCl (Zoloft) 75 mg DAILY PO 01/28/21 09:00 01/28/21 09:52 Current Medications Medications (Trade) Dose Ordered Sig/Ivonne Route PRN Reason Start Time Stop Time Status Last Admin Dose Admin Sertraline HCl (Zoloft) 75 mg DAILY PO 01/28/21 09:00 01/28/21 09:52 I have reviewed the current psychotropics carefully including drug interactions. Risk benefit ratio favors no change other than as noted in my dictated progress note. Diagnosis: Problems: (1) Impulse control disorder (2) Obsessive compulsive disorder (3) Major neurocognitive disorder (4) Dementia, vascular, with depression (5) Dementia in Alzheimer's disease with delusions (6) Anxiety disorder (7) Dementia, vascular, with delusions (8) Dementia in Alzheimer's disease with depression FRANCES HSU MD Jan 28, 2021 22:08
--- NOTE | 2021-01-28 23:31 | NUR ---
Patient was in day room with peers this evening, he was calm, pleasant and compliant. patient cooperative with assessment and compliant with medications taken whole. He is oriented to self, he wanders in the hallway at times and sometimes enter the wrong room. He is able to be verbally re-directed. No adverse behaviors noted this shift.
[2021-01-29 06:18] VITALS: BP 101/64
[2021-01-29] MEDS: CLOPIDOGREL BISULFATE 75 MG TABLET PO SCH (08:25)
[2021-01-29] MEDS: METOPROLOL TART IMMED RELEASE 25 MG TABLET. PO SCH ×2 (08:26→20:06)
[2021-01-29] MEDS: CYANOCOBALAMIN (VITAMIN B-12) 1,000 MCG TABLET. PO SCH (08:26)
[2021-01-29] MEDS: busPIRone 10 MG TABLET. PO SCH ×3 (08:26→20:06)
[2021-01-29] MEDS: DIVALPROEX 125 MG CAP.SPRINK PO SCH ×2 (08:26→20:06)
[2021-01-29] MEDS: CHOLECALCIFEROL (VITAMIN D3) 1,000 UNIT TABLET PO SCH (08:26)
[2021-01-29] MEDS: FUROSEMIDE 80 MG TABLET PO SCH (08:27)
[2021-01-29] MEDS: POTASSIUM CHLORIDE 20 MEQ TABLET.ER. PO SCH (08:27)
[2021-01-29] MEDS: SERTRALINE 50 MG TABLET. PO SCH (08:27)
[2021-01-29] MEDS: NEO/POLYMYX/DEXAMETH OPHTH OINTMENT 3.5GM TUBE. OU SCH ×2 (08:27→20:13)
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
--- NOTE | 2021-01-29 15:49 | NUR ---
Nurse Note Patient has had an uneventful shift, med compliant and pleasant.
[2021-01-29 16:01] VITALS: BP 112/66
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
[2021-01-29] MEDS: MIRTAZAPINE 15 MG TABLET PO SCH (20:06)
[2021-01-29] MEDS: ATORVASTATIN CALCIUM 20 MG TABLET PO SCH (20:06)
--- NOTE | 2021-01-29 21:58 | PDOC ---
Exam Note: Ferny Note: Please also refer to the separate dictated note~for this date of service dictated separately.~Patient seen individually. Discussed the patient with Nursing staff reviewed the chart.~Reviewed interim history and current functioning. Reviewed vital signs,~Labs/ Radiology~and current medications noted below. Continue current treatment with the changes noted in the dictated addendum note Assessment: Vital Signs/I&O: Vital Signs Date Time Temp Pulse Resp B/P (MAP) Pulse Ox O2 Delivery O2 Flow Rate FiO2 01/29/21 20:06 58 112/66 01/29/21 16:01 97.6 18 95 01/29/21 06:18 Room Air I & O 01/28/21 01/28/21 01/29/21 15:00 23:00 07:00 Intake Total 720 ml 480 ml Balance 720 ml 480 ml Current Medications: Meds: Current Medications Medications (Trade) Dose Ordered Sig/Ivonne Route PRN Reason Start Time Stop Time Status Last Admin Dose Admin Acetaminophen (Tylenol) 650 mg PRN Q6HRS PRN PO MILD PAIN 1-3 / TEMP > 100.3'F 01/14/21 15:30 Multi-Ingredient Ointment (Analgesic [place]) 1 yu PRN QID PRN TP MUSCLE PAIN 01/14/21 15:30 Al Hydroxide/Mg Hydroxide (Mylanta Plus Xs) 15 ml PRN AFTMEALHC PRN PO DYSPEPSIA 01/14/21 15:30 Magnesium Hydroxide (Milk Of Magnesia) 2,400 mg PRN QHS PRN PO 2ND CHOICE CONSTIPATION 01/14/21 15:30 Acetaminophen (Tylenol) 650 mg PRN Q6HRS PRN PO MILD PAIN 1-3 01/14/21 17:00 UNV Buspirone HCl (Buspar) 10 mg TID PO 01/14/21 21:00 01/29/21 20:06 Vitamin D (Vitamin D3) 2,000 unit DAILY PO 01/15/21 09:00 01/29/21 08:26 Clopidogrel Bisulfate (Plavix) 75 mg DAILY PO 01/15/21 09:00 01/29/21 08:25 Furosemide (Lasix) 20 mg DAILY PO 01/15/21 09:00 01/21/21 13:21 DC 01/21/21 09:15 Lorazepam (Ativan) 1 mg PRN Q8HRS PRN PO ANXIETY / AGITATION 01/14/21 17:00 01/22/21 10:47 DC 01/19/21 22:19 Metoprolol Tartrate (Lopressor) 25 mg BID PO 01/14/21 21:00 01/29/21 20:06 Mirtazapine (Remeron) 7.5 mg QHS PO 01/14/21 21:00 01/20/21 16:54 DC 01/19/21 20:06 Olanzapine (ZyPREXA ZYDIS) 2.5 mg PRN Q2HR PRN PO ANXIETY / AGITATION 01/14/21 17:00 01/25/21 22:47 Polyethylene Glycol (miraLAX) 17 gm PRN DAILY PRN PO 1ST CHOICE CONSTIPATION 01/14/21 17:00 Risperidone (RisperDAL) 0.5 mg TID PO 01/14/21 21:00 01/22/21 10:47 DC 01/22/21 08:10 Sertraline HCl (Zoloft) 50 mg DAILY PO 01/15/21 09:00 01/27/21 19:38 DC 01/27/21 08:34 Atorvastatin Calcium (Lipitor) 80 mg QHS PO 01/14/21 21:00 01/29/21 20:06 Artificial Tears (Artificial Tears) 1 drop PRN Q2HRS PRN OU DRY EYE 01/14/21 17:30 01/28/21 09:53 Cyanocobalamin (Vitamin B-12) 1,000 mcg DAILY PO 01/15/21 09:00 01/29/21 08:26 Divalproex Sodium (Depakote Er) 500 mg BID PO 01/14/21 21:00 01/22/21 20:19 DC 01/22/21 08:11 Mirtazapine (Remeron) 15 mg QHS PO 01/20/21 21:00 01/29/21 20:06 Trazodone HCl (Desyrel) 50 mg PRN QHS PRN PO INSOMNIA, MAY REPEAT X1 01/20/21 17:00 01/26/21 19:58 Furosemide (Lasix) 80 mg DAILY PO 01/21/21 13:30 01/29/21 08:27 Potassium Chloride (Klor-Con) 20 meq DAILYWBKFT PO 01/22/21 08:00 01/29/21 08:27 Neomycin/ Polymyxin/ Dexamethasone (Maxitrol Ophth Oint) 2 yu BID OU 01/22/21 21:00 01/29/21 20:13 Divalproex Sodium (Depakote Sprinkles) 500 mg BID PO 01/22/21 21:00 01/29/21 20:06 Sertraline HCl (Zoloft) 75 mg DAILY PO 01/28/21 09:00 01/29/21 08:27 I have reviewed the current psychotropics carefully including drug interactions. Risk benefit ratio favors no change other than as noted in my dictated progress note. Diagnosis: Problems: (1) Impulse control disorder (2) Obsessive compulsive disorder (3) Major neurocognitive disorder (4) Dementia, vascular, with depression (5) Dementia in Alzheimer's disease with delusions (6) Anxiety disorder (7) Dementia, vascular, with delusions (8) Dementia in Alzheimer's disease with depression FRANCES HSU MD Jan 29, 2021 21:58
--- NOTE | 2021-01-30 00:31 | NUR ---
Patient is disorganized but compliant with his medications. He took his medications whole tonight. He wanders in the hallways and sometimes enters peers rooms, he is easily redirected.
[2021-01-30 06:13] VITALS: BP 127/78
[2021-01-30] MEDS: NEO/POLYMYX/DEXAMETH OPHTH OINTMENT 3.5GM TUBE. OU SCH ×2 (08:23→21:20)
[2021-01-30] MEDS: DIVALPROEX 125 MG CAP.SPRINK PO SCH ×2 (08:23→21:21)
[2021-01-30] MEDS: SERTRALINE 50 MG TABLET. PO SCH (08:24)
[2021-01-30] MEDS: busPIRone 10 MG TABLET. PO SCH ×3 (08:24→21:21)
[2021-01-30] MEDS: CLOPIDOGREL BISULFATE 75 MG TABLET PO SCH (08:24)
[2021-01-30] MEDS: CHOLECALCIFEROL (VITAMIN D3) 1,000 UNIT TABLET PO SCH (08:24)
[2021-01-30] MEDS: CYANOCOBALAMIN (VITAMIN B-12) 1,000 MCG TABLET. PO SCH (08:24)
[2021-01-30] MEDS: POTASSIUM CHLORIDE 20 MEQ TABLET.ER. PO SCH (08:24)
[2021-01-30] MEDS: FUROSEMIDE 80 MG TABLET PO SCH (08:25)
[2021-01-30] MEDS: METOPROLOL TART IMMED RELEASE 25 MG TABLET. PO SCH ×2 (08:26→21:21)
--- NOTE | 2021-01-30 09:31 | PDOC ---
Exam Note: Ferny Note: This note is a late entry for 01/28/2021 covers elements not covered in my initial note. Subjective: The patient was seen individually in the evening of 01/28/2021 with Yolanda TOURE, discussed and reviewed the chart. He slept 6 hours previous night. The patient has been calm and confused, disorganized but not agitated or aggressive. He is verbal but unable to make out what he is saying, quite tangential at times. Review of Systems: No CV, , pulmonary, eye system symptoms on review. Mental Status Exam: The patient is oriented to himself. Insight and judgment, recent and remote memory, attention and concentration, fund of knowledge is poor consistent with his diagnoses. Laboratory Data: Reviewed. Impression: Major neurocognitive disorder Alzheimer vascular with delusion, depression, behavioral disturbance. Anxiety disorder unspecified. Impulse control disorder unspecified. Plan: No change from initial note. Assessment: Vital Signs/I&O: Vital Signs Date Time Temp Pulse Resp B/P (MAP) Pulse Ox O2 Delivery O2 Flow Rate FiO2 01/30/21 06:13 96.7 49 16 127/78 (94) 97 01/29/21 06:18 Room Air I & O 01/29/21 01/29/21 01/30/21 15:00 23:00 07:00 Intake Total 480 ml 480 ml Balance 480 ml 480 ml Current Medications: Meds: Current Medications Medications (Trade) Dose Ordered Sig/Ivonne Route PRN Reason Start Time Stop Time Status Last Admin Dose Admin Acetaminophen (Tylenol) 650 mg PRN Q6HRS PRN PO MILD PAIN 1-3 / TEMP > 100.3'F 01/14/21 15:30 Multi-Ingredient Ointment (Analgesic [place]) 1 yu PRN QID PRN TP MUSCLE PAIN 01/14/21 15:30 Al Hydroxide/Mg Hydroxide (Mylanta Plus Xs) 15 ml PRN AFTMEALHC PRN PO DYSPEPSIA 01/14/21 15:30 Magnesium Hydroxide (Milk Of Magnesia) 2,400 mg PRN QHS PRN PO 2ND CHOICE CONSTIPATION 01/14/21 15:30 Acetaminophen (Tylenol) 650 mg PRN Q6HRS PRN PO MILD PAIN 1-3 01/14/21 17:00 UNV Buspirone HCl (Buspar) 10 mg TID PO 01/14/21 21:00 01/30/21 08:24 Vitamin D (Vitamin D3) 2,000 unit DAILY PO 01/15/21 09:00 01/30/21 08:24 Clopidogrel Bisulfate (Plavix) 75 mg DAILY PO 01/15/21 09:00 01/30/21 08:24 Furosemide (Lasix) 20 mg DAILY PO 01/15/21 09:00 01/21/21 13:21 DC 01/21/21 09:15 Lorazepam (Ativan) 1 mg PRN Q8HRS PRN PO ANXIETY / AGITATION 01/14/21 17:00 01/22/21 10:47 DC 01/19/21 22:19 Metoprolol Tartrate (Lopressor) 25 mg BID PO 01/14/21 21:00 01/29/21 20:06 Mirtazapine (Remeron) 7.5 mg QHS PO 01/14/21 21:00 01/20/21 16:54 DC 01/19/21 20:06 Olanzapine (ZyPREXA ZYDIS) 2.5 mg PRN Q2HR PRN PO ANXIETY / AGITATION 01/14/21 17:00 01/25/21 22:47 Polyethylene Glycol (miraLAX) 17 gm PRN DAILY PRN PO 1ST CHOICE CONSTIPATION 01/14/21 17:00 Risperidone (RisperDAL) 0.5 mg TID PO 01/14/21 21:00 01/22/21 10:47 DC 01/22/21 08:10 Sertraline HCl (Zoloft) 50 mg DAILY PO 01/15/21 09:00 01/27/21 19:38 DC 01/27/21 08:34 Atorvastatin Calcium (Lipitor) 80 mg QHS PO 01/14/21 21:00 01/29/21 20:06 Artificial Tears (Artificial Tears) 1 drop PRN Q2HRS PRN OU DRY EYE 01/14/21 17:30 01/28/21 09:53 Cyanocobalamin (Vitamin B-12) 1,000 mcg DAILY PO 01/15/21 09:00 01/30/21 08:24 Divalproex Sodium (Depakote Er) 500 mg BID PO 01/14/21 21:00 01/22/21 20:19 DC 01/22/21 08:11 Mirtazapine (Remeron) 15 mg QHS PO 01/20/21 21:00 01/29/21 20:06 Trazodone HCl (Desyrel) 50 mg PRN QHS PRN PO INSOMNIA, MAY REPEAT X1 01/20/21 17:00 01/26/21 19:58 Furosemide (Lasix) 80 mg DAILY PO 01/21/21 13:30 01/30/21 08:25 Potassium Chloride (Klor-Con) 20 meq DAILYWBKFT PO 01/22/21 08:00 01/30/21 08:24 Neomycin/ Polymyxin/ Dexamethasone (Maxitrol Ophth Oint) 2 yu BID OU 01/22/21 21:00 01/30/21 08:23 Divalproex Sodium (Depakote Sprinkles) 500 mg BID PO 01/22/21 21:00 01/30/21 08:23 Sertraline HCl (Zoloft) 75 mg DAILY PO 01/28/21 09:00 01/30/21 08:24 I have reviewed the current psychotropics carefully including drug interactions. Risk benefit ratio favors no change other than as noted in my dictated progress note. Diagnosis: Problems: (1) Impulse control disorder (2) Obsessive compulsive disorder (3) Major neurocognitive disorder (4) Dementia, vascular, with depression (5) Dementia in Alzheimer's disease with delusions (6) Anxiety disorder (7) Dementia, vascular, with delusions (8) Dementia in Alzheimer's disease with depression FRANCES HSU MD Jan 30, 2021 09:31
--- NOTE | 2021-01-30 09:50 | PDOC ---
Exam Note: Ferny Note: This note is a late entry for 01/29/2021 covers elements not covered in my initial note. Subjective: The patient was reviewed in the morning of 01/29/2021 for a treatment team meeting with Malinda Coleman, Salena Sánchez and [place] (social sciences lecturer), [place], activity therapy and Rivas TOURE, discussed and reviewed the chart. He slept 7-1/4 hours previous night. The patient has been ambulating on his own, less sedated. Review of Systems: Reliability poor. No CV, , pulmonary, eye system symptoms on review. Mental Status Exam: The patient is oriented to himself. Insight and judgment, recent and remote memory, attention and concentration, fund of knowledge is poor consistent with his diagnoses. Laboratory Data: Reviewed. Impression: Major neurocognitive disorder Alzheimer vascular with delusion, depression, behavioral disturbance. Anxiety disorder unspecified. Impulse control disorder unspecified. Plan: No change from initial note. Assessment: Vital Signs/I&O: Vital Signs Date Time Temp Pulse Resp B/P (MAP) Pulse Ox O2 Delivery O2 Flow Rate FiO2 01/30/21 06:13 96.7 49 16 127/78 (94) 97 01/29/21 06:18 Room Air I & O 01/29/21 01/29/21 01/30/21 14:59 22:59 06:59 Intake Total 480 ml 480 ml Balance 480 ml 480 ml Current Medications: Meds: Current Medications Medications (Trade) Dose Ordered Sig/Ivonne Route PRN Reason Start Time Stop Time Status Last Admin Dose Admin Acetaminophen (Tylenol) 650 mg PRN Q6HRS PRN PO MILD PAIN 1-3 / TEMP > 100.3'F 01/14/21 15:30 Multi-Ingredient Ointment (Analgesic [place]) 1 yu PRN QID PRN TP MUSCLE PAIN 01/14/21 15:30 Al Hydroxide/Mg Hydroxide (Mylanta Plus Xs) 15 ml PRN AFTMEALHC PRN PO DYSPEPSIA 01/14/21 15:30 Magnesium Hydroxide (Milk Of Magnesia) 2,400 mg PRN QHS PRN PO 2ND CHOICE CONSTIPATION 01/14/21 15:30 Acetaminophen (Tylenol) 650 mg PRN Q6HRS PRN PO MILD PAIN 1-3 01/14/21 17:00 UNV Buspirone HCl (Buspar) 10 mg TID PO 01/14/21 21:00 01/30/21 08:24 Vitamin D (Vitamin D3) 2,000 unit DAILY PO 01/15/21 09:00 01/30/21 08:24 Clopidogrel Bisulfate (Plavix) 75 mg DAILY PO 01/15/21 09:00 01/30/21 08:24 Furosemide (Lasix) 20 mg DAILY PO 01/15/21 09:00 01/21/21 13:21 DC 01/21/21 09:15 Lorazepam (Ativan) 1 mg PRN Q8HRS PRN PO ANXIETY / AGITATION 01/14/21 17:00 01/22/21 10:47 DC 01/19/21 22:19 Metoprolol Tartrate (Lopressor) 25 mg BID PO 01/14/21 21:00 01/29/21 20:06 Mirtazapine (Remeron) 7.5 mg QHS PO 01/14/21 21:00 01/20/21 16:54 DC 01/19/21 20:06 Olanzapine (ZyPREXA ZYDIS) 2.5 mg PRN Q2HR PRN PO ANXIETY / AGITATION 01/14/21 17:00 01/25/21 22:47 Polyethylene Glycol (miraLAX) 17 gm PRN DAILY PRN PO 1ST CHOICE CONSTIPATION 01/14/21 17:00 Risperidone (RisperDAL) 0.5 mg TID PO 01/14/21 21:00 01/22/21 10:47 DC 01/22/21 08:10 Sertraline HCl (Zoloft) 50 mg DAILY PO 01/15/21 09:00 01/27/21 19:38 DC 01/27/21 08:34 Atorvastatin Calcium (Lipitor) 80 mg QHS PO 01/14/21 21:00 01/29/21 20:06 Artificial Tears (Artificial Tears) 1 drop PRN Q2HRS PRN OU DRY EYE 01/14/21 17:30 01/28/21 09:53 Cyanocobalamin (Vitamin B-12) 1,000 mcg DAILY PO 01/15/21 09:00 01/30/21 08:24 Divalproex Sodium (Depakote Er) 500 mg BID PO 01/14/21 21:00 01/22/21 20:19 DC 01/22/21 08:11 Mirtazapine (Remeron) 15 mg QHS PO 01/20/21 21:00 01/29/21 20:06 Trazodone HCl (Desyrel) 50 mg PRN QHS PRN PO INSOMNIA, MAY REPEAT X1 01/20/21 17:00 01/26/21 19:58 Furosemide (Lasix) 80 mg DAILY PO 01/21/21 13:30 01/30/21 08:25 Potassium Chloride (Klor-Con) 20 meq DAILYWBKFT PO 01/22/21 08:00 01/30/21 08:24 Neomycin/ Polymyxin/ Dexamethasone (Maxitrol Ophth Oint) 2 yu BID OU 01/22/21 21:00 01/30/21 08:23 Divalproex Sodium (Depakote Sprinkles) 500 mg BID PO 01/22/21 21:00 01/30/21 08:23 Sertraline HCl (Zoloft) 75 mg DAILY PO 01/28/21 09:00 01/30/21 08:24 I have reviewed the current psychotropics carefully including drug interactions. Risk benefit ratio favors no change other than as noted in my dictated progress note. Diagnosis: Problems: (1) Impulse control disorder (2) Obsessive compulsive disorder (3) Major neurocognitive disorder (4) Dementia, vascular, with depression (5) Dementia in Alzheimer's disease with delusions (6) Anxiety disorder (7) Dementia, vascular, with delusions (8) Dementia in Alzheimer's disease with depression FRANCES HSU MD Jan 30, 2021 09:50
[2021-01-30 16:42] VITALS: BP 134/71
--- NOTE | 2021-01-30 17:56 | NUR ---
Pt disorganized and confused patient speech runs together and responses are not on subject. Patient social with other patients vitals wnl and stable patient pulse during am med pass was 56 his metoprolol was held which is patient baseline to run on the low side however asymptomatic of bradycardia no complaints of pain or discomfort to report he was in [facility] room visiting and they were getting along well that Charly asked if they could be room mates I advised I would have to make sure that would be approved. Patient has a good appetite he had all meals at the dining room table. No behaviors to report med compliant cooperative with cares. Dr Aguilar and Dr Richmond rounded on patient no new orders. Will continue to monitor patient.
[2021-01-30] MEDS: ATORVASTATIN CALCIUM 20 MG TABLET PO SCH (21:21)
[2021-01-30] MEDS: MIRTAZAPINE 15 MG TABLET PO SCH (21:21)
--- NOTE | 2021-01-30 22:04 | PDOC ---
Exam Note: Ferny Note: Please also refer to the separate dictated note~for this date of service dictated separately.~Patient seen individually. Discussed the patient with Nursing staff reviewed the chart.~Reviewed interim history and current functioning. Reviewed vital signs,~Labs/ Radiology~and current medications noted below. Continue current treatment with the changes noted in the dictated addendum note Assessment: Vital Signs/I&O: Vital Signs Date Time Temp Pulse Resp B/P (MAP) Pulse Ox O2 Delivery O2 Flow Rate FiO2 01/30/21 21:21 58 106/66 01/30/21 16:42 97.2 20 97 01/29/21 06:18 Room Air I & O 01/29/21 01/29/21 01/30/21 15:00 23:00 07:00 Intake Total 480 ml 480 ml Balance 480 ml 480 ml Current Medications: Meds: Current Medications Medications (Trade) Dose Ordered Sig/Ivonne Route PRN Reason Start Time Stop Time Status Last Admin Dose Admin Acetaminophen (Tylenol) 650 mg PRN Q6HRS PRN PO MILD PAIN 1-3 / TEMP > 100.3'F 01/14/21 15:30 Multi-Ingredient Ointment (Analgesic [place]) 1 yu PRN QID PRN TP MUSCLE PAIN 01/14/21 15:30 Al Hydroxide/Mg Hydroxide (Mylanta Plus Xs) 15 ml PRN AFTMEALHC PRN PO DYSPEPSIA 01/14/21 15:30 Magnesium Hydroxide (Milk Of Magnesia) 2,400 mg PRN QHS PRN PO 2ND CHOICE CONSTIPATION 01/14/21 15:30 Acetaminophen (Tylenol) 650 mg PRN Q6HRS PRN PO MILD PAIN 1-3 01/14/21 17:00 UNV Buspirone HCl (Buspar) 10 mg TID PO 01/14/21 21:00 01/30/21 21:21 Vitamin D (Vitamin D3) 2,000 unit DAILY PO 01/15/21 09:00 01/30/21 08:24 Clopidogrel Bisulfate (Plavix) 75 mg DAILY PO 01/15/21 09:00 01/30/21 08:24 Furosemide (Lasix) 20 mg DAILY PO 01/15/21 09:00 01/21/21 13:21 DC 01/21/21 09:15 Lorazepam (Ativan) 1 mg PRN Q8HRS PRN PO ANXIETY / AGITATION 01/14/21 17:00 01/22/21 10:47 DC 01/19/21 22:19 Metoprolol Tartrate (Lopressor) 25 mg BID PO 01/14/21 21:00 01/29/21 20:06 Mirtazapine (Remeron) 7.5 mg QHS PO 01/14/21 21:00 01/20/21 16:54 DC 01/19/21 20:06 Olanzapine (ZyPREXA ZYDIS) 2.5 mg PRN Q2HR PRN PO ANXIETY / AGITATION 01/14/21 17:00 01/25/21 22:47 Polyethylene Glycol (miraLAX) 17 gm PRN DAILY PRN PO 1ST CHOICE CONSTIPATION 01/14/21 17:00 Risperidone (RisperDAL) 0.5 mg TID PO 01/14/21 21:00 01/22/21 10:47 DC 01/22/21 08:10 Sertraline HCl (Zoloft) 50 mg DAILY PO 01/15/21 09:00 01/27/21 19:38 DC 01/27/21 08:34 Atorvastatin Calcium (Lipitor) 80 mg QHS PO 01/14/21 21:00 01/30/21 21:21 Artificial Tears (Artificial Tears) 1 drop PRN Q2HRS PRN OU DRY EYE 01/14/21 17:30 01/28/21 09:53 Cyanocobalamin (Vitamin B-12) 1,000 mcg DAILY PO 01/15/21 09:00 01/30/21 08:24 Divalproex Sodium (Depakote Er) 500 mg BID PO 01/14/21 21:00 01/22/21 20:19 DC 01/22/21 08:11 Mirtazapine (Remeron) 15 mg QHS PO 01/20/21 21:00 01/30/21 21:21 Trazodone HCl (Desyrel) 50 mg PRN QHS PRN PO INSOMNIA, MAY REPEAT X1 01/20/21 17:00 01/26/21 19:58 Furosemide (Lasix) 80 mg DAILY PO 01/21/21 13:30 01/30/21 08:25 Potassium Chloride (Klor-Con) 20 meq DAILYWBKFT PO 01/22/21 08:00 01/30/21 08:24 Neomycin/ Polymyxin/ Dexamethasone (Maxitrol Ophth Oint) 2 yu BID OU 01/22/21 21:00 01/30/21 21:20 Divalproex Sodium (Depakote Sprinkles) 500 mg BID PO 01/22/21 21:00 01/30/21 21:21 Sertraline HCl (Zoloft) 75 mg DAILY PO 01/28/21 09:00 01/30/21 08:24 I have reviewed the current psychotropics carefully including drug interactions. Risk benefit ratio favors no change other than as noted in my dictated progress note. Diagnosis: Problems: (1) Impulse control disorder (2) Obsessive compulsive disorder (3) Major neurocognitive disorder (4) Dementia, vascular, with depression (5) Dementia in Alzheimer's disease with delusions (6) Anxiety disorder (7) Dementia, vascular, with delusions (8) Dementia in Alzheimer's disease with depression FRANCES HSU MD Jan 30, 2021 22:04
--- NOTE | 2021-01-31 01:14 | NUR ---
Nursing note: Pt pulse <60 so did not administer metoprolol per parameters on EMAR. Pt was cooperative, took meds whole without issue, and minimal inappropriate word choices.
[2021-01-31 06:09] VITALS: BP 104/60
--- NOTE | 2021-01-31 06:37 | PDOC ---
Exam Note: Ferny Note: This note is a late entry for 01/30/2021 covers elements not covered in my initial note. Subjective: The patient was seen individually in the evening of 01/30/2021 with Lauri TOURE, discussed and reviewed the chart. He slept 6-1/4 hours previous night. The patient remains disorganized, wandering. I met with him in the dayroom. He is pleasant, verbal, interactive, disorganized in his speech with loose associations. Review of Systems: Reliability poor. No CV, , pulmonary, eye system symptoms on review. Mental Status Exam: The patient is oriented to himself. Insight and judgment, recent and remote memory, attention and concentration, fund of knowledge is poor consistent with his diagnoses. Laboratory Data: Reviewed. Impression: Major neurocognitive disorder Alzheimer vascular with delusion, depression, behavioral disturbance. Anxiety disorder unspecified. Impulse control disorder unspecified. Plan: No change from initial note. Assessment: Vital Signs/I&O: Vital Signs Date Time Temp Pulse Resp B/P (MAP) Pulse Ox O2 Delivery O2 Flow Rate FiO2 01/31/21 06:09 96.7 53 15 104/60 (75) 96 01/29/21 06:18 Room Air I & O 01/30/21 01/30/21 01/31/21 15:00 23:00 07:00 Intake Total 600 ml 240 ml 360 ml Balance 600 ml 240 ml 360 ml Current Medications: Meds: Current Medications Medications (Trade) Dose Ordered Sig/Ivonne Route PRN Reason Start Time Stop Time Status Last Admin Dose Admin Acetaminophen (Tylenol) 650 mg PRN Q6HRS PRN PO MILD PAIN 1-3 / TEMP > 100.3'F 01/14/21 15:30 Multi-Ingredient Ointment (Analgesic [place]) 1 yu PRN QID PRN TP MUSCLE PAIN 01/14/21 15:30 Al Hydroxide/Mg Hydroxide (Mylanta Plus Xs) 15 ml PRN AFTMEALHC PRN PO DYSPEPSIA 01/14/21 15:30 Magnesium Hydroxide (Milk Of Magnesia) 2,400 mg PRN QHS PRN PO 2ND CHOICE CONSTIPATION 01/14/21 15:30 Acetaminophen (Tylenol) 650 mg PRN Q6HRS PRN PO MILD PAIN 1-3 01/14/21 17:00 UNV Buspirone HCl (Buspar) 10 mg TID PO 01/14/21 21:00 01/30/21 21:21 Vitamin D (Vitamin D3) 2,000 unit DAILY PO 01/15/21 09:00 01/30/21 08:24 Clopidogrel Bisulfate (Plavix) 75 mg DAILY PO 01/15/21 09:00 01/30/21 08:24 Furosemide (Lasix) 20 mg DAILY PO 01/15/21 09:00 01/21/21 13:21 DC 01/21/21 09:15 Lorazepam (Ativan) 1 mg PRN Q8HRS PRN PO ANXIETY / AGITATION 01/14/21 17:00 01/22/21 10:47 DC 01/19/21 22:19 Metoprolol Tartrate (Lopressor) 25 mg BID PO 01/14/21 21:00 01/29/21 20:06 Mirtazapine (Remeron) 7.5 mg QHS PO 01/14/21 21:00 01/20/21 16:54 DC 01/19/21 20:06 Olanzapine (ZyPREXA ZYDIS) 2.5 mg PRN Q2HR PRN PO ANXIETY / AGITATION 01/14/21 17:00 01/25/21 22:47 Polyethylene Glycol (miraLAX) 17 gm PRN DAILY PRN PO 1ST CHOICE CONSTIPATION 01/14/21 17:00 Risperidone (RisperDAL) 0.5 mg TID PO 01/14/21 21:00 01/22/21 10:47 DC 01/22/21 08:10 Sertraline HCl (Zoloft) 50 mg DAILY PO 01/15/21 09:00 01/27/21 19:38 DC 01/27/21 08:34 Atorvastatin Calcium (Lipitor) 80 mg QHS PO 01/14/21 21:00 01/30/21 21:21 Artificial Tears (Artificial Tears) 1 drop PRN Q2HRS PRN OU DRY EYE 01/14/21 17:30 01/28/21 09:53 Cyanocobalamin (Vitamin B-12) 1,000 mcg DAILY PO 01/15/21 09:00 01/30/21 08:24 Divalproex Sodium (Depakote Er) 500 mg BID PO 01/14/21 21:00 01/22/21 20:19 DC 01/22/21 08:11 Mirtazapine (Remeron) 15 mg QHS PO 01/20/21 21:00 01/30/21 21:21 Trazodone HCl (Desyrel) 50 mg PRN QHS PRN PO INSOMNIA, MAY REPEAT X1 01/20/21 17:00 01/26/21 19:58 Furosemide (Lasix) 80 mg DAILY PO 01/21/21 13:30 01/30/21 08:25 Potassium Chloride (Klor-Con) 20 meq DAILYWBKFT PO 01/22/21 08:00 01/30/21 08:24 Neomycin/ Polymyxin/ Dexamethasone (Maxitrol Ophth Oint) 2 yu BID OU 01/22/21 21:00 01/30/21 21:20 Divalproex Sodium (Depakote Sprinkles) 500 mg BID PO 01/22/21 21:00 01/30/21 21:21 Sertraline HCl (Zoloft) 75 mg DAILY PO 01/28/21 09:00 01/30/21 08:24 I have reviewed the current psychotropics carefully including drug interactions. Risk benefit ratio favors no change other than as noted in my dictated progress note. Diagnosis: Problems: (1) Impulse control disorder (2) Obsessive compulsive disorder (3) Major neurocognitive disorder (4) Dementia, vascular, with depression (5) Dementia in Alzheimer's disease with delusions (6) Anxiety disorder (7) Dementia, vascular, with delusions (8) Dementia in Alzheimer's disease with depression FRANCES HSU MD Jan 31, 2021 06:37
[2021-01-31] MEDS: CHOLECALCIFEROL (VITAMIN D3) 1,000 UNIT TABLET PO SCH (08:25)
[2021-01-31] MEDS: POTASSIUM CHLORIDE 20 MEQ TABLET.ER. PO SCH (08:25)
[2021-01-31] MEDS: CYANOCOBALAMIN (VITAMIN B-12) 1,000 MCG TABLET. PO SCH (08:25)
[2021-01-31] MEDS: busPIRone 10 MG TABLET. PO SCH ×3 (08:25→18:25)
[2021-01-31] MEDS: DIVALPROEX 125 MG CAP.SPRINK PO SCH ×2 (08:25→18:26)
[2021-01-31] MEDS: CLOPIDOGREL BISULFATE 75 MG TABLET PO SCH (08:25)
[2021-01-31] MEDS: SERTRALINE 50 MG TABLET. PO SCH (08:26)
[2021-01-31] MEDS: FUROSEMIDE 80 MG TABLET PO SCH (08:26)
[2021-01-31] MEDS: METOPROLOL TART IMMED RELEASE 25 MG TABLET. PO SCH ×2 (08:26→18:26)
[2021-01-31] MEDS: NEO/POLYMYX/DEXAMETH OPHTH OINTMENT 3.5GM TUBE. OU SCH ×2 (08:26→18:26)
[2021-01-31 15:54] VITALS: BP 103/67
--- NOTE | 2021-01-31 17:11 | NUR ---
Patient a&o x1 self only very disorganized thought process and responses. Patient continues to wander unit in and out of others rooms and lying in others bed very cooperative when redirected. Med compliant cooperative with cares, good appetite eats meals at the dining room table polite with others no behaviors to report at this time vitals wnl of baseline and stable will continue to monitor patient.
[2021-01-31] MEDS: MIRTAZAPINE 15 MG TABLET PO SCH (18:25)
[2021-01-31] MEDS: ATORVASTATIN CALCIUM 20 MG TABLET PO SCH (18:26)
--- NOTE | 2021-01-31 22:00 | PDOC ---
Exam Note: Ferny Note: Please also refer to the separate dictated note~for this date of service dictated separately.~Patient seen individually. Discussed the patient with Nursing staff reviewed the chart.~Reviewed interim history and current functioning. Reviewed vital signs,~Labs/ Radiology~and current medications noted below. Continue current treatment with the changes noted in the dictated addendum note Assessment: Vital Signs/I&O: Vital Signs Date Time Temp Pulse Resp B/P (MAP) Pulse Ox O2 Delivery O2 Flow Rate FiO2 01/31/21 18:26 62 103/67 01/31/21 15:54 97.0 18 97 01/29/21 06:18 Room Air I & O 01/30/21 01/30/21 01/31/21 14:59 22:59 06:59 Intake Total 600 ml 240 ml 360 ml Balance 600 ml 240 ml 360 ml Current Medications: Meds: Current Medications Medications (Trade) Dose Ordered Sig/Ivonne Route PRN Reason Start Time Stop Time Status Last Admin Dose Admin Acetaminophen (Tylenol) 650 mg PRN Q6HRS PRN PO MILD PAIN 1-3 / TEMP > 100.3'F 01/14/21 15:30 Multi-Ingredient Ointment (Analgesic [place]) 1 yu PRN QID PRN TP MUSCLE PAIN 01/14/21 15:30 Al Hydroxide/Mg Hydroxide (Mylanta Plus Xs) 15 ml PRN AFTMEALHC PRN PO DYSPEPSIA 01/14/21 15:30 Magnesium Hydroxide (Milk Of Magnesia) 2,400 mg PRN QHS PRN PO 2ND CHOICE CONSTIPATION 01/14/21 15:30 Acetaminophen (Tylenol) 650 mg PRN Q6HRS PRN PO MILD PAIN 1-3 01/14/21 17:00 UNV Buspirone HCl (Buspar) 10 mg TID PO 01/14/21 21:00 01/31/21 18:25 Vitamin D (Vitamin D3) 2,000 unit DAILY PO 01/15/21 09:00 01/31/21 08:25 Clopidogrel Bisulfate (Plavix) 75 mg DAILY PO 01/15/21 09:00 01/31/21 08:25 Furosemide (Lasix) 20 mg DAILY PO 01/15/21 09:00 01/21/21 13:21 DC 01/21/21 09:15 Lorazepam (Ativan) 1 mg PRN Q8HRS PRN PO ANXIETY / AGITATION 01/14/21 17:00 01/22/21 10:47 DC 01/19/21 22:19 Metoprolol Tartrate (Lopressor) 25 mg BID PO 01/14/21 21:00 01/31/21 18:26 Mirtazapine (Remeron) 7.5 mg QHS PO 01/14/21 21:00 01/20/21 16:54 DC 01/19/21 20:06 Olanzapine (ZyPREXA ZYDIS) 2.5 mg PRN Q2HR PRN PO ANXIETY / AGITATION 01/14/21 17:00 01/25/21 22:47 Polyethylene Glycol (miraLAX) 17 gm PRN DAILY PRN PO 1ST CHOICE CONSTIPATION 01/14/21 17:00 Risperidone (RisperDAL) 0.5 mg TID PO 01/14/21 21:00 01/22/21 10:47 DC 01/22/21 08:10 Sertraline HCl (Zoloft) 50 mg DAILY PO 01/15/21 09:00 01/27/21 19:38 DC 01/27/21 08:34 Atorvastatin Calcium (Lipitor) 80 mg QHS PO 01/14/21 21:00 01/31/21 18:26 Artificial Tears (Artificial Tears) 1 drop PRN Q2HRS PRN OU DRY EYE 01/14/21 17:30 01/28/21 09:53 Cyanocobalamin (Vitamin B-12) 1,000 mcg DAILY PO 01/15/21 09:00 01/31/21 08:25 Divalproex Sodium (Depakote Er) 500 mg BID PO 01/14/21 21:00 01/22/21 20:19 DC 01/22/21 08:11 Mirtazapine (Remeron) 15 mg QHS PO 01/20/21 21:00 01/31/21 18:25 Trazodone HCl (Desyrel) 50 mg PRN QHS PRN PO INSOMNIA, MAY REPEAT X1 01/20/21 17:00 01/26/21 19:58 Furosemide (Lasix) 80 mg DAILY PO 01/21/21 13:30 01/31/21 08:26 Potassium Chloride (Klor-Con) 20 meq DAILYWBKFT PO 01/22/21 08:00 01/31/21 08:25 Neomycin/ Polymyxin/ Dexamethasone (Maxitrol Ophth Oint) 2 yu BID OU 01/22/21 21:00 01/31/21 18:26 Divalproex Sodium (Depakote Sprinkles) 500 mg BID PO 01/22/21 21:00 01/31/21 18:26 Sertraline HCl (Zoloft) 75 mg DAILY PO 01/28/21 09:00 01/31/21 08:26 I have reviewed the current psychotropics carefully including drug interactions. Risk benefit ratio favors no change other than as noted in my dictated progress note. Diagnosis: Problems: (1) Impulse control disorder (2) Obsessive compulsive disorder (3) Major neurocognitive disorder (4) Dementia, vascular, with depression (5) Dementia in Alzheimer's disease with delusions (6) Anxiety disorder (7) Dementia, vascular, with delusions (8) Dementia in Alzheimer's disease with depression FRANCES HSU MD Jan 31, 2021 22:00
[2021-02-01 06:21] VITALS: BP 148/85
[2021-02-01] MEDS: busPIRone 10 MG TABLET. PO SCH ×3 (08:43→20:44)
[2021-02-01] MEDS: POTASSIUM CHLORIDE 20 MEQ TABLET.ER. PO SCH (08:43)
[2021-02-01] MEDS: METOPROLOL TART IMMED RELEASE 25 MG TABLET. PO SCH ×3 (08:44→20:45)
[2021-02-01] MEDS: CYANOCOBALAMIN (VITAMIN B-12) 1,000 MCG TABLET. PO SCH (08:44)
[2021-02-01] MEDS: CLOPIDOGREL BISULFATE 75 MG TABLET PO SCH (08:44)
[2021-02-01] MEDS: DIVALPROEX 125 MG CAP.SPRINK PO SCH ×2 (08:44→20:44)
[2021-02-01] MEDS: CHOLECALCIFEROL (VITAMIN D3) 1,000 UNIT TABLET PO SCH (08:44)
[2021-02-01] MEDS: FUROSEMIDE 80 MG TABLET PO SCH (08:44)
[2021-02-01] MEDS: SERTRALINE 50 MG TABLET. PO SCH (08:47)
[2021-02-01] MEDS: NEO/POLYMYX/DEXAMETH OPHTH OINTMENT 3.5GM TUBE. OU SCH ×2 (08:53→20:44)
--- NOTE | 2021-02-01 10:01 | PDOC ---
Exam Note: Ferny Note: This note is a late entry for 01/31/2021 covers elements not covered in my initial note. Subjective: The patient was seen individually in the evening of 01/31/2021 with Lauri TOURE, discussed and reviewed the chart. He slept 5-3/4 hours previous night. The patient remains disorganized, but otherwise pleasant, ambulating on his own. Review of Systems: Reliability poor. No CV, , pulmonary, eye system symptoms on review. Mental Status Exam: The patient is oriented to himself. Insight and judgment, recent and remote memory, attention and concentration, fund of knowledge is poor consistent with his diagnoses. Laboratory Data: Reviewed. Impression: Major neurocognitive disorder Alzheimer vascular with delusion, depression, behavioral disturbance. Anxiety disorder unspecified. Impulse control disorder unspecified. Plan: No change from initial note. Assessment: Vital Signs/I&O: Vital Signs Date Time Temp Pulse Resp B/P (MAP) Pulse Ox O2 Delivery O2 Flow Rate FiO2 02/01/21 09:00 55 148/85 02/01/21 06:21 96.8 18 97 Room Air I & O 01/31/21 01/31/21 02/01/21 15:00 23:00 07:00 Intake Total 720 ml 600 ml Balance 720 ml 600 ml Current Medications: Meds: Current Medications Medications (Trade) Dose Ordered Sig/Ivonne Route PRN Reason Start Time Stop Time Status Last Admin Dose Admin Acetaminophen (Tylenol) 650 mg PRN Q6HRS PRN PO MILD PAIN 1-3 / TEMP > 100.3'F 01/14/21 15:30 Multi-Ingredient Ointment (Analgesic Anna) 1 yu PRN QID PRN TP MUSCLE PAIN 01/14/21 15:30 Al Hydroxide/Mg Hydroxide (Mylanta Plus Xs) 15 ml PRN AFTMEALHC PRN PO DYSPEPSIA 01/14/21 15:30 Magnesium Hydroxide (Milk Of Magnesia) 2,400 mg PRN QHS PRN PO 2ND CHOICE CONSTIPATION 01/14/21 15:30 Acetaminophen (Tylenol) 650 mg PRN Q6HRS PRN PO MILD PAIN 1-3 01/14/21 17:00 UNV Buspirone HCl (Buspar) 10 mg TID PO 01/14/21 21:00 02/01/21 08:43 Vitamin D (Vitamin D3) 2,000 unit DAILY PO 01/15/21 09:00 02/01/21 08:44 Clopidogrel Bisulfate (Plavix) 75 mg DAILY PO 01/15/21 09:00 02/01/21 08:44 Furosemide (Lasix) 20 mg DAILY PO 01/15/21 09:00 01/21/21 13:21 DC 01/21/21 09:15 Lorazepam (Ativan) 1 mg PRN Q8HRS PRN PO ANXIETY / AGITATION 01/14/21 17:00 01/22/21 10:47 DC 01/19/21 22:19 Metoprolol Tartrate (Lopressor) 25 mg BID PO 01/14/21 21:00 01/31/21 18:26 Mirtazapine (Remeron) 7.5 mg QHS PO 01/14/21 21:00 01/20/21 16:54 DC 01/19/21 20:06 Olanzapine (ZyPREXA ZYDIS) 2.5 mg PRN Q2HR PRN PO ANXIETY / AGITATION 01/14/21 17:00 01/25/21 22:47 Polyethylene Glycol (miraLAX) 17 gm PRN DAILY PRN PO 1ST CHOICE CONSTIPATION 01/14/21 17:00 Risperidone (RisperDAL) 0.5 mg TID PO 01/14/21 21:00 01/22/21 10:47 DC 01/22/21 08:10 Sertraline HCl (Zoloft) 50 mg DAILY PO 01/15/21 09:00 01/27/21 19:38 DC 01/27/21 08:34 Atorvastatin Calcium (Lipitor) 80 mg QHS PO 01/14/21 21:00 01/31/21 18:26 Artificial Tears (Artificial Tears) 1 drop PRN Q2HRS PRN OU DRY EYE 01/14/21 17:30 01/28/21 09:53 Cyanocobalamin (Vitamin B-12) 1,000 mcg DAILY PO 01/15/21 09:00 02/01/21 08:44 Divalproex Sodium (Depakote Er) 500 mg BID PO 01/14/21 21:00 01/22/21 20:19 DC 01/22/21 08:11 Mirtazapine (Remeron) 15 mg QHS PO 01/20/21 21:00 01/31/21 18:25 Trazodone HCl (Desyrel) 50 mg PRN QHS PRN PO INSOMNIA, MAY REPEAT X1 01/20/21 17:00 01/26/21 19:58 Furosemide (Lasix) 80 mg DAILY PO 01/21/21 13:30 02/01/21 08:44 Potassium Chloride (Klor-Con) 20 meq DAILYWBKFT PO 01/22/21 08:00 02/01/21 08:43 Neomycin/ Polymyxin/ Dexamethasone (Maxitrol Ophth Oint) 2 yu BID OU 01/22/21 21:00 02/01/21 08:53 Divalproex Sodium (Depakote Sprinkles) 500 mg BID PO 01/22/21 21:00 02/01/21 08:44 Sertraline HCl (Zoloft) 75 mg DAILY PO 01/28/21 09:00 02/01/21 08:47 I have reviewed the current psychotropics carefully including drug interactions. Risk benefit ratio favors no change other than as noted in my dictated progress note. 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
--- NOTE | 2021-02-01 15:14 | NUR ---
Nursing note: Client in dinning room at morning medication pass and assessment, pulse <60 so did not administer metoprolol per parameters on EMAR. He was compliant with medications whole. Client walks around the unit at times. He denies pain. Continue with treatment plan. Client is currently laying in his bed. Will continue to monitor.
[2021-02-01 16:07] VITALS: BP 133/79
[2021-02-01] MEDS: MIRTAZAPINE 15 MG TABLET PO SCH (20:44)
[2021-02-01] MEDS: ATORVASTATIN CALCIUM 20 MG TABLET PO SCH (20:44)
--- NOTE | 2021-02-01 22:08 | PDOC ---
Exam Note: Ferny Note: Please also refer to the separate dictated note~for this date of service dictated separately.~Patient seen individually. Discussed the patient with Nursing staff reviewed the chart.~Reviewed interim history and current functioning. Reviewed vital signs,~Labs/ Radiology~and current medications noted below. Continue current treatment with the changes noted in the dictated addendum note Assessment: Vital Signs/I&O: Vital Signs Date Time Temp Pulse Resp B/P (MAP) Pulse Ox O2 Delivery O2 Flow Rate FiO2 02/01/21 20:45 60 133/79 02/01/21 16:07 97.2 18 97 02/01/21 06:21 Room Air I & O 01/31/21 01/31/21 02/01/21 15:00 23:00 07:00 Intake Total 720 ml 600 ml Balance 720 ml 600 ml Current Medications: Meds: Current Medications Medications (Trade) Dose Ordered Sig/Vionne Route PRN Reason Start Time Stop Time Status Last Admin Dose Admin Acetaminophen (Tylenol) 650 mg PRN Q6HRS PRN PO MILD PAIN 1-3 / TEMP > 100.3'F 01/14/21 15:30 Multi-Ingredient Ointment (Analgesic Pella) 1 yu PRN QID PRN TP MUSCLE PAIN 01/14/21 15:30 Al Hydroxide/Mg Hydroxide (Mylanta Plus Xs) 15 ml PRN AFTMEALHC PRN PO DYSPEPSIA 01/14/21 15:30 Magnesium Hydroxide (Milk Of Magnesia) 2,400 mg PRN QHS PRN PO 2ND CHOICE CONSTIPATION 01/14/21 15:30 Acetaminophen (Tylenol) 650 mg PRN Q6HRS PRN PO MILD PAIN 1-3 01/14/21 17:00 UNV Buspirone HCl (Buspar) 10 mg TID PO 01/14/21 21:00 02/01/21 20:44 Vitamin D (Vitamin D3) 2,000 unit DAILY PO 01/15/21 09:00 02/01/21 08:44 Clopidogrel Bisulfate (Plavix) 75 mg DAILY PO 01/15/21 09:00 02/01/21 08:44 Furosemide (Lasix) 20 mg DAILY PO 01/15/21 09:00 01/21/21 13:21 DC 01/21/21 09:15 Lorazepam (Ativan) 1 mg PRN Q8HRS PRN PO ANXIETY / AGITATION 01/14/21 17:00 01/22/21 10:47 DC 01/19/21 22:19 Metoprolol Tartrate (Lopressor) 25 mg BID PO 01/14/21 21:00 01/31/21 18:26 Mirtazapine (Remeron) 7.5 mg QHS PO 01/14/21 21:00 01/20/21 16:54 DC 01/19/21 20:06 Olanzapine (ZyPREXA ZYDIS) 2.5 mg PRN Q2HR PRN PO ANXIETY / AGITATION 01/14/21 17:00 01/25/21 22:47 Polyethylene Glycol (miraLAX) 17 gm PRN DAILY PRN PO 1ST CHOICE CONSTIPATION 01/14/21 17:00 Risperidone (RisperDAL) 0.5 mg TID PO 01/14/21 21:00 01/22/21 10:47 DC 01/22/21 08:10 Sertraline HCl (Zoloft) 50 mg DAILY PO 01/15/21 09:00 01/27/21 19:38 DC 01/27/21 08:34 Atorvastatin Calcium (Lipitor) 80 mg QHS PO 01/14/21 21:00 02/01/21 20:44 Artificial Tears (Artificial Tears) 1 drop PRN Q2HRS PRN OU DRY EYE 01/14/21 17:30 01/28/21 09:53 Cyanocobalamin (Vitamin B-12) 1,000 mcg DAILY PO 01/15/21 09:00 02/01/21 08:44 Divalproex Sodium (Depakote Er) 500 mg BID PO 01/14/21 21:00 01/22/21 20:19 DC 01/22/21 08:11 Mirtazapine (Remeron) 15 mg QHS PO 01/20/21 21:00 02/01/21 20:44 Trazodone HCl (Desyrel) 50 mg PRN QHS PRN PO INSOMNIA, MAY REPEAT X1 01/20/21 17:00 01/26/21 19:58 Furosemide (Lasix) 80 mg DAILY PO 01/21/21 13:30 02/01/21 08:44 Potassium Chloride (Klor-Con) 20 meq DAILYWBKFT PO 01/22/21 08:00 02/01/21 08:43 Neomycin/ Polymyxin/ Dexamethasone (Maxitrol Ophth Oint) 2 yu BID OU 01/22/21 21:00 02/01/21 20:44 Divalproex Sodium (Depakote Sprinkles) 500 mg BID PO 01/22/21 21:00 02/01/21 20:44 Sertraline HCl (Zoloft) 75 mg DAILY PO 01/28/21 09:00 02/01/21 08:47 I have reviewed the current psychotropics carefully including drug interactions. Risk benefit ratio favors no change other than as noted in my dictated progress note. 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
--- NOTE | 2021-02-01 23:34 | NUR ---
Patient is located in the day room on assumption of care. He is disorganized, speaks mostly in word salad with the occasional coherent sentence. Compliant with assessments. Medications given crushed in chocolate pudding per patient request. He denies any pain or discomfort. No agitation. Patient appears to be sleeping comfortably at present time. Will continue to monitor.
[2021-02-02 05:57] VITALS: BP 107/69
[2021-02-02 07:26] LABS: BASO % 1 % (0-3); EOS # 0.2 x10^3/uL (0.0-0.7); EOS % 3 % (0-3); HEMATOCRIT 45.2 % (39.0-53.0); HEMOGLOBIN 14.8 g/dL (13.0-17.5); LYMPH # 1.8 x10^3/uL (1.0-4.8); LYMPH % 29 % (24-48); MEAN CORPUSCULAR HEMOGLOBIN 32 pg (25-35); MEAN CORPUSCULAR HGB CONC 33 g/dL (31-37); MEAN CORPUSCULAR VOLUME 99 fL (79-100); MONO # 0.5 x10^3/uL (0.0-1.1); MONO % 9 % (0-9); NEUT # 3.8 x10^3uL (1.8-7.7); NEUT % 59 % (31-73); PLATELET COUNT 155 x10^3/uL (140-400); RED BLOOD COUNT 4.58 x10^6/uL (4.30-5.70); WHITE BLOOD COUNT 6.4 x10^3/uL (4.0-11.0)
[2021-02-02 08:23] LABS: VAL ACID 55 mcg/mL (50-100)
[2021-02-02] MEDS: NEO/POLYMYX/DEXAMETH OPHTH OINTMENT 3.5GM TUBE. OU SCH ×2 (08:27→20:01)
[2021-02-02] MEDS: POTASSIUM CHLORIDE 20 MEQ TABLET.ER. PO SCH (08:27)
[2021-02-02] MEDS: CYANOCOBALAMIN (VITAMIN B-12) 1,000 MCG TABLET. PO SCH (08:28)
[2021-02-02] MEDS: busPIRone 10 MG TABLET. PO SCH ×3 (08:28→20:18)
[2021-02-02] MEDS: METOPROLOL TART IMMED RELEASE 25 MG TABLET. PO SCH ×4 (08:28→20:17)
[2021-02-02] MEDS: CHOLECALCIFEROL (VITAMIN D3) 1,000 UNIT TABLET PO SCH (08:29)
[2021-02-02] MEDS: CLOPIDOGREL BISULFATE 75 MG TABLET PO SCH (08:29)
[2021-02-02] MEDS: DIVALPROEX 125 MG CAP.SPRINK PO SCH ×2 (08:30→20:16)
[2021-02-02] MEDS: SERTRALINE 50 MG TABLET. PO SCH (08:30)
[2021-02-02] MEDS: FUROSEMIDE 80 MG TABLET PO SCH (08:34)
[2021-02-02 08:56] LABS: ALBUMIN/GLOBULIN RATIO 0.9 (1.0-1.7); CALCIUM 9.2 mg/dL (8.5-10.1); CREATININE 1.1 mg/dL (0.7-1.3); GFR 64.7; TOTAL BILIRUBIN 0.2 mg/dL (0.2-1.0); TOTAL PROTEIN 6.2 g/dL (6.4-8.2)
[2021-02-02 09:18] LABS: PLT ESTIMATE ADEQUATE (ADEQUATE)
--- NOTE | 2021-02-02 09:32 | PDOC ---
Exam Note: Ferny Note: This note is a late entry for 02/01/2021 covers elements not covered in my initial note. Subjective: The patient was seen individually in the evening of 02/01/2021 with Leda TOURE, discussed and reviewed the chart. He slept 4-1/2 hours previous night. Metoprolol was held in the morning for bradycardia. He walks up and down the hallway. He is ambulating better. He takes naps during the day. He is compliant with medications. Review of Systems: Reliability poor. No CV, , pulmonary, eye system symptoms on review. Mental Status Exam: The patient is oriented to himself. I met with him in the dayroom. He was pleasant, verbal, interactive, totally disorganized. Insight and judgment, recent and remote memory, attention and concentration, fund of knowledge is poor consistent with his diagnoses. Laboratory Data: Reviewed. Impression: Major neurocognitive disorder Alzheimer vascular with delusion, depression, behavioral disturbance. Anxiety disorder unspecified. Impulse control disorder unspecified. Plan: No change from initial note. Assessment: Vital Signs/I&O: Vital Signs Date Time Temp Pulse Resp B/P (MAP) Pulse Ox O2 Delivery O2 Flow Rate FiO2 02/02/21 08:39 52 107/69 02/02/21 05:57 97.0 16 96 Room Air I & O 02/01/21 02/01/21 02/02/21 15:00 23:00 07:00 Intake Total 840 ml 360 ml Balance 840 ml 360 ml Labs: Laboratory Tests Test 02/02/21 07:13 White Blood Count 6.4 x10^3/uL (4.0-11.0) Red Blood Count 4.58 x10^6/uL (4.30-5.70) Hemoglobin 14.8 g/dL (13.0-17.5) Hematocrit 45.2 % (39.0-53.0) Mean Corpuscular Volume 99 fL (79-100) Mean Corpuscular Hemoglobin 32 pg (25-35) Mean Corpuscular Hemoglobin Concent 33 g/dL (31-37) Red Cell Distribution Width 14.0 % (11.5-14.5) Platelet Count 155 x10^3/uL (140-400) Neutrophils (%) (Auto) 59 % (31-73) Lymphocytes (%) (Auto) 29 % (24-48) Monocytes (%) (Auto) 9 % (0-9) Eosinophils (%) (Auto) 3 % (0-3) Basophils (%) (Auto) 1 % (0-3) Neutrophils # (Auto) 3.8 x10^3uL (1.8-7.7) Lymphocytes # (Auto) 1.8 x10^3/uL (1.0-4.8) Monocytes # (Auto) 0.5 x10^3/uL (0.0-1.1) Eosinophils # (Auto) 0.2 x10^3/uL (0.0-0.7) Basophils # (Auto) 0.0 x10^3/uL (0.0-0.2) Platelet Estimate Adequate (ADEQUATE) Large Platelets Few Giant Platelets Few Sodium Level 144 mmol/L (136-145) Potassium Level 4.0 mmol/L (3.5-5.1) Chloride Level 106 mmol/L (98-107) Carbon Dioxide Level 26 mmol/L (21-32) Anion Gap 12 (6-14) Blood Urea Nitrogen 20 mg/dL (8-26) Creatinine 1.1 mg/dL (0.7-1.3) Estimated GFR (Cockcroft-Gault) 64.7 BUN/Creatinine Ratio 18 (6-20) Glucose Level 113 mg/dL (70-99) H Calcium Level 9.2 mg/dL (8.5-10.1) Total Bilirubin 0.2 mg/dL (0.2-1.0) Aspartate Amino Transferase (AST) 21 U/L (15-37) Alanine Aminotransferase (ALT) 26 U/L (16-63) Alkaline Phosphatase 81 U/L (46-116) Total Protein 6.2 g/dL (6.4-8.2) L Albumin 3.0 g/dL (3.4-5.0) L Albumin/Globulin Ratio 0.9 (1.0-1.7) L Valproic Acid Level 55 mcg/mL (50-100) Valproic Acid Last Dose Date 02/01/21 Valproic Acid Last Dose Time 2100 Current Medications: I have reviewed the current psychotropics carefully including drug interactions. Risk benefit ratio favors no change other than as noted in my dictated progress note. 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
--- NOTE | 2021-02-02 10:11 | NUR ---
Nursing note: Client in dinning room at morning medication pass and assessment, pulse <60 so did not administer metoprolol per parameters on EMAR. He was compliant with medications whole. Client walks around the unit at times, disorganized, speaks mostly in word salad.. He denies pain or discomfort. Client is currently in the day room. Will continue to monitor.
[2021-02-02 16:10] VITALS: BP 113/70
[2021-02-02] MEDS: ATORVASTATIN CALCIUM 20 MG TABLET PO SCH (20:17)
[2021-02-02] MEDS: MIRTAZAPINE 15 MG TABLET PO SCH (20:18)
--- NOTE | 2021-02-02 22:03 | PDOC ---
Exam Note: Ferny Note: Please also refer to the separate dictated note~for this date of service dictated separately.~Patient seen individually. Discussed the patient with Nursing staff reviewed the chart.~Reviewed interim history and current functioning. Reviewed vital signs,~Labs/ Radiology~and current medications noted below. Continue current treatment with the changes noted in the dictated addendum note Assessment: Vital Signs/I&O: Vital Signs Date Time Temp Pulse Resp B/P (MAP) Pulse Ox O2 Delivery O2 Flow Rate FiO2 02/02/21 20:17 60 113/70 02/02/21 16:10 97.5 18 96 02/02/21 05:57 Room Air I & O 02/01/21 02/01/21 02/02/21 15:00 23:00 07:00 Intake Total 840 ml 360 ml Balance 840 ml 360 ml Labs: Laboratory Tests Test 02/02/21 07:13 White Blood Count 6.4 x10^3/uL (4.0-11.0) Red Blood Count 4.58 x10^6/uL (4.30-5.70) Hemoglobin 14.8 g/dL (13.0-17.5) Hematocrit 45.2 % (39.0-53.0) Mean Corpuscular Volume 99 fL (79-100) Mean Corpuscular Hemoglobin 32 pg (25-35) Mean Corpuscular Hemoglobin Concent 33 g/dL (31-37) Red Cell Distribution Width 14.0 % (11.5-14.5) Platelet Count 155 x10^3/uL (140-400) Neutrophils (%) (Auto) 59 % (31-73) Lymphocytes (%) (Auto) 29 % (24-48) Monocytes (%) (Auto) 9 % (0-9) Eosinophils (%) (Auto) 3 % (0-3) Basophils (%) (Auto) 1 % (0-3) Neutrophils # (Auto) 3.8 x10^3uL (1.8-7.7) Lymphocytes # (Auto) 1.8 x10^3/uL (1.0-4.8) Monocytes # (Auto) 0.5 x10^3/uL (0.0-1.1) Eosinophils # (Auto) 0.2 x10^3/uL (0.0-0.7) Basophils # (Auto) 0.0 x10^3/uL (0.0-0.2) Platelet Estimate Adequate (ADEQUATE) Large Platelets Few Giant Platelets Few Sodium Level 144 mmol/L (136-145) Potassium Level 4.0 mmol/L (3.5-5.1) Chloride Level 106 mmol/L (98-107) Carbon Dioxide Level 26 mmol/L (21-32) Anion Gap 12 (6-14) Blood Urea Nitrogen 20 mg/dL (8-26) Creatinine 1.1 mg/dL (0.7-1.3) Estimated GFR (Cockcroft-Gault) 64.7 BUN/Creatinine Ratio 18 (6-20) Glucose Level 113 mg/dL (70-99) H Calcium Level 9.2 mg/dL (8.5-10.1) Total Bilirubin 0.2 mg/dL (0.2-1.0) Aspartate Amino Transferase (AST) 21 U/L (15-37) Alanine Aminotransferase (ALT) 26 U/L (16-63) Alkaline Phosphatase 81 U/L (46-116) Total Protein 6.2 g/dL (6.4-8.2) L Albumin 3.0 g/dL (3.4-5.0) L Albumin/Globulin Ratio 0.9 (1.0-1.7) L Valproic Acid Level 55 mcg/mL (50-100) Valproic Acid Last Dose Date 02/01/21 Valproic Acid Last Dose Time 2100 Current Medications: Meds: Laboratory Tests Test 02/02/21 07:13 White Blood Count 6.4 x10^3/uL Red Blood Count 4.58 x10^6/uL Hemoglobin 14.8 g/dL Hematocrit 45.2 % Mean Corpuscular Volume 99 fL Mean Corpuscular Hemoglobin 32 pg Mean Corpuscular Hemoglobin Concent 33 g/dL Red Cell Distribution Width 14.0 % Platelet Count 155 x10^3/uL Neutrophils (%) (Auto) 59 % Lymphocytes (%) (Auto) 29 % Monocytes (%) (Auto) 9 % Eosinophils (%) (Auto) 3 % Basophils (%) (Auto) 1 % Neutrophils # (Auto) 3.8 x10^3uL Lymphocytes # (Auto) 1.8 x10^3/uL Monocytes # (Auto) 0.5 x10^3/uL Eosinophils # (Auto) 0.2 x10^3/uL Basophils # (Auto) 0.0 x10^3/uL Platelet Estimate Adequate Large Platelets Few Giant Platelets Few Sodium Level 144 mmol/L Potassium Level 4.0 mmol/L Chloride Level 106 mmol/L Carbon Dioxide Level 26 mmol/L Anion Gap 12 Blood Urea Nitrogen 20 mg/dL Creatinine 1.1 mg/dL Estimated GFR (Cockcroft-Gault) 64.7 BUN/Creatinine Ratio 18 Glucose Level 113 mg/dL Calcium Level 9.2 mg/dL Total Bilirubin 0.2 mg/dL Aspartate Amino Transf (AST/SGOT) 21 U/L Alanine Aminotransferase (ALT/SGPT) 26 U/L Alkaline Phosphatase 81 U/L Total Protein 6.2 g/dL Albumin 3.0 g/dL Albumin/Globulin Ratio 0.9 Valproic Acid (Depakene) Level 55 mcg/mL Valproic Acid Last Dose Date 02/01/21 Valproic Acid Last Dose Time 2100 Current Medications Medications (Trade) Dose Ordered Sig/Ivonne Route PRN Reason Start Time Stop Time Status Last Admin Dose Admin Acetaminophen (Tylenol) 650 mg PRN Q6HRS PRN PO MILD PAIN 1-3 / TEMP > 100.3'F 01/14/21 15:30 Multi-Ingredient Ointment (Analgesic Garner) 1 yu PRN QID PRN TP MUSCLE PAIN 01/14/21 15:30 Al Hydroxide/Mg Hydroxide (Mylanta Plus Xs) 15 ml PRN AFTMEALHC PRN PO DYSPEPSIA 01/14/21 15:30 Magnesium Hydroxide (Milk Of Magnesia) 2,400 mg PRN QHS PRN PO 2ND CHOICE CONSTIPATION 01/14/21 15:30 Acetaminophen (Tylenol) 650 mg PRN Q6HRS PRN PO MILD PAIN 1-3 01/14/21 17:00 UNV Buspirone HCl (Buspar) 10 mg TID PO 01/14/21 21:00 02/02/21 20:18 Vitamin D (Vitamin D3) 2,000 unit DAILY PO 01/15/21 09:00 02/02/21 08:29 Clopidogrel Bisulfate (Plavix) 75 mg DAILY PO 01/15/21 09:00 02/02/21 08:29 Furosemide (Lasix) 20 mg DAILY PO 01/15/21 09:00 01/21/21 13:21 DC 01/21/21 09:15 Lorazepam (Ativan) 1 mg PRN Q8HRS PRN PO ANXIETY / AGITATION 01/14/21 17:00 01/22/21 10:47 DC 01/19/21 22:19 Metoprolol Tartrate (Lopressor) 25 mg BID PO 01/14/21 21:00 02/02/21 14:43 DC 01/31/21 18:26 Mirtazapine (Remeron) 7.5 mg QHS PO 01/14/21 21:00 01/20/21 16:54 DC 01/19/21 20:06 Olanzapine (ZyPREXA ZYDIS) 2.5 mg PRN Q2HR PRN PO ANXIETY / AGITATION 01/14/21 17:00 01/25/21 22:47 Polyethylene Glycol (miraLAX) 17 gm PRN DAILY PRN PO 1ST CHOICE CONSTIPATION 01/14/21 17:00 Risperidone (RisperDAL) 0.5 mg TID PO 01/14/21 21:00 01/22/21 10:47 DC 01/22/21 08:10 Sertraline HCl (Zoloft) 50 mg DAILY PO 01/15/21 09:00 01/27/21 19:38 DC 01/27/21 08:34 Atorvastatin Calcium (Lipitor) 80 mg QHS PO 01/14/21 21:00 02/02/21 20:17 Artificial Tears (Artificial Tears) 1 drop PRN Q2HRS PRN OU DRY EYE 01/14/21 17:30 01/28/21 09:53 Cyanocobalamin (Vitamin B-12) 1,000 mcg DAILY PO 01/15/21 09:00 02/02/21 08:28 Divalproex Sodium (Depakote Er) 500 mg BID PO 01/14/21 21:00 01/22/21 20:19 DC 01/22/21 08:11 Mirtazapine (Remeron) 15 mg QHS PO 01/20/21 21:00 02/02/21 20:18 Trazodone HCl (Desyrel) 50 mg PRN QHS PRN PO INSOMNIA, MAY REPEAT X1 01/20/21 17:00 01/26/21 19:58 Furosemide (Lasix) 80 mg DAILY PO 01/21/21 13:30 02/02/21 08:34 Potassium Chloride (Klor-Con) 20 meq DAILYWBKFT PO 01/22/21 08:00 02/02/21 08:27 Neomycin/ Polymyxin/ Dexamethasone (Maxitrol Ophth Oint) 2 yu BID OU 01/22/21 21:00 02/02/21 08:27 Divalproex Sodium (Depakote Sprinkles) 500 mg BID PO 01/22/21 21:00 02/02/21 20:16 Sertraline HCl (Zoloft) 75 mg DAILY PO 01/28/21 09:00 02/02/21 08:30 Metoprolol Tartrate (Lopressor) 12.5 mg BID PO 02/02/21 15:15 I have reviewed the current psychotropics carefully including drug interactions. Risk benefit ratio favors no change other than as noted in my dictated progress note. 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
--- NOTE | 2021-02-02 23:24 | NUR ---
Patient is cooperative and calm. Tonight he took his medications crushed in vanilla pudding per his request. He is disorganized and speaks word salad at times. Patient went to bed early and fell asleep quickly. No adverse behaviors noted at this time.
[2021-02-03] MEDS: traZODone 50 MG TABLET. PO PRN (02:08)
--- NOTE | 2021-02-03 02:20 | NUR ---
Patient up and is walking in the hallway. PRN trazodone given for insomnia. Will continue to monitor.
[2021-02-03 06:22] VITALS: BP 125/85
[2021-02-03] MEDS: CYANOCOBALAMIN (VITAMIN B-12) 1,000 MCG TABLET. PO SCH (08:36)
[2021-02-03] MEDS: DIVALPROEX 125 MG CAP.SPRINK PO SCH ×2 (08:36→20:03)
[2021-02-03] MEDS: POTASSIUM CHLORIDE 20 MEQ TABLET.ER. PO SCH (08:37)
[2021-02-03] MEDS: FUROSEMIDE 80 MG TABLET PO SCH (08:37)
[2021-02-03] MEDS: CHOLECALCIFEROL (VITAMIN D3) 1,000 UNIT TABLET PO SCH (08:37)
[2021-02-03] MEDS: busPIRone 10 MG TABLET. PO SCH ×3 (08:37→20:03)
[2021-02-03] MEDS: SERTRALINE 50 MG TABLET. PO SCH (08:37)
[2021-02-03] MEDS: CLOPIDOGREL BISULFATE 75 MG TABLET PO SCH (08:37)
[2021-02-03] MEDS: NEO/POLYMYX/DEXAMETH OPHTH OINTMENT 3.5GM TUBE. OU SCH ×2 (08:38→20:02)
[2021-02-03] MEDS: METOPROLOL TART IMMED RELEASE 25 MG TABLET. PO SCH ×2 (08:40→20:03)
--- NOTE | 2021-02-03 09:13 | PDOC ---
Exam Note: Ferny Note: This note is a late entry for 02/02/2021 covers elements not covered in my initial note. Subjective: The patient was seen individually in the evening of 02/02/2021 with Leda TOURE, discussed and reviewed the chart. He slept 7-3/4 hours previous night. Appetite is fair. He takes medications whole. Metoprolol was reduced from 25 mg a day down to 12.5 mg a day due to his bradycardia. Valproic acid level is 55. Review of Systems: Reliability poor. No CV, , pulmonary, eye system symptoms on review. Mental Status Exam: The patient is oriented to himself. Insight and judgment, recent and remote memory, attention and concentration, fund of knowledge is poor consistent with his diagnoses. Laboratory Data: Reviewed. Impression: Major neurocognitive disorder Alzheimer vascular with delusion, depression, behavioral disturbance. Anxiety disorder unspecified. Impulse control disorder unspecified. Plan: No change from initial note. Assessment: Vital Signs/I&O: Vital Signs Date Time Temp Pulse Resp B/P (MAP) Pulse Ox O2 Delivery O2 Flow Rate FiO2 02/03/21 08:40 61 125/85 02/03/21 06:22 97.5 18 97 Room Air I & O 02/02/21 02/02/21 02/03/21 15:00 23:00 07:00 Intake Total 960 ml 720 ml Balance 960 ml 720 ml Current Medications: Meds: Current Medications Medications (Trade) Dose Ordered Sig/Ivonne Route PRN Reason Start Time Stop Time Status Last Admin Dose Admin Acetaminophen (Tylenol) 650 mg PRN Q6HRS PRN PO MILD PAIN 1-3 / TEMP > 100.3'F 01/14/21 15:30 Multi-Ingredient Ointment (Analgesic [place]) 1 yu PRN QID PRN TP MUSCLE PAIN 01/14/21 15:30 Al Hydroxide/Mg Hydroxide (Mylanta Plus Xs) 15 ml PRN AFTMEALHC PRN PO DYSPEPSIA 01/14/21 15:30 Magnesium Hydroxide (Milk Of Magnesia) 2,400 mg PRN QHS PRN PO 2ND CHOICE CONSTIPATION 01/14/21 15:30 Acetaminophen (Tylenol) 650 mg PRN Q6HRS PRN PO MILD PAIN 1-3 01/14/21 17:00 UNV Buspirone HCl (Buspar) 10 mg TID PO 01/14/21 21:00 02/03/21 08:37 Vitamin D (Vitamin D3) 2,000 unit DAILY PO 01/15/21 09:00 02/03/21 08:37 Clopidogrel Bisulfate (Plavix) 75 mg DAILY PO 01/15/21 09:00 02/03/21 08:37 Furosemide (Lasix) 20 mg DAILY PO 01/15/21 09:00 01/21/21 13:21 DC 01/21/21 09:15 Lorazepam (Ativan) 1 mg PRN Q8HRS PRN PO ANXIETY / AGITATION 01/14/21 17:00 01/22/21 10:47 DC 01/19/21 22:19 Metoprolol Tartrate (Lopressor) 25 mg BID PO 01/14/21 21:00 02/02/21 14:43 DC 01/31/21 18:26 Mirtazapine (Remeron) 7.5 mg QHS PO 01/14/21 21:00 01/20/21 16:54 DC 01/19/21 20:06 Olanzapine (ZyPREXA ZYDIS) 2.5 mg PRN Q2HR PRN PO ANXIETY / AGITATION 01/14/21 17:00 01/25/21 22:47 Polyethylene Glycol (miraLAX) 17 gm PRN DAILY PRN PO 1ST CHOICE CONSTIPATION 01/14/21 17:00 Risperidone (RisperDAL) 0.5 mg TID PO 01/14/21 21:00 01/22/21 10:47 DC 01/22/21 08:10 Sertraline HCl (Zoloft) 50 mg DAILY PO 01/15/21 09:00 01/27/21 19:38 DC 01/27/21 08:34 Atorvastatin Calcium (Lipitor) 80 mg QHS PO 01/14/21 21:00 02/02/21 20:17 Artificial Tears (Artificial Tears) 1 drop PRN Q2HRS PRN OU DRY EYE 01/14/21 17:30 01/28/21 09:53 Cyanocobalamin (Vitamin B-12) 1,000 mcg DAILY PO 01/15/21 09:00 02/03/21 08:36 Divalproex Sodium (Depakote Er) 500 mg BID PO 01/14/21 21:00 01/22/21 20:19 DC 01/22/21 08:11 Mirtazapine (Remeron) 15 mg QHS PO 01/20/21 21:00 02/02/21 20:18 Trazodone HCl (Desyrel) 50 mg PRN QHS PRN PO INSOMNIA, MAY REPEAT X1 01/20/21 17:00 02/03/21 02:08 Furosemide (Lasix) 80 mg DAILY PO 01/21/21 13:30 02/03/21 08:37 Potassium Chloride (Klor-Con) 20 meq DAILYWBKFT PO 01/22/21 08:00 02/03/21 08:37 Neomycin/ Polymyxin/ Dexamethasone (Maxitrol Ophth Oint) 2 yu BID OU 01/22/21 21:00 02/03/21 08:38 Divalproex Sodium (Depakote Sprinkles) 500 mg BID PO 01/22/21 21:00 02/03/21 08:36 Sertraline HCl (Zoloft) 75 mg DAILY PO 01/28/21 09:00 02/03/21 08:37 Metoprolol Tartrate (Lopressor) 12.5 mg BID PO 02/02/21 15:15 02/03/21 08:40 Current Medications Medications (Trade) Dose Ordered Sig/Ivonne Route PRN Reason Start Time Stop Time Status Last Admin Dose Admin Metoprolol Tartrate (Lopressor) 12.5 mg BID PO 02/02/21 15:15 02/03/21 08:40 I have reviewed the current psychotropics carefully including drug interactions. Risk benefit ratio favors no change other than as noted in my dictated progress note. Diagnosis: Problems: (1) Impulse control disorder (2) Obsessive compulsive disorder (3) Major neurocognitive disorder (4) Dementia, vascular, with depression (5) Dementia in Alzheimer's disease with delusions (6) Anxiety disorder (7) Dementia, vascular, with delusions (8) Dementia in Alzheimer's disease with depression FRANCES HSU MD Feb 03, 2021 09:13
[2021-02-03 16:03] VITALS: BP 90/55
--- NOTE | 2021-02-03 18:04 | NUR ---
Patient alert to self only continues to be disorganized and confused. Patient med compliant just needs encouragement with putting pills in mouth and swallowing but does take pills without difficulty. Patient cooperative with cares and when being redirected when he wanders into the wrong room and bed. Patient has good appetite in the dining room for all meals no complaints of pain or discomfort no behaviors to report vitals wnl of baseline and stable, Dr Richmond and Dr Aguilar rounded on patient no new orders. Will continue to monitor patient.
[2021-02-03] MEDS: ATORVASTATIN CALCIUM 20 MG TABLET PO SCH (20:03)
[2021-02-03] MEDS: MIRTAZAPINE 15 MG TABLET PO SCH (20:04)
--- NOTE | 2021-02-03 21:42 | NUR ---
Patient was sitting calmly in the dayroom. He took his medications crushed in pudding. He is disorganized and only oriented to self. Patient answers questions incorrectly when asked and speaks "word salad". Patient is cooperative and pleasant, no adverse behaviors noted.
--- NOTE | 2021-02-03 22:21 | PDOC ---
Exam Note: Ferny Note: Please also refer to the separate dictated note~for this date of service dictated separately.~Patient seen individually. Discussed the patient with Nursing staff reviewed the chart.~Reviewed interim history and current functioning. Reviewed vital signs,~Labs/ Radiology~and current medications noted below. Continue current treatment with the changes noted in the dictated addendum note Assessment: Vital Signs/I&O: Vital Signs Date Time Temp Pulse Resp B/P (MAP) Pulse Ox O2 Delivery O2 Flow Rate FiO2 02/03/21 20:03 72 90/55 02/03/21 16:03 97.2 16 99 02/03/21 06:22 Room Air I & O 02/02/21 02/02/21 02/03/21 15:00 23:00 07:00 Intake Total 960 ml 720 ml Balance 960 ml 720 ml Current Medications: Meds: Current Medications Medications (Trade) Dose Ordered Sig/Ivonne Route PRN Reason Start Time Stop Time Status Last Admin Dose Admin Acetaminophen (Tylenol) 650 mg PRN Q6HRS PRN PO MILD PAIN 1-3 / TEMP > 100.3'F 01/14/21 15:30 Multi-Ingredient Ointment (Analgesic [place]) 1 yu PRN QID PRN TP MUSCLE PAIN 01/14/21 15:30 Al Hydroxide/Mg Hydroxide (Mylanta Plus Xs) 15 ml PRN AFTMEALHC PRN PO DYSPEPSIA 01/14/21 15:30 Magnesium Hydroxide (Milk Of Magnesia) 2,400 mg PRN QHS PRN PO 2ND CHOICE CONSTIPATION 01/14/21 15:30 Acetaminophen (Tylenol) 650 mg PRN Q6HRS PRN PO MILD PAIN 1-3 01/14/21 17:00 UNV Buspirone HCl (Buspar) 10 mg TID PO 01/14/21 21:00 02/03/21 20:03 Vitamin D (Vitamin D3) 2,000 unit DAILY PO 01/15/21 09:00 02/03/21 08:37 Clopidogrel Bisulfate (Plavix) 75 mg DAILY PO 01/15/21 09:00 02/03/21 08:37 Furosemide (Lasix) 20 mg DAILY PO 01/15/21 09:00 01/21/21 13:21 DC 01/21/21 09:15 Lorazepam (Ativan) 1 mg PRN Q8HRS PRN PO ANXIETY / AGITATION 01/14/21 17:00 01/22/21 10:47 DC 01/19/21 22:19 Metoprolol Tartrate (Lopressor) 25 mg BID PO 01/14/21 21:00 02/02/21 14:43 DC 01/31/21 18:26 Mirtazapine (Remeron) 7.5 mg QHS PO 01/14/21 21:00 01/20/21 16:54 DC 01/19/21 20:06 Olanzapine (ZyPREXA ZYDIS) 2.5 mg PRN Q2HR PRN PO ANXIETY / AGITATION 01/14/21 17:00 01/25/21 22:47 Polyethylene Glycol (miraLAX) 17 gm PRN DAILY PRN PO 1ST CHOICE CONSTIPATION 01/14/21 17:00 Risperidone (RisperDAL) 0.5 mg TID PO 01/14/21 21:00 01/22/21 10:47 DC 01/22/21 08:10 Sertraline HCl (Zoloft) 50 mg DAILY PO 01/15/21 09:00 01/27/21 19:38 DC 01/27/21 08:34 Atorvastatin Calcium (Lipitor) 80 mg QHS PO 01/14/21 21:00 02/03/21 20:03 Artificial Tears (Artificial Tears) 1 drop PRN Q2HRS PRN OU DRY EYE 01/14/21 17:30 01/28/21 09:53 Cyanocobalamin (Vitamin B-12) 1,000 mcg DAILY PO 01/15/21 09:00 02/03/21 08:36 Divalproex Sodium (Depakote Er) 500 mg BID PO 01/14/21 21:00 01/22/21 20:19 DC 01/22/21 08:11 Mirtazapine (Remeron) 15 mg QHS PO 01/20/21 21:00 02/03/21 20:04 Trazodone HCl (Desyrel) 50 mg PRN QHS PRN PO INSOMNIA, MAY REPEAT X1 01/20/21 17:00 02/03/21 02:08 Furosemide (Lasix) 80 mg DAILY PO 01/21/21 13:30 02/03/21 08:37 Potassium Chloride (Klor-Con) 20 meq DAILYWBKFT PO 01/22/21 08:00 02/03/21 08:37 Neomycin/ Polymyxin/ Dexamethasone (Maxitrol Ophth Oint) 2 yu BID OU 01/22/21 21:00 02/03/21 20:02 Divalproex Sodium (Depakote Sprinkles) 500 mg BID PO 01/22/21 21:00 02/03/21 20:03 Sertraline HCl (Zoloft) 75 mg DAILY PO 01/28/21 09:00 02/03/21 08:37 Metoprolol Tartrate (Lopressor) 12.5 mg BID PO 02/02/21 15:15 02/03/21 08:40 I have reviewed the current psychotropics carefully including drug interactions. Risk benefit ratio favors no change other than as noted in my dictated progress note. Diagnosis: Problems: (1) Impulse control disorder (2) Obsessive compulsive disorder (3) Major neurocognitive disorder (4) Dementia, vascular, with depression (5) Dementia in Alzheimer's disease with delusions (6) Anxiety disorder (7) Dementia, vascular, with delusions (8) Dementia in Alzheimer's disease with depression FRANCES HSU MD Feb 03, 2021 22:20
[2021-02-04 06:32] VITALS: BP 118/75
--- NOTE | 2021-02-04 06:46 | PDOC ---
Exam Note: Ferny Note: This note is a late entry for 02/03/2021 covers elements not covered in my initial note. Subjective: The patient was seen individually in the evening of 02/03/2021 with Lauri TOURE, discussed and reviewed the chart. He slept 6-1/2 hours previous night. he remains confused, wandering. Review of Systems: Reliability poor. No CV, , pulmonary, eye system symptoms on review. Mental Status Exam: The patient is oriented to himself. Insight and judgment, recent and remote memory, attention and concentration, fund of knowledge is poor consistent with his diagnoses. Laboratory Data: Reviewed. Impression: Major neurocognitive disorder Alzheimer vascular with delusion, depression, behavioral disturbance. Anxiety disorder unspecified. Impulse control disorder unspecified. Plan: No change from initial note. Assessment: Vital Signs/I&O: Vital Signs Date Time Temp Pulse Resp B/P (MAP) Pulse Ox O2 Delivery O2 Flow Rate FiO2 02/04/21 06:32 97.3 53 18 118/75 (89) 96 Room Air I & O 02/03/21 02/03/21 02/04/21 15:00 23:00 07:00 Intake Total 840 ml 600 ml Balance 840 ml 600 ml Current Medications: Meds: Current Medications Medications (Trade) Dose Ordered Sig/Ivonne Route PRN Reason Start Time Stop Time Status Last Admin Dose Admin Acetaminophen (Tylenol) 650 mg PRN Q6HRS PRN PO MILD PAIN 1-3 / TEMP > 100.3'F 01/14/21 15:30 Multi-Ingredient Ointment (Analgesic [place]) 1 yu PRN QID PRN TP MUSCLE PAIN 01/14/21 15:30 Al Hydroxide/Mg Hydroxide (Mylanta Plus Xs) 15 ml PRN AFTMEALHC PRN PO DYSPEPSIA 01/14/21 15:30 Magnesium Hydroxide (Milk Of Magnesia) 2,400 mg PRN QHS PRN PO 2ND CHOICE CONSTIPATION 01/14/21 15:30 Acetaminophen (Tylenol) 650 mg PRN Q6HRS PRN PO MILD PAIN 1-3 01/14/21 17:00 UNV Buspirone HCl (Buspar) 10 mg TID PO 01/14/21 21:00 02/03/21 20:03 Vitamin D (Vitamin D3) 2,000 unit DAILY PO 01/15/21 09:00 02/03/21 08:37 Clopidogrel Bisulfate (Plavix) 75 mg DAILY PO 01/15/21 09:00 02/03/21 08:37 Furosemide (Lasix) 20 mg DAILY PO 01/15/21 09:00 01/21/21 13:21 DC 01/21/21 09:15 Lorazepam (Ativan) 1 mg PRN Q8HRS PRN PO ANXIETY / AGITATION 01/14/21 17:00 01/22/21 10:47 DC 01/19/21 22:19 Metoprolol Tartrate (Lopressor) 25 mg BID PO 01/14/21 21:00 02/02/21 14:43 DC 01/31/21 18:26 Mirtazapine (Remeron) 7.5 mg QHS PO 01/14/21 21:00 01/20/21 16:54 DC 01/19/21 20:06 Olanzapine (ZyPREXA ZYDIS) 2.5 mg PRN Q2HR PRN PO ANXIETY / AGITATION 01/14/21 17:00 01/25/21 22:47 Polyethylene Glycol (miraLAX) 17 gm PRN DAILY PRN PO 1ST CHOICE CONSTIPATION 01/14/21 17:00 Risperidone (RisperDAL) 0.5 mg TID PO 01/14/21 21:00 01/22/21 10:47 DC 01/22/21 08:10 Sertraline HCl (Zoloft) 50 mg DAILY PO 01/15/21 09:00 01/27/21 19:38 DC 01/27/21 08:34 Atorvastatin Calcium (Lipitor) 80 mg QHS PO 01/14/21 21:00 02/03/21 20:03 Artificial Tears (Artificial Tears) 1 drop PRN Q2HRS PRN OU DRY EYE 01/14/21 17:30 01/28/21 09:53 Cyanocobalamin (Vitamin B-12) 1,000 mcg DAILY PO 01/15/21 09:00 02/03/21 08:36 Divalproex Sodium (Depakote Er) 500 mg BID PO 01/14/21 21:00 01/22/21 20:19 DC 01/22/21 08:11 Mirtazapine (Remeron) 15 mg QHS PO 01/20/21 21:00 02/03/21 20:04 Trazodone HCl (Desyrel) 50 mg PRN QHS PRN PO INSOMNIA, MAY REPEAT X1 01/20/21 17:00 02/03/21 02:08 Furosemide (Lasix) 80 mg DAILY PO 01/21/21 13:30 02/03/21 08:37 Potassium Chloride (Klor-Con) 20 meq DAILYWBKFT PO 01/22/21 08:00 02/03/21 08:37 Neomycin/ Polymyxin/ Dexamethasone (Maxitrol Ophth Oint) 2 yu BID OU 01/22/21 21:00 02/03/21 20:02 Divalproex Sodium (Depakote Sprinkles) 500 mg BID PO 01/22/21 21:00 02/03/21 20:03 Sertraline HCl (Zoloft) 75 mg DAILY PO 01/28/21 09:00 02/03/21 08:37 Metoprolol Tartrate (Lopressor) 12.5 mg BID PO 02/02/21 15:15 02/03/21 08:40 I have reviewed the current psychotropics carefully including drug interactions. Risk benefit ratio favors no change other than as noted in my dictated progress note. Diagnosis: Problems: (1) Impulse control disorder (2) Major neurocognitive disorder (3) Dementia, vascular, with depression (4) Dementia in Alzheimer's disease with delusions (5) Anxiety disorder (6) Dementia, vascular, with delusions (7) Dementia in Alzheimer's disease with depression FRANCES SHU MD Feb 04, 2021 06:46
[2021-02-04] MEDS: POTASSIUM CHLORIDE 20 MEQ TABLET.ER. PO SCH (08:00)
[2021-02-04] MEDS: NEO/POLYMYX/DEXAMETH OPHTH OINTMENT 3.5GM TUBE. OU SCH ×2 (08:18→21:19)
[2021-02-04] MEDS: CHOLECALCIFEROL (VITAMIN D3) 1,000 UNIT TABLET PO SCH (08:18)
[2021-02-04] MEDS: busPIRone 10 MG TABLET. PO SCH ×3 (08:19→21:19)
[2021-02-04] MEDS: FUROSEMIDE 80 MG TABLET PO SCH (08:19)
[2021-02-04] MEDS: DIVALPROEX 125 MG CAP.SPRINK PO SCH ×2 (08:19→21:19)
[2021-02-04] MEDS: SERTRALINE 50 MG TABLET. PO SCH (08:19)
[2021-02-04] MEDS: CYANOCOBALAMIN (VITAMIN B-12) 1,000 MCG TABLET. PO SCH (08:19)
[2021-02-04] MEDS: CLOPIDOGREL BISULFATE 75 MG TABLET PO SCH (08:19)
[2021-02-04] MEDS: METOPROLOL TART IMMED RELEASE 25 MG TABLET. PO SCH ×2 (08:20→21:08)
--- NOTE | 2021-02-04 08:54 | NUR ---
[facility] Social Work Discharge Planning Form Patient Name ERIC GIL Admit Date: DISCHARGE PLAN Discharge Destination: [facility] Assessment: No Level II Assessment: No Transportation: Facility, [facility], [facility] p/u at 1100. Special Instructions/Notes: Please fax signed med list, visit summary, and most recent covid swab results to facility at fax number listed below. DISCHARGE TO FACILITY Facility: [facility] Address[address] [place] [place] [address] Contact Name: Suzie Tovar, Reading Aide PCP: Dr. Em Psychiatrist: Dr. Ellis
[2021-02-04 15:57] VITALS: BP 107/62
--- NOTE | 2021-02-04 17:58 | NUR ---
Patient alert to self only very disorganized but pleasant, no behaviors from patient today, med compliant with verbal cues and cooperative with cares. Patient has good appetite eats meals in the dining room with other patients. Patient vitals stable and wnl of baseline he is scheduled to D/C tomorrow med list signed by DR Boo no new orders for Dr Boo or Dr Aguilar. Will continue to monitor patient.
[2021-02-04] MEDS: ATORVASTATIN CALCIUM 20 MG TABLET PO SCH (21:19)
[2021-02-04] MEDS: MIRTAZAPINE 15 MG TABLET PO SCH (21:19)
--- NOTE | 2021-02-04 22:08 | PDOC ---
Exam Note: Ferny Note: Please also refer to the separate dictated note~for this date of service dictated separately.~Patient seen individually. Discussed the patient with Nursing staff reviewed the chart.~Reviewed interim history and current functioning. Reviewed vital signs,~Labs/ Radiology~and current medications noted below. Continue current treatment with the changes noted in the dictated addendum note Assessment: Vital Signs/I&O: Vital Signs Date Time Temp Pulse Resp B/P (MAP) Pulse Ox O2 Delivery O2 Flow Rate FiO2 02/04/21 21:08 74 107/62 02/04/21 15:57 97.8 16 95 02/04/21 06:32 Room Air I & O 02/03/21 02/03/21 02/04/21 15:00 23:00 07:00 Intake Total 840 ml 600 ml Balance 840 ml 600 ml Current Medications: Meds: Current Medications Medications (Trade) Dose Ordered Sig/Ivonne Route PRN Reason Start Time Stop Time Status Last Admin Dose Admin Acetaminophen (Tylenol) 650 mg PRN Q6HRS PRN PO MILD PAIN 1-3 / TEMP > 100.3'F 01/14/21 15:30 Multi-Ingredient Ointment (Analgesic [place]) 1 yu PRN QID PRN TP MUSCLE PAIN 01/14/21 15:30 Al Hydroxide/Mg Hydroxide (Mylanta Plus Xs) 15 ml PRN AFTMEALHC PRN PO DYSPEPSIA 01/14/21 15:30 Magnesium Hydroxide (Milk Of Magnesia) 2,400 mg PRN QHS PRN PO 2ND CHOICE CONSTIPATION 01/14/21 15:30 Acetaminophen (Tylenol) 650 mg PRN Q6HRS PRN PO MILD PAIN 1-3 01/14/21 17:00 UNV Buspirone HCl (Buspar) 10 mg TID PO 01/14/21 21:00 02/04/21 21:19 Vitamin D (Vitamin D3) 2,000 unit DAILY PO 01/15/21 09:00 02/04/21 08:18 Clopidogrel Bisulfate (Plavix) 75 mg DAILY PO 01/15/21 09:00 02/04/21 08:19 Furosemide (Lasix) 20 mg DAILY PO 01/15/21 09:00 01/21/21 13:21 DC 01/21/21 09:15 Lorazepam (Ativan) 1 mg PRN Q8HRS PRN PO ANXIETY / AGITATION 01/14/21 17:00 01/22/21 10:47 DC 01/19/21 22:19 Metoprolol Tartrate (Lopressor) 25 mg BID PO 01/14/21 21:00 02/02/21 14:43 DC 01/31/21 18:26 Mirtazapine (Remeron) 7.5 mg QHS PO 01/14/21 21:00 01/20/21 16:54 DC 01/19/21 20:06 Olanzapine (ZyPREXA ZYDIS) 2.5 mg PRN Q2HR PRN PO ANXIETY / AGITATION 01/14/21 17:00 01/25/21 22:47 Polyethylene Glycol (miraLAX) 17 gm PRN DAILY PRN PO 1ST CHOICE CONSTIPATION 01/14/21 17:00 Risperidone (RisperDAL) 0.5 mg TID PO 01/14/21 21:00 01/22/21 10:47 DC 01/22/21 08:10 Sertraline HCl (Zoloft) 50 mg DAILY PO 01/15/21 09:00 01/27/21 19:38 DC 01/27/21 08:34 Atorvastatin Calcium (Lipitor) 80 mg QHS PO 01/14/21 21:00 02/04/21 21:19 Artificial Tears (Artificial Tears) 1 drop PRN Q2HRS PRN OU DRY EYE 01/14/21 17:30 01/28/21 09:53 Cyanocobalamin (Vitamin B-12) 1,000 mcg DAILY PO 01/15/21 09:00 02/04/21 08:19 Divalproex Sodium (Depakote Er) 500 mg BID PO 01/14/21 21:00 01/22/21 20:19 DC 01/22/21 08:11 Mirtazapine (Remeron) 15 mg QHS PO 01/20/21 21:00 02/04/21 21:19 Trazodone HCl (Desyrel) 50 mg PRN QHS PRN PO INSOMNIA, MAY REPEAT X1 01/20/21 17:00 02/03/21 02:08 Furosemide (Lasix) 80 mg DAILY PO 01/21/21 13:30 02/04/21 08:19 Potassium Chloride (Klor-Con) 20 meq DAILYWBKFT PO 01/22/21 08:00 02/04/21 08:00 Neomycin/ Polymyxin/ Dexamethasone (Maxitrol Ophth Oint) 2 yu BID OU 01/22/21 21:00 02/04/21 21:19 Divalproex Sodium (Depakote Sprinkles) 500 mg BID PO 01/22/21 21:00 02/04/21 21:19 Sertraline HCl (Zoloft) 75 mg DAILY PO 01/28/21 09:00 02/04/21 08:19 Metoprolol Tartrate (Lopressor) 12.5 mg BID PO 02/02/21 15:15 02/03/21 08:40 I have reviewed the current psychotropics carefully including drug interactions. Risk benefit ratio favors no change other than as noted in my dictated progress note. Diagnosis: Problems: (1) Impulse control disorder (2) Obsessive compulsive disorder (3) Major neurocognitive disorder (4) Dementia, vascular, with depression (5) Dementia in Alzheimer's disease with delusions (6) Anxiety disorder (7) Dementia, vascular, with delusions (8) Dementia in Alzheimer's disease with depression FRANCES HSU MD Feb 04, 2021 22:08
--- NOTE | 2021-02-04 22:42 | NUR ---
Patient was observed wandering in the hallways, he then fell asleep in a peers bed. Initially patient was resistive with medications, nurse then crushed the meds in vanilla pudding. Nurse then waited 30 minutes and patient was willing to taken the meds at that time. Patient has a very short term memory, is calm, cooperative with cares and compliant with meds.
[2021-02-05] MEDS ORDERED: DIVA125C2 PO (00:13)
[2021-02-05] MEDS ORDERED: FURO80TA3 PO (00:14)
[2021-02-05] MEDS ORDERED: MIRT-7 PO (00:16)
[2021-02-05] MEDS ORDERED: POLY15DR20 EACHEYE (00:19)
[2021-02-05] MEDS ORDERED: SERT50TA PO (00:22)
[2021-02-05] MEDS ORDERED: POTA20TA4 PO (00:23)
[2021-02-05] MEDS ORDERED: TRAZ-120 PO (00:24)
[2021-02-05] MEDS ORDERED: METH57CR17 TP (00:25)
[2021-02-05] MEDS ORDERED: MAGN24003 PO (00:26)
[2021-02-05] MEDS ORDERED: MAG355OR98 PO (00:27)
[2021-02-05] MEDS ORDERED: NEO/3.5O EACHEYE (00:29)
[2021-02-05 06:03] VITALS: BP 108/64
--- NOTE | 2021-02-05 07:16 | PDOC ---
Exam Note: Ferny Note: This note is a late entry for 02/04/2021 covers elements not covered in my initial note. Subjective: The patient was seen individually in the evening of 02/04/2021 with Lauri TOURE, discussed and reviewed the chart. He slept 7-1/4 hours previous night. The patient is compliant with medications. He will be discharged tomorrow. Review of Systems: Reliability poor. No CV, , pulmonary, eye system symptoms on review. Mental Status Exam: The patient is oriented to himself. Insight and judgment, recent and remote memory, attention and concentration, fund of knowledge is poor consistent with his diagnoses. Laboratory Data: Reviewed. Impression: Major neurocognitive disorder Alzheimer vascular with delusion, depression, behavioral disturbance. Anxiety disorder unspecified. Impulse control disorder unspecified. Plan: No change from initial note. Assessment: Vital Signs/I&O: Vital Signs Date Time Temp Pulse Resp B/P (MAP) Pulse Ox O2 Delivery O2 Flow Rate FiO2 02/05/21 06:03 96.8 55 18 108/64 (79) 95 Room Air I & O 02/04/21 02/04/21 02/05/21 15:00 23:00 07:00 Intake Total 600 ml 480 ml Balance 600 ml 480 ml Current Medications: Meds: Current Medications Medications (Trade) Dose Ordered Sig/Ivonne Route PRN Reason Start Time Stop Time Status Last Admin Dose Admin Acetaminophen (Tylenol) 650 mg PRN Q6HRS PRN PO MILD PAIN 1-3 / TEMP > 100.3'F 01/14/21 15:30 Multi-Ingredient Ointment (Analgesic [place]) 1 yu PRN QID PRN TP MUSCLE PAIN 01/14/21 15:30 Al Hydroxide/Mg Hydroxide (Mylanta Plus Xs) 15 ml PRN AFTMEALHC PRN PO DYSPEPSIA 01/14/21 15:30 Magnesium Hydroxide (Milk Of Magnesia) 2,400 mg PRN QHS PRN PO 2ND CHOICE CONSTIPATION 01/14/21 15:30 Acetaminophen (Tylenol) 650 mg PRN Q6HRS PRN PO MILD PAIN 1-3 01/14/21 17:00 UNV Buspirone HCl (Buspar) 10 mg TID PO 01/14/21 21:00 02/04/21 21:19 Vitamin D (Vitamin D3) 2,000 unit DAILY PO 01/15/21 09:00 02/04/21 08:18 Clopidogrel Bisulfate (Plavix) 75 mg DAILY PO 01/15/21 09:00 02/04/21 08:19 Furosemide (Lasix) 20 mg DAILY PO 01/15/21 09:00 01/21/21 13:21 DC 01/21/21 09:15 Lorazepam (Ativan) 1 mg PRN Q8HRS PRN PO ANXIETY / AGITATION 01/14/21 17:00 01/22/21 10:47 DC 01/19/21 22:19 Metoprolol Tartrate (Lopressor) 25 mg BID PO 01/14/21 21:00 02/02/21 14:43 DC 01/31/21 18:26 Mirtazapine (Remeron) 7.5 mg QHS PO 01/14/21 21:00 01/20/21 16:54 DC 01/19/21 20:06 Olanzapine (ZyPREXA ZYDIS) 2.5 mg PRN Q2HR PRN PO ANXIETY / AGITATION 01/14/21 17:00 01/25/21 22:47 Polyethylene Glycol (miraLAX) 17 gm PRN DAILY PRN PO 1ST CHOICE CONSTIPATION 01/14/21 17:00 Risperidone (RisperDAL) 0.5 mg TID PO 01/14/21 21:00 01/22/21 10:47 DC 01/22/21 08:10 Sertraline HCl (Zoloft) 50 mg DAILY PO 01/15/21 09:00 01/27/21 19:38 DC 01/27/21 08:34 Atorvastatin Calcium (Lipitor) 80 mg QHS PO 01/14/21 21:00 02/04/21 21:19 Artificial Tears (Artificial Tears) 1 drop PRN Q2HRS PRN OU DRY EYE 01/14/21 17:30 01/28/21 09:53 Cyanocobalamin (Vitamin B-12) 1,000 mcg DAILY PO 01/15/21 09:00 02/04/21 08:19 Divalproex Sodium (Depakote Er) 500 mg BID PO 01/14/21 21:00 01/22/21 20:19 DC 01/22/21 08:11 Mirtazapine (Remeron) 15 mg QHS PO 01/20/21 21:00 02/04/21 21:19 Trazodone HCl (Desyrel) 50 mg PRN QHS PRN PO INSOMNIA, MAY REPEAT X1 01/20/21 17:00 02/03/21 02:08 Furosemide (Lasix) 80 mg DAILY PO 01/21/21 13:30 02/04/21 08:19 Potassium Chloride (Klor-Con) 20 meq DAILYWBKFT PO 01/22/21 08:00 02/04/21 08:00 Neomycin/ Polymyxin/ Dexamethasone (Maxitrol Ophth Oint) 2 yu BID OU 01/22/21 21:00 02/04/21 21:19 Divalproex Sodium (Depakote Sprinkles) 500 mg BID PO 01/22/21 21:00 02/04/21 21:19 Sertraline HCl (Zoloft) 75 mg DAILY PO 01/28/21 09:00 02/04/21 08:19 Metoprolol Tartrate (Lopressor) 12.5 mg BID PO 02/02/21 15:15 02/03/21 08:40 I have reviewed the current psychotropics carefully including drug interactions. Risk benefit ratio favors no change other than as noted in my dictated progress note. Diagnosis: Problems: (1) Dementia, vascular, with depression (2) Dementia in Alzheimer's disease with delusions (3) Major neurocognitive disorder (4) Anxiety disorder (5) Dementia, vascular, with delusions (6) Dementia in Alzheimer's disease with depression FRANCES HSU MD Feb 05, 2021 07:16
[2021-02-05] MEDS: POTASSIUM CHLORIDE 20 MEQ TABLET.ER. PO SCH (08:15)
[2021-02-05] MEDS: DIVALPROEX 125 MG CAP.SPRINK PO SCH (08:15)
[2021-02-05] MEDS: CLOPIDOGREL BISULFATE 75 MG TABLET PO SCH (08:16)
[2021-02-05] MEDS: busPIRone 10 MG TABLET. PO SCH (08:16)
[2021-02-05] MEDS: SERTRALINE 50 MG TABLET. PO SCH (08:16)
[2021-02-05] MEDS: FUROSEMIDE 80 MG TABLET PO SCH (08:16)
[2021-02-05] MEDS: CHOLECALCIFEROL (VITAMIN D3) 1,000 UNIT TABLET PO SCH (08:16)
[2021-02-05] MEDS: CYANOCOBALAMIN (VITAMIN B-12) 1,000 MCG TABLET. PO SCH (08:16)
[2021-02-05] MEDS: METOPROLOL TART IMMED RELEASE 25 MG TABLET. PO SCH (09:00)
[2021-02-05] MEDS: NEO/POLYMYX/DEXAMETH OPHTH OINTMENT 3.5GM TUBE. OU SCH (09:00)
--- NOTE | 2021-02-05 10:15 | NUR ---
Pt disorganized but pleasant today. A&O to self only. He is compliant with medications floated in pudding. Plan of care continues, preparing for d/c.
[2021-02-05 11:15] VITALS: BP 104/69
--- NOTE | 2021-02-05 12:07 | NUR ---
WEEKLY ACTIVITY THERAPY NOTE Date of Admission:01/14/21 Date of AT Assessment: 01/15 Precipitating behaviors that initiated intake and admission:periods of restlessness, not sleeping, grabbed peer and shoved them, possessive over peer (female) & doesn't want her to go with anyone else, agitated, paranoid Goal aimed: increase stress management and relaxation skills Initial Goal: Pt will participate in at least three individual or group Activity Therapy sessions before discharge. Goal repeated 01/29 Weekly progress towards goal: on track (01/29-country/western bingo, 02/02-flexibility/finish the phrase/patio/music) Group participation level: 2 min Weekly highlights: clapped and danced during [place]/ [place], participated in a couple exercises Tuesday morning Behaviors observed: withdrawn to room, sleeping often Plan: no change to goal Beneficial adaptations: prompting needed
--- NOTE | 2021-02-05 12:50 | NUR ---
Transition Record was faxed to follow-up provider with the following elements: Reason for admission, procedures, tests, principal diagnosis, pending studies, patient instructions, 21/03 contact information for unit, phone number to obtain pending test results, plan for follow-up care, physician follow-up, advanced directive information, and medication list with dose, duration and instructions. This information was included in the following documents: History and physical, lab results, study results, progress notes, social work planning form, DC instruction form, patient visit summary, and medication reconciliation form. Date & time record faxed: 02/05/21808 Record faxed to: Osmel SADLER [phone] Record discussed with/ report given to: Pattie [phone]
--- NOTE | 2021-02-05 22:00 | PDOC ---
Exam Note: Ferny Note: Please also refer to the separate dictated note~for this date of service dictated separately.~Patient seen individually. Discussed the patient with Nursing staff reviewed the chart.~Reviewed interim history and current functioning. Reviewed vital signs,~Labs/ Radiology~and current medications noted below. Continue current treatment with the changes noted in the dictated addendum note Assessment: Vital Signs/I&O: Vital Signs Date Time Temp Pulse Resp B/P (MAP) Pulse Ox O2 Delivery O2 Flow Rate FiO2 02/05/21 11:15 64 104/69 (81) 02/05/21 06:03 96.8 18 95 Room Air I & O 02/04/21 02/04/21 02/05/21 15:00 23:00 07:00 Intake Total 600 ml 480 ml Balance 600 ml 480 ml Current Medications: Meds: Current Medications Medications (Trade) Dose Ordered Sig/Ivonne Route PRN Reason Start Time Stop Time Status Last Admin Dose Admin Acetaminophen (Tylenol) 650 mg PRN Q6HRS PRN PO MILD PAIN 1-3 / TEMP > 100.3'F 01/14/21 15:30 02/05/21 12:52 DC Multi-Ingredient Ointment (Analgesic [place]) 1 yu PRN QID PRN TP MUSCLE PAIN 01/14/21 15:30 02/05/21 12:52 DC Al Hydroxide/Mg Hydroxide (Mylanta Plus Xs) 15 ml PRN AFTMEALHC PRN PO DYSPEPSIA 01/14/21 15:30 02/05/21 12:52 DC Magnesium Hydroxide (Milk Of Magnesia) 2,400 mg PRN QHS PRN PO 2ND CHOICE CONSTIPATION 01/14/21 15:30 02/05/21 12:52 DC Acetaminophen (Tylenol) 650 mg PRN Q6HRS PRN PO MILD PAIN 1-3 01/14/21 17:00 UNV Buspirone HCl (Buspar) 10 mg TID PO 01/14/21 21:00 02/05/21 12:52 DC 02/05/21 08:16 Vitamin D (Vitamin D3) 2,000 unit DAILY PO 01/15/21 09:00 02/05/21 12:52 DC 02/05/21 08:16 Clopidogrel Bisulfate (Plavix) 75 mg DAILY PO 01/15/21 09:00 02/05/21 12:52 DC 02/05/21 08:16 Furosemide (Lasix) 20 mg DAILY PO 01/15/21 09:00 01/21/21 13:21 DC 01/21/21 09:15 Lorazepam (Ativan) 1 mg PRN Q8HRS PRN PO ANXIETY / AGITATION 01/14/21 17:00 01/22/21 10:47 DC 01/19/21 22:19 Metoprolol Tartrate (Lopressor) 25 mg BID PO 01/14/21 21:00 02/02/21 14:43 DC 01/31/21 18:26 Mirtazapine (Remeron) 7.5 mg QHS PO 01/14/21 21:00 01/20/21 16:54 DC 01/19/21 20:06 Olanzapine (ZyPREXA ZYDIS) 2.5 mg PRN Q2HR PRN PO ANXIETY / AGITATION 01/14/21 17:00 02/05/21 12:52 DC 01/25/21 22:47 Polyethylene Glycol (miraLAX) 17 gm PRN DAILY PRN PO 1ST CHOICE CONSTIPATION 01/14/21 17:00 02/05/21 12:52 DC Risperidone (RisperDAL) 0.5 mg TID PO 01/14/21 21:00 01/22/21 10:47 DC 01/22/21 08:10 Sertraline HCl (Zoloft) 50 mg DAILY PO 01/15/21 09:00 01/27/21 19:38 DC 01/27/21 08:34 Atorvastatin Calcium (Lipitor) 80 mg QHS PO 01/14/21 21:00 02/05/21 12:52 DC 02/04/21 21:19 Artificial Tears (Artificial Tears) 1 drop PRN Q2HRS PRN OU DRY EYE 01/14/21 17:30 02/05/21 12:52 DC 01/28/21 09:53 Cyanocobalamin (Vitamin B-12) 1,000 mcg DAILY PO 01/15/21 09:00 02/05/21 12:52 DC 02/05/21 08:16 Divalproex Sodium (Depakote Er) 500 mg BID PO 01/14/21 21:00 01/22/21 20:19 DC 01/22/21 08:11 Mirtazapine (Remeron) 15 mg QHS PO 01/20/21 21:00 02/05/21 12:52 DC 02/04/21 21:19 Trazodone HCl (Desyrel) 50 mg PRN QHS PRN PO INSOMNIA, MAY REPEAT X1 01/20/21 17:00 02/05/21 12:52 DC 02/03/21 02:08 Furosemide (Lasix) 80 mg DAILY PO 01/21/21 13:30 02/05/21 12:52 DC 02/05/21 08:16 Potassium Chloride (Klor-Con) 20 meq DAILYWBKFT PO 01/22/21 08:00 02/05/21 12:52 DC 02/05/21 08:15 Neomycin/ Polymyxin/ Dexamethasone (Maxitrol Ophth Oint) 2 yu BID OU 01/22/21 21:00 02/05/21 12:52 DC 02/05/21 09:00 Divalproex Sodium (Depakote Sprinkles) 500 mg BID PO 01/22/21 21:00 02/05/21 12:52 DC 02/05/21 08:15 Sertraline HCl (Zoloft) 75 mg DAILY PO 01/28/21 09:00 02/05/21 12:52 DC 02/05/21 08:16 Metoprolol Tartrate (Lopressor) 12.5 mg BID PO 02/02/21 15:15 02/05/21 12:52 DC 02/05/21 09:00 I have reviewed the current psychotropics carefully including drug interactions. Risk benefit ratio favors no change other than as noted in my dictated progress note. 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
--- NOTE | 2021-02-06 02:16 | DS ---
DATE OF DISCHARGE: 02/05/2021 DISCHARGE SUMMARY/PSYCHIATRIC PROGRESS NOTE This note covers elements not covered in my initial note, 02/05. REASON FOR ADMISSION: Please refer to the admission history for details. Briefly, the patient is a 80-year-old male referred to us from [facility] on account of worsening confusion, agitation within the context of his past history of bipolar disorder. He is restless, not sleeping, grabbed a peer and shoved the peer. He has been possessive over another female patient, he does not want her to go with anyone else. Agitated, paranoid. The patient's behaviors have been deemed dangerous, unmanageable. He has failed outpatient psychiatric interventions resulting in this referral. SIGNIFICANT FINDINGS AND CLINICAL COURSE: Following admission, the patient was seen daily individually by myself from a psychiatric standpoint, medical followup with Dr. Richmond/Dr. Boo. The patient remained extremely paranoid, agitated, aggressive. Adjustments were made in his psychotropics and he seemed to do better, but became extremely sedated. The atypical antipsychotic was therefore discontinued and finally he seemed to respond to a combination of Depakote sprinkles 500 mg b.i.d., BuSpar 10 mg t.i.d., Remeron 15 mg at bedtime, Zoloft 75 mg a day, Zyprexa p.r.n., trazodone 50 mg at bedtime p.r.n., december repeat x1. Valproic acid level was therapeutic at 55. Prior to discharge, 02/05/2021, no CV, , pulmonary, eye, ENT system symptoms on review. Reliability poor. MENTAL STATUS EXAM: Oriented to himself. Insight, judgment, recent and remote memory, attention, concentration, fund of knowledge poor, consistent with his diagnosis. FINAL DIAGNOSES: Major neurocognitive disorder, Alzheimer, vascular with delusion, depression, behavioral disturbance, anxiety disorder, unspecified; impulse control disorder, unspecified. Rest unchanged from admission. DISCHARGE MEDICATIONS: Please refer to the MRAD. DISCHARGE INSTRUCTIONS: Outpatient psychiatric and medical followup at the assisted. MICAELA/NITA DR: Silvestre TID: [id number]
== END 2021-02-05 12:45 | DRG 57 ==
LOC: ER 11:08 → GEROPSY 13:21
PROVIDERS: ADMIT Psychiatry & Neurology Psychiatry; ATTEND Psychiatry & Neurology Psychiatry
DX: G30.9 Alzheimer's disease, unspecified (principal); F01.51 Vascular dementia, unspecified severity, with behavioral disturbance; F31.60 Bipolar disorder, current episode mixed, unspecified; F02.81 Dementia in other diseases classified elsewhere, unspecified severity, with behavioral disturbance; E78.00 Pure hypercholesterolemia, unspecified; E78.5 Hyperlipidemia, unspecified; F41.1 Generalized anxiety disorder; F42.9 Obsessive-compulsive disorder, unspecified; F63.9 Impulse disorder, unspecified; G47.00 Insomnia, unspecified; I10 Essential (primary) hypertension; Z79.899 Other long term (current) drug therapy; Z87.891 Personal history of nicotine dependence; D69.6 Thrombocytopenia, unspecified; Z20.822 Contact with and (suspected) exposure to COVID-19
CPT/HCPCS: 36415; 71045; 80048; 80053; 80061; 80164; 80307; 80329; 81001; 82306; 82607; 83036; 83540; 83550; 83735; 84436; 84443; 84480; 85025; 85379; 86592; 93005; G0480; U0003; 97116; 97530; 99285-25